=== PATIENT | male | born 1985 | race African-American/Black ===

== ENCOUNTER 2020-08-11 00:23 | Emergency (ER) | payer OTHER, SELFPAY ==
[2020-08-11 00:33] VITALS: BP 138/78; BP 143/84; PULSE 101; PULSE 70; RESP 18; TEMP 36.7; O2SAT 98; BMI 85.0
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
--- NOTE | 2020-08-11 01:13 | PC.NURSE ---
REGARDING SI/HI PATIENT DENIES SI/HI MULTIPLE TIMES DURING TRIAGE. PATIENT DENIES HAVING PLAN. PER PATIENT I JUST FEEL OVERWHELMED, I'VE HAD A LOT OF DEATHS IN MY LIFE AND I FEEL SUPER ANXIOUS. PATIENT CLARIFIED HE WANTS TO SPEAK TO N REGARDING FEELING ANXIOUS AND OVERWHELMED NOT DUE TO SI.
--- NOTE | 2020-08-11 02:28 | PC.NURSE ---
this rn and dr coyle at bedside speaking to patient who at the time of entering the room was sleeping. explained to patient if he feels as though he really broke his left leg and wants it to be further evaluated we would need to transfer patient to [facility] because of his weight being 647 pounds. pt states he honestly just wants somewhere to sleep for the night. md aware. pt denies si/hi.
[2020-08-11 02:36] VITALS: BP 144/76; PULSE 56; RESP 18; TEMP 36.9; O2SAT 94
--- NOTE | 2020-08-11 05:58 | PC.NURSE ---
PT REMAINS IN NAD, SLEEPING AT THIS TIME. PLACED ON 2 L NC DUE TO DESTAT WHEN SLEEPING. 96% ON 2 L. OTHERWISE NAD.
[2020-08-11 06:34] VITALS: BP 171/95; PULSE 94; RESP 20; O2SAT 94
[2020-08-11 06:58] VITALS: BP 171/108; PULSE 88; RESP 16; O2SAT 95
--- NOTE | 2020-08-11 07:07 | PC.NURSE ---
PT VERY SLEEPY, BUT EASILY ABUSABLE, ORAL MUCOSAL VERY DRY. PT SET UP WITH [employer]IER, PT STATES THAT HE IS UNABLE TO LEAVE BECAUSE UNABLE AMBULATE AND HIS WHEELCHAIR IS AT [employer] AT [address].
[2020-08-11 08:42] VITALS: BP 182/94; PULSE 85; RESP 20; TEMP 36.7; O2SAT 92
== END 2020-08-11 09:31 | disposition home or self-care (01) ==
PROVIDERS: Emergency Provider Student in an Organized Health Care Education/Training Program
DX: R60.0 Localized edema (principal); R07.89 Other chest pain; M79.605 Pain in left leg; M79.604 Pain in right leg; M25.562 Pain in left knee; I10 Essential (primary) hypertension; Z79.899 Other long term (current) drug therapy; F17.200 Nicotine dependence, unspecified, uncomplicated; Z71.6 Tobacco abuse counseling; Z59.0 Homelessness; Z20.828 Contact with and (suspected) exposure to other viral communicable diseases
CPT/HCPCS: 99284

== ENCOUNTER 2020-08-19 21:03 | Emergency (ER) | payer OTHER, SELFPAY ==
[2020-08-19 21:10] VITALS: BP 146/94; BP 179/95; PULSE 100; PULSE 89; RESP 22; TEMP 36.8; O2SAT 99; BMI 94.8
--- NOTE | 2020-08-19 21:37 | XR_ITS ---
EXAMINATION: XR CHEST CLINICAL INFORMATION: Chest pain. Shortness of breath. COMPARISON: Chest x-ray 06/23/2020 TECHNIQUE: Frontal portable view of the chest was obtained. 10:10 PM FINDINGS: No significant abnormality is noted involving the heart, lungs, mediastinum, bony thorax or soft tissues. IMPRESSION: Unremarkable examination.
--- NOTE | 2020-08-19 21:42 | ED_ITS ---
HPI - Chest Pain General Chief Complaint: Chest Pain Stated Complaint: BODY ACHES Time Seen by Provider: 08/19/20 21:27 Source: patient Mode of arrival: EMS Limitations: no limitations History of Present Illness HPI narrative: Patient comes to emergency room complaining of chest pain for 2 hours and shortness of breath. Patient also complaining of generalized body aches. Patient states he was eating 2 hours ago. patient has had multiple visits to the emergency room complaining of chest pain, Patient states this time it feels different but is unable to describe the difference. MD complaint: chest pain Onset (ago): hour(s) Timing of current episode: constant Prior episodes: Yes Onset: after eating Pain location: substernal Pain radiation: none Severity: moderate Quality: aching Relieving factors: nothing Exacerbating factors: nothing Risk Factors Coronary artery disease risk factors: diabetes and hypertension Related Data Home Medications Medication Instructions Recorded Confirmed prednisone 10 mg PO DAILY 08/11/20 08/11/20 Allergies Allergy/AdvReac Type Severity Reaction Status Date / Time No Known Allergies Allergy Verified 08/19/20 21:13 [No Known Allergies*] Review of Systems Review of Systems: Constitutional : No Weight loss, No Fever, No Chills, No Night Sweats, No Fatigue, generalized body aches ENT/Mouth : No Hearing loss, No Ear Pain, No Nasal Congestion, No Sinus Pain, No Hoarseness, No sore throat, No Rhinorrhea, No Swallowing Difficulty Eyes: No Eye Pain, No Swelling, No Redness, No Foreign Body, No Discharge, No Vision Changes Cardiovascular : chest pain and shortness of breath Edema, No Palpitations Respiratory : No Cough, No Sputum, No Wheezing, No Smoke Exposure Gastrointestinal : No Nausea, No Vomiting, No Diarrhea, No Constipation, No abdominal Pain, No Hematochezia, No Melena Genitourinary : no irregular bleeding, No Dysuria, No Urinary Frequency, No Hematuria, No Urinary Incontinence, No Urgency, No Flank Pain, No Urinary Flow Changes, No Hesitancy Musculoskeletal : No joint pain, No Myalgias, No Joint Swelling Skin : No Skin Lesions, No rash Neuro : No Weakness, No Numbness, No Paresthesias, No Loss of Consciousness, No Dizziness, No Headache Psych : No Anxiety/Panic, No Depression, No SI/HI/AH/VH, No Social Issues, Heme/Lymph: No Bruising, No Bleeding,No Lymphadenopathy Endocrine : No Polyuria, No Polydipsia, No Temperature Intolerance PMF Past Medical History Medical History Anxiety Bipolar disorder Depression Hypertension Lymph edema PTSD (post-traumatic stress disorder) Sleep apnea in adult Testicle pain Social History Social History Smoking Status: Current some day smoker Advance Directives: No Physical Exam Vital Signs: Vital Signs: Vital Signs Temp Pulse Resp BP Pulse Ox 08/20/20 00:00 98.2 F 90 20 165/86 H 99 08/19/20 21:10 98.2 F 89 22 H 179/95 H 99 Body Mass Index 94.8 Appearance: Alert. Oriented X3. No acute distress, morbidly obese Eyes: Pupils equal, round and reactive to light. ENT: Pharynx normal. Neck: Normal inspection. Neck supple. No lymph nodes noted. No crepitus CVS: Normal heart rate and rhythm. Pulses normal. Normal S1 and S2, reproducible bilateral chest pain on palpation Respiratory: No respiratory distress. Breath sounds normal. No Wheezing. No rales Abdomen: Soft and nontender. No rigidity. No distention. good BS x4 Skin: Skin warm and dry. Normal skin color. Normal skin turgor. Extremities: No lower extremity edema. No lower extremity edema. No Lacerations. No Rash Neuro: Oriented X 3. No motor deficit. No sensory deficit. Moving all e xtermities. No slurred speech. Course Reevaluation(s) Reevaluation #1: patient has been sleeping comfortably, no pain reported. as the patient's nurse was getting him ready for discharge, patient stated that he wanted to be seen by behavioral health. Behavioral Health evaluated the patient, patient is not suicidal. Patient requested to be left in the ED until the morning when he can catch a bus or a chair van. Unfortunately, at this time, is not an option. care team saw the patient, offer him several options for therapy. MDM - Chest Pain MDM Narrative Medical decision making narrative: awoke up the patient, he denies chest pain, I discussed with him that his labs are at baseline. Patient has a troponin of 6.7, patient's baseline is approximately 10.0 Differential Diagnosis Differential diagnosis: Likely stable angina, atypical chest pain, costochondritis and chest pain Medical Records Data Attestation: I reviewed the patient's medical records. Lab Data Attestation: I reviewed the patient's lab results. Result diagrams: 08/19/20 22:23 08/19/20 22:23 Labs: Lab Results 08/19/20 08/19/20 08/19/20 Range/Units 22:23 22:23 22:23 WBC 7.1 (4.8-10.8) X10*3/uL RBC 3.96 L (4.60-5.80) X10*6/uL Hgb 10.1 L (14.0-18.0) g/dl Hct 34.6 L (42-52) % MCV 87.4 (80-98) fL MCH 25.5 L (27.0-33.0) pg MCHC 29.2 L (31.0-36.0) g/dl RDW 15.7 (11.0-16.0) % Plt Count 224 (160-400) X10*3/uL MPV 10.5 (9.4-12.4) fL Immature Gran % (Auto) 0.3 (0.0-0.4) % Neut % (Auto) 67.7 (45-73) % Lymph % (Auto) 15.9 L (20-40) % [place] % (Auto) 9.6 (2-11) % Eos % (Auto) 6.2 H (0-4) % Baso % (Auto) 0.3 (0-2) % Lymph # (Auto) 1.1 L (1.2-4.9) X10*3/uL [place] # (Auto) 0.7 (0.1-1.2) X10*3/uL Eos # (Auto) 0.4 (0.0-0.4) X10*3/uL Baso # (Auto) 0.0 (0.0-0.2) X10*3/uL Abs Immat Gran (auto) 0.02 (0.00-0.03) X10*3/uL Absolute Neuts (auto) 4.8 (2.0-8.3) X10*3/uL Absolute Nucleated RBC 0.000 (0.0-0.012) X10*3/uL Nucleated RBC % (auto) 0.0 (0.0-0.2) /100WBC Sodium 137 (135-145) mmol/L Potassium 3.8 (3.3-5.1) mmol/l Chloride 99 (96-108) mmol/L Carbon Dioxide 31 H (22-29) mmol/L Anion Gap 11 L (12-20) BUN 12 (9-16) mg/dL Creatinine 0.97 (0.5-1.4) mg/dL Estim Creat Clear Calc 258.2 Estimated GFR > 60 Random Glucose 139 H (60-115) mg/dL Calcium 8.0 L (8.4-10.2) mg/dL Troponin I High Sens 6.7 (<3.5-35.0) ng/L B-Natriuretic Peptide < 10 (<100) pg/mL Scores Heart Score History: -0- slightly suspicious ECG: -0- normal Age: -0- < or = 45 Risk factory: -2- 3 or more risk factors or treated atherosclerosis Troponin: -1- >1 - <3x normal limit Score: 3 Risk: 1.7% Discharge Plan Discharge Clinical Impression: Atypical chest pain Patient Disposition: Home, Self-Care Instructions: Chest Pain (ED) Additional Instructions: Please follow-up with your primary care physician tomorrow. If you have any worsening or new symptoms, please return to the emergency room or call 911 Prescriptions: No Action prednisone 10 mg PO DAILY RF: 0
--- NOTE | 2020-08-19 21:54 | ECG_ITS ---
Test Reason : CHEST PAIN Blood Pressure : / mmHG Vent. Rate : 096 BPM Atrial Rate : 096 BPM P-R Int : 164 ms QRS Dur : 074 ms QT Int : 348 ms P-R-T Axes : 063 050 108 degrees QTc Int : 439 ms Normal sinus rhythm Left atrial enlargement T wave abnormality, consider lateral ischemia Abnormal ECG When compared with ECG of 05-JUL-2020 02:46, Inverted T waves have replaced nonspecific T wave abnormality in Lateral leads Referred By: Lita Mcmillan Electronically Signed By:YURI KNOX MD
[2020-08-19 22:28] LABS: Basophils Percent Auto 0.3 % (0-2); Eosinophils Absolute Auto 0.4 X10*3/uL (0.0-0.4); Eosinophils Percent Auto 6.2 % (0-4); Hematocrit 34.6 % (42-52); Hemoglobin 10.1 g/dl (14.0-18.0); Imm Gran Abs Auto 0.02 X10*3/uL (0.00-0.03); Imm Gran Pct Auto 0.3 % (0.0-0.4); Lymphocytes Absolute Auto 1.1 X10*3/uL (1.2-4.9); Lymphocytes Percent Auto 15.9 % (20-40); MANUAL DIFF FLAG NO; Mean Corpuscular HGB Conc 29.2 g/dl (31.0-36.0); Mean Corpuscular Hemoglobin 25.5 pg (27.0-33.0); Mean Corpuscular Volume 87.4 fL (80-98); Mean Platelet Volume 10.5 fL (9.4-12.4); Monocytes Absolute Auto 0.7 X10*3/uL (0.1-1.2); Monocytes Percent Auto 9.6 % (2-11); Neutrophils Absolute Auto 4.8 X10*3/uL (2.0-8.3); Neutrophils Percent Auto 67.7 % (45-73); Platelet Count 224 X10*3/uL (160-400); Red Blood Count 3.96 X10*6/uL (4.60-5.80); Red Cell Distribution Width 15.7 % (11.0-16.0); White Blood Count 7.1 X10*3/uL (4.8-10.8)
[2020-08-19 22:47] LABS: Anion Gap 11 (12-20); Blood Urea Nitrogen 12 mg/dL (9-16); Carbon Dioxide 31 mmol/L (22-29); Chloride 99 mmol/L (96-108); Creatinine Clr Calc Pharmacy 258.2; Estimated Glomerular Filt Rate > 60; Glucose Random 139 mg/dL (60-115); Potassium 3.8 mmol/l (3.3-5.1); Sodium 137 mmol/L (135-145)
[2020-08-19 22:54] LABS: B Type Natriuretic Peptide < 10 pg/mL (<100); Troponin-I High Sensitivity 6.7 ng/L (<3.5-35.0)
[2020-08-20] VITALS: BP 165/86; PULSE 90; RESP 20; TEMP 36.8; O2SAT 99
--- NOTE | 2020-08-20 02:00 | PC.NURSE ---
PATIENT SEEN BY CARE TEAM MARINA. PATIENT DENIES SI OR HI, STATING HE WANTS TO HAVE MEDICATION CHANGES. GIVEN RESOURCES TO FOLLOW UP WITH THERAPIST. PLAN OF CARE FOR DISCHARGE TO THE WAITING ROOM. PATIENT STATING THAT HE WILL NOT LEAVE THE DEPARTMENT. WILL RE-APPROACH PATIENT WITH ADDITIONAL STAFF MEMBERS.
--- NOTE | 2020-08-20 02:02 | MHC.CARE ---
CARE team consult requested for pt who stated that he wanted to speak with someone about his mental health. Pt was difficult to engage, and then difficult to understand due his him mumbling. Pt did not provide relevant responses to questions when asked, rather staring blankly at this credit underwriter or changing the subject. This credit underwriter asked pt how he feels that he would be best helped at this time, to which pt responded that he wants to be admitted to in psych to get back on his meds and to get a therapist. This credit underwriter offered to complete referrals for outpatient therapy and psychiatry and to provide pt with [facility] crisis card. Pt stared blankly at this credit underwriter, then responded so you aren't going to help me. Pt was not receptive to the suggestions, and stated that he wanted to speak with crisis. Pt was informed that [facility] crisis evaluates pt's who are in more acute behavioral health circumstances. Pt was again offered therapy referrals and wouldn't respond when asked what area he would prefer the referrals to be made in. Pt explained that he wanted to stay overnight because he can't walk and his wheelchair is at the [facility]. Pt reported that he missed the bus to get back to [place], and that he came to the ED to talk to someone (initial complaint was SOB and body aches) and denied there being any physical complaints. Pt asked can't I just stay the night? They let me do that the last time I was here, then I could get a chair van to bring me to my wheelchair. Pt was told that those arrangements are not typical and should not be an expectation when coming to the ED. Pt continued to decline referrals and resources. ED physician updated, plan is for pt to be discharged.
== END 2020-08-20 02:39 | disposition home or self-care (01) ==
PROVIDERS: Emergency Provider Emergency Medicine
DX: R07.89 Other chest pain (principal); I10 Essential (primary) hypertension; F41.9 Anxiety disorder, unspecified; F31.9 Bipolar disorder, unspecified; F43.10 Post-traumatic stress disorder, unspecified
CPT/HCPCS: 36415; 71045; 80048; 83880; 84484; 85025; 93005; 99283; 99284

== ENCOUNTER 2020-09-22 21:44 | Emergency (ER) | payer OTHER, SELFPAY ==
[2020-09-22 21:58] VITALS: BP 169/89; PULSE 96; RESP 28; TEMP 35.5; O2SAT 95; O2SAT 96; BMI 92.0
--- NOTE | 2020-09-22 22:53 | ED_ITS ---
HPI - General Adult General Chief complaint: Fall Stated complaint: fall Time Seen by Provider: 09/22/20 22:53 Source: patient Mode of arrival: wheelchair History of Present Illness HPI narrative: This is a 35-year-old male well known to this emergency department who states that he fell off his wheelchair [place] [employer] and is experiencing some dizziness and lightheadedness, however on further questioning patient endorses that this has resolved and states that he is otherwise feeling depressed but denies feeling suicidal ideation. He is requesting to speak with someone from the crisis team as well as a safe place to rest. Related Data Home Medications Medication Instructions Recorded Confirmed prednisone 10 mg PO DAILY 08/11/20 08/11/20 Allergies Allergy/AdvReac Type Severity Reaction Status Date / Time No Known Allergies Allergy Verified 08/19/20 21:13 [No Known Allergies*] Review of Systems Review of Systems: Pertinent positives and negatives as stated in HPI and 10 point review systems is otherwise negative. PMFSH Past Medical History Source: nursing notes reviewed Medical History Anxiety Bipolar disorder Depression Hypertension Lymph edema PTSD (post-traumatic stress disorder) Sleep apnea in adult Testicle pain Social History Social History Smoking Status: Unknown if ever smoked Use of substances other than those prescribed or required for medical reasons: Unknown Advance Directives: No Advance Directives Information Provided: Yes Physical Exam Vital Signs: Vital Signs: Last Vital Signs Temp 95.9 F L 09/22/20 21:58 Pulse 91 09/23/20 04:00 Resp 18 09/23/20 06:00 BP 169/89 H 09/22/20 21:58 Pulse Ox 100 09/23/20 04:00 Body Mass Index 92.0 Patient with significant morbid obesity which limits physical exam. VITAL SIGNS: Reviewed. GENERAL: Well developed, well nourished, in no acute distress. HEAD: Normocephalic/atraumatic, EYES: PERRLA, EOMI intact without pain, no nystagmus/pallor/icterus noted EARS: Ext canals without abnormality, TMs non-bulging and non-erythematous NOSE: Nares patent bilateral OROPHARYNX: no oral lesions noted, posterior pharynx clear and non-erythematous without noted tonsillar enlargement/erythema/exudates NECK: Supple, no adenopathy LUNGS: Normal breath sounds. No adventitious sounds or accessory muscle use. SpO2<95> CARDIOVASCULAR: Regular rate and rhythm without noted murmurs, no JVD or lower extremity edema. ABDOMEN: Soft, non-tender, non-distended with bowel sounds. No rigidity. No guarding. No palpable masses or hernias noted MUSCULOSKELETAL: No tenderness, deformities, or effusions noted on gross inspection. EXTREMITIES: No cyanosis, clubbing, known bilateral lymphedema SKIN: Inspection of the skin reveals no rashes, ulcerations, jaundice, pallor, or petechiae. NEUROLOGIC: Alert and oriented x 4. Strength and sensation to light touch were grossly intact x 4. Course Course Course Narrative: This is a 35-year-old male with history and clinical presentation consistent with depressive symptoms and will be evaluated by the crisis team. Patient denies any suicidal ideation. Reevaluation(s) Reevaluation #1: Signed out to Dr Deluca with plan to discharge as long as [facility] evaluation clears patient. Time: 07:06 Discharge Plan Discharge Clinical Impression: Grieving Depression Qualifiers: Depression Type: unspecified Qualified Code(s): F32.9 - Major depressive disorder, single episode, unspecified Patient Disposition: Home, Self-Care Instructions: Depression (ED) Additional Instructions: The patient and/or family acknowledge understanding of results (as applicable), diagnosis, treatment plan, need for follow up, and symptoms that should prompt a return to the emergency room. Prescriptions: No Action prednisone 10 mg PO DAILY RF: 0 Referrals: Physician,Unknown [Primary Care Provider] - 2 days
[2020-09-23] VITALS: RESP 18
[2020-09-23 02:00] VITALS: RESP 18
--- NOTE | 2020-09-23 02:03 | PC.NURSE ---
Pt denies SI or HI. Depressed d/t recent loss of parents. Awaiting to be seen from [facility].
[2020-09-23 04:00] VITALS: PULSE 91; RESP 18; O2SAT 100
--- NOTE | 2020-09-23 04:09 | MHC.PIE ---
P: Low O2 80% at room air. I: 2L oxygen applied via nc. E: Oxygen sat maintained > 95% at 2 L via NC. Will continue to monitor.
[2020-09-23 06:00] VITALS: RESP 18
--- NOTE | 2020-09-23 06:41 | PC.NURSE ---
Incontinent of urine. Walked to bathroom to clean himself. Changed to hospital attire. Awaiting to be seen by Corinna.
[2020-09-23 07:53] VITALS: BP 183/87; PULSE 98; RESP 24; O2SAT 95
--- NOTE | 2020-09-23 07:55 | PC.NURSE ---
Pt assisted back in bed after breakfast. Reports of mother 4 days ago in [place] reports increased depression over event. Denies SI or HI. Awaiting N
--- NOTE | 2020-09-23 10:33 | PC.NURSE ---
[facility] at bedside at this time
--- NOTE | 2020-09-23 11:22 | MHC.CM.ED ---
Received case management consult. Patient was seen and cleared by [facility]. Patient is requesting more help . Patient is active with [facility]. Left a message for Beet Flumer, Belinda Gann via telephone at [phone] ext. [phone] requesting return telephone call. Met with patient in regards to d/c planning. Patient's only concern is obtaining his wheelchair from [employer]. He was at [employer] in [place] last night when he fell. Patient states [employer] is holding the wheelchair for him. T/W spoke with customer service at [employer]. The chair is at the customer service desk. T/w spoke with [employer] at [employer]. She is attempting to obtain the wheelchair for patient. Continue to monitor for d/c needs.
--- NOTE | 2020-09-23 12:02 | PC.NURSE ---
Pt resting comfortably in stretcher, no issues at this time. EMS to be transporting his [facility] chair to us from [employer] where he was picked up from.
== END 2020-09-23 14:20 | disposition home or self-care (01) ==
PROVIDERS: Emergency Provider Student in an Organized Health Care Education/Training Program
DX: F33.1 Major depressive disorder, recurrent, moderate (principal); F43.21 Adjustment disorder with depressed mood; I10 Essential (primary) hypertension; R42 Dizziness and giddiness; Z79.899 Other long term (current) drug therapy
CPT/HCPCS: 99285

== ENCOUNTER 2020-09-29 22:18 | Emergency (ER) | payer OTHER, SELFPAY ==
[2020-09-29 22:34] VITALS: BP 200/102; PULSE 99; RESP 22; TEMP 36.8; O2SAT 95; BMI 97.6
[2020-09-29 22:44] VITALS: BP 200/102; PULSE 99; RESP 22; TEMP 36.8; O2SAT 95
--- NOTE | 2020-09-29 22:53 | ED_ITS ---
HPI - Psych General Chief Complaint: Psychiatric Symptoms Stated Complaint: SI Time Seen by Provider: 09/29/20 22:35 Source: patient and EMS Mode of arrival: EMS Limitations: no limitations History of Present Illness HPI Narrative: 35-year-old male with medical history of morbid obesity, hypertension, Lymphedema and psychiatric symptoms presents with suicidal ideation. MD complaint: suicidal ideation and feels depressed Onset (ago): unknown Duration: constant History of same: Yes Relieving factors: none Context: not taking psychiatric medications Associated psychiatric symptoms: depression Associated symptoms: denies other symptoms Treatments prior to arrival: none If self harm: admits thoughts of self harm Related Data Home Medications Medication Instructions Recorded Confirmed prednisone 10 mg PO DAILY 08/11/20 08/11/20 Allergies Allergy/AdvReac Type Severity Reaction Status Date / Time No Known Allergies Allergy Verified 08/19/20 21:13 [No Known Allergies*] Review of Systems Review of Systems: Constitutional: No Fever, No Chills ENT/Mouth: No Ear Pain, No Nasal Congestion, No sore throat Eyes: No Eye Pain, No Swelling, No Redness Cardiovascular: No Chest Pain, No SOB Respiratory: No Cough, No Sputum, No Dyspnea Gastrointestinal: No Nausea, No Vomiting, No Diarrhea, No Hematochezia, No Melena Genitourinary: No Dysuria, No Urinary Frequency, No Hematuria Musculoskeletal: No Myalgias Skin: No Skin Lesions, No rash Neuro: No Weakness, No Numbness, No Paresthesias, No Dizziness, No Headache Psych: positive Anxiety, positive Depression, positive SI Heme/Lymph: No Lymphadenopathy Endocrine: No Polyuria, No Polydipsia Yes all other systems are reviewed and are negative [facility] Past Medical History Attestation statement: The following information was validated with the patient. Source: old records reviewed Medical History Anxiety Bipolar disorder Depression Hypertension Lymph edema PTSD (post-traumatic stress disorder) Sleep apnea in adult Testicle pain Social History Social History Alcohol intake: never Smoking Status: Unknown if ever smoked Smoked in Last 30 Days: No Use of substances other than those prescribed or required for medical reasons: No Advance Directives: No Physical Exam Vital Signs: Vital Signs: Last Vital Signs Temp 97.9 F 09/29/20 23:50 Pulse 91 09/29/20 23:50 Resp 14 09/29/20 23:50 BP 166/89 H 09/29/20 23:50 Pulse Ox 94 09/29/20 23:50 Body Mass Index 97.6 Appearance: Alert. Oriented X3. No acute distress. Eyes: Pupils equal, round and reactive to light. ENT: Pharynx normal. Neck: Normal inspection. Neck supple. CVS: Normal heart rate and rhythm. Pulses normal. Respiratory: No respiratory distress. Breath sounds normal. Abdomen: Soft and nontender. Skin: Skin warm and dry. Normal skin color. Normal skin turgor. Extremities: No lower extremity edema. Neuro: No motor deficit. No sensory deficit. Course Course Course Narrative: 35-year-old male past medical history of morbid obesity, hypertension, lymphedema, and psychiatric disorder presents with suicidal ideation, depression, and anxiety. Plan of care is for care team consult. He presents via EMS for suicidal ideation. [place], he threw room self onto the ground out of his wheelchair as the mall was c losing. He is well known to this facility as well as other facilities [facility] and [facility]. He is no longer welcome at [facility] or [facility] because of his abusive and manipulative behaviors. He usually presents at hospital when he has no resources or money, he has had multiple N evaluations as well as multiple opportunities for inpatient stays and outpatient therapies. He has nev er filled any of the medications upon discharge and this has been discussed with him by both Care Team and N. interesting to note, there was a write up in a local newspaper about this individual, there was a Go Fund Me page started for him which raise 7000 dollars to help him find home And support his disabilities. An investigative report found that he had a home and that he was not disabled and that he is wheelchair-bound due to morbid obesity. He is able to walk when he wants to. He presents with tachypnea, while present in the room he is forcing himself to breathe in unlabored manner, I watched him from outside of his room where he was breathing in and unlabored even respiration at a normal rate of 16. once I entered the room he started forcing himself to breathe at a faster rate. He is known to alter his respiration rate and report chest pain To obtain medical evaluations, as well as request personal care and cleansing from RNs and ED technicians when he can do these things himself. this behavior has been well documented in his BHN and care team consults. care team consult completed, it was discussed that M5 is not an option at this time, he does report that his mother recently and he is feeling depression because of that. It is well documented that he grew up in foster care and residential programs. Care team and I both feel that this patient is abusing the system however he maintains his suicidality. We will order BHN consult as well as psychiatric consult. Sign out to Dr. Demarco. MDM - Psych Differential Diagnosis Differential diagnosis: Likely suicidal ideation, depression and acute anxiety Restraints Face to Face Assessment: Face to Face Assessment: Current Situation: After assessment of the patient, a review of the pertinent medical record and a discussion with nursing staff, I feel the patient requires a restrain intervention. Reaction To: [] Medical Condition: [] Behavioral State: [] Continued Need: [] Medical Records Attestation: I reviewed the patient's medical records. Discharge Plan Discharge Prescriptions: No Action prednisone 10 mg PO DAILY RF: 0
--- NOTE | 2020-09-29 23:02 | ED_ITS ---
HPI - General Adult General Chief complaint: Psychiatric Symptoms Stated complaint: SI Time Seen by Provider: 09/29/20 22:35 Related Data Home Medications Medication Instructions Recorded Confirmed prednisone 10 mg PO DAILY 08/11/20 08/11/20 Allergies Allergy/AdvReac Type Severity Reaction Status Date / Time No Known Allergies Allergy Verified 08/19/20 21:13 [No Known Allergies*] PMFSH Past Medical History Medical History Anxiety Bipolar disorder Depression Hypertension Lymph edema PTSD (post-traumatic stress disorder) Sleep apnea in adult Testicle pain Social History Social History Alcohol intake: never Smoking Status: Unknown if ever smoked Smoked in Last 30 Days: No Use of substances other than those prescribed or required for medical reasons: No Advance Directives: No Physical Exam Vital Signs: Vital Signs: Last Vital Signs Temp 97.5 F 09/30/20 02:00 Pulse 90 09/30/20 02:00 Resp 15 09/30/20 02:00 BP 167/81 H 09/30/20 02:00 Pulse Ox 94 09/30/20 02:00 Body Mass Index 97.6 Discharge Plan Discharge Clinical Impression: Depression, Homeless Patient Disposition: Home, Self-Care Instructions: Depression (ED) Additional Instructions: Recommend follow up with [facility], they can accommodate your CPAP machine. Follow up with your doctor this week. If you develop suicidal thoughts call 911 or come back to the ER for further evaluation. Prescriptions: No Action prednisone 10 mg PO DAILY RF: 0 Interventions: ED Discharge Assessment Last Done: 09/30/20 14:27 Discharge Date/Time: 09/30/20 14:27
[2020-09-29 23:50] VITALS: BP 166/89; PULSE 91; RESP 14; TEMP 36.6; O2SAT 94
--- NOTE | 2020-09-30 01:36 | MHC.CARE ---
CARE Team meets with pt after receiving consult, siting SI. Pt is very well known to CARE Team and provider was questioning if BHN assessment should take place. He reports increased depression/hopelessness second to the recent of his mother. Pt is seeking inpatient level of care, siting that he would like to get back on his meds. There is a known hx of medication non compliance post d/c. CARE Team attempts to safety plan with pt to see if a crisis assessment can be diverted. Pt has a hx of inpatient hospitalizations that have been minimally beneficial for him. Pt has hx of suicidal ideation, however, has not acted on these thoughts. Alternatives, such as shelters and respite programs are very difficult for pt to access. ED provider, Mariah Viveros NP and CARE Team clinician are questioning the benefit of inpt admission. Pt is often difficult to place on inpatient units, due to his need of a bariatric bed. Plan at this time is for BHN to conduct assessment. Consult to psychiatry has also been placed, as it would be beneficial for them to give recommendations relating to disposition.
[2020-09-30 02:00] VITALS: BP 167/81; PULSE 90; RESP 15; TEMP 36.4; O2SAT 94
--- NOTE | 2020-09-30 07:42 | PC.NURSE ---
report taken from [facility] pt here for increased depression, asking to speak to crisis. [facility] faxed and called. will see pt today. pt appears to be sleeping in sitting position, snoring loudly. rr even/unlabored.
--- NOTE | 2020-09-30 09:21 | PC.NURSE ---
pt breakfast warmed up. eating att.
--- NOTE | 2020-09-30 10:08 | PC.NURSE ---
per n, clinician out to assess pt shortly.
--- NOTE | 2020-09-30 11:28 | PC.NURSE ---
[facility] at bedside for consult.
--- NOTE | 2020-09-30 12:21 | PC.NURSE ---
following n eval, pt no longer needing 1:1 observation. plan to try and facilitate transfer to [facility], per n. [facility] for discharge needs.
== END 2020-09-30 14:27 | disposition home or self-care (01) ==
PROVIDERS: Emergency Provider Internal Medicine
DX: F33.1 Major depressive disorder, recurrent, moderate (principal); R45.851 Suicidal ideations; I10 Essential (primary) hypertension; Z79.899 Other long term (current) drug therapy
CPT/HCPCS: 99284

== ENCOUNTER 2020-11-07 07:05 | Emergency (ER) | payer OTHER, SELFPAY ==
[2020-11-07 07:11] VITALS: BP 145/101; BP 149/81; PULSE 101; PULSE 97; RESP 20; TEMP 37.1; O2SAT 97; O2SAT 98; BMI 83.7
--- NOTE | 2020-11-07 07:15 | XR_ITS ---
EXAMINATION: XR ANKLE, LEFT CLINICAL INFORMATION: Lateral ankle pain COMPARISON: None TECHNIQUE: AP, lateral, and mortise views of the left ankle. Portable technique limits assessment. FINDINGS: Prominence of the soft tissues presumably related to body habitus. There is no gross disruption of the ankle mortise. Generalized spurring. No gross acute deformity. Suboptimal positioning especially on lateral view. Portable technique. Tiny well-corticated ossific density inferior to the lateral malleolus as well as the medial malleolus likely sequela of old injuries. Spurring dorsally noted as well about the Lisfranc's joint and Chopart joint. XR/XR ankle LT min 3V IMPRESSION: Limited portable exam dose 3 no gross fracture.
--- NOTE | 2020-11-07 07:41 | ED.LOWEXIN ---
HPI - Extremity Injury (Lower) General Chief Complaint: Extremity Injury, Lower Stated Complaint: leg pain Time Seen by Provider: 11/07/20 07:36 Source: patient and EMS Mode of arrival: EMS Limitations: no limitations History of Present Illness HPI Narrative: Patient comes to emergency room complaining of left ankle pain, worse over the left lateral malleolus. Patient states it has been present for about 3 days, patient has been able to bear weight, denies any injury. Patient states he does not know what happened to it, it just started hurting suddenly. Patient denies pain anywhere else. Patient denies calf pain, no thigh pain, foot and toes within normal limits. Per EMS, patient was ambulatory in the field Related Data Home Medications Medication Instructions Recorded Confirmed prednisone 10 mg PO DAILY 08/11/20 08/11/20 Previous Rx's Medication Instructions Recorded ibuprofen 600 mg PO TID PRN #14 tab 11/07/20 Allergies Allergy/AdvReac Type Severity Reaction Status Date / Time No Known Allergies Allergy Verified 08/19/20 21:13 [No Known Allergies*] Review of Systems Review of Systems: Constitutional : No Weight loss, No Fever, No Chills, No Night Sweats, No Fatigue, No Malaise ENT/Mouth : No Hearing loss, No Ear Pain, No Nasal Congestion, No Sinus Pain, No Hoarseness, No sore throat, No Rhinorrhea, No Swallowing Difficulty Eyes: No Eye Pain, No Swelling, No Redness, No Foreign Body, No Discharge, No Vision Changes Cardiovascular : No Chest Pain, No SOB, No Dyspnea on Exertion, No Orthopnea, No Edema, No Palpitations Respiratory : No Cough, No Sputum, No Wheezing, No Smoke Exposure, No Dyspnea Gastrointestinal : No Nausea, No Vomiting, No Diarrhea, No Constipation, No abdominal Pain, No Hematochezia, No Melena Genitourinary : no irregular bleeding, No Dysuria, No Urinary Frequency, No Hematuria, No Urinary Incontinence, No Urgency, No Flank Pain, No Urinary Flow Changes, No Hesitancy Musculoskeletal : Patient complaining of the left lateral malleolus pain Skin : No Skin Lesions, No rash Neuro : No Weakness, No Numbness, No Paresthesias, No Loss of Consciousness, No Dizziness, No Headache Psych : No Anxiety/Panic, No Depression, No SI/HI/AH/VH, No Social Issues, Heme/Lymph: Chronic bilateral lower extremity lymphedema Endocrine : No Polyuria, No Polydipsia, No Temperature Intolerance [facility] Past Medical History Medical History Anxiety Bipolar disorder Depression Hypertension Lymph edema PTSD (post-traumatic stress disorder) Sleep apnea in adult Testicle pain Social History Social History Alcohol intake: never Smoking Status: Current some day smoker Use of substances other than those prescribed or required for medical reasons: Yes Substance Use Type: Marijuana Substance Use Frequency: Occasionally Advance Directives: No Advance Directives Information Provided: No Physical Exam Vital Signs: Vital Signs: Last Vital Signs Temp 98.8 F 11/07/20 07:11 Pulse 101 H 11/07/20 07:11 Resp 20 11/07/20 07:11 BP 149/81 H 11/07/20 07:11 Pulse Ox 98 11/07/20 07:11 Body Mass Index 83.7 Appearance: Alert. Oriented X3. No acute distress. Eyes: Pupils equal, round and reactive to light. ENT: Pharynx normal. Neck: Normal inspection. Neck supple. No lymph nodes noted. No crepitus CVS: Normal heart rate and rhythm. Pulses normal. Normal S1 and S2 Respiratory: No respiratory distress. Breath sounds normal. No Wheezing. No rales Abdomen: Soft and nontender. No rigidity. No distention. good BS x4 Skin: Skin warm and dry. Chronic lymphedema bilaterally, pain to palpation over the lateral malleolus, patient able to flex and extend ankle Extremities: No lower extremity edema. No lower extremity edema. No Lacerations. No Rash Neuro: Oriented X 3. No motor deficit. No sensory deficit. Moving all extermities. No slurred speech. Course Course Course Narrative: I discussed the x-ray with the patient, no acute fracture. Crutches were offered to the patient. MDM - Extremity Injury (Lower) Imaging Data Left ankle x-ray: Radiologist's impression: Prominence of the soft tissues presumably related to body habitus. There is no gross disruption of the ankle mortise. Generalized spurring. No gross acute deformity. Suboptimal positioning especially on lateral view. Portable technique. Tiny well-corticated ossific density inferior to the lateral malleolus as well as the medial malleolus likely sequela of old injuries. Spurring dorsally noted as well about the Lisfranc's joint and Chopart joint. XR/XR ankle LT min 3V IMPRESSION: Limited portable exam dose 3 no gross fractur Discharge Plan Discharge Clinical Impression: Ankle pain, left Qualifiers: Chronicity: acute Qualified Code(s): M25.572 - Pain in left ankle and joints of left foot Patient Disposition: Home, Self-Care Instructions: Ankle Strain (ED) Additional Instructions: Please follow-up with your primary care physician tomorrow. If you have any worsening or new symptoms, please return to the emergency room or call 911 Prescriptions: New ibuprofen 600 mg tablet 600 mg PO TID PRN (Reason: pain) Qty: 14 RF: 0 No Action prednisone 10 mg PO DAILY RF: 0
[2020-11-07] MEDS: Acetaminophen 325 MG TABLET 650 MG PO (07:59)
== END 2020-11-07 09:33 | disposition home or self-care (01) ==
PROVIDERS: Emergency Provider Emergency Medicine; PCP Family Medicine
DX: M25.572 Pain in left ankle and joints of left foot (principal); I10 Essential (primary) hypertension
CPT/HCPCS: 73610; 99283; 99284

== ENCOUNTER 2020-11-08 04:08 | Emergency (ER) | payer OTHER, SELFPAY ==
[2020-11-08 04:21] VITALS: BP 129/74; PULSE 109; RESP 18; TEMP 36.7; O2SAT 90; BMI 92.2
--- NOTE | 2020-11-08 04:42 | ED.LOWEXIN ---
HPI - Extremity Injury (Lower) General Chief Complaint: Extremity Injury, Lower Stated Complaint: multiple complaints Time Seen by Provider: 11/08/20 04:39 Source: patient Mode of arrival: EMS Limitations: no limitations History of Present Illness HPI Narrative: Patient morbidly obese 300 kg body weight comes here frequently for multiple complaints was seen here yesterday for left ankle pain atraumatic for last 3 days x-ray was done which was negative comes here for similar pain now patient was seen at [facility] also 2 days ago and was given oxycodone no other injuries patient denies any fall or injury other joint pain Related Data Home Medications Medication Instructions Recorded Confirmed prednisone 10 mg PO DAILY 08/11/20 08/11/20 Previous Rx's Medication Instructions Recorded ibuprofen 600 mg PO TID PRN #14 tab 11/07/20 Allergies Allergy/AdvReac Type Severity Reaction Status Date / Time No Known Allergies Allergy Verified 08/19/20 21:13 [No Known Allergies*] Review of Systems Review of Systems: Yes all other systems are reviewed and are negative [facility] Past Medical History Medical History Anxiety Bipolar disorder Depression Hypertension Lymph edema PTSD (post-traumatic stress disorder) Sleep apnea in adult Testicle pain Social History Social History Alcohol intake: never Smoking Status: Current some day smoker Substance Use Type: Marijuana Advance Directives: No Advance Directives Information Provided: No Physical Exam Vital Signs: Vital Signs: Last Vital Signs Temp 98.1 F 11/08/20 04:21 Pulse 109 H 11/08/20 04:21 Resp 18 11/08/20 04:21 BP 129/74 11/08/20 04:21 Pulse Ox 90 L 11/08/20 04:21 Body Mass Index 92.2 Const: General: comfortable and no acute distress Nutritional Appearance: obese morbidly obese Orientation/consciousness: patient oriented x3 HENMT: Head: Yes normal to inspection Face and sinus: Yes normal facial exam Resp: Effort & Inspection: normal respiratory effort Cardio: Rate: regular rate Rhythm: regular rhythm Neuro: General: patient oriented x3 Extrem: Upper/lower leg/hip images: 1. Diffuse tenderness skin is normal lymphedema present no significant swelling of the joints noticed, good range of ankle movement Course Course Course Narrative: Patient purposefully slid down from the bed to the ground any significant injury refusing to get up from the floor Discharge Plan Discharge Clinical Impression: Musculoskeletal pain of lower extremity Qualifiers: Laterality: left Qualified Code(s): M79.605 - Pain in left leg Patient Disposition: Home, Self-Care Instructions: Musculoskeletal Pain (ED) Additional Instructions: Take pain medication as advised and follow up with PCP Prescriptions: No Action ibuprofen 600 mg tablet 600 mg PO TID PRN (Reason: pain) Qty: 14 RF: 0 prednisone 10 mg PO DAILY RF: 0
[2020-11-08] MEDS: oxyCODONE HCl Immed Release 5 MG TABLET 10 MG PO (04:49)
[2020-11-08 07:41] VITALS: BP 165/82; PULSE 103; RESP 18; TEMP 37; O2SAT 91
== END 2020-11-08 09:18 | disposition home or self-care (01) ==
PROVIDERS: Emergency Provider Internal Medicine
DX: M79.605 Pain in left leg (principal); I10 Essential (primary) hypertension; F17.200 Nicotine dependence, unspecified, uncomplicated
CPT/HCPCS: 99283

== ENCOUNTER 2020-11-16 01:26 | Emergency (ER) | payer OTHER, SELFPAY ==
[2020-11-16 01:31] VITALS: BP 159/79; PULSE 114; RESP 22; TEMP 37.4; O2SAT 88; BMI 83.7
--- NOTE | 2020-11-16 01:48 | PC.NURSE ---
pt is coming from [facility].
--- NOTE | 2020-11-16 03:13 | ED.GENADULT ---
HPI - General Adult General Chief complaint: General Medical Stated complaint: leg pain Time Seen by Provider: 11/16/20 03:07 Source: patient Mode of arrival: ambulatory Limitations: no limitations History of Present Illness HPI narrative: 35-year-old male who presents emergency department for evaluation of left leg and ankle pain. This is the patient's 3rd ER visit for this condition. Patient states that he has been having pain in his left lower extremity for approximately 1 week. He denies any injury. He states that he has a constant squeezing/tightness pain that starts in his ankle and goes to his knee. The pain is worse with movement. He states that he has been taking Tylenol, oxycodone ibuprofen with no relief for the pain. States the pain is 10/10 at its worst. He denied fever, chills, nausea, vomiting, chest pain or shortness of breath. Related Data Home Medications Medication Instructions Recorded Confirmed prednisone 10 mg PO DAILY 08/11/20 08/11/20 Previous Rx's Medication Instructions Recorded ibuprofen 600 mg PO TID PRN #14 tab 11/07/20 oxycodone 5 mg PO Q6H PRN #20 tab 11/08/20 Allergies Allergy/AdvReac Type Severity Reaction Status Date / Time No Known Allergies Allergy Verified 08/19/20 21:13 [No Known Allergies*] Review of Systems Review of Systems: Yes all other systems are reviewed and are negative PMFSH Past Medical History Medical History Anxiety Bipolar disorder Depression Hypertension Lymph edema PTSD (post-traumatic stress disorder) Sleep apnea in adult Testicle pain Social History Social History Alcohol intake: never Smoking Status: Current some day smoker Substance Use Type: Marijuana Advance Directives: No Advance Directives Information Provided: No Physical Exam Vital Signs: Vital Signs: Last Vital Signs Temp 99.3 F 11/16/20 01:31 Pulse 114 H 11/16/20 01:31 Resp 22 H 11/16/20 01:31 BP 159/79 H 11/16/20 01:31 Pulse Ox 88 L 11/16/20 01:31 Body Mass Index 83.7 Const: General: cooperative and in distress (Secondary to pain) mild and moderate Nutritional Appearance: obese morbidly obese Extrem: Other: The patient has very large legs with thick dry skin, there is no erythema or increased warmth of the left lower extremity compared to the right, he does have tenderness with palpation of his extremity from the knee down to the ankle, he is able to move his legs without any difficulty. Course Course Course Narrative: 35-year-old male who presents the emergency department for evaluation of left leg pain x1 week without any trauma. The patient does have tenderness with palpation of his left lower extremity. There is no evidence of cellulitis at this time. The patient was given ibuprofen 600 mg orally. He was discharged home and advised to continue taking ibuprofen and Tylenol for his pain. He is advised follow up with his doctor for further evaluation and treatment. Discharge Plan Discharge Prescriptions: No Action ibuprofen 600 mg tablet 600 mg PO TID PRN (Reason: pain) Qty: 14 RF: 0 oxycodone 5 mg tablet 5 mg PO Q6H PRN (Reason: Pain (Scale Score 4-6)) Qty: 20 RF: 0 prednisone 10 mg PO DAILY RF: 0
[2020-11-16] MEDS: Ibuprofen 600 MG TABLET PO (03:31)
== END 2020-11-16 03:49 | disposition home or self-care (01) ==
PROVIDERS: Emergency Provider Emergency Medicine Emergency Medical Services
DX: M79.662 Pain in left lower leg (principal); F17.200 Nicotine dependence, unspecified, uncomplicated; Z71.6 Tobacco abuse counseling; Z79.899 Other long term (current) drug therapy
CPT/HCPCS: 99283

== ENCOUNTER 2020-11-16 03:54 | Emergency (ER) | payer OTHER, SELFPAY ==
[2020-11-16 03:57] VITALS: BMI 83.7
--- NOTE | 2020-11-16 05:03 | PC.NURSE ---
PATIENT REMAINS IN WHEELCHAIR AT THIS TIME, AWAITING PROVIDER EVALUATION. DISCHARGED 10 MINUTES PRIOR TO ARRIVAL TO ED. PT CALLED EMS FROM [facility], UPSET ABOUT BEING DISCHARGED. NO CHANGES FROM PREVIOUS EVALUATION.
--- NOTE | 2020-11-16 05:06 | ED_ITS ---
HPI - General Adult General Chief complaint: General Medical Stated complaint: Crisis Time Seen by Provider: 11/16/20 05:02 Source: patient Mode of arrival: ambulatory Limitations: no limitations History of Present Illness HPI narrative: 35-year-old male who presents the emergency department for evaluation of ?I am stressed out ?and having suicidal ideation. I just saw the patient in the emergency department approximately 30 minutes prior for leg pain. The patient was discharged and when he got to the parking lot he called 911 and told the dispatcher is that he was suicidal. The patient was then brought back to the emergency department for evaluation. The patient told me that he has been suicidal for at least 2 days. He does not have a plan. He is requesting a crisis evaluation. He does not seem to be in any distress he does not appear to have any pain in his left leg which was his previous complaint. Related Data Home Medications Medication Instructions Recorded Confirmed prednisone 10 mg PO DAILY 08/11/20 08/11/20 Previous Rx's Medication Instructions Recorded ibuprofen 600 mg PO TID PRN #14 tab 11/07/20 oxycodone 5 mg PO Q6H PRN #20 tab 11/08/20 Allergies Allergy/AdvReac Type Severity Reaction Status Date / Time No Known Allergies Allergy Verified 08/19/20 21:13 [No Known Allergies*] Review of Systems Review of Systems: Yes all other systems are reviewed and are negative Neurologic: Reports Abnormal speech present [facility] Past Medical History Medical History Anxiety Bipolar disorder Depression Hypertension Lymph edema PTSD (post-traumatic stress disorder) Sleep apnea in adult Testicle pain Social History Social History Alcohol intake: never Smoking Status: Current some day smoker Substance Use Type: Marijuana Advance Directives: No Advance Directives Information Provided: No Physical Exam Vital Signs: Vital Signs: Body Mass Index 83.7 Const: General: cooperative Nutritional Appearance: obese morbidly obese Orientation/consciousness: oriented to person and oriented to place Limitations: no limitations HENMT: Head: Yes normal to inspection, Yes normocephalic and Yes atraumatic Ears: external ears normal General nose exam: Normal external nose present Face and sinus: Yes normal facial exam Mouth: Normal oral and palatal mucosa present Throat: Yes posterior oropharynx normal Eyes: Periorbital: periorbital findings normal Eyelids: Yes eyelids normal Conjunctivae: conjunctivae normal Sclerae: sclerae normal Corneas: corneas normal Pupils: Equal, round and reactive pupils present Direct Ophthalmoscopy: normal light reflex Neck: Neck: Yes full ROM, Yes no lymphadenopathy, Yes no meningeal signs, Yes trachea midline and Yes supple Chest: Chest palpation & inspection: normal inspection of the chest and normal palpation of entire chest wall Resp: Effort & Inspection: normal respiratory effort and able to speak in complete sentences Auscultation: clear to auscultation bilaterally Cardio: Rate: regular rate Rhythm: regular rhythm Heart sounds: S1 normal heart sound present, S2 normal heart sound present and no murmurs GI: Inspection: Yes normal to inspection Palpation (GI): Soft to palpation, nontender, no guarding, not rigid and No hepatosplenomegaly present : General: Yes no CVA tenderness Back/Spine/Pelvis: Back: no CVA tenderness Cervical Spine: normal cervical lordosis Thoracic/Lumbar Spine: thoracic and lumbar spine normal to inspection Skin: Lesions: no lesions Rashes: no rashes Wounds: no wounds Neuro: General: oriented to person, oriented to place and no meningeal signs Cranial nerves: Yes CN's II-XII intact bilaterally and Yes Equal, round and reactive pupils present Cognition (Neuro): normal cognition Speech: Abnormal speech present Motor exam (neuro): 5/5 motor strength present throughout Extrem: General: Yes normal to inspection and Yes full ROM Psych: Mental Status: mental status grossly normal Speech and movement: Normal speech and movement present Affect: normal affect Attitude: cooperative Thought process: Normal thought process present Thought content: Normal thought content present Course Course Course Narrative: 35-year-old male who presents emergency department complaining of suicidal ideation. He was seen by me approximately 30 minutes prior for evaluation severe left leg pain which seems to have resolved. The patient is well known to the emergency department and has been seen in the past for similar complaints of suicidal ideation and depression. I will obtain a crisis consult on the patient. Discharge Plan Discharge Prescriptions: No Action ibuprofen 600 mg tablet 600 mg PO TID PRN (Reason: pain) Qty: 14 RF: 0 oxycodone 5 mg tablet 5 mg PO Q6H PRN (Reason: Pain (Scale Score 4-6)) Qty: 20 RF: 0 prednisone 10 mg PO DAILY RF: 0
--- NOTE | 2020-11-16 05:06 | PC.NURSE ---
PATIENT MOVED TO ED BED 22 TERAN VIA WHEELCHAIR. PT TO BE EVALUATED BY [facility]/CRISIS TEAM. PT REPORTED THAT HE IS SUICIDAL TO . PT DOES NOT ELABORATE REGARDING CRISIS NEEDS, JUST STATES I NEED TO SEE CRISIS , NO SUICIDE PLAN. PT ARRIVED NAKED OTHER THAN HOSPITAL BLANKET, SECURITY AWARE. WILL CONTINUE TO MONITOR.
[2020-11-16 06:12] VITALS: PULSE 110; RESP 20; TEMP 37.3; O2SAT 93
--- NOTE | 2020-11-16 06:29 | PC.NURSE ---
PATIENT FREQUENTLY ADJUSTING SELF IN WHEELCHAIR. PATIENT'S BODY WEIGHT EXCEEDS MAXIMUM WEIGHT CAPACITY OF ED STRETCHERS. PATIENT BEING MONITORED NEAR NURSES STATION.
--- NOTE | 2020-11-16 10:06 | PC.NURSE ---
pt states that he does not know the names of his meds
[2020-11-16 10:21] VITALS: BP 144/99; PULSE 115; RESP 20; O2SAT 96
--- NOTE | 2020-11-16 10:47 | PC.NURSE ---
PT STATES +SI WITHOUT A PLAN AT THIS TIME.
--- NOTE | 2020-11-16 10:55 | PC.NURSE ---
PAPERWORK/FAXED AND CALLED TO [facility]. THIS RN SPOKE WITH ROSHNI ([facility], ).
[2020-11-16 17:22] VITALS: BP 158/96; PULSE 107; RESP 22; TEMP 36.9; O2SAT 93
--- NOTE | 2020-11-17 00:33 | PC.NURSE ---
REPORT FROM TAMICA KNOWLES AT 23:00.
[2020-11-17 01:57] LABS: COVID-19 Test Negative (Negative)
--- NOTE | 2020-11-17 04:11 | PC.NURSE ---
PT HAS REQUESTED, AND GIVEN SANDWICH, ICE WATER AND ALESSANDRA RAVEN. PT AMBULATORY TO [facility].
[2020-11-17 06:42] VITALS: BP 149/107; PULSE 110; RESP 20; O2SAT 94
--- NOTE | 2020-11-17 11:15 | PC.NURSE ---
Pt now requesting to go home, Dr Crews aware, this RN spoke to [facility] who states they will need to see pt again. [facility] field supervisor made aware by [facility] and will contact ED for further questions
--- NOTE | 2020-11-17 12:00 | PC.NURSE ---
This RN spoke with Michelle from [facility] who states pt is cleared to be discharged home, awaiting ambulance
--- NOTE | 2020-11-17 19:24 | PC.NURSE ---
Pt found sitting upright in bed, awake and alert, awaiting EMS to transfer pt home. Pt denies pain/discomfort, continue to monitor.
[2020-11-17 19:25] VITALS: RESP 20
== END 2020-11-17 20:41 | disposition home or self-care (01) ==
PROVIDERS: Emergency Provider Emergency Medicine Emergency Medical Services
DX: F33.1 Major depressive disorder, recurrent, moderate (principal); R45.851 Suicidal ideations; F17.200 Nicotine dependence, unspecified, uncomplicated; Z71.6 Tobacco abuse counseling; Z79.899 Other long term (current) drug therapy; Z20.828 Contact with and (suspected) exposure to other viral communicable diseases
CPT/HCPCS: 36415; 87635; 99283; 99284

== ENCOUNTER 2021-02-01 05:49 | Emergency (ER) | payer OTHER, SELFPAY ==
[2021-02-01 06:13] VITALS: BP 187/103; PULSE 80; RESP 16; TEMP 36.6; O2SAT 93; BMI 83.7
--- NOTE | 2021-02-01 06:48 | ED.DENTAL ---
HPI - Dental/Oral General Chief complaint: Dental/Oral Stated complaint: tooth pain Time Seen by Provider: 02/01/21 06:40 History of Present Illness HPI Narrative: pt presented c/o tooth pain X 3 Days,denies fever,vomiting ,difficult swallowing Complaint: tooth pain Location: Tooth # (31 and 2) Duration: constant Severity: moderate Severity scale (1-10): 8 Relieving factors: nothing Exacerbating factors: nothing Context: history of dental caries Related Data Home Medications Medication Instructions Recorded Confirmed amlodipine 10 mg PO DAILY 11/17/20 11/17/20 bupropion HCl 150 mg PO DAILY 11/17/20 11/17/20 colchicine 0.6 mg PO DAILY 11/17/20 11/17/20 duloxetine 30 mg PO DAILY 11/17/20 11/17/20 furosemide 20 mg PO BID 11/17/20 11/17/20 lamotrigine 25 mg PO DAILY 11/17/20 11/17/20 lisinopril 40 mg PO DAILY 11/17/20 11/17/20 metoprolol tartrate 50 mg PO BID 11/17/20 11/17/20 nystatin 1 appl TOPICAL BID 11/17/20 11/17/20 oxycodone 1 tab PO QID PRN 11/17/20 11/17/20 Previous Rx's Medication Instructions Recorded amoxicillin-pot clavulanate 1 tab PO Q12H #20 tab 02/01/21 [Augmentin] naproxen sodium 500 mg PO DAILY #20 tab 02/01/21 Allergies Allergy/AdvReac Type Severity Reaction Status Date / Time No Known Allergies Allergy Verified 08/19/20 21:13 [No Known Allergies*] Review of Systems ENT: Reports dental pain Cardiovascular: Cardiovascular: Reports no additional cardiovascular complaints Respiratory: Respiratory: Reports no additional respiratory complaints Musculoskeletal: Musculoskeletal: Reports no additional musculoskeletal complaints PMFSH Past Medical History Medical History Anxiety Bipolar disorder Depression Hypertension Lymph edema PTSD (post-traumatic stress disorder) Sleep apnea in adult Testicle pain Social History Social History Alcohol intake: never Smoking Status: Never smoker Substance Use Type: Marijuana Advance Directives: No Physical Exam Vital Signs: Vital Signs: Last Vital Signs Temp 98 F 02/01/21 06:13 Pulse 80 02/01/21 06:13 Resp 16 02/01/21 06:13 BP 187/103 H 02/01/21 06:13 Pulse Ox 93 02/01/21 06:13 Body Mass Index 83.7 Const: General: cooperative, healthy appearing, comfortable and no acute distress Orientation/consciousness: oriented to person, oriented to place, oriented to time and patient oriented x3 HENMT: Head: Yes normal to inspection and Yes No palpable skull fracture present Ears: hearing grossly normal bilaterally General nose exam: Normal external nose present Face and sinus: Yes normal facial exam Mouth: Normal oral and palatal mucosa present, lip normal and tongue normal Teeth and gingiva: abnormal tooth and associated gingiva, caries, poor dentition and other (cavity tooth #31 and tooth 2) Throat: Yes posterior oropharynx normal and Yes tonsils normal Neck: Neck: Yes normal visual inspection Chest: Chest palpation & inspection: normal inspection of the chest and normal palpation of entire chest wall Resp: Effort & Inspection: normal respiratory effort and able to speak in complete sentences Cardio: Palpation: normal PMI Rate: regular rate Rhythm: regular rhythm Heart sounds: S1 normal heart sound present GI: Inspection: Yes normal to inspection Percussion: Yes normal to percussion Skin: General skin exam: turgor normal Neuro: General: oriented to person, oriented to place, oriented to time and patient oriented x3 Psych: Mental Status: mental status grossly normal Discharge Plan Discharge Clinical Impression: Toothache, Dental caries Patient Disposition: Home, Self-Care Instructions: Toothache (ED) Additional Instructions: make sure you follow up with dentist Tomorrow Prescriptions: New amoxicillin-pot clavulanate [Augmentin] 875-125 mg tablet 1 tab PO Q12H Qty: 20 RF: 0 naproxen sodium 500 mg tablet, ER multiphase 24 hr 500 mg PO DAILY Qty: 20 RF: 0 No Action nystatin 100,000 unit/gram ointment 1 appl topical BID RF: 0 lamotrigine 25 mg tablet 25 mg PO DAILY RF: 0 amlodipine 10 mg tablet 10 mg PO DAILY RF: 0 metoprolol tartrate 50 mg tablet 50 mg PO BID RF: 0 furosemide 20 mg tablet 20 mg PO BID RF: 0 colchicine 0.6 mg tablet 0.6 mg PO DAILY RF: 0 lisinopril 40 mg tablet 40 mg PO DAILY RF: 0 oxycodone 5 mg tablet 1 tab PO QID PRN (Reason: Pain) RF: 0 bupropion HCl 150 mg tablet extended release 24 hr 150 mg PO DAILY RF: 0 duloxetine 30 mg capsule,delayed release(DR/EC) 30 mg PO DAILY RF: 0
[2021-02-01] MEDS: NaPROXEN 500 MG TABLET PO (07:02)
[2021-02-01] MEDS: Amoxicillin/Potassium Clav 875 MG TABLET PO (07:02)
--- NOTE | 2021-02-01 07:40 | PC.NURSE ---
MEDICATED ORDERED, STATES HE CANNOT GET HOME HE CAN'T WALK AND DOESN'T HAVE A WHEEL CHAIR, WILL GET AN AMBULANCE AND FEED HIM BREAKFAST
== END 2021-02-01 09:41 | disposition home or self-care (01) ==
PROVIDERS: Emergency Provider Emergency Medicine
DX: K08.89 Other specified disorders of teeth and supporting structures (principal); K02.9 Dental caries, unspecified; I10 Essential (primary) hypertension; F12.90 Cannabis use, unspecified, uncomplicated
CPT/HCPCS: 99283

== ENCOUNTER 2021-04-23 14:30 | Emergency (ER) | payer OTHER, SELFPAY ==
--- NOTE | 2021-04-23 | ECG_ITS ---
Test Reason : CHEST PAIN Blood Pressure : / mmHG Vent. Rate : 078 BPM Atrial Rate : 078 BPM P-R Int : 172 ms QRS Dur : 086 ms QT Int : 396 ms P-R-T Axes : 054 042 081 degrees QTc Int : 451 ms Normal sinus rhythm Nonspecific ST and T wave abnormality Abnormal ECG When compared with ECG of 19-AUG-2020 21:04, No significant change was found Referred By: Generic ED Physician Electronically Signed By:DUNIA CARRILLO
[2021-04-23 14:34] VITALS: BP 158/96; PULSE 90; O2SAT 94
[2021-04-23 14:58] VITALS: BP 178/114; PULSE 79; RESP 22; TEMP 36.6; BMI 87.1
--- NOTE | 2021-04-23 16:46 | PC.NURSE ---
PT EATING AND DRINKING IN WAITING ROOM W/OUT DIFFICULTY, PT TALKING AND LAUGHING, REPORTS FEELING WELL AND WANTS TO GO HOME, ASKING STAFF TO CALL A TAXI FOR HIM.
--- NOTE | 2021-04-23 20:14 | ED.CHESTPAIN ---
HPI - Chest Pain General Chief Complaint: Chest Pain Stated Complaint: NON CARDIAC CHEST WALL PAIN Time Seen by Provider: 04/23/21 20:14 Source: patient Mode of arrival: EMS Limitations: no limitations History of Present Illness HPI narrative: 36-year-old male who presents emergency department for evaluation of left-sided chest pain. Patient states the pain came on gradually approximately 1/2 days prior. The pain is a constant, aching like sensation. Patient has some mild shortness of breath associated with the pain. States the pain radiates to his left arm. The patient denied fever, chills, cough, nausea, vomiting, lightheadedness or dizziness. He states he has been taking Tylenol and ibuprofen with no relief for the pain. Related Data Home Medications Medication Instructions Recorded Confirmed amlodipine 10 mg PO DAILY 11/17/20 11/17/20 bupropion HCl 150 mg PO DAILY 11/17/20 11/17/20 colchicine 0.6 mg PO DAILY 11/17/20 11/17/20 duloxetine 30 mg PO DAILY 11/17/20 11/17/20 furosemide 20 mg PO BID 11/17/20 11/17/20 lamotrigine 25 mg PO DAILY 11/17/20 11/17/20 lisinopril 40 mg PO DAILY 11/17/20 11/17/20 metoprolol tartrate 50 mg PO BID 11/17/20 11/17/20 nystatin 1 appl TOPICAL BID 11/17/20 11/17/20 oxycodone 1 tab PO QID PRN 11/17/20 11/17/20 Previous Rx's Medication Instructions Recorded amoxicillin-pot clavulanate 1 tab PO Q12H #20 tab 02/01/21 [Augmentin] naproxen sodium 500 mg PO DAILY #20 tab 02/01/21 Allergies Allergy/AdvReac Type Severity Reaction Status Date / Time No Known Allergies Allergy Verified 08/19/20 21:13 [No Known Allergies*] Review of Systems Review of Systems: Yes all other systems are reviewed and are negative Neurologic: Reports Abnormal speech present [facility] Past Medical History [facility] Narrative: Social history: The patient states he is living in a hotel room. He denies tobacco use. He states that he occasionally drinks alcohol. He denies drug use. Medical History Anxiety Bipolar disorder Depression Hypertension Lymph edema PTSD (post-traumatic stress disorder) Sleep apnea in adult Testicle pain Social History Social History Alcohol intake: never Substance Use Type: Marijuana Advance Directives: No Advance Directives Information Provided: No Physical Exam Vital Signs: Vital Signs: Last Vital Signs Temp 97.8 F 04/23/21 14:58 Pulse 79 04/23/21 14:58 Resp 22 H 04/23/21 14:58 BP 178/114 H 04/23/21 14:58 Body Mass Index 87.1 Const: General: cooperative and healthy appearing Nutritional Appearance: obese morbidly obese Orientation/consciousness: oriented to person and oriented to place Limitations: no limitations HENMT: Head: Yes normal to inspection, Yes normocephalic and Yes atraumatic Ears: external ears normal General nose exam: Normal external nose present Face and sinus: Yes normal facial exam Mouth: Normal oral and palatal mucosa present Throat: Yes posterior oropharynx normal Eyes: Periorbital: periorbital findings normal Eyelids: Yes eyelids normal Conjunctivae: conjunctivae normal Sclerae: sclerae normal Corneas: corneas normal Pupils: Equal, round and reactive pupils present Direct Ophthalmoscopy: normal light reflex Neck: Neck: Yes full ROM, Yes no lymphadenopathy, Yes no meningeal signs, Yes trachea midline and Yes supple Chest: Chest palpation & inspection: normal inspection of the chest and tenderness (Moderate left anterior chest wall tenderness) Resp: Effort & Inspection: normal respiratory effort and able to speak in complete sentences Auscultation: clear to auscultation bilaterally Cardio: Rate: regular rate Rhythm: regular rhythm Heart sounds: S1 normal heart sound present, S2 normal heart sound present and no murmurs GI: Inspection: Yes normal to inspection Palpation (GI): Soft to palpation, nontender, no guarding, not rigid and No hepatosplenomegaly present : General: Yes no CVA tenderness Back/Spine/Pelvis: Back: no CVA tenderness Cervical Spine: normal cervical lordosis Thoracic/Lumbar Spine: thoracic and lumbar spine normal to inspection Skin: Lesions: no lesions Rashes: no rashes Wounds: no wounds Neuro: General: oriented to person, oriented to place and no meningeal signs Cranial nerves: Yes Equal, round and reactive pupils present Cognition (Neuro): normal cognition Speech: Abnormal speech present Motor exam (neuro): 5/5 motor strength present throughout Psych: Appearance: well kempt Mental Status: mental status grossly normal Speech and movement: Normal speech and movement present Affect: normal affect Attitude: cooperative Thought process: Normal thought process present Thought content: Normal thought content present Course Course Course Narrative: 36-year-old male who presents emergency department for evaluation of 1 and 1/2 days of left-sided anterior chest wall pain. Physical examination did reveal left anterior chest wall tenderness. The patient has been taking Tylenol and ibuprofen with minimal relief his pain. At this time, I suspect the pain is secondary to musculoskeletal injury and I did discuss this with him . He was advised to continue taking Tylenol and ibuprofen. The patient was given verbal and printed instructions prior to discharge. The patient was advised to follow-up with their PCP in 2 days and to return to the emergency department if their symptoms get worse or if they develop any new symptoms that are concerning to them Discharge Plan Discharge Clinical Impression: Acute costochondritis Patient Disposition: Home, Self-Care Instructions: Costochondritis (ED) Additional Instructions: Take ibuprofen 200 mg pills, 3 pills every 6 hours as needed for pain. Take Tylenol (acetaminophen) 500 mg pills, 2 pills every 4 to 6 hours as needed for pain. Follow-up with your doctor in 2 days. Please return to the emergency department if your symptoms get worse or if you develop any symptoms that are concerning to you. Prescriptions: No Action nystatin 100,000 unit/gram ointment 1 appl topical BID RF: 0 lamotrigine 25 mg tablet 25 mg PO DAILY RF: 0 amlodipine 10 mg tablet 10 mg PO DAILY RF: 0 metoprolol tartrate 50 mg tablet 50 mg PO BID RF: 0 furosemide 20 mg tablet 20 mg PO BID RF: 0 colchicine 0.6 mg tablet 0.6 mg PO DAILY RF: 0 lisinopril 40 mg tablet 40 mg PO DAILY RF: 0 oxycodone 5 mg tablet 1 tab PO QID PRN (Reason: Pain) RF: 0 bupropion HCl 150 mg tablet extended release 24 hr 150 mg PO DAILY RF: 0 duloxetine 30 mg capsule,delayed release(DR/EC) 30 mg PO DAILY RF: 0 amoxicillin-pot clavulanate [Augmentin] 875-125 mg tablet 1 tab PO Q12H Qty: 20 RF: 0 naproxen sodium 500 mg tablet, ER multiphase 24 hr 500 mg PO DAILY Qty: 20 RF: 0
== END 2021-04-23 21:35 | disposition home or self-care (01) ==
PROVIDERS: Emergency Provider Emergency Medicine Emergency Medical Services
DX: M94.0 Chondrocostal junction syndrome [Tietze] (principal); I10 Essential (primary) hypertension; Z79.899 Other long term (current) drug therapy
CPT/HCPCS: 93005; 99283

== ENCOUNTER 2021-05-26 23:38 | Emergency (ER) | payer OTHER, SELFPAY ==
[2021-05-27 04:45] VITALS: BP 139/98; PULSE 76; RESP 22; TEMP 36.4; O2SAT 92; BMI 55.7
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
== END 2021-05-27 08:55 | disposition home or self-care (01) ==
PROVIDERS: Emergency Provider Emergency Medicine
DX: M79.18 Myalgia, other site (principal); I10 Essential (primary) hypertension; Z79.899 Other long term (current) drug therapy
CPT/HCPCS: 99282

== ENCOUNTER 2021-06-02 12:46 | Inpatient (IN) | payer OTHER, SELFPAY ==
[2021-06-02] VITALS (8 sets, daily range): BP systolic 148–210; BP diastolic 43–116; PULSE 74–95; RESP 20; TEMP 36.7; O2SAT 83–98; BMI 94.8
--- NOTE | ~2021-06-02 | XR_ITS ---
EXAMINATION: XR CHEST CLINICAL INFORMATION: Shortness of breath, cough, wheezing COMPARISON: None TECHNIQUE: Portable upright AP view of the chest was obtained. FINDINGS: There are low lung volumes with inspiration to the posterior eighth intercostal space. There is no lobar or segmental airspace consolidation. There is questionable groundglass opacity right infrahilar region near minor fissure. The lungs otherwise clear. There are no air bronchograms. The costophrenic sulci are well-defined. The heart is normal in size. The hilar and mediastinal contours and bony structures are unremarkable. XR/XR chest 1V IMPRESSION: Suspect small groundglass opacity medial right middle lobe. Lungs otherwise clear. No effusion.
--- NOTE | 2021-06-02 13:37 | PC.NURSE ---
BP elevated. Pt reports not taking home BP meds in 3 weeks.
--- NOTE | 2021-06-02 16:33 | ECG_ITS ---
Test Reason : GENERAL MEDICAL Blood Pressure : / mmHG Vent. Rate : 066 BPM Atrial Rate : 066 BPM P-R Int : 178 ms QRS Dur : 078 ms QT Int : 394 ms P-R-T Axes : 045 049 087 degrees QTc Int : 413 ms Normal sinus rhythm Possible Left atrial enlargement Nonspecific ST and T wave abnormality Abnormal ECG When compared with ECG of 23-APR-2021 16:02, No significant change was found Referred By: Nilda Stewart Electronically Signed By:DUNIA CARRILLO
--- NOTE | 2021-06-02 16:34 | ED.URI ---
HPI - URI/Sore Throat General Chief Complaint: Upper Respiratory Symptoms Stated Complaint: COUGH AND STUFFY NOSE FOR DAYS Time Seen by Provider: 06/02/21 16:26 Source: patient and EMS Mode of arrival: EMS Limitations: no limitations History of Present Illness HPI Narrative: 36 y/o male with history of morbid obesity BMI 94, bipolar depression, REBECCA, lymphedema, PTSD, HTN who presents to the ED via EMS from the [place] [id number] where he lives with complaints of not feeling well for the last 2-3 days. He has been short of breath with dry cough and difficulty breathing. He has muscle aches and pains as well as runny nose. He has some central chest pain and epigastric pain, mostly when he coughs. He got the J&J COVID vaccine about 1 month ago and denies every having COVID. He admit to not taking any of his medications for the last 3 weeks or so. MD elicited complaint: cough, nasal congestion and other (SOB) Onset (ago): day(s) Consistency: constant Severity: moderate Able to tolerate fluids by mouth: Yes Exacerbating factors: exertion Relieving factors: nothing Associated symptoms: myalgias, headache, rhinorrhea, nasal congestion, sore throat, cough, chest pain, shortness of breath and abdominal pain Treatments prior to arrival: none Related Data Home Medications Medication Instructions Recorded Confirmed amlodipine 10 mg PO DAILY 11/17/20 06/02/21 duloxetine 30 mg PO DAILY 11/17/20 06/02/21 lamotrigine 50 mg PO BID 11/17/20 06/02/21 lisinopril 40 mg PO DAILY 11/17/20 06/02/21 metoprolol tartrate 50 mg PO BID 11/17/20 06/02/21 bupropion HCl [Wellbutrin SR] 300 mg PO DAILY 06/02/21 06/02/21 Previous Rx's Medication Instructions Recorded albuterol sulfate 1 inh INHALATION QID PRN #6.7 g 06/02/21 amoxicillin-pot clavulanate 1 tab PO BID #20 tab 06/02/21 [Augmentin] benzonatate [Tessalon Perles] 100 mg PO TID PRN #14 cap 06/02/21 prednisone 50 mg PO DAILY #5 tab 06/02/21 Allergies Allergy/AdvReac Type Severity Reaction Status Date / Time No Known Allergies Allergy Verified 06/02/21 13:33 [No Known Allergies*] Review of Systems Review of Systems: Constitutional: No Fever, No Chills ENT/Mouth: + sore throat, + Rhinorrhea, No Swallowing Difficulty Eyes: No Eye Pain, No Swelling, No Redness Cardiovascular: + Chest Pain, + SOB, + Orthopnea, + Edema Respiratory: + Cough, No Sputum, + Wheezing, + dyspnea Gastrointestinal: No Nausea, No Vomiting, No Diarrhea, + abdominal Pain, No Hematochezia, No Melena Genitourinary: No Dysuria, No Urinary Frequency, No Hematuria Musculoskeletal: + joint pain, + Myalgias Skin: No Skin Lesions, No rash Neuro: + Weakness, No Numbness, No Dizziness, + Headache Psych: No Anxiety/Panic, No Depression Heme/Lymph: No Bruising, No Lymphadenopathy Endocrine: No Polyuria, No Polydipsia PMFSH Past Medical History Attestation statement: The following information was validated with the patient. Medical History Anxiety Bipolar disorder Depression Hypertension Lymph edema PTSD (post-traumatic stress disorder) Sleep apnea in adult Testicle pain Social History Social History (Updated 05/27/21 @ 07:01 by Ginette Crwes DO) Alcohol intake: never Patient Tobacco Use Status: Tobacco use Unknown Substance Use Type: Marijuana Advance Directives: No Advance Directives Information Provided: No Physical Exam Vital Signs: Vital Signs: Last Vital Signs Temp 98.0 F 06/02/21 13:33 Pulse 85 06/02/21 21:49 Resp 20 06/02/21 13:33 BP 161/113 H 06/02/21 21:49 Pulse Ox 83 L 06/02/21 21:45 Body Mass Index 94.8 Appearance: Alert. Oriented X3. No acute distress. Eyes: Pupils equal, round and reactive to light. ENT: Pharynx normal. Neck: Normal inspection. Neck supple. CVS: Normal heart rate and rhythm. Pulses normal. Respiratory: Mild respiratory distress. Breath sounds with inspiratory and expiratory wheezes throughout Abdomen: Morbidly obese, Soft and nontender. +BS x4 Skin: Skin warm and dry. Normal skin color. Normal skin turgor. No rashes. Extremities: 3+ bilateral lower extremity edema (chronic). Neuro: Oriented X 3. No motor deficit. No sensory deficit. Course Course Course Narrative: 36 y/o male with history of morbid obesity, REBECCA, HTN presenting with cough, SOB, SCHNEIDER, and nasal congestion for 3 days. Found to be hypertensive on arrival 190/43 with HR 90s. Admits to medication non-compliance. He is dyspenic with conversation and wheeze. Denies history of asthma or COPD. Possible cardiac wheeze with noncompliance with home lasix. Will check CXR, EKG, labs and COVID swab. Home norvasc and metoprolol ordered for hypertension. Reevaluation(s) Reevaluation #1: COVID negative. BP improved with meds. CXR with possible small RML infiltrate. No fever or leukocytosis. He is coughing and SOB. BNP is normal. Albuterol neb & robitussin ordered. Will also start Augmentin and prednisone for possible CAP. No signs of sepsis at this time. Labs hemolyzed, phleobotomy here to redraw. Reevaluation #2: Labs finally returned, normal renal function. BP remains elevated 160/110's - asymptomatic. Home lisinopril 40 mg ordered. His lung sounds improved with nebulizer treatment. Upon re-evaluation patient is now hypoxic to as low as 83%. With deep breathing his SpO2 88-90%. Will plan for admission for CAP. Spoke with Dr. Rivera who will admit the patient. Working on IV access now for IV abx. Patient agreeable with plan. MDM - URI/Sore Throat Medical Records Attestation: I reviewed the patient's medical records. Lab Data Attestation: I reviewed the patient's lab results. Result diagrams: 06/02/21 18:28 06/02/21 20:05 Labs: Lab Results 06/02/21 06/02/21 06/02/21 Range/Units 18:09 18:28 18:28 WBC 6.5 (4.8-10.8) X10*3/uL RBC 4.36 L (4.60-5.80) X10*6/uL Hgb 11.2 L (14.0-18.0) g/dl Hct 38.7 L (42-52) % MCV 88.8 (80-98) fL MCH 25.7 L (27.0-33.0) pg MCHC 28.9 L (31.0-36.0) g/dl RDW 15.9 (11.0-16.0) % Plt Count 227 (160-400) X10*3/uL MPV 11.6 (9.4-12.4) fL Immature Gran % (Auto) 0.3 (0.0-0.4) % Neut % (Auto) 67.5 (45-73) % Lymph % (Auto) 11.4 L (20-40) % [place] % (Auto) 11.6 H (2-11) % Eos % (Auto) 8.7 H (0-4) % Baso % (Auto) 0.5 (0-2) % Lymph # (Auto) 0.7 L (1.2-4.9) X10*3/uL [place] # (Auto) 0.8 (0.1-1.2) X10*3/uL Eos # (Auto) 0.6 H (0.0-0.4) X10*3/uL Baso # (Auto) 0.0 (0.0-0.2) X10*3/uL Abs Immat Gran (auto) 0.02 (0.00-0.03) X10*3/uL Absolute Neuts (auto) 4.4 (2.0-8.3) X10*3/uL Absolute Nucleated RBC 0.000 (0.0-0.012) X10*3/uL Nucleated RBC % (auto) 0.0 (0.0-0.2) /100WBC VBG pH (7.32-7.43) VBG pCO2 mmHg VBG pO2 mmHg VBG HCO3 (22-26) mmol/L VBG O2 Saturation % VBG Base Excess mmol/L Sodium (135-145) mmol/L Potassium (3.3-5.1) mmol/L Chloride (96-108) mmol/L Carbon Dioxide (22-29) mmol/L Anion Gap (12-20) BUN (9-16) mg/dL Creatinine (0.5-1.4) mg/dL Estim Creat Clear Calc Estimated GFR Random Glucose (60-115) mg/dL Calcium (8.4-10.2) mg/dL Magnesium (1.6-2.6) mg/dL Total Bilirubin (0.0-1.0) mg/dL Direct Bilirubin (0.0-0.5) mg/dL AST (5-37) U/L ALT (0-40) U/L Alkaline Phosphatase (39-117) U/L Troponin I High Sens 12.2 (<3.5-35.0) ng/L B-Natriuretic Peptide 85 (<100) pg/mL Total Protein (6.5-8.0) g/dL Albumin (3.5-5.0) g/dL Lipase (8-78) U/L Urine Color Urine Appearance Urine pH (5.0-8.0) Ur Specific [place] (1.005-1.025) Urine Protein (NEG-TRACE) MG/DL Urine Glucose (UA) (NEG) MG/DL Urine Ketones (NEG) MG/DL Urine Blood (NEG) Urine Nitrite (NEG) Ur Leukocyte Esterase (NEG) COVID-19 (BAMBI) Negative (Negative) COVID-19 Clin Com See Note 06/02/21 06/02/21 06/02/21 Range/Units 18:30 20:05 20:05 WBC (4.8-10.8) X10*3/uL RBC (4.60-5.80) X10*6/uL Hgb (14.0-18.0) g/dl Hct (42-52) % MCV (80-98) fL MCH (27.0-33.0) pg MCHC (31.0-36.0) g/dl RDW (11.0-16.0) % Plt Count (160-400) X10*3/uL MPV (9.4-12.4) fL Immature Gran % (Auto) (0.0-0.4) % Neut % (Auto) (45-73) % Lymph % (Auto) (20-40) % [place] % (Auto) (2-11) % Eos % (Auto) (0-4) % Baso % (Auto) (0-2) % Lymph # (Auto) (1.2-4.9) X10*3/uL [place] # (Auto) (0.1-1.2) X10*3/uL Eos # (Auto) (0.0-0.4) X10*3/uL Baso # (Auto) (0.0-0.2) X10*3/uL Abs Immat Gran (auto) (0.00-0.03) X10*3/uL Absolute Neuts (auto) (2.0-8.3) X10*3/uL Absolute Nucleated RBC (0.0-0.012) X10*3/uL Nucleated RBC % (auto) (0.0-0.2) /100WBC VBG pH 7.45 H (7.32-7.43) VBG pCO2 42 mmHg VBG pO2 182 mmHg VBG HCO3 29 H (22-26) mmol/L VBG O2 Saturation 99.0 % VBG Base Excess 5.3 mmol/L Sodium 142 (135-145) mmol/L Potassium 4.4 (3.3-5.1) mmol/L Chloride 103 (96-108) mmol/L Carbon Dioxide 28 (22-29) mmol/L Anion Gap 15 (12-20) BUN 7 L (9-16) mg/dL Creatinine 0.93 (0.5-1.4) mg/dL Estim Creat Clear Calc 266.8 Estimated GFR > 60 Random Glucose 93 (60-115) mg/dL Calcium 8.3 L (8.4-10.2) mg/dL Magnesium 2.1 (1.6-2.6) mg/dL Total Bilirubin 0.5 (0.0-1.0) mg/dL Direct Bilirubin 0.3 (0.0-0.5) mg/dL AST 24 (5-37) U/L ALT 19 (0-40) U/L Alkaline Phosphatase 76 (39-117) U/L Troponin I High Sens 11.5 (<3.5-35.0) ng/L B-Natriuretic Peptide (<100) pg/mL Total Protein 7.9 (6.5-8.0) g/dL Albumin 3.7 (3.5-5.0) g/dL Lipase 14 (8-78) U/L Urine Color Urine Appearance Urine pH (5.0-8.0) Ur Specific [place] (1.005-1.025) Urine Protein (NEG-TRACE) MG/DL Urine Glucose (UA) (NEG) MG/DL Urine Ketones (NEG) MG/DL Urine Blood (NEG) Urine Nitrite (NEG) Ur Leukocyte Esterase (NEG) COVID-19 (BAMBI) (Negative) COVID-19 Clin Com 06/02/21 Range/Units 21:54 WBC (4.8-10.8) X10*3/uL RBC (4.60-5.80) X10*6/uL Hgb (14.0-18.0) g/dl Hct (42-52) % MCV (80-98) fL MCH (27.0-33.0) pg MCHC (31.0-36.0) g/dl RDW (11.0-16.0) % Plt Count (160-400) X10*3/uL MPV (9.4-12.4) fL Immature Gran % (Auto) (0.0-0.4) % Neut % (Auto) (45-73) % Lymph % (Auto) (20-40) % [place] % (Auto) (2-11) % Eos % (Auto) (0-4) % Baso % (Auto) (0-2) % Lymph # (Auto) (1.2-4.9) X10*3/uL [place] # (Auto) (0.1-1.2) X10*3/uL Eos # (Auto) (0.0-0.4) X10*3/uL Baso # (Auto) (0.0-0.2) X10*3/uL Abs Immat Gran (auto) (0.00-0.03) X10*3/uL Absolute Neuts (auto) (2.0-8.3) X10*3/uL Absolute Nucleated RBC (0.0-0.012) X10*3/uL Nucleated RBC % (auto) (0.0-0.2) /100WBC VBG pH (7.32-7.43) VBG pCO2 mmHg VBG pO2 mmHg VBG HCO3 (22-26) mmol/L VBG O2 Saturation % VBG Base Excess mmol/L Sodium (135-145) mmol/L Potassium (3.3-5.1) mmol/L Chloride (96-108) mmol/L Carbon Dioxide (22-29) mmol/L Anion Gap (12-20) BUN (9-16) mg/dL Creatinine (0.5-1.4) mg/dL Estim Creat Clear Calc Estimated GFR Random Glucose (60-115) mg/dL Calcium (8.4-10.2) mg/dL Magnesium (1.6-2.6) mg/dL Total Bilirubin (0.0-1.0) mg/dL Direct Bilirubin (0.0-0.5) mg/dL AST (5-37) U/L ALT (0-40) U/L Alkaline Phosphatase (39-117) U/L Troponin I High Sens (<3.5-35.0) ng/L B-Natriuretic Peptide (<100) pg/mL Total Protein (6.5-8.0) g/dL Albumin (3.5-5.0) g/dL Lipase (8-78) U/L Urine Color STRAW Urine Appearance CLEAR Urine pH 7.0 (5.0-8.0) Ur Specific [place] 1.015 (1.005-1.025) Urine Protein 1+ H (NEG-TRACE) MG/DL Urine Glucose (UA) NEG (NEG) MG/DL Urine Ketones NEG (NEG) MG/DL Urine Blood NEG (NEG) Urine Nitrite NEG (NEG) Ur Leukocyte Esterase NEG (NEG) COVID-19 (BAMBI) (Negative) COVID-19 Clin Com ECG Data Attestation: I personally reviewed and interpreted this ECG as follows: ECG interpretation date: 06/02/21 ECG interpretation time: 20:26 Interpretation: normal sinus rhythm, HR 66 bpm, normal UT interval, no ST segment elevations or depressions. Scores Heart Score History: -0- slightly suspicious ECG: -0- normal Age: -0- < or = 45 Risk factory: -1- 1 or 2 risk factors Troponin: -1- >1 - <3x normal limit Score: 2 Risk: 1.7% Critical Care Time Critical Care Time Critical Care Time: Yes Total Critical Care Time: 50 Attestation: I have personally provided critical care time exclusive of time spent on separately billable procedures. Time includes review of lab data, radiology results, discussion with consultants, and monitoring for potential decompensation. Intervention performed as documented. Discharge Plan Discharge Clinical Impression: Acute respiratory failure with hypoxia CAP (community acquired pneumonia) Qualifiers: Laterality: right Lung location: middle lobe of lung Qualified Code(s): J18.9 - Pneumonia, unspecified organism Patient Disposition: Admitted As Inpatient Additional Instructions:
--- NOTE | 2021-06-02 16:45 | PHA.MEDREC ---
Pharmacy Consult ? Medication Reconciliation Pharmacy has completed the medication reconciliation.
[2021-06-02] MEDS: amLODIPine Besylate 10 MG TABLET PO (17:45)
[2021-06-02] MEDS: Metoprolol Tartrate 50 MG TABLET PO (17:50)
--- NOTE | 2021-06-02 18:00 | PC.NURSE ---
Pt alert and oriented x3. Pt states he has not been feeling good the last 2-3 days. He reports sob, dry cough and difficulty breathing. There are audible wheezes noted throughout. He also c/o muscle ache, pain, and runny nose. He also reports epigastric chest pain when he coughs. He reports not taking any of his medications for the last 3 weeks. Pt falls asleep easy but is easily awaken. Pt is a difficult stick, labs obtained with multiple attempts. No apparent distress noted. Respiratory Therapist at bedside.
[2021-06-02 18:32] LABS: MANUAL DIFF FLAG NO
[2021-06-02 18:33] LABS: Basophils Percent Auto 0.5 % (0-2); Eosinophils Absolute Auto 0.6 X10*3/uL (0.0-0.4); Eosinophils Percent Auto 8.7 % (0-4); Hematocrit 38.7 % (42-52); Hemoglobin 11.2 g/dl (14.0-18.0); Imm Gran Abs Auto 0.02 X10*3/uL (0.00-0.03); Imm Gran Pct Auto 0.3 % (0.0-0.4); Lymphocytes Absolute Auto 0.7 X10*3/uL (1.2-4.9); Lymphocytes Percent Auto 11.4 % (20-40); Mean Corpuscular HGB Conc 28.9 g/dl (31.0-36.0); Mean Corpuscular Hemoglobin 25.7 pg (27.0-33.0); Mean Corpuscular Volume 88.8 fL (80-98); Mean Platelet Volume 11.6 fL (9.4-12.4); Monocytes Absolute Auto 0.8 X10*3/uL (0.1-1.2); Monocytes Percent Auto 11.6 % (2-11); Neutrophils Absolute Auto 4.4 X10*3/uL (2.0-8.3); Neutrophils Percent Auto 67.5 % (45-73); Platelet Count 227 X10*3/uL (160-400); Red Blood Count 4.36 X10*6/uL (4.60-5.80); Red Cell Distribution Width 15.9 % (11.0-16.0); White Blood Count 6.5 X10*3/uL (4.8-10.8)
[2021-06-02 18:37] LABS: Venous Blood Gas Refer to POC result
[2021-06-02 18:40] LABS: VBG Base Excess 5.3 mmol/L; VBG HCO3 29 mmol/L (22-26); VBG pCO2 42 mmHg; VBG pH 7.45 (7.32-7.43); VBG pO2 182 mmHg
[2021-06-02 18:42] LABS: COVID-19 Test Negative (Negative)
[2021-06-02] MEDS: Albuterol Sulfate (0.083%) 2.5 MG/3 ML VIAL.NEB 5 MG INHALE (18:58)
[2021-06-02 19:02] LABS: B Type Natriuretic Peptide 85 pg/mL (<100); Troponin-I High Sensitivity 12.2 ng/L (<3.5-35.0)
[2021-06-02] MEDS: guaiFENesin DM 200/20/10 ML 10 ML SYRUP PO (19:42)
--- NOTE | 2021-06-02 20:00 | PC.NURSE ---
PHELOBOTOMY IN ROOM FOR LABS. PT IS A VERY DIFFICULTY STICK. UNABLE TO GET IV BY STAFF. PT MEDICATED PER EMAR. PT URINATING IN URINAL W/O DIFFICULTY. PT REMAINS ALERT, RESP N/L. AT THIS TIME. RESP IN ROOM FOR TX. WILL CONTINUE TO MONITOR PT.
--- NOTE | 2021-06-02 20:05 | PC.NURSE ---
LABS DRAWN BY PHLEBOTOMY
[2021-06-02] MEDS: Acetaminophen 325 MG TABLET 975 MG PO (20:09)
[2021-06-02] MEDS: predniSONE 20 MG TABLET 60 MG PO (20:09)
[2021-06-02] MEDS: Amoxicillin/Potassium Clav 875 MG TABLET PO (20:10)
[2021-06-02 20:38] LABS: Alanine Aminotransferase 19 U/L (0-40); Albumin Level 3.7 g/dL (3.5-5.0); Alkaline Phosphatase 76 U/L (39-117); Anion Gap 15 (12-20); Aspartate Amino Transferase 24 U/L (5-37); Bilirubin Direct 0.3 mg/dL (0.0-0.5); Bilirubin Total 0.5 mg/dL (0.0-1.0); Blood Urea Nitrogen 7 mg/dL (9-16); Calcium 8.3 mg/dL (8.4-10.2); Carbon Dioxide 28 mmol/L (22-29); Chloride 103 mmol/L (96-108); Creatinine Clr Calc Pharmacy 266.8; Estimated Glomerular Filt Rate > 60; Glucose Random 93 mg/dL (60-115); Potassium 4.4 mmol/L (3.3-5.1); Sodium 142 mmol/L (135-145); Total Protein 7.9 g/dL (6.5-8.0)
[2021-06-02 20:44] LABS: Troponin-I High Sensitivity 11.5 ng/L (<3.5-35.0)
[2021-06-02 21:32] LABS: Lipase 14 U/L (8-78); Magnesium 2.1 mg/dL (1.6-2.6)
--- NOTE | 2021-06-02 21:59 | PC.NURSE ---
PT PO 83%, PA AWARE AND PT PLACED ON 2LNC, PT URINATED IN URINAL AND SAMPLE SENT TO LAB. PT MEDICATED PER EMAR FOR BREATHING. WILL CONTINUE TO MONITOR PT.
[2021-06-02 22:19] LABS: Glucose Urine UA NEG (NEG); Leukocyte Esterase Urine NEG (NEG); Nitrite Urine NEG (NEG); Specific Gravity - Urine 1.015 (1.005-1.025); Urine Blood NEG (NEG); Urine Ketones NEG (NEG); Urine Protein 1+ MG/DL (NEG-TRACE)
[2021-06-02 22:20] LABS: Appearance Urine CLEAR; Color Urine STRAW
[2021-06-02 22:32] LABS: RBC Urine 0 /HPF (0); Squamous Epithelial Cell Urine 1+ /LPF; WBC Urine 0-2 /HPF (0-4)
[2021-06-02 22:53] LABS: Amphetamine Screen Urine Not Detected (Not Detect); Barbiturates, Urine Not Detected (Not Detect); Benzodiazepines Screen Urine Not Detected (Not Detect); Cannabinoid Screen Urine Not Detected (Not Detect); Cocaine Screen Urine Not Detected (Not Detect); Opiate Screen Urine Not Detected (Not Detect); Phencyclidine Screen Urine Not Detected (Not Detect)
--- NOTE | 2021-06-02 23:30 | PM.IMHP ---
History of Present Illness Date of Service: 06/02/21 Chief Complaint: Cough This is a 36-year-old male with past medical history of bipolar, depression anxiety, hypertension noncompliant with medications, PTSD, sleep apnea noncompliant with CPAP who presents to the hospital with complaints of persistent cough. Patient reports cough for the past 3-4 days, associated with congestion, stuffy nose, shortness of breath, chills, and overall feeling very sick. Members have been sick and he most likely got it from them, he denies any sputum production, denies any fever, denies any headache, chest pain, reports urinary frequency with no urgency, dysuria, and no lower extremity edema. On initial arrival to the ED patient vitals significant for temp of 98.0?, heart rate of 95, respiratory rate of 20, blood pressure of 190/43, satting 95% on room air, patient did dip down to the low 80s and is currently on 3 L satting 95%. Labs are significant for WBC count of 6.5, hemoglobin of 11.2 which is around his baseline, platelets of 227, VBG showed a pH of 7.45 with no CO2 retention, UA negative. COVID negative EKG showed normal sinus rhythm with no new changes Chest x-ray showed suspect small ground-glass opacity medial right middle lobe. Given his hypoxia patient will be admitted Review of Systems Review of Systems: Yes all other systems are reviewed and are negative [facility] Medical History Anxiety Bipolar disorder Depression Hypertension Lymph edema PTSD (post-traumatic stress disorder) Sleep apnea in adult Testicle pain Social History Alcohol intake: never Patient Tobacco Use Status: Current everyday Tobacco user Tobacco use type: Cigarette Cigarettes Per Day: 4 Substance Use Type: Marijuana Advance Directives: No Advance Directives Information Provided: No Meds Allergies Allergy/AdvReac Type Severity Reaction Status Date / Time No Known Allergies Allergy Verified 06/02/21 13:33 [No Known Allergies*] Active Medications: Current Medications Generic Name Dose Route Start Last Admin Trade Name Freq PRN Reason Stop Dose Admin Pharmacy Consult 1 each 06/02/21 16:31 Consult Rx Perform Med Rec MISCELLANE ONCE PRN Consult order Home Medications Medication Instructions Recorded Confirmed Last Taken Type amlodipine 10 mg PO DAILY 11/17/20 06/02/21 Unknown History duloxetine 30 mg PO DAILY 11/17/20 06/02/21 Unknown History lamotrigine 50 mg PO BID 11/17/20 06/02/21 Unknown History lisinopril 40 mg PO DAILY 11/17/20 06/02/21 Unknown History metoprolol tartrate 50 mg PO BID 11/17/20 06/02/21 Unknown History bupropion HCl [Wellbutrin SR] 300 mg PO DAILY 06/02/21 06/02/21 Unknown History Physical Exam Vital Signs and Narrative: Vital Signs: Last Vital Signs Temp 98.0 F 06/02/21 13:33 Pulse 85 06/02/21 21:49 Resp 20 06/02/21 13:33 BP 161/113 H 06/02/21 21:49 Pulse Ox 83 L 06/02/21 21:45 Body Mass Index 94.8 Const: Other: Very obese patient General: cooperative and no acute distress Orientation/consciousness: patient oriented x3 Eyes: General: appearance normal, both eyes and all related structures Resp: Other: Coughing, appears in respiratory distress Effort & Inspection: normal respiratory effort Cardio: Rate: regular rate Rhythm: regular rhythm GI: Palpation (GI): Soft to palpation Auscultation: normal bowel sounds Skin: General skin exam: no rashes or lesions noted Neuro: General: patient oriented x3 Cognition (Neuro): normal cognition Extrem: General: Yes normal to inspection and Yes no pedal edema Results Labs CBC and Chem 7: 06/02/21 18:28 06/02/21 20:05 Labs: Laboratory Results - last 24 hr 06/02/21 06/02/21 06/02/21 18:09 18:28 18:28 MCV 88.8 MCH 25.7 L MCHC 28.9 L RDW 15.9 Plt Count 227 MPV 11.6 Immature Gran % (Auto) 0.3 Neut % (Auto) 67.5 Lymph % (Auto) 11.4 L [place] % (Auto) 11.6 H Eos % (Auto) 8.7 H Baso % (Auto) 0.5 Lymph # (Auto) 0.7 L [place] # (Auto) 0.8 Eos # (Auto) 0.6 H Baso # (Auto) 0.0 Abs Immat Gran (auto) 0.02 Absolute Neuts (auto) 4.4 Absolute Nucleated RBC 0.000 Nucleated RBC % (auto) 0.0 VBG pH VBG pCO2 VBG pO2 VBG HCO3 VBG O2 Saturation VBG Base Excess Anion Gap Estim Creat Clear Calc Estimated GFR Random Glucose Calcium Magnesium Total Bilirubin Direct Bilirubin AST ALT Alkaline Phosphatase Troponin I High Sens 12.2 B-Natriuretic Peptide 85 Total Protein Albumin Lipase Urine Color Urine Appearance Urine pH Ur Specific [place] Urine Protein Urine Glucose (UA) Urine Ketones Urine Blood Urine Nitrite Ur Leukocyte Esterase Urine RBC Urine WBC Ur Squamous Epith Cells Urine Bacteria Urine Opiates Screen Ur Barbiturates Screen Ur Phencyclidine Scrn Ur Amphetamines Screen U Benzodiazepines Scrn Urine Cocaine Screen U Marijuana (THC) Screen COVID-19 (BAMBI) Negative COVID-[employer] Com See Note 06/02/21 06/02/21 06/02/21 18:30 20:05 20:05 MCV MCH MCHC RDW Plt Count MPV Immature Gran % (Auto) Neut % (Auto) Lymph % (Auto) [place] % (Auto) Eos % (Auto) Baso % (Auto) Lymph # (Auto) [place] # (Auto) Eos # (Auto) Baso # (Auto) Abs Immat Gran (auto) Absolute Neuts (auto) Absolute Nucleated RBC Nucleated RBC % (auto) VBG pH 7.45 H VBG pCO2 42 VBG pO2 182 VBG HCO3 29 H VBG O2 Saturation 99.0 VBG Base Excess 5.3 Anion Gap 15 Estim Creat Clear Calc 266.8 Estimated GFR > 60 Random Glucose 93 Calcium 8.3 L Magnesium 2.1 Total Bilirubin 0.5 Direct Bilirubin 0.3 AST 24 ALT 19 Alkaline Phosphatase 76 Troponin I High Sens 11.5 B-Natriuretic Peptide Total Protein 7.9 Albumin 3.7 Lipase 14 Urine Color Urine Appearance Urine pH Ur Specific [place] Urine Protein Urine Glucose (UA) Urine Ketones Urine Blood Urine Nitrite Ur Leukocyte Esterase Urine RBC Urine WBC Ur Squamous Epith Cells Urine Bacteria Urine Opiates Screen Ur Barbiturates Screen Ur Phencyclidine Scrn Ur Amphetamines Screen U Benzodiazepines Scrn Urine Cocaine Screen U Marijuana (THC) Screen COVID-19 (BAMBI) COVID-[employer] Com 06/02/21 06/02/21 21:54 21:54 MCV MCH MCHC RDW Plt Count MPV Immature Gran % (Auto) Neut % (Auto) Lymph % (Auto) [place] % (Auto) Eos % (Auto) Baso % (Auto) Lymph # (Auto) [place] # (Auto) Eos # (Auto) Baso # (Auto) Abs Immat Gran (auto) Absolute Neuts (auto) Absolute Nucleated RBC Nucleated RBC % (auto) VBG pH VBG pCO2 VBG pO2 VBG HCO3 VBG O2 Saturation VBG Base Excess Anion Gap Estim Creat Clear Calc Estimated GFR Random Glucose Calcium Magnesium Total Bilirubin Direct Bilirubin AST ALT Alkaline Phosphatase Troponin I High Sens B-Natriuretic Peptide Total Protein Albumin Lipase Urine Color STRAW Urine Appearance CLEAR Urine pH 7.0 Ur Specific [place] 1.015 Urine Protein 1+ H Urine Glucose (UA) NEG Urine Ketones NEG Urine Blood NEG Urine Nitrite NEG Ur Leukocyte Esterase NEG Urine RBC 0 Urine WBC 0-2 Ur Squamous Epith Cells 1+ Urine Bacteria NONE Urine Opiates Screen Not Detected Ur Barbiturates Screen Not Detected Ur Phencyclidine Scrn Not Detected Ur Amphetamines Screen Not Detected U Benzodiazepines Scrn Not Detected Urine Cocaine Screen Not Detected U Marijuana (THC) Screen Not Detected COVID-19 (BAMBI) COVID-19 Clin Com Imaging Radiologist's Impressions: Impressions Chest X-Ray 06/02/21 16:31 IMPRESSION: Suspect small groundglass opacity medial right middle lobe. Lungs otherwise clear. No effusion. Assessment and Plan (1) CAP (community acquired pneumonia): Qualifiers: Laterality: right Lung location: middle lobe of lung Qualified Code(s): J18.9 - Pneumonia, unspecified organism Status: Acute (2) Acute respiratory failure with hypoxia: Status: Acute (3) Hypertensive urgency: Status: Acute This is a 36-year-old male who presents to the hospital with complaints of cough and shortness of breath found to have community-acquired pneumonia # community-acquired pneumonia - patient hypoxic, chest x-ray showing right middle lobe pneumonia - COVID-19 negative - will start him on IV antibiotics - follow cultures # acute hypoxic respiratory failure - most likely a combination of obesity hypoventilation syndrome, sleep apnea, compound by pneumonia - patient on oxygen currently will attempt CPAP for bedtime - patient does smoke few cigarettes a day - titrate oxygen off as tolerated during the day # hypertensive urgency - denies any chest pain, no headache - due to noncompliance - patient reports that he just staff taking his medications more than a month ago because he is uncle told him that these meds have side effects - blood pressure on arrival in the high 190s systolic coulee - received home medications of amlodipine and lisinopril with improvement - will resume his home medications - had a long discussion regarding of compliance of meds - patient agreeable to start taking his medications - follow BP q.4 hours # obstructive sleep apnea/hypoventilation syndrome - noncompliant with CPAP - will attempt CPAP at bedtime # bipolar depression anxiety - Continue home medications DVT prophylaxis: Lovenox Quality Stroke Does the patient have a stroke diagnosis?: No VTE Prior VTE?: No VTE Risk Level:: Medical - moderate - high VTE Device Contraindication: Treatment Not Indicated VTE Drug Contraindication: N/A - Med Ordered
[2021-06-03] VITALS (13 sets, daily range): BP systolic 141–208; BP diastolic 78–121; PULSE 72–90; RESP 16–22; TEMP 36.5–36.9; O2SAT 91–95
--- NOTE | 2021-06-03 01:43 | PC.NURSE ---
UNABLE TO GIVE MEDS D/T MEDS NOT BEING VERIFIED. CALLED OVER NIGHT PHARMACY TO VERIFY MEDS.
[2021-06-03] MEDS: cefTRIAXone sodium 1 GM in 0.9 % Sodium Chloride 50 ML IV ×2 (01:53→22:02)
[2021-06-03] MEDS: Metoprolol Tartrate 50 MG TABLET PO ×3 (01:54→20:13)
[2021-06-03] MEDS: Azithromycin 500 MG in 0.9 % Sodium Chloride 250 ML 125 MG IV ×2 (02:04→23:08)
[2021-06-03] MEDS: lamoTRIgine 25 MG TABLET 50 MG PO ×3 (02:07→20:13)
[2021-06-03] MEDS: Acetaminophen 325 MG TABLET 650 MG PO (02:20)
[2021-06-03 07:22] LABS: Basophils Percent Auto 0.1 % (0-2); Hematocrit 40.9 % (42-52); Hemoglobin 11.7 g/dl (14.0-18.0); Imm Gran Abs Auto 0.03 X10*3/uL (0.00-0.03); Imm Gran Pct Auto 0.4 % (0.0-0.4); Lymphocytes Absolute Auto 0.4 X10*3/uL (1.2-4.9); Lymphocytes Percent Auto 5.2 % (20-40); MANUAL DIFF FLAG SCAN; Mean Corpuscular HGB Conc 28.6 g/dl (31.0-36.0); Mean Corpuscular Hemoglobin 25.2 pg (27.0-33.0); Mean Platelet Volume 11.8 fL (9.4-12.4); Monocytes Absolute Auto 0.3 X10*3/uL (0.1-1.2); Monocytes Percent Auto 3.9 % (2-11); Neutrophils Percent Auto 90.4 % (45-73); Platelet Count 229 X10*3/uL (160-400); Red Blood Count 4.65 X10*6/uL (4.60-5.80); Red Cell Distribution Width 15.9 % (11.0-16.0); SCAN SMEAR FLAG 1; White Blood Count 7.7 X10*3/uL (4.8-10.8)
--- NOTE | 2021-06-03 07:26 | PC.NURSE ---
Patient is sitting up in bed eating breakfast. Pt is alert, and in no acute distress
[2021-06-03 07:55] LABS: SLIDE REVIEW VERIFIED
[2021-06-03] MEDS: amLODIPine Besylate 10 MG TABLET PO (08:39)
[2021-06-03] MEDS: buPROPion HCl XL 300 MG TAB.ER.24H PO (08:40)
[2021-06-03] MEDS: DULoxetine HCl 30 MG CAPSULE.DR PO (08:40)
--- NOTE | 2021-06-03 08:48 | PC.NURSE ---
Pt is resting quietly in bed. AM medications given. Pt is alert and oriented. no acute distress noted.
--- NOTE | 2021-06-03 09:40 | PC.NURSE ---
Report given to BENSON Vargas. Pt to be moved to room 345
[2021-06-03] MEDS: 0.9 % Sodium Chloride Flush 3 ML SYRINGE IVFLUSH ×2 (11:00→15:05)
[2021-06-03 11:34] LABS: Adenovirus PCR Not Detected (Not Detect.); Bordetella parapertussis PCR Not Detected (Not Detect.); Bordetella pertussis PCR Not Detected (Not Detect.); Chlamydia pneumoniae PCR Not Detected (Not Detect.); Coronavirus 229E PCR Not Detected (Not Detect.); Coronavirus HKU1 PCR Not Detected (Not Detect.); Coronavirus NL63 PCR Not Detected (Not Detect.); Coronavirus OC43 PCR Not Detected (Not Detect.); Human metapneumovirus PCR Not Detected (Not Detect.); Influenza A PCR Not Detected (Not Detect.); Influenza B PCR Not Detected (Not Detect.); Mycoplasma pneumoniae PCR Not Detected (Not Detect.); Parainfluenza 1 PCR Not Detected (Not Detect.); Parainfluenza 2 PCR Not Detected (Not Detect.); Parainfluenza 3 PCR Not Detected (Not Detect.); Parainfluenza 4 PCR Not Detected (Not Detect.); RSV PCR Not Detected (Not Detect.); SARS-CoV-2 PCR Not Detected (Not Detect.)
[2021-06-03 12:48] LABS: Rhino/Enterovirus PCR Detected (Not Detect.)
[2021-06-03 14:05] LABS: Anion Gap 13 (12-20); Blood Urea Nitrogen 10 mg/dL (9-16); C Reactive Protein 3.48 mg/dL (< or = 0.50); Carbon Dioxide 29 mmol/L (22-29); Chloride 102 mmol/L (96-108); Creatinine Clr Calc Pharmacy 234.1; Estimated Glomerular Filt Rate > 60; Glucose Random 121 mg/dL (60-115); Potassium 4.3 mmol/L (3.3-5.1); Sodium 140 mmol/L (135-145)
[2021-06-03 14:16] LABS: Lactate Dehydrogenase 222 U/L (118-273)
[2021-06-03 14:23] LABS: Ferritin 82 ng/mL (20-250)
[2021-06-03 14:24] LABS: Procalcitonin 0.04 ng/mL
--- NOTE | 2021-06-03 14:53 | P.PNIM_ITS ---
Subjective Subjective Date of Service: 06/03/21 Interval History: Still coughing + dyspneic. No hx COPD/asthma. RVP positive for enterovirus/rhinovirus. BP improved. Denies UMAÑA/chest pain. Physical Exam Vital Signs: Vital Signs: Last Vital Signs Temp 98.5 F 06/03/21 06:29 Pulse 83 06/03/21 08:40 Resp 22 H 06/03/21 08:36 BP 141/91 H 06/03/21 08:40 Pulse Ox 92 06/03/21 08:36 Body Mass Index 94.8 Gen: in no acute distress HEENT: sclera anicteric, moist mucus membranes Neck: supple Lungs: diminished bilaterally Heart: regular rate and rhythm, no murmurs Abd: soft, morbidly obese, non-tender, non-distended Ext: no edema Skin: warm/well-perfused Neuro: alert and oriented x3, no focal findings Psych: appropriate affect Objective Data Current Medications Generic Name Dose Route Start Last Admin Trade Name Freq PRN Reason Stop Dose Admin Acetaminophen 650 mg 06/03/21 00:20 06/03/21 02:20 Acetaminophen 325 Mg Tablet PO 650 mg Q6H PRN Administration Pain, Mild (Pain Scale 1-3) Amlodipine Besylate 10 mg 06/03/21 09:00 06/03/21 08:39 Amlodipine Besylate 10 Mg Tablet PO 10 mg DAILY JEF Administration Protocol Bupropion HCl 300 mg 06/03/21 09:00 06/03/21 08:40 Bupropion Hcl Xl 300 Mg Tab.Er.24h PO 300 mg DAILY JEF Administration Docusate Sodium 100 mg 06/03/21 00:20 Docusate Sodium 100 Mg Capsule PO DAILY PRN Constipation Duloxetine HCl 30 mg 06/03/21 09:00 06/03/21 08:40 Duloxetine Hcl 30 Mg Capsule.Dr PO 30 mg DAILY JEF Administration Enoxaparin Sodium 40 mg 06/03/21 02:00 06/03/21 02:21 Enoxaparin Sodium 40 Mg/0.4 Ml Syringe SUBCUT Not Given Q24H JEF Ceftriaxone Sodium 1 gm/ 50 mls @ 100 mls/hr 06/03/21 22:00 Sodium Chloride IV Q24H JEF Azithromycin 500 mg/ Sodium 250 mls @ 125 mls/hr 06/03/21 22:00 Chloride IV Q24H JEF Lamotrigine 50 mg 06/03/21 00:20 06/03/21 08:40 Lamotrigine 25 Mg Tablet PO 50 mg BID [facility] Administration Lisinopril 40 mg 06/03/21 09:00 06/03/21 08:40 Lisinopril 40 Mg Tablet PO 40 mg DAILY [facility] Administration Protocol Metoprolol Tartrate 50 mg 06/03/21 00:20 06/03/21 08:40 Metoprolol Tartrate 50 Mg Tablet PO 50 mg BID [facility] Administration Protocol Ondansetron HCl 4 mg 06/03/21 00:20 Ondansetron Hcl 4 Mg/2 Ml Vial IVPUSH Q8H PRN Nausea and Vomiting Pharmacy Consult 1 each 06/02/21 16:31 Consult Rx Perform Med Rec MISCELLANE ONCE PRN Consult order Sodium Chloride 3 ml 06/03/21 00:20 06/03/21 11:00 0.9 % Sodium Chloride Flush 3 Ml Syringe IVFLUSH 3 ml QSHIFT [facility] Administration Labs CBC & Chem 7: 06/03/21 06:55 06/03/21 13:33 Labs: Laboratory Results - last 24 hr 06/02/21 06/02/21 06/02/21 18:09 18:28 18:28 MCV 88.8 MCH 25.7 L MCHC 28.9 L RDW 15.9 Plt Count 227 MPV 11.6 Immature Gran % (Auto) 0.3 Neut % (Auto) 67.5 Lymph % (Auto) 11.4 L [place] % (Auto) 11.6 H Eos % (Auto) 8.7 H Baso % (Auto) 0.5 Lymph # (Auto) 0.7 L [place] # (Auto) 0.8 Eos # (Auto) 0.6 H Baso # (Auto) 0.0 Abs Immat Gran (auto) 0.02 Absolute Neuts (auto) 4.4 Absolute Nucleated RBC 0.000 Nucleated RBC % (auto) 0.0 Smear Tech's Comments VBG pH VBG pCO2 VBG pO2 VBG HCO3 VBG O2 Saturation VBG Base Excess Anion Gap Estim Creat Clear Calc Estimated GFR Random Glucose Calcium Magnesium Ferritin Total Bilirubin Direct Bilirubin AST ALT Alkaline Phosphatase Lactate Dehydrogenase Troponin I High Sens 12.2 C-Reactive Protein B-Natriuretic Peptide 85 Total Protein Albumin Lipase Procalcitonin Urine Color Urine Appearance Urine pH Ur Specific [place] Urine Protein Urine Glucose (UA) Urine Ketones Urine Blood Urine Nitrite Ur Leukocyte Esterase Urine RBC Urine WBC Ur Squamous Epith Cells Urine Bacteria Urine Opiates Screen Ur Barbiturates Screen Ur Phencyclidine Scrn Ur Amphetamines Screen U Benzodiazepines Scrn Urine Cocaine Screen U Marijuana (THC) Screen Respiratory Panel [place] Adenovirus (Rapid PCR) B.pert (TEM-PCR) B.parapertussis DNA PCR C. pneumoniae DNA (PCR) Coronavirus OC43 (PCR) Coronavirus HKU1 (PCR) Coronavirus 229E (PCR) COVID-19 ([facility]AMBI) Negative COVID-19 Clin Com See Note Coronavirus NL63 (PCR) Human Metapneumovir PCR Influenza A (RT-PCR) Influenza B (RT-PCR) M. pneumoniae (PCR) Parainfluenza 1 (PCR) Parainfluenza 2 (PCR) Parainfluenza 3 (PCR) Parainfluenza 4 (PCR) RSV (PCR) Entero/Rhino (PCR) SARS-CoV-2 RNA (RT-PCR) 06/02/21 06/02/21 06/02/21 18:30 20:05 20:05 MCV MCH MCHC RDW Plt Count MPV Immature Gran % (Auto) Neut % (Auto) Lymph % (Auto) [place] % (Auto) Eos % (Auto) Baso % (Auto) Lymph # (Auto) [place] # (Auto) Eos # (Auto) Baso # (Auto) Abs Immat Gran (auto) Absolute Neuts (auto) Absolute Nucleated RBC Nucleated RBC % (auto) Smear Tech's Comments VBG pH 7.45 H VBG pCO2 42 VBG pO2 182 VBG HCO3 29 H VBG O2 Saturation 99.0 VBG Base Excess 5.3 Anion Gap 15 Estim Creat Clear Calc 266.8 Estimated GFR > 60 Random Glucose 93 Calcium 8.3 L Magnesium 2.1 Ferritin Total Bilirubin 0.5 Direct Bilirubin 0.3 AST 24 ALT 19 Alkaline Phosphatase 76 Lactate Dehydrogenase Troponin I High Sens 11.5 C-Reactive Protein B-Natriuretic Peptide Total Protein 7.9 Albumin 3.7 Lipase 14 Procalcitonin Urine Color Urine Appearance Urine pH Ur Specific [place] Urine Protein Urine Glucose (UA) Urine Ketones Urine Blood Urine Nitrite Ur Leukocyte Esterase Urine RBC Urine WBC Ur Squamous Epith Cells Urine Bacteria Urine Opiates Screen Ur Barbiturates Screen Ur Phencyclidine Scrn Ur Amphetamines Screen U Benzodiazepines Scrn Urine Cocaine Screen U Marijuana (THC) Screen Respiratory Panel [place] Adenovirus (Rapid PCR) B.pert (TEM-PCR) B.parapertussis DNA PCR C. pneumoniae DNA (PCR) Coronavirus OC43 (PCR) Coronavirus HKU1 (PCR) Coronavirus 229E (PCR) COVID-19 ([facility]AMBI) COVID-19 Clin Com Coronavirus NL63 (PCR) Human Metapneumovir PCR Influenza A (RT-PCR) Influenza B (RT-PCR) M. pneumoniae (PCR) Parainfluenza 1 (PCR) Parainfluenza 2 (PCR) Parainfluenza 3 (PCR) Parainfluenza 4 (PCR) RSV (PCR) Entero/Rhino (PCR) SARS-CoV-2 RNA (RT-PCR) 06/02/21 06/02/21 06/03/21 21:54 21:54 06:55 MCV 88.0 MCH 25.2 L MCHC 28.6 L RDW 15.9 Plt Count 229 MPV 11.8 Immature Gran % (Auto) 0.4 Neut % (Auto) 90.4 H Lymph % (Auto) 5.2 L [place] % (Auto) 3.9 Eos % (Auto) 0.0 Baso % (Auto) 0.1 Lymph # (Auto) 0.4 L [place] # (Auto) 0.3 Eos # (Auto) 0.0 Baso # (Auto) 0.0 Abs Immat Gran (auto) 0.03 Absolute Neuts (auto) 7.0 Absolute Nucleated RBC 0.000 Nucleated RBC % (auto) 0.0 Smear Tech's Comments VERIFIED VBG pH VBG pCO2 VBG pO2 VBG HCO3 VBG O2 Saturation VBG Base Excess Anion Gap Estim Creat Clear Calc Estimated GFR Random Glucose Calcium Magnesium Ferritin Total Bilirubin Direct Bilirubin AST ALT Alkaline Phosphatase Lactate Dehydrogenase Troponin I High Sens C-Reactive Protein B-Natriuretic Peptide Total Protein Albumin Lipase Procalcitonin Urine Color STRAW Urine Appearance CLEAR Urine pH 7.0 Ur Specific [place] 1.015 Urine Protein 1+ H Urine Glucose (UA) NEG Urine Ketones NEG Urine Blood NEG Urine Nitrite NEG Ur Leukocyte Esterase NEG Urine RBC 0 Urine WBC 0-2 Ur Squamous Epith Cells 1+ Urine Bacteria NONE Urine Opiates Screen Not Detected Ur Barbiturates Screen Not Detected Ur Phencyclidine Scrn Not Detected Ur Amphetamines Screen Not Detected U Benzodiazepines Scrn Not Detected Urine Cocaine Screen Not Detected U Marijuana (THC) Screen Not Detected Respiratory Panel [place] Adenovirus (Rapid PCR) B.pert (TEM-PCR) B.parapertussis DNA PCR C. pneumoniae DNA (PCR) Coronavirus OC43 (PCR) Coronavirus HKU1 (PCR) Coronavirus 229E (PCR) COVID-19 ([facility]AMBI) COVID-19 Clin Com Coronavirus NL63 (PCR) Human Metapneumovir PCR Influenza A (RT-PCR) Influenza B (RT-PCR) M. pneumoniae (PCR) Parainfluenza 1 (PCR) Parainfluenza 2 (PCR) Parainfluenza 3 (PCR) Parainfluenza 4 (PCR) RSV (PCR) Entero/Rhino (PCR) SARS-CoV-2 RNA (RT-PCR) 06/03/21 06/03/21 06/03/21 11:20 13:33 13:33 MCV MCH MCHC RDW Plt Count MPV Immature Gran % (Auto) Neut % (Auto) Lymph % (Auto) [place] % (Auto) Eos % (Auto) Baso % (Auto) Lymph # (Auto) [place] # (Auto) Eos # (Auto) Baso # (Auto) Abs Immat Gran (auto) Absolute Neuts (auto) Absolute Nucleated RBC Nucleated RBC % (auto) Smear Tech's Comments VBG pH VBG pCO2 VBG pO2 VBG HCO3 VBG O2 Saturation VBG Base Excess Anion Gap 13 Estim Creat Clear Calc 234.1 Estimated GFR > 60 Random Glucose 121 H Calcium 9.0 D Magnesium Ferritin 82 Total Bilirubin Direct Bilirubin AST ALT Alkaline Phosphatase Lactate Dehydrogenase 222 Troponin I High Sens C-Reactive Protein 3.48 H B-Natriuretic Peptide Total Protein Albumin Lipase Procalcitonin 0.04 Urine Color Urine Appearance Urine pH Ur Specific [place] Urine Protein Urine Glucose (UA) Urine Ketones Urine Blood Urine Nitrite Ur Leukocyte Esterase Urine RBC Urine WBC Ur Squamous Epith Cells Urine Bacteria Urine Opiates Screen Ur Barbiturates Screen Ur Phencyclidine Scrn Ur Amphetamines Screen U Benzodiazepines Scrn Urine Cocaine Screen U Marijuana (THC) Screen Respiratory Panel [place] See Note Adenovirus (Rapid PCR) Not Detected B.pert (TEM-PCR) Not Detected B.parapertussis DNA PCR Not Detected C. pneumoniae DNA (PCR) Not Detected Coronavirus OC43 (PCR) Not Detected Coronavirus HKU1 (PCR) Not Detected Coronavirus 229E (PCR) Not Detected COVID-19 ([facility]BI) COVID-19 Clin Com Coronavirus NL63 (PCR) Not Detected Human Metapneumovir PCR Not Detected Influenza A (RT-PCR) Not Detected Influenza B (RT-PCR) Not Detected M. pneumoniae (PCR) Not Detected Parainfluenza 1 (PCR) Not Detected Parainfluenza 2 (PCR) Not Detected Parainfluenza 3 (PCR) Not Detected Parainfluenza 4 (PCR) Not Detected RSV (PCR) Not Detected Entero/Rhino (PCR) Detected A SARS-CoV-2 RNA (RT-PCR) Not Detected Assessment and Plan (1) Hypertensive urgency: Status: Acute (2) CAP (community acquired pneumonia): Status: Acute (3) Acute respiratory failure with hypoxia: Status: Acute Assessment and Plan: 36yo M with HTN, bipolar disorder, morbid obesity presenting with dyspnea/cough admitted for HTN urgency + CAP # HTN urgency - due to medication noncompliance; counseled on importance of compliance; BP improved with resumption of amlodipine, lisinopril, and metoprolol # acute hypoxic respiratory failure - resolved # CAP - on ceftriaxone + azithromycin d#2. follow BCx. possibly all viral- tested positive for enterovirus/rhinovirus. # likely REBECCA/OHS - CPAP at night though reportedly not compliant at home- respiratory consult # obstructive sleep apnea/hypoventilation syndrome - noncompliant with CPAP - will attempt CPAP at bedtime # bipolar disorder - continue bupropion, duloxetine, and lamotrigine # tobacco abuse - prn nicotine gum, counseling # morbid obesity - consider outpt bariatric referral # VTE ppx - LMWH Quality Stroke Does the patient have a stroke diagnosis?: No VTE Prior VTE?: No VTE Risk Level:: Medical - moderate - high VTE Device Contraindication: Treatment Not Indicated VTE Drug Contraindication: N/A - Med Ordered
[2021-06-04] VITALS: BP 136/70; PULSE 76; RESP 16; TEMP 36.9; O2SAT 97
[2021-06-04] MEDS: Enoxaparin Sodium 40 MG/0.4 ML SYRINGE SUBCUT (02:23)
[2021-06-04 04:00] VITALS: BP 144/83; PULSE 64; RESP 16; TEMP 36.1; O2SAT 94
[2021-06-04 06:41] LABS: Hematocrit 38.1 % (42-52); Mean Corpuscular HGB Conc 28.9 g/dl (31.0-36.0); Mean Corpuscular Hemoglobin 25.5 pg (27.0-33.0); Mean Corpuscular Volume 88.2 fL (80-98); Mean Platelet Volume 12.1 fL (9.4-12.4); Platelet Count 250 X10*3/uL (160-400); Red Blood Count 4.32 X10*6/uL (4.60-5.80); Red Cell Distribution Width 15.8 % (11.0-16.0); White Blood Count 5.9 X10*3/uL (4.8-10.8)
[2021-06-04 07:09] LABS: Anion Gap 12 (12-20); Blood Urea Nitrogen 12 mg/dL (9-16); Calcium 8.6 mg/dL (8.4-10.2); Carbon Dioxide 30 mmol/L (22-29); Chloride 103 mmol/L (96-108); Creatinine Clr Calc Pharmacy 269.7; Estimated Glomerular Filt Rate > 60; Glucose Random 120 mg/dL (60-115); Potassium 4.6 mmol/L (3.3-5.1); Sodium 140 mmol/L (135-145)
[2021-06-04 07:49] VITALS: BP 150/70; PULSE 60; RESP 18; TEMP 36.8; O2SAT 95
[2021-06-04] MEDS: lamoTRIgine 25 MG TABLET 50 MG PO (08:00)
[2021-06-04] MEDS: DULoxetine HCl 30 MG CAPSULE.DR PO (08:00)
[2021-06-04] MEDS: buPROPion HCl XL 300 MG TAB.ER.24H PO (08:00)
[2021-06-04] MEDS: Metoprolol Tartrate 50 MG TABLET PO (08:00)
[2021-06-04] MEDS: 0.9 % Sodium Chloride Flush 3 ML SYRINGE IVFLUSH (08:01)
[2021-06-04] MEDS: amLODIPine Besylate 10 MG TABLET PO (08:01)
--- NOTE | 2021-06-04 10:25 | MHC.CM.PN ---
PATIENT LIVES IN A [place]. HIS PCP IS WITH [facility]. RN WILL VISIT IF NEEDED, OR PCP WILL PROVIDE TRANSPORT TO AND FROM VISITS. HE USES NO INHALERS NO DME HE IS HOPING TO LEAVE TODAY BECAUSE HE HAS SOMEONE COMING TO HIS HOME TO FIX A CHAIR. PATIENT IS AWARE THAT CASE MANAGEMENT WILL FOLLOW UP WITH PLANS FOLLOWING MEDICAL ROUNDS.'HE IS NOT INTERESTED IN ASSIGNING A HCP AT THIS TIME
[2021-06-04 11:13] VITALS: BP 138/78; PULSE 66; RESP 18; TEMP 36.4; O2SAT 98
--- NOTE | 2021-06-04 11:29 | MHC.CM.PN ---
PATIENT LIVES ALONE ADDRESS AND PCP VERIFED PATIENT HAS A BARIATRIC WALKER AND A POWER CHAIR HE IS CURRENTLY AWAITING DISCHARGE [facility] REFERRAL PLACED. IMM 06/04 IN CHART
--- NOTE | 2021-06-04 12:05 | MHC.CM.PN ---
CALL TO [facility]SP[facility] AT [phone] ([facility]) ATTEMPTS BEING MADE TO SECURE TRANSPORT TO PATIENT'S RESIDENCE. [facility] EXPECTS THAT PATIENT TRANSPORT WILL BE HERE FOR [id number]. RN AND PATIENT MADE AWARE. PATIENT WILL NEED TO BE DOWNSTAIRS TO WAIT.
--- NOTE | 2021-06-04 15:47 | MHC.CM.PN ---
[facility] ([phone] IS UNABLE TO ACCOMMODATE [facility] ([phone]) IS UNABLE TO ACCOMMODATE [facility] IS UNABLE TO ACCEPT PATIENT [place] [facility] [place]. PLAN IS [facility]ED TRANSPORT ([phone]) TO PICK PATIENT UP. WHEN [facility] ARRIVES, PATIENT CAN BE BROUGHT OUT TO [facility]. PLAN IS FINALIZED WITH [facility] RN, MATTI ([phone]).
--- NOTE | 2021-06-04 17:58 | PM.DS ---
DS: Providers Provider Date of Service: 06/04/21 Date of admission: 06/02/21 23:27 Primary care physician: Bryanna Yang MD DS: Diagnosis Discharge Diagnosis (1) Hypertensive urgency: Status: Acute (2) CAP (community acquired pneumonia): Status: Acute (3) Acute respiratory failure with hypoxia: Status: Acute DS: Medications Discharge Medications Home Medications: Home Medications Medication Instructions Recorded Confirmed duloxetine 30 mg capsule,delayed 30 mg PO DAILY 11/17/20 06/02/21 release lamotrigine 25 mg tablet 50 mg PO BID 11/17/20 06/02/21 bupropion HCl 150 mg tablet,12 hr 300 mg PO DAILY 06/02/21 06/02/21 sustained-release (Wellbutrin SR) Previous Rx's Medication Instructions Recorded albuterol sulfate 90 mcg/actuation 1 inh INHALATION QID PRN #6.7 g 06/02/21 aerosol inhaler amlodipine 10 mg tablet 10 mg PO DAILY #30 tab 06/04/21 azithromycin 500 mg tablet 500 mg PO DAILY 3 Days #3 tab 06/04/21 lisinopril 40 mg tablet 40 mg PO DAILY #30 tab 06/04/21 metoprolol tartrate 50 mg tablet 50 mg PO BID #60 tab 06/04/21 nicotine (polacrilex) 2 mg gum 2 mg BUCCAL Q2H PRN #50 ea 06/04/21 DS: Summary Hospital Course Hospital Course: History of presenting illness Chief Complaint: Cough This is a 36-year-old male with past medical history of bipolar, depression anxiety, hypertension noncompliant with medications, PTSD, sleep apnea noncompliant with CPAP who presents to the hospital with complaints of persistent cough.? Patient reports cough for the past 3-4 days, associated with congestion, stuffy nose, shortness of breath, chills, and overall feeling very sick.? Members have been sick and he most likely got it from them, he denies any sputum production, denies any fever, denies any headache, chest pain, reports urinary frequency with no urgency, dysuria, and no lower extremity edema. On initial arrival to the ED patient vitals significant for temp of 98.0?, heart rate of 95, respiratory rate of 20, blood pressure of 190/43, satting 95% on room air, patient did dip down to the low 80s and is currently on 3 L satting 95%. Labs are significant for WBC count of 6.5, hemoglobin of 11.2 which is around his baseline, platelets of 227, VBG showed a pH of 7.45 with no CO2 retention, UA negative.? COVID negative EKG showed normal sinus rhythm with no new changes Chest x-ray showed suspect small ground-glass opacity medial right middle lobe. Given his hypoxia patient will be admitted Hospital course 36yo M with HTN, bipolar disorder, morbid obesity presented with dyspnea/cough admitted for HTN urgency + CAP, patient was placed back on home medications including amlodipine lisinopril and metoprolol blood pressure improved he has been counseled on importance of compliance, acute hypoxic respiratory failure resolved respiratory viral panel tested positive for entero and rhinovirus Patient was initially treated with IV ceftriaxone and azithromycin blood cultures are negative therefore will be discharged home on 3 more days of by mouth azithromycin to cover superadded bacterial infection, he has been strongly advised to abstain from smoking and is being discharged home on nicotine gum, patient likely has obstructive sleep apnea and obesity hypoventilation syndrome previously was given CPAP, recommended to have outpatient follow-up with PCP and pulmonology In regard to bipolar disorder he has been continued on bupropion, duloxetine, and lamotrigine In regard to morbid obesity he has been recommended to have outpatient bariatric referral Time Spent with Patient Time attestation: Total time spent providing and/or coordinating discharge services: Discharge coordination time: Greater than 30 minutes Quality: Stroke Does the patient have a stroke diagnosis?: No Physical Exam Vital Signs: Vital Signs: Last Vital Signs Temp 97.5 F 06/04/21 11:13 Pulse 66 06/04/21 11:13 Resp 18 06/04/21 11:13 BP 138/78 06/04/21 11:13 Pulse Ox 98 06/04/21 11:13 Body Mass Index 94.8 Gen: in no acute distress HEENT: sclera anicteric, moist mucus membranes Neck: supple Lungs: diminished bilaterally Heart: regular rate and rhythm, no murmurs Abd: soft, morbidly obese, non-tender, non-distended Ext: no edema Skin: warm/well-perfused Neuro: alert and oriented x3, no focal findings Psych: appropriate affect ? DS: Data Data Completed and Pending Labs on day of discharge: Laboratory Results - last 24 hr 06/04/21 06/04/21 06:01 06:01 WBC 5.9 RBC 4.32 L Hgb 11.0 L Hct 38.1 L MCV 88.2 MCH 25.5 L MCHC 28.9 L RDW 15.8 Plt Count 250 MPV 12.1 Absolute Nucleated RBC 0.000 Nucleated RBC % (auto) 0.0 Sodium 140 Potassium 4.6 Chloride 103 Carbon Dioxide 30 H Anion Gap 12 BUN 12 Creatinine 0.92 Estim Creat Clear Calc 269.7 Estimated GFR > 60 Random Glucose 120 H Calcium 8.6 Discharge Plan Discharge Patient Disposition: Home, Self-Care Discharge Diagnosis: Acute hypoxic respiratory failure Community-acquired pneumonia Hypertensive urgency Obstructive sleep apnea Tobacco use disorder Morbid obesity Referrals: Bryanna Yang MD [Primary Care Provider] - 1 Week Discharge Medications: New albuterol sulfate 90 mcg/actuation HFA aerosol inhaler 1 inh inhalation QID PRN (Reason: shortness of breath or wheezing) Qty: 6.7 RF: 0 nicotine (polacrilex) 2 mg Gum 2 mg buccal Q2H PRN (Reason: Nicotine Cravings) Qty: 50 RF: 0 azithromycin 500 mg tablet 500 mg PO DAILY 3 Days Qty: 3 RF: 0 Continued lamotrigine 25 mg tablet 50 mg PO BID RF: 0 duloxetine 30 mg capsule,delayed release(DR/EC) 30 mg PO DAILY RF: 0 bupropion HCl [Wellbutrin SR] 150 mg Tablet Sustained-Release 12 Hr 300 mg PO DAILY RF: 0 amlodipine 10 mg tablet 10 mg PO DAILY Qty: 30 RF: 0 metoprolol tartrate 50 mg tablet 50 mg PO BID Qty: 60 RF: 0 lisinopril 40 mg tablet 40 mg PO DAILY Qty: 30 RF: 0 Discharge Orders: Discharge Order (Routine); Ordered 06/04/21 Ordered By: Madhav Pugh Diet: low fat, low cholesterol Activity on Discharge: As tolerated Stand Alone Forms: Patient Portal Discharge page Activity Restrictions/Additional Instructions: Care Plan Goals: You have viral infection, Take azithromycin 500 mg for 3 more days, ambulate as tolerated take cough medication as needed Health Concerns: Obstructive sleep apnea/hypoventilation syndrome/morbid obesity/hypertension/tobacco use disorder Plan of Treatment: Outpatient follow-up with primary care physician, needs referral to bariatric surgery and pulmonology for outpatient sleep study Follow low-calorie diet, use Nicorette gums for tobacco cravings Assessment: As above Patient Instructions: Community Acquired Pneumonia (ED) Discharge Date/Time: 06/04/21 17:00
== END 2021-06-04 17:00 | disposition home or self-care (01) | DRG 194 ==
LOC: HO.ED 21:51 → HO.EDOVER 06-03 01:03 → HO.S3 06-03 09:11
PROVIDERS: Family Medicine; Physician Assistant; Admitting Provider Internal Medicine; Emergency Provider Emergency Medicine; PCP Family Medicine; Visit Provider Hospitalist
DX: J18.9 Pneumonia, unspecified organism (principal); Z68.45 Body mass index [BMI] 70 or greater, adult; E66.2 Morbid (severe) obesity with alveolar hypoventilation; B97.10 Unspecified enterovirus as the cause of diseases classified elsewhere; Z91.14 Patient's other noncompliance with medication regimen; F31.9 Bipolar disorder, unspecified; I16.0 Hypertensive urgency; F43.10 Post-traumatic stress disorder, unspecified; Z20.822 Contact with and (suspected) exposure to COVID-19; Z79.899 Other long term (current) drug therapy
CPT/HCPCS: 36415; 71045; 80048; 80076; 80307; 81001; 82728; 82803; 83615; 83690; 83735; 83880; 84145; 84484; 85025; 85027; 86140; 87633; 87635; 93005; 94640; 99285; J0456; J0696; J1650

== ENCOUNTER 2021-06-04 23:11 | Emergency (ER) | payer OTHER, SELFPAY ==
[2021-06-04 23:28] VITALS: BP 218/122; PULSE 80; RESP 20; TEMP 36.6; O2SAT 93; BMI 93.0
--- NOTE | 2021-06-05 00:24 | ED.ABDPAIN ---
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 Recent admission on 06/02/2021 and discharged on 06/04/2021 for hypertensive urgency: Community the acquired pneumonia: Acute respiratory failure with hypoxia was sent home with 3 more days of azithromycin. He denies any fevers, dizziness, chest pain, worsening shortness of breath, diarrhea, black or bloody stools, dysuria, hematuria or any other symptoms complaints or concerns at this time. MD elicited complaint: abdominal pain Onset (ago): hour(s) (Prior to arrival) Pain Consistency: constant Location: diffuse Severity: severe Pain scale (0-10): 10 Quality: aching Radiation: none Migration to: no migration Relieving factors: nothing Associated symptoms: constipation Related Data Home Medications Medication Instructions Recorded Confirmed duloxetine 30 mg capsule,delayed 30 mg PO DAILY 11/17/20 06/02/21 release lamotrigine 25 mg tablet 50 mg PO BID 11/17/20 06/02/21 bupropion HCl 150 mg tablet,12 hr 300 mg PO DAILY 06/02/21 06/02/21 sustained-release (Wellbutrin SR) Previous Rx's Medication Instructions Recorded albuterol sulfate 90 mcg/actuation 1 inh INHALATION QID PRN #6.7 g 06/02/21 aerosol inhaler amlodipine 10 mg tablet 10 mg PO DAILY #30 tab 06/04/21 azithromycin 500 mg tablet 500 mg PO DAILY 3 Days #3 tab 06/04/21 lisinopril 40 mg tablet 40 mg PO DAILY #30 tab 06/04/21 metoprolol tartrate 50 mg tablet 50 mg PO BID #60 tab 06/04/21 nicotine (polacrilex) 2 mg gum 2 mg BUCCAL Q2H PRN #50 ea 06/04/21 dicyclomine 20 mg tablet 20 mg PO TID #14 tab 06/05/21 docusate sodium 100 mg capsule 100 mg PO BID PRN #14 cap 06/05/21 (Colace) polyethylene glycol 3350 17 17 g PO DAILY #238 g 06/05/21 gram/dose oral powder (Miralax) Allergies Allergy/AdvReac Type Severity Reaction Status Date / Time No Known Allergies Allergy Verified 06/02/21 13:33 [No Known Allergies*] Review of Systems Review of Systems Constitutional : No Weight loss, No Fever, No Chills, No Night Sweats, No Fatigue, NoMalaise ENT/Mouth: No ear pain, No sore throat, No Difficulty swallowing Cardiovascular : No Chest Pain, No SOB, No Dyspnea on Exertion, No Orthopnea, NoEdema, No Palpitations Respiratory : No Cough, No Sputum, No Wheezing, No Dyspnea Gastrointestinal : Positive abdominal pain and constipation, No Nausea, No Vomiting, No Diarrhea, No blood streaked emesis, No coffee-ground emesis, No gross hematemesis, No blood streak stool, No gross hematochezia, No Melena Genitourinary : No irregular bleeding, No Dysuria, No Urinary Frequency, No Hematuria,No Urinary Incontinence, No Urgency, No Flank Pain Musculoskeletal : No joint pain, No Myalgias, No Joint Swelling Skin : No Skin Lesions, No rash Neuro : No Weakness, No Numbness, No Paresthesias, No Loss of Consciousness, NoDizziness, No Headache Psych : No Social Issues, Heme/Lymph: No Bruising, No Bleeding,No Lymphadenopathy Endocrine : No Polyuria, No Polydipsia, No Temperature Intolerance Yes all other systems are reviewed and are negative Physical Exam Vital Signs: Vital Signs: Last Vital Signs Temp 97.9 F 06/04/21 23:28 Pulse 82 06/05/21 00:52 Resp 20 06/05/21 00:52 BP 184/100 H 06/05/21 00:52 Pulse Ox 93 06/04/21 23:28 Body Mass Index 93.0 vital signs have been reviewed as normal and appeared to be correct. Blood pressure hypertensive to 118/122 Heart rate normal. Respiration rate normal. Temperature normal. Oxygen saturation normal. Appearance: Alert. Oriented X3. When I went to examine the patient patient was in the bathroom crying saying his abdomen hurt it and he urinated all over the floor. Otherwise no other acute distress. Head: Normal external exam. Normocephalic. Eyes: PERRLA. EOMI. Conjunctiva and sclera normal. Eyelids normal. ENT: Pharynx normal. Uvula midline. Moist mucous membranes. Neck: Normal inspection. Neck supple. FROM. No adenopathy. No meningeal signs. CVS: Normal heart rate and rhythm. Heart sound normal. No murmurs noted. Pulses normal throughout. Respiratory: No respiratory distress. Painless inspiration. Breath sounds normal. No wheezes/rales/rhonchi noted. Chest nontender. No accessory muscle usage noted or decreased air movement noted. Abdomen: Soft and nontender. I palpated the patient's abdomen diffusely with moderate pressure and patient did not show any signs of tenderness. No guarding noted. No rigidity. Bowel sounds normal in all 4 quadrants. No distention noted. No organomegaly noted. No visible injury noted. No rebound tenderness. Negative Rovsing sign. Negative obturator's sign. Negative psoas sign. Negative Moya sign. Back: No CVA tenderness. Full range of motion noted. Skin: Skin warm and dry. Normal skin color. Normal skin turgor. No rashes/lesions/lacerations noted. Extremities: Extremities exhibit normal range of motion. Extremities nontender. Neuro: Oriented X 3. No motor deficit. No sensory deficit. Reflexes normal. Normal steady gait. 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 - On my exam patient is alert oriented x3. Crying throughout exam otherwise not in any acute distress. On my exam of the abdomen patient is completely nontender. It is soft. No CVA tenderness is noted. Not consistent with acute abdomen. Plan: Labs, UA. Provide 10 mg of Bentyl and 2 mg of Ativan then re-evaluate. Reevaluation(s) Reevaluation #1: - labs reviewed and patient with mild baseline anemia improved when compared to prior. Carbon dioxide 33. Anion gap 11. Random glucose 133. Total protein 8.1. All other labs are within normal limits. - patient was able to have a bowel movement and reports moderate symptomatic relief of his abdominal pain. He is now resting denying any abdominal pain. He is now tolerating p.o. fluids. Therefore no imaging is indicated and patient's labs are all within normal limits. Therefore will DC home with symptomatic treatment instructions to return if any new or worsening symptoms to follow up with primary care provider. Patient understands agrees with this plan. Time: 01:28 [facility] - Abdominal Pain Medical Records Attestation: I reviewed the patient's medical records. Lab Data Attestation: I reviewed the patient's lab results. Result diagrams: 06/05/21 00:48 06/05/21 00:48 Labs: Lab Results 06/05/21 06/05/21 06/05/21 Range/Units 00:48 00:48 00:48 WBC 7.3 (4.8-10.8) X10*3/uL RBC 4.50 L (4.60-5.80) X10*6/uL Hgb 11.5 L (14.0-18.0) g/dl Hct 39.5 L (42-52) % MCV 87.8 (80-98) fL MCH 25.6 L (27.0-33.0) pg MCHC 29.1 L (31.0-36.0) g/dl RDW 15.8 (11.0-16.0) % Plt Count 242 (160-400) X10*3/uL MPV 11.1 (9.4-12.4) fL Immature Gran % (Auto) 0.4 (0.0-0.4) % Neut % (Auto) 75.7 H (45-73) % Lymph % (Auto) 12.6 L (20-40) % Rooks % (Auto) 9.5 (2-11) % Eos % (Auto) 1.5 (0-4) % Baso % (Auto) 0.3 (0-2) % Lymph # (Auto) 0.9 L (1.2-4.9) X10*3/uL Rooks # (Auto) 0.7 (0.1-1.2) X10*3/uL Eos # (Auto) 0.1 (0.0-0.4) X10*3/uL Baso # (Auto) 0.0 (0.0-0.2) X10*3/uL Abs Immat Gran (auto) 0.03 (0.00-0.03) X10*3/uL Absolute Neuts (auto) 5.6 (2.0-8.3) X10*3/uL Absolute Nucleated RBC 0.000 (0.0-0.012) X10*3/uL Nucleated RBC % (auto) 0.0 (0.0-0.2) /100WBC PT 12.7 (9.9-13.0) SEC INR 1.1 (0.9-1.1) Sodium 141 (135-145) mmol/L Potassium 4.1 (3.3-5.1) mmol/L Chloride 101 (96-108) mmol/L Carbon Dioxide 33 H (22-29) mmol/L Anion Gap 11 L (12-20) BUN 10 (9-16) mg/dL Creatinine 0.92 (0.5-1.4) mg/dL Estim Creat Clear Calc 250.7 Estimated GFR > 60 Random Glucose 133 H (60-115) mg/dL Calcium 8.9 (8.4-10.2) mg/dL Magnesium 2.1 (1.6-2.6) mg/dL Total Bilirubin 0.6 (0.0-1.0) mg/dL AST 19 (5-37) U/L ALT 23 (0-40) U/L Alkaline Phosphatase 78 (39-117) U/L Total Protein 8.1 H (6.5-8.0) g/dL Albumin 3.8 (3.5-5.0) g/dL Lipase 14 (8-78) U/L Discharge Plan Discharge Clinical Impression: Constipation, Abdominal pain Patient Disposition: Home, Self-Care Instructions: Constipation (ED), High Fiber Diet (ED) Prescriptions: New docusate sodium [Colace] 100 mg capsule 100 mg PO BID PRN (Reason: Constipation) Qty: 14 RF: 0 polyethylene glycol 3350 [Miralax] 17 gram/dose powder 17 g PO DAILY Qty: 238 RF: 0 dicyclomine 20 mg tablet 20 mg PO TID Qty: 14 RF: 0 No Action lamotrigine 25 mg tablet 50 mg PO BID RF: 0 duloxetine 30 mg capsule,delayed release(DR/EC) 30 mg PO DAILY RF: 0 bupropion HCl [Wellbutrin SR] 150 mg Tablet Sustained-Release 12 Hr 300 mg PO DAILY RF: 0 albuterol sulfate 90 mcg/actuation HFA aerosol inhaler 1 inh inhalation QID PRN (Reason: shortness of breath or wheezing) Qty: 6.7 RF: 0 nicotine (polacrilex) 2 mg Gum 2 mg buccal Q2H PRN (Reason: Nicotine Cravings) Qty: 50 RF: 0 azithromycin 500 mg tablet 500 mg PO DAILY 3 Days Qty: 3 RF: 0 amlodipine 10 mg tablet 10 mg PO DAILY Qty: 30 RF: 0 metoprolol tartrate 50 mg tablet 50 mg PO BID Qty: 60 RF: 0 lisinopril 40 mg tablet 40 mg PO DAILY Qty: 30 RF: 0 Referrals: Physician,Unknown [Primary Care Provider] - 2 days (your pcp) Print Language: Armenian [facility] Past Medical History Attestation statement: The following information was validated with the patient. Medical History Anxiety Bipolar disorder Depression Hypertension Lymph edema PTSD (post-traumatic stress disorder) Sleep apnea in adult Testicle pain Social History Social History Household Members: None Housing: Other Housing Other:: [facility] Do you presently have visiting nurse or other home services: No Alcohol intake: never Patient Tobacco Use Status: Current everyday Tobacco user Tobacco use type: Cigarette Cigarettes Per Day: 6 Second Hand Smoke Exposure: No Substance Use Type: Marijuana Advance Directives: No
[2021-06-05] MEDS: Dicyclomine HCl 10 MG CAPSULE PO (00:27)
[2021-06-05] MEDS: LORazepam 1 MG TABLET 2 MG PO (00:27)
[2021-06-05 00:52] VITALS: BP 184/100; PULSE 82; RESP 20
[2021-06-05 00:53] LABS: MANUAL DIFF FLAG NO
[2021-06-05 00:54] LABS: Basophils Percent Auto 0.3 % (0-2); Eosinophils Absolute Auto 0.1 X10*3/uL (0.0-0.4); Eosinophils Percent Auto 1.5 % (0-4); Hematocrit 39.5 % (42-52); Hemoglobin 11.5 g/dl (14.0-18.0); Imm Gran Abs Auto 0.03 X10*3/uL (0.00-0.03); Imm Gran Pct Auto 0.4 % (0.0-0.4); Lymphocytes Absolute Auto 0.9 X10*3/uL (1.2-4.9); Lymphocytes Percent Auto 12.6 % (20-40); Mean Corpuscular HGB Conc 29.1 g/dl (31.0-36.0); Mean Corpuscular Hemoglobin 25.6 pg (27.0-33.0); Mean Corpuscular Volume 87.8 fL (80-98); Mean Platelet Volume 11.1 fL (9.4-12.4); Monocytes Absolute Auto 0.7 X10*3/uL (0.1-1.2); Monocytes Percent Auto 9.5 % (2-11); Neutrophils Absolute Auto 5.6 X10*3/uL (2.0-8.3); Neutrophils Percent Auto 75.7 % (45-73); Platelet Count 242 X10*3/uL (160-400); Red Cell Distribution Width 15.8 % (11.0-16.0); White Blood Count 7.3 X10*3/uL (4.8-10.8)
[2021-06-05 01:01] LABS: INTERNATIONAL NORM RATIO 1.1 (0.9-1.1); Prothrombin Time 12.7 SEC (9.9-13.0)
--- NOTE | 2021-06-05 01:13 | PC.NURSE ---
PT REPEATEDLY AMBULATING TO BATHROOM, DISROBING, AND PULLING ASSISTANCE CORD, WHEN THIS RN ENTERS BATHROOM TO INQUIRE WHAT HELP THE PT REQUIRES HE INFORMS THAT HIS ABDOMEN HURTS. PT GIVEN CLEAN HOSPITAL GOWN, PT AMBULATES BACK TO BED.
--- NOTE | 2021-06-05 01:25 | PC.NURSE ---
PT PASSED FORMED STOOL, REPORTS MODERATE IMPROVEMENT IN SX, PROVIDER AWARE.
[2021-06-05 01:26] LABS: Alanine Aminotransferase 23 U/L (0-40); Albumin Level 3.8 g/dL (3.5-5.0); Alkaline Phosphatase 78 U/L (39-117); Anion Gap 11 (12-20); Aspartate Amino Transferase 19 U/L (5-37); Bilirubin Total 0.6 mg/dL (0.0-1.0); Blood Urea Nitrogen 10 mg/dL (9-16); Calcium 8.9 mg/dL (8.4-10.2); Carbon Dioxide 33 mmol/L (22-29); Chloride 101 mmol/L (96-108); Creatinine Clr Calc Pharmacy 250.7; Estimated Glomerular Filt Rate > 60; Glucose Random 133 mg/dL (60-115); Lipase 14 U/L (8-78); Magnesium 2.1 mg/dL (1.6-2.6); Potassium 4.1 mmol/L (3.3-5.1); Sodium 141 mmol/L (135-145); Total Protein 8.1 g/dL (6.5-8.0)
[2021-06-05 01:54] VITALS: BP 184/100; PULSE 80
[2021-06-05 01:55] VITALS: BP 184/100; PULSE 80
[2021-06-05] MEDS: Metoprolol Tartrate 50 MG TABLET PO (01:55)
[2021-06-05] MEDS: amLODIPine Besylate 10 MG TABLET PO (01:55)
[2021-06-05 04:01] VITALS: RESP 20
--- NOTE | 2021-06-05 05:33 | PC.NURSE ---
PT AMBULATORY TO BR, GAIT SLOW AND STEADY. PT AMBULATED BACK TO BED. VOIDED IN BR.
== END 2021-06-05 09:23 | disposition home or self-care (01) ==
PROVIDERS: Physician Assistant Medical; Emergency Provider Internal Medicine
DX: K59.00 Constipation, unspecified (principal); R10.9 Unspecified abdominal pain; F33.1 Major depressive disorder, recurrent, moderate; F43.10 Post-traumatic stress disorder, unspecified; F41.1 Generalized anxiety disorder; F43.0 Acute stress reaction; F17.210 Nicotine dependence, cigarettes, uncomplicated; Z79.899 Other long term (current) drug therapy; Z71.6 Tobacco abuse counseling
CPT/HCPCS: 36415; 80053; 83690; 83735; 85025; 85610; 96372; 99284

== ENCOUNTER 2021-06-06 04:56 | Emergency (ER) | payer OTHER, SELFPAY ==
[2021-06-06] VITALS (7 sets, daily range): BP systolic 146–224; BP diastolic 88–120; PULSE 79–90; RESP 15–20; TEMP 36.8; O2SAT 91–94; BMI 94.8
--- NOTE | ~2021-06-06 | XR_ITS ---
EXAMINATION: CHEST AND ABDOMEN. CLINICAL INFORMATION: Abdominal pain COMPARISON: None TECHNIQUE: Chest one view. Abdomen one view. FINDINGS: Chest: The lungs are well-expanded and clear of acute pneumonic process. The heart size and pulmonary vascularity is normal. ABDOMEN: Upright views suboptimal and underpenetrated. However there is no free air visualized. XR/XR abdomen 1V IMPRESSION: Unremarkable chest exam. Suboptimal upright portable. Free air is not visualized or suspected at this time.
--- NOTE | ~2021-06-06 | XR_ITS ---
EXAMINATION: CHEST AND ABDOMEN. CLINICAL INFORMATION: Abdominal pain COMPARISON: None TECHNIQUE: Chest one view. Abdomen one view. FINDINGS: Chest: The lungs are well-expanded and clear of acute pneumonic process. The heart size and pulmonary vascularity is normal. ABDOMEN: Upright views suboptimal and underpenetrated. However there is no free air visualized. XR/XR chest 1V IMPRESSION: Unremarkable chest exam. Suboptimal upright portable. Free air is not visualized or suspected at this time.
--- NOTE | ~2021-06-06 | US_ITS ---
EXAMINATION: US ABDOMEN COMPLETE CLINICAL INFORMATION: Abdominal pain. COMPARISON: None TECHNIQUE: Real-time imaging of the abdominal viscera. FINDINGS: The diagnostic quality of the examination is severely limited by patient's obese body habitus. The majority of abdominal structures are poorly visualized. PANCREAS: Obscured by bowel gas. ABDOMINAL AORTA AND IVC: The visualized proximal portions are grossly normal. Mid and distal vessels are obscured by bowel gas. LIVER: Poorly visualized. The visualized portions of the liver have normal echotexture. No masses are seen. No intrahepatic bile duct dilatation. GALLBLADDER: Normal. The gallbladder is physiologically distended without evidence of stones, sludge, polyps, wall thickening or pericholecystic fluid. COMMON BILE DUCT: Poorly visualized and, therefore, unable to provide a confident, accurate size measurement of the CBD. A structure that might represent the CBD is 0.9 cm (image [id number]). KIDNEYS: The kidneys are poorly visualized. The right kidney measures approximately 12.6 cm and left kidney approximately 13 cm in length. The cortical echotexture of each kidney is grossly normal. No overt nephrolithiasis or hydronephrosis. SPLEEN: Poorly visualized. Unable to obtain an accurate size measurement of the spleen. The spleen might measure 11 cm maximum dimension. FREE FLUID: None. US/US abdomen complete IMPRESSION: * This ultrasound examination of the abdomen is significantly limited in diagnostic quality by patient's obese body habitus. * Gallbladder has a normal appearance. No evidence of cholelithiasis or cholecystitis. * The common duct is not confidently seen. A structure that might represent the common duct is 0.9 cm. Query whether there is any bilirubin elevation.
--- NOTE | 2021-06-06 05:50 | ED.ABDPAIN ---
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 He was then brought in for reported complaints of abdominal discomfort. Patient denies any fever, chills, nausea, vomiting and states that he was able to eat and drink food yesterday without difficulty but states he did not have a bowel movement after his discharge from this emergency room yesterday morning. Patient denies any urinary symptoms. Related Data Home Medications Medication Instructions Recorded Confirmed duloxetine 30 mg capsule,delayed 30 mg PO DAILY 11/17/20 06/02/21 release lamotrigine 25 mg tablet 50 mg PO BID 11/17/20 06/02/21 bupropion HCl 150 mg tablet,12 hr 300 mg PO DAILY 06/02/21 06/02/21 sustained-release (Wellbutrin SR) Previous Rx's Medication Instructions Recorded albuterol sulfate 90 mcg/actuation 1 inh INHALATION QID PRN #6.7 g 06/02/21 aerosol inhaler amlodipine 10 mg tablet 10 mg PO DAILY #30 tab 06/04/21 azithromycin 500 mg tablet 500 mg PO DAILY 3 Days #3 tab 06/04/21 lisinopril 40 mg tablet 40 mg PO DAILY #30 tab 06/04/21 metoprolol tartrate 50 mg tablet 50 mg PO BID #60 tab 06/04/21 nicotine (polacrilex) 2 mg gum 2 mg BUCCAL Q2H PRN #50 ea 06/04/21 dicyclomine 20 mg tablet 20 mg PO TID #14 tab 06/05/21 docusate sodium 100 mg capsule 100 mg PO BID PRN #14 cap 06/05/21 (Colace) polyethylene glycol 3350 17 17 g PO DAILY #238 g 06/05/21 gram/dose oral powder (Miralax) Allergies Allergy/AdvReac Type Severity Reaction Status Date / Time No Known Allergies Allergy Verified 06/02/21 13:33 [No Known Allergies*] Review of Systems Review of Systems Pertinent positives and negatives as stated in HPI and 10 point review of systems is otherwise negative. Physical Exam Vital Signs: Vital Signs: Last Vital Signs Temp 98.3 F 06/06/21 05:05 Pulse 82 06/06/21 05:05 Resp 20 06/06/21 05:05 BP 167/98 H 06/06/21 05:05 Pulse Ox 94 06/06/21 05:05 Body Mass Index 94.8 VITAL SIGNS: Reviewed. GENERAL: Morbidly obese, Well developed, well nourished, in no acute distress. HEAD: Normocephalic/atraumatic, EYES: PERRLA, EOMI OROPHARYNX: no oral lesions noted, posterior pharynx clear NECK: Supple, no adenopathy LUNGS: Normal breath sounds. No adventitious sounds or accessory muscle use. SpO2<94> CARDIOVASCULAR: Regular rate and rhythm without noted murmurs,. ABDOMEN: Obese, exam limited by body habitus, soft, tenderness noted on palpation without rebound, non-distended with bowel sounds. MUSCULOSKELETAL: No tenderness, deformities, or effusions noted on gross inspection. EXTREMITIES: No cyanosis, clubbing or edema, patient with chronic lymphedema and bilateral lower extremities SKIN: Inspection of the skin reveals no rashes, lymphedema NEUROLOGIC: Alert and oriented x 4. Strength and sensation to light touch were grossly intact x 4. Course Course Course Narrative: This is a 36-year-old male with history and clinical presentation of abdominal discomfort which poses a significant impossibility as patient is a weight/diameter exceeds the capacity of available CT scanners. However, reviewed entire workup that was conducted at patient's prior visit which demonstrates no leukocytosis/no left shift/no elevated pro calcitonin/no lactic acidosis/no renal dysfunction/no UTI, hematuria/and no LFT abnormalities. Used as a proxy in the absence of bowel movement and taking into consideration that when patient had a bowel movement at his last evaluation and communicated to staff that he felt much better afterwards patient will be provided with a dose of lactulose as well as obtaining a repeat urinalysis. On review of urinalysis results there is no evidence of hematuria or evidence to support infection. Signed out patient to Dr. Lee. Discharge Plan Discharge Clinical Impression: Constipation, Abdominal discomfort Patient Disposition: Home, Self-Care Instructions: Constipation (ED), High Fiber Diet (ED) Additional Instructions: PLEASE GO TO THE PHARMACY AND SEALS ENGRAVER YOUR PRESCRIPTIONS AND TAKE DIRECTED. Return to the ER if you experience acute worsening or new symptoms. Prescriptions: No Action lamotrigine 25 mg tablet 50 mg PO BID RF: 0 duloxetine 30 mg capsule,delayed release(DR/EC) 30 mg PO DAILY RF: 0 bupropion HCl [Wellbutrin SR] 150 mg Tablet Sustained-Release 12 Hr 300 mg PO DAILY RF: 0 albuterol sulfate 90 mcg/actuation HFA aerosol inhaler 1 inh inhalation QID PRN (Reason: shortness of breath or wheezing) Qty: 6.7 RF: 0 nicotine (polacrilex) 2 mg Gum 2 mg buccal Q2H PRN (Reason: Nicotine Cravings) Qty: 50 RF: 0 azithromycin 500 mg tablet 500 mg PO DAILY 3 Days Qty: 3 RF: 0 amlodipine 10 mg tablet 10 mg PO DAILY Qty: 30 RF: 0 metoprolol tartrate 50 mg tablet 50 mg PO BID Qty: 60 RF: 0 lisinopril 40 mg tablet 40 mg PO DAILY Qty: 30 RF: 0 docusate sodium [Colace] 100 mg capsule 100 mg PO BID PRN (Reason: Constipation) Qty: 14 RF: 0 polyethylene glycol 3350 [Miralax] 17 gram/dose powder 17 g PO DAILY Qty: 238 RF: 0 dicyclomine 20 mg tablet 20 mg PO TID Qty: 14 RF: 0 Referrals: Physician,Unknown [Primary Care Provider] - 2 days [facility] Past Medical History Source: nursing notes reviewed Medical History Anxiety Bipolar disorder Depression Hypertension Lymph edema PTSD (post-traumatic stress disorder) Sleep apnea in adult Testicle pain Social History Social History Household Members: None Housing: Other Housing Other:: motel Do you presently have visiting nurse or other home services: No Alcohol intake: never Patient Tobacco Use Status: Current everyday Tobacco user Tobacco use type: Cigarette Cigarettes Per Day: 6 Second Hand Smoke Exposure: No Substance Use Type: Marijuana Advance Directives: No Advance Directives Information Provided: No
[2021-06-06 06:11] LABS: Glucose Urine UA NEG (NEG); Leukocyte Esterase Urine NEG (NEG); Nitrite Urine NEG (NEG); UACC Culture Trigger NO; Urine Blood NEG (NEG); Urine Ketones NEG (NEG); Urine Protein 2+ MG/DL (NEG-TRACE)
--- NOTE | 2021-06-06 06:16 | PC.NURSE ---
PT REPORTS THAT HE IS CONSTIPATED, WAS NOT ABLE TO FILL RX FROM DISCHARGE FROM FLOOR AND ER. PT NORMALLY PICKS UP RX IN [place], BUT HASN'T BEEN ABLE TO GET A RIDE. PT AWAKE AND ALERT, NO VOMITING IN ER. PATENT AIRWAY, SPO2 94% WHILE AWAKE, 91% WHILE SLEEPING IN UPRIGHT POSITION.
[2021-06-06 06:19] LABS: Appearance Urine CLEAR; Color Urine YELLOW
[2021-06-06] MEDS: Lactulose 20 GM/30 ML SOLUTION PO (06:27)
[2021-06-06 06:37] LABS: RBC Urine 0 /HPF (0); Squamous Epithelial Cell Urine 1+ /LPF; WBC Urine 0-2 /HPF (0-4)
[2021-06-06 06:38] LABS: Mucus Urine 2+ /LPF
[2021-06-06 07:46] LABS: MANUAL DIFF FLAG NO
[2021-06-06 07:49] LABS: Basophils Percent Auto 0.1 % (0-2); Eosinophils Absolute Auto 0.1 X10*3/uL (0.0-0.4); Eosinophils Percent Auto 0.8 % (0-4); Hematocrit 42.8 % (42-52); Hemoglobin 12.8 g/dl (14.0-18.0); Imm Gran Abs Auto 0.03 X10*3/uL (0.00-0.03); Imm Gran Pct Auto 0.4 % (0.0-0.4); Lymphocytes Percent Auto 13.2 % (20-40); Mean Corpuscular HGB Conc 29.9 g/dl (31.0-36.0); Mean Corpuscular Hemoglobin 25.6 pg (27.0-33.0); Mean Corpuscular Volume 85.6 fL (80-98); Mean Platelet Volume 11.2 fL (9.4-12.4); Monocytes Absolute Auto 0.7 X10*3/uL (0.1-1.2); Monocytes Percent Auto 8.3 % (2-11); Neutrophils Absolute Auto 6.1 X10*3/uL (2.0-8.3); Neutrophils Percent Auto 77.2 % (45-73); Platelet Count 260 X10*3/uL (160-400); Red Cell Distribution Width 15.8 % (11.0-16.0); White Blood Count 7.8 X10*3/uL (4.8-10.8)
[2021-06-06 08:04] LABS: Lactic Acid 1.1 mmol/L (0.5-2.0)
[2021-06-06 08:08] LABS: C Reactive Protein 4.22 mg/dL (< or = 0.50)
[2021-06-06 08:10] LABS: Alanine Aminotransferase 16 U/L (0-40); Albumin Level 3.6 g/dL (3.5-5.0); Alkaline Phosphatase 76 U/L (39-117); Anion Gap 14 (12-20); Aspartate Amino Transferase 14 U/L (5-37); Bilirubin Total 0.8 mg/dL (0.0-1.0); Blood Urea Nitrogen 8 mg/dL (9-16); Calcium 8.9 mg/dL (8.4-10.2); Carbon Dioxide 30 mmol/L (22-29); Chloride 100 mmol/L (96-108); Creatinine Clr Calc Pharmacy 285.2; Estimated Glomerular Filt Rate > 60; Glucose Random 117 mg/dL (60-115); Lipase 22 U/L (8-78); Sodium 140 mmol/L (135-145); Total Protein 7.5 g/dL (6.5-8.0)
--- NOTE | 2021-06-06 08:14 | PC.NURSE ---
pt reporst abdominal pain, is grimmacing and guarding abdomen. Pt states he feels acid at back of throat and feels nausea. MD aware. IV established, labs sent. await further eval
[2021-06-06] MEDS: Acetaminophen 325 MG TABLET 650 MG PO (08:32)
[2021-06-06] MEDS: Magnesium Hydrox/Alum Hydrox 30 ML ORAL.SUSP PO (08:33)
[2021-06-06] MEDS: LORazepam 1 MG TABLET PO (08:33)
[2021-06-06] MEDS: 0.9 % Sodium Chloride 1,000 ML 999 ML IVCONT (09:14)
[2021-06-06 09:17] LABS: Erythrocyte Sedimentation Rate 18 MM/HR (0-15)
[2021-06-06 10:37] LABS: Glucose Urine UA NEG (NEG); Leukocyte Esterase Urine NEG (NEG); Nitrite Urine NEG (NEG); UACC Culture Trigger NO; Urine Blood NEG (NEG); Urine Ketones NEG (NEG); Urine Protein 2+ MG/DL (NEG-TRACE)
[2021-06-06 11:02] LABS: Appearance Urine HAZY; Color Urine YELLOW; RBC Urine 0 /HPF (0)
[2021-06-06 11:03] LABS: Mucus Urine 1+ /LPF; Squamous Epithelial Cell Urine 1+ /LPF
[2021-06-06] MEDS: Ketorolac Tromethamine 15 MG/ML VIAL 30 MG IVPUSH (11:32)
[2021-06-06] MEDS: Metoprolol Succinate ER 50 MG TAB.ER.24H PO (11:43)
--- NOTE | 2021-06-06 12:47 | PC.NURSE ---
pt has been ambulatory to bathroom with walker and heavy assistance. HE had small BM and has returned to room. HE states abdominal pain continues.
--- NOTE | 2021-06-06 14:06 | PC.NURSE ---
PT STATES HE DOES NOT WANT TO GO HOME. md TO BEDSIDE TO EXPLAIN LAB TESTS AND RADIOLOGY REPORTS ARE NORMAL, PT IS OK TO GO HOME. PT STATES HE WANTS PAIN MEDICATION, ASKS FOR PERCOCET. MD STATES HE CAN SEND PT HOME WITH PERSCRIPTION, PT ASKS HOW MANY. MD EXPLAINED HE WILL NOT GIVE MORE THAN 4, PT AGITATED. PT STATES HE ALSO WANTS A LEAD DIE MOLDER FOR HIS WHEELCHAIR AT HOME. PT STATES HE WAS TOLD THE HOSPITAL GIVES THEM OUT. EXPLAINED TO PT HOSPITAL DOES NOT HAVE CHARGERS FOR HIS WHEELCHAIR BUT WE WOULD HAVE CASE MANAGEMENT SEE HIM TO HELP WITH THE MATTER. PT THEN ASKING FOR FOOD, BEVERAGE, ASKING WHO WILL GET HIM HOME AND TO HIS PHARMACY. EXPLAINED PT NEEDS TO AWAIT DISCHARGE.
== END 2021-06-06 15:16 | disposition home or self-care (01) ==
PROVIDERS: Student in an Organized Health Care Education/Training Program; Emergency Provider Emergency Medicine
DX: R10.9 Unspecified abdominal pain (principal); K59.00 Constipation, unspecified; E66.01 Morbid (severe) obesity due to excess calories; I10 Essential (primary) hypertension; F17.210 Nicotine dependence, cigarettes, uncomplicated; F12.90 Cannabis use, unspecified, uncomplicated
CPT/HCPCS: 36415; 71045; 74018; 76700; 80053; 81001; 83605; 83690; 85025; 85652; 86140; 96361; 96374; 99285; J1885

== ENCOUNTER 2021-06-22 13:08 | Emergency (ER) | payer OTHER, SELFPAY ==
[2021-06-22 13:23] VITALS: BP 112/64; PULSE 76; O2SAT 93
[2021-06-22 13:31] VITALS: BP 208/110; PULSE 97; RESP 24; TEMP 36.4; BMI 97.6
--- NOTE | 2021-06-22 13:39 | ED_ITS ---
HPI - Extremity Injury (Lower) General Chief Complaint: Extremity Injury, Lower Stated Complaint: leg pain Time Seen by Provider: 06/22/21 13:28 Source: patient and EMS Mode of arrival: EMS Limitations: no limitations History of Present Illness HPI Narrative: 36 years old male with history of bipolar, depression, anxiety, hypertension patient noncompliant with medication, PTSD, sleep apnea noncompliant with CPAP, patient with bilateral chronic lymphedema and chronic pain. Patient do not follow with a pain clinic, patient has used Percocet for his pain and is requesting prescription for Percocet. Pain in the lower extremities is similar to his previous chronic pain. Related Data Home Medications Medication Instructions Recorded Confirmed duloxetine 30 mg capsule,delayed 30 mg PO DAILY 11/17/20 06/02/21 release lamotrigine 25 mg tablet 50 mg PO BID 11/17/20 06/02/21 bupropion HCl 150 mg tablet,12 hr 300 mg PO DAILY 06/02/21 06/02/21 sustained-release (Wellbutrin SR) Previous Rx's Medication Instructions Recorded albuterol sulfate 90 mcg/actuation 1 inh INHALATION QID PRN #6.7 g 06/02/21 aerosol inhaler amlodipine 10 mg tablet 10 mg PO DAILY #30 tab 06/04/21 azithromycin 500 mg tablet 500 mg PO DAILY 3 Days #3 tab 06/04/21 lisinopril 40 mg tablet 40 mg PO DAILY #30 tab 06/04/21 metoprolol tartrate 50 mg tablet 50 mg PO BID #60 tab 06/04/21 nicotine (polacrilex) 2 mg gum 2 mg BUCCAL Q2H PRN #50 ea 06/04/21 dicyclomine 20 mg tablet 20 mg PO TID #14 tab 06/05/21 docusate sodium 100 mg capsule 100 mg PO BID PRN #14 cap 06/05/21 (Colace) polyethylene glycol 3350 17 17 g PO DAILY #238 g 06/05/21 gram/dose oral powder (Miralax) omeprazole magnesium 10 mg oral 20 mg PO DAILY #30 ea 06/06/21 suspension,delayed release (Prilosec) pantoprazole 20 mg tablet,delayed 20 mg PO DAILY #30 tab 06/06/21 release (Protonix) Allergies Allergy/AdvReac Type Severity Reaction Status Date / Time No Known Allergies Allergy Verified 06/02/21 13:33 [No Known Allergies*] Review of Systems Review of Systems: All other systems are reviewed and are negative Constitutional: Reports as per HPI and Reports no additional constitutional complaints Eyes: Reports as per HPI and Reports no additional eye complaints Reports system reviewed and no additional complaints, except as documented Cardiovascular: Reports as per HPI and Reports no additional cardiovascular complaints Respiratory: Reports as per HPI and Reports no additional respiratory complaints Gastrointestinal: Reports as per HPI and Reports no additional gastrointestinal complaints Genitourinary: Reports no additional female genitourinary complaints Musculoskeletal: Reports no additional musculoskeletal complaints Skin/Breast: Reports system reviewed and no additional complaints, except as docu Psychiatric: Reports no additional psychiatric complaints Endocrine: Reports no additional endocrine complaints Hematologic/Lymphatic: Reports no additional hematologic/lymphatic complaints Allergic/Immunologic: Reports no additional allergic/immunologic complaints Reports system reviewed and no additional complaints, except as documented and Reports Abnormal speech present [facility] Past Medical History Medical History Anxiety Bipolar disorder Depression Hypertension Lymph edema PTSD (post-traumatic stress disorder) Sleep apnea in adult Testicle pain Social History Social History Household Members: None Housing: Other Housing Other:: motel Do you presently have visiting nurse or other home services: No Alcohol intake: never Patient Tobacco Use Status: Current everyday Tobacco user Tobacco use type: Cigarette Cigarettes Per Day: 6 Second Hand Smoke Exposure: No Substance Use Type: Marijuana Advance Directives: No Advance Directives Information Provided: Yes Physical Exam Vital Signs: Vital Signs: Last Vital Signs Temp 97.5 F 06/22/21 13:31 Pulse 97 06/22/21 13:31 Resp 24 H 06/22/21 13:31 BP 208/110 H 06/22/21 13:31 Body Mass Index 97.6 Vital signs have been reviewed as appeared to be correct. Blood pressure elevated (patient is not compliant with these medication). Heart rate normal. Respiration rate elevated likely due to body habitus Temperature normal. Oxygen saturation normal. Appearance: Alert. Oriented X3. No acute distress. Head: Normal external exam. Normocephalic. Atraumatic. No Borrego signs noted. No raccoon eyes noted Eyes: PERRLA. EOMI. Conjunctiva and sclera normal. Eyelids normal. ENT: TM's Normal. Pharynx normal. Uvula midline. Moist mucous membranes. No trismus noted. No drooling noted. No muffled voice noted. Neck: Normal inspection. Neck supple. FROM. No adenopathy. Thyroid Normal. No me ningeal signs. No neck mass noted. CVS: Normal heart rate and rhythm. Heart sound normal. No murmurs noted. Pulses normal throughout. Respiratory: No respiratory distress. Painless inspiration. Breath sounds normal. No wheezes/rales/rhonchi noted. Chest nontender. No accessory muscle usage noted or decreased air movement noted. Abdomen: Soft and nontender. Bowel sounds normal in all 4 quadrants. No distention noted. No organomegaly noted. No visible injury noted. Back: No CVA tenderness. Full range of motion noted. Skin: Skin warm and dry. Normal skin color. Normal skin turgor. No ra shes/lesions/lacerations noted. Extremities: No lower extremity edema. Extremities exhibit normal range of motion. Extremities nontender. Neuro: Oriented X 3. Cranial nerve exam: II-XII are grossly intact No motor deficit. No sensory deficit. Reflexes normal. Course Course Course Narrative: Acute on chronic lower extremities pain due to chronic lymphedema swelling. No suspicion for other new acute pathology especially with the pain unchanged from previous. Patient was instructed to take his medication. Patient was offered gabapentin but patient refused and insisted to have Percocet prescription. Discharge Plan Discharge Clinical Impression: Lymphedema associated with obesity Patient Disposition: Home, Self-Care Instructions: Lymphedema (ED) Additional Instructions: Follow-up with your primary doctor in 1-2 days. Prescriptions: No Action lamotrigine 25 mg tablet 50 mg PO BID RF: 0 duloxetine 30 mg capsule,delayed release(DR/EC) 30 mg PO DAILY RF: 0 bupropion HCl [Wellbutrin SR] 150 mg Tablet Sustained-Release 12 Hr 300 mg PO DAILY RF: 0 albuterol sulfate 90 mcg/actuation HFA aerosol inhaler 1 inh inhalation QID PRN (Reason: shortness of breath or wheezing) Qty: 6.7 RF: 0 nicotine (polacrilex) 2 mg Gum 2 mg buccal Q2H PRN (Reason: Nicotine Cravings) Qty: 50 RF: 0 azithromycin 500 mg tablet 500 mg PO DAILY 3 Days Qty: 3 RF: 0 amlodipine 10 mg tablet 10 mg PO DAILY Qty: 30 RF: 0 metoprolol tartrate 50 mg tablet 50 mg PO BID Qty: 60 RF: 0 lisinopril 40 mg tablet 40 mg PO DAILY Qty: 30 RF: 0 docusate sodium [Colace] 100 mg capsule 100 mg PO BID PRN (Reason: Constipation) Qty: 14 RF: 0 polyethylene glycol 3350 [Miralax] 17 gram/dose powder 17 g PO DAILY Qty: 238 RF: 0 dicyclomine 20 mg tablet 20 mg PO TID Qty: 14 RF: 0 pantoprazole [Protonix] 20 mg tablet,delayed release (DR/EC) 20 mg PO DAILY Qty: 30 RF: 0 Prilosec 10 mg susp,delayed release for recon 20 mg PO DAILY Qty: 30 RF: 0
[2021-06-22] MEDS: Gabapentin 600 MG TABLET PO (13:56)
[2021-06-22] MEDS: oxyCODONE HCl Immed Release 5 MG TABLET PO (14:03)
== END 2021-06-22 14:43 | disposition home or self-care (01) ==
PROVIDERS: Emergency Provider Emergency Medicine; PCP Family Medicine
DX: G89.29 Other chronic pain (principal); M79.662 Pain in left lower leg; M79.661 Pain in right lower leg; I89.0 Lymphedema, not elsewhere classified; E66.01 Morbid (severe) obesity due to excess calories; F31.9 Bipolar disorder, unspecified; I10 Essential (primary) hypertension; F17.210 Nicotine dependence, cigarettes, uncomplicated; F12.90 Cannabis use, unspecified, uncomplicated; Z91.14 Patient's other noncompliance with medication regimen
CPT/HCPCS: 99283

== ENCOUNTER 2021-06-22 21:53 | Emergency (ER) | payer OTHER, SELFPAY ==
[2021-06-22 22:01] VITALS: BP 140/90; BP 148/80; PULSE 86; PULSE 88; RESP 20; TEMP 36.7; O2SAT 96; BMI 80.6
--- NOTE | 2021-06-22 22:29 | ED.GENADULT ---
HPI - General Adult General Chief complaint: General Medical Stated complaint: crisis Time Seen by Provider: 06/22/21 22:03 Source: patient and EMS Mode of arrival: EMS History of Present Illness HPI narrative: 36-year-old male with a past medical history of anxiety, bipolar depression, HTN, edema, PTSD, sleep apnea noncompliant on CPAP, BIBA from the [facility] after calling EMS requesting a ride back to his hotel. EMS informed patient they could not do this so patient responded with I guess I am in crisis then, bring me to the hospital. Patient reports increasing depression over the past 4 days, vague SI. States has not been taking medications times months. Denies HI, EtOH or illicit substance use. Reports chronic lymphedema/LE pain, unchanged Onset (ago): day(s) Related Data Home Medications Medication Instructions Recorded Confirmed duloxetine 30 mg capsule,delayed 30 mg PO DAILY 11/17/20 06/02/21 release lamotrigine 25 mg tablet 50 mg PO BID 11/17/20 06/02/21 bupropion HCl 150 mg tablet,12 hr 300 mg PO DAILY 06/02/21 06/02/21 sustained-release (Wellbutrin SR) Previous Rx's Medication Instructions Recorded albuterol sulfate 90 mcg/actuation 1 inh INHALATION QID PRN #6.7 g 06/02/21 aerosol inhaler amlodipine 10 mg tablet 10 mg PO DAILY #30 tab 06/04/21 azithromycin 500 mg tablet 500 mg PO DAILY 3 Days #3 tab 06/04/21 lisinopril 40 mg tablet 40 mg PO DAILY #30 tab 06/04/21 metoprolol tartrate 50 mg tablet 50 mg PO BID #60 tab 06/04/21 nicotine (polacrilex) 2 mg gum 2 mg BUCCAL Q2H PRN #50 ea 06/04/21 dicyclomine 20 mg tablet 20 mg PO TID #14 tab 06/05/21 docusate sodium 100 mg capsule 100 mg PO BID PRN #14 cap 06/05/21 (Colace) polyethylene glycol 3350 17 17 g PO DAILY #238 g 06/05/21 gram/dose oral powder (Miralax) omeprazole magnesium 10 mg oral 20 mg PO DAILY #30 ea 06/06/21 suspension,delayed release (Prilosec) pantoprazole 20 mg tablet,delayed 20 mg PO DAILY #30 tab 06/06/21 release (Protonix) Allergies Allergy/AdvReac Type Severity Reaction Status Date / Time No Known Allergies Allergy Verified 06/02/21 13:33 [No Known Allergies*] Review of Systems Review of Systems: Constitutional: No Fever, No Malaise ENT/Mouth: No Nasal Congestion, No sore throat Cardiovascular: No Chest Pain, No SOB Respiratory: No Cough, No Dyspnea Gastrointestinal: No Nausea, No Vomiting, No Abdominal pain Genitourinary: No Dysuria, No Urinary Frequency, No Hematuria Musculoskeletal: No joint pain, No Myalgias, No Joint Swelling Skin: No Skin Lesions, No rash Psych: No Anxiety/Panic, + Depression, +Vague SI, No HI, No Social Issues Yes all other systems are reviewed and are negative [facility] Past Medical History Attestation statement: The following information was validated with the patient. Medical History Anxiety Bipolar disorder Depression Hypertension Lymph edema PTSD (post-traumatic stress disorder) Sleep apnea in adult Testicle pain Social History Social History Household Members: None Housing: Other Housing Other:: motel Do you presently have visiting nurse or other home services: No Alcohol intake: never Patient Tobacco Use Status: Current everyday Tobacco user Tobacco use type: Cigarette Cigarettes Per Day: 6 Second Hand Smoke Exposure: No Substance Use Type: Marijuana Advance Directives: No Advance Directives Information Provided: No Physical Exam Vital Signs: Vital Signs: Last Vital Signs Temp 98.0 F 06/22/21 22:01 Pulse 86 06/22/21 22:01 Resp 20 06/22/21 22:01 BP 148/80 H 06/22/21 22:01 Pulse Ox 96 06/22/21 22:01 Body Mass Index 80.6 Const: General: cooperative Nutritional Appearance: obese Orientation/consciousness: patient oriented x3 Limitations: no limitations HENMT: Head: Yes normal to inspection Ears: hearing grossly normal bilaterally General nose exam: Normal external nose present Face and sinus: Yes normal facial exam Eyes: General: appearance normal, both eyes and all related structures EOM: EOMs intact bilaterally Neck: Neck: Yes normal visual inspection and Yes no meningeal signs Resp: Effort & Inspection: normal respiratory effort Auscultation: clear to auscultation bilaterally, no rales, no rhonchi and no wheezes Cardio: Rate: regular rate Heart sounds: S1 normal heart sound present and S2 normal heart sound present Skin: Rashes: no rashes Wounds: no wounds Neuro: General: patient oriented x3 and no meningeal signs Gait exam (Neuro): Normal gait present Extrem: Other: Chronic lower extremity lymphedema Course Course Course Narrative: 2229--Sowmya from care team evaluated patient who reported he just wanted to go back to his motel and sleep -[id number]--Sowmya was able to secure a Lyft to get patient safely back to his motel Medical Decision Making MDM Narrative Medical decision making narrative: 36-year-old male with a past medical history of anxiety, bipolar depression, HTN, edema, PTSD, sleep apnea noncompliant on CPAP, BIBA from the [facility] after calling EMS requesting a ride back to his hotel. Patient reports increasing depression over the past 4 days, vague SI. On exam VSS, NAD, physical exam as above. Will have care team evaluate patient Plan: Care team consult Discharge Plan Discharge Clinical Impression: Depression Patient Disposition: Home, Self-Care Instructions: Depression (ED) Additional Instructions: If you have thoughts of hurting yourself or hurting others please return to the ED Take your home prescribed medications Follow-up with your doctor Prescriptions: No Action lamotrigine 25 mg tablet 50 mg PO BID RF: 0 duloxetine 30 mg capsule,delayed release(DR/EC) 30 mg PO DAILY RF: 0 bupropion HCl [Wellbutrin SR] 150 mg Tablet Sustained-Release 12 Hr 300 mg PO DAILY RF: 0 albuterol sulfate 90 mcg/actuation HFA aerosol inhaler 1 inh inhalation QID PRN (Reason: shortness of breath or wheezing) Qty: 6.7 RF: 0 nicotine (polacrilex) 2 mg Gum 2 mg buccal Q2H PRN (Reason: Nicotine Cravings) Qty: 50 RF: 0 azithromycin 500 mg tablet 500 mg PO DAILY 3 Days Qty: 3 RF: 0 amlodipine 10 mg tablet 10 mg PO DAILY Qty: 30 RF: 0 metoprolol tartrate 50 mg tablet 50 mg PO BID Qty: 60 RF: 0 lisinopril 40 mg tablet 40 mg PO DAILY Qty: 30 RF: 0 docusate sodium [Colace] 100 mg capsule 100 mg PO BID PRN (Reason: Constipation) Qty: 14 RF: 0 polyethylene glycol 3350 [Miralax] 17 gram/dose powder 17 g PO DAILY Qty: 238 RF: 0 dicyclomine 20 mg tablet 20 mg PO TID Qty: 14 RF: 0 pantoprazole [Protonix] 20 mg tablet,delayed release (DR/EC) 20 mg PO DAILY Qty: 30 RF: 0 Prilosec 10 mg susp,delayed release for recon 20 mg PO DAILY Qty: 30 RF: 0 Referrals: [facility] [Physician] - 2 days
--- NOTE | 2021-06-22 23:14 | MHC.CARE ---
CARE team consult received for pt who arrived to ED by ambulance after he called EMS asking for a ride back to his hotel. Per EMS crew, when he was educated that he is not to use an emergency ambulance for such, he stated well I guess I'm crazy then, bring me to the hospital. When meeting with the provider, he endorsed suicidal ideation s/p to increased stress and familial losses. This automatic typewriter inspector met with pt in ED6H bed. He admitted that he had called for an ambulance to bring him home, and when asked why he came to the hospital instead he stated that he has been feeling down since one of his parents a few months ago and wants to get back on meds. He said he wanted to go upstairs and be admitted to the inpt psychiatric unit. When asked if he was having thoughts of hurting himself or of suicide, he responded vaguely that he's been having dark thoughts of doing bad things. This automatic typewriter inspector explained that there is no availability on the units and that we wouldn't be able to admit him. He reported that he just wants to go back to his hotel and go to sleep. Attempted to call for a taxi at 10:30pm, no response at [employer]. No other cab companies operating at this time. Currently in the process of requesting an [employer].
== END 2021-06-22 23:46 | disposition home or self-care (01) ==
PROVIDERS: Emergency Provider Student in an Organized Health Care Education/Training Program
DX: F32.9 Major depressive disorder, single episode, unspecified (principal); F31.9 Bipolar disorder, unspecified; F43.10 Post-traumatic stress disorder, unspecified; F41.9 Anxiety disorder, unspecified; I10 Essential (primary) hypertension; F17.210 Nicotine dependence, cigarettes, uncomplicated; F12.90 Cannabis use, unspecified, uncomplicated; E66.01 Morbid (severe) obesity due to excess calories
CPT/HCPCS: 99283

== ENCOUNTER 2021-06-26 10:43 | Emergency (ER) | payer OTHER, SELFPAY ==
[2021-06-26] VITALS (8 sets, daily range): BP systolic 168–215; BP diastolic 95–133; PULSE 77–88; RESP 16; TEMP 36.6–36.8; O2SAT 91–98; BMI 94.8
--- NOTE | 2021-06-26 | ECG_ITS ---
Test Reason : DYSPNEA Blood Pressure : / mmHG Vent. Rate : 080 BPM Atrial Rate : 080 BPM P-R Int : 170 ms QRS Dur : 082 ms QT Int : 386 ms P-R-T Axes : 053 048 084 degrees QTc Int : 445 ms Normal sinus rhythm Possible Left atrial enlargement Nonspecific ST and T wave abnormality Abnormal ECG When compared with ECG of 02-JUN-2021 17:22, No significant change was found Referred By: Yong Ventura Electronically Signed By:RIVAS MOTT
--- NOTE | 2021-06-26 11:22 | ED.SOB ---
HPI - SOB/Dyspnea General Chief Complaint: Dyspnea Stated Complaint: sect 12 Time Seen by Provider: 06/26/21 11:22 Source: patient and EMS Mode of arrival: EMS Limitations: no limitations Related Data Home Medications Medication Instructions Recorded Confirmed duloxetine 30 mg capsule,delayed 30 mg PO DAILY 11/17/20 06/02/21 release lamotrigine 25 mg tablet 50 mg PO BID 11/17/20 06/02/21 bupropion HCl 150 mg tablet,12 hr 300 mg PO DAILY 06/02/21 06/02/21 sustained-release (Wellbutrin SR) Previous Rx's Medication Instructions Recorded albuterol sulfate 90 mcg/actuation 1 inh INHALATION QID PRN #6.7 g 06/02/21 aerosol inhaler amlodipine 10 mg tablet 10 mg PO DAILY #30 tab 06/04/21 azithromycin 500 mg tablet 500 mg PO DAILY 3 Days #3 tab 06/04/21 lisinopril 40 mg tablet 40 mg PO DAILY #30 tab 06/04/21 metoprolol tartrate 50 mg tablet 50 mg PO BID #60 tab 06/04/21 nicotine (polacrilex) 2 mg gum 2 mg BUCCAL Q2H PRN #50 ea 06/04/21 dicyclomine 20 mg tablet 20 mg PO TID #14 tab 06/05/21 docusate sodium 100 mg capsule 100 mg PO BID PRN #14 cap 06/05/21 (Colace) polyethylene glycol 3350 17 17 g PO DAILY #238 g 06/05/21 gram/dose oral powder (Miralax) omeprazole magnesium 10 mg oral 20 mg PO DAILY #30 ea 06/06/21 suspension,delayed release (Prilosec) pantoprazole 20 mg tablet,delayed 20 mg PO DAILY #30 tab 06/06/21 release (Protonix) Allergies Allergy/AdvReac Type Severity Reaction Status Date / Time No Known Allergies Allergy Verified 06/02/21 13:33 [No Known Allergies*] PMF Past Medical History Medical History Anxiety Bipolar disorder Depression Hypertension Lymph edema PTSD (post-traumatic stress disorder) Sleep apnea in adult Testicle pain Social History Social History Household Members: None Housing: Other Housing Other:: motel Do you presently have visiting nurse or other home services: No Alcohol intake: never Patient Tobacco Use Status: Current everyday Tobacco user Tobacco use type: Cigarette Cigarettes Per Day: 6 Second Hand Smoke Exposure: No Substance Use Type: Marijuana Advance Directives: Yes Advance Directives Information Provided: Yes Advance Directives on File: No Physical Exam Vital Signs: Vital Signs: Last Vital Signs Temp 97.8 F 06/26/21 10:57 Pulse 84 06/26/21 11:09 Resp 16 06/26/21 11:09 BP 212/109 H 06/26/21 11:09 Pulse Ox 98 06/26/21 11:09 Oxygen Flow Rate 3 06/26/21 10:57 Body Mass Index 94.8 Discharge Plan Discharge Prescriptions: No Action lamotrigine 25 mg tablet 50 mg PO BID RF: 0 duloxetine 30 mg capsule,delayed release(DR/EC) 30 mg PO DAILY RF: 0 bupropion HCl [Wellbutrin SR] 150 mg Tablet Sustained-Release 12 Hr 300 mg PO DAILY RF: 0 albuterol sulfate 90 mcg/actuation HFA aerosol inhaler 1 inh inhalation QID PRN (Reason: shortness of breath or wheezing) Qty: 6.7 RF: 0 nicotine (polacrilex) 2 mg Gum 2 mg buccal Q2H PRN (Reason: Nicotine Cravings) Qty: 50 RF: 0 azithromycin 500 mg tablet 500 mg PO DAILY 3 Days Qty: 3 RF: 0 amlodipine 10 mg tablet 10 mg PO DAILY Qty: 30 RF: 0 metoprolol tartrate 50 mg tablet 50 mg PO BID Qty: 60 RF: 0 lisinopril 40 mg tablet 40 mg PO DAILY Qty: 30 RF: 0 docusate sodium [Colace] 100 mg capsule 100 mg PO BID PRN (Reason: Constipation) Qty: 14 RF: 0 polyethylene glycol 3350 [Miralax] 17 gram/dose powder 17 g PO DAILY Qty: 238 RF: 0 dicyclomine 20 mg tablet 20 mg PO TID Qty: 14 RF: 0 pantoprazole [Protonix] 20 mg tablet,delayed release (DR/EC) 20 mg PO DAILY Qty: 30 RF: 0 Prilosec 10 mg susp,delayed release for recon 20 mg PO DAILY Qty: 30 RF: 0
[2021-06-26] MEDS: amLODIPine Besylate 10 MG TABLET PO ×2 (11:43→21:20)
--- NOTE | 2021-06-26 12:16 | PC.NURSE ---
Oxygen going down to high 70s during sleep. Patient sating 90s when awake. Patient has hx of sleep apnea, MD aware. PEr MD patient does not need oxygen.
--- NOTE | 2021-06-26 13:43 | MHC.CARE ---
CARE Team meets with patient for crisis screening. Pt is very well known to this telegraphic typewriter operator, and [facility]. Pt states that he has not been feeling well physically and lost his electric wheel chair, and is unable to walk. Pt states that he would like to be psychiatrically admitted, however, pt does not provide a rationale for this, only stating he wants to be started on meds. Psych consult for meds was explored with patient, but he did not appear interested in this. Mood appears stable at this time, and pt denied SI to this telegraphic typewriter operator. Pt appears to be at baseline and would not meet criteria for IPLOC. Referrals to outpatient providers were offered and declined by pt. CARE Team speaks with disease case manager, Betty Hernandez RN regarding pt's request to be placed in a prison and have assistance with getting a new wheel chair. Dr. Connelly agrees with plan for case management to take case at this time, as pt does not need a full crisis assessment. Dr. Connelly agrees to order PT eval.
--- NOTE | 2021-06-26 13:51 | PC.NURSE ---
Patient moved to hospital bed. Pending CM/PT eval
--- NOTE | 2021-06-26 14:02 | MHC.CM.ED ---
Addendum entered by Betty Hernandez 06/26/21 16:15: PASRR screen submitted to [facility]. Waiting for [facility] exemption letter. Original Note: Patient cleared by Care Team. Patient requesting going to a care home facility. Patient is 678lbs. Referral broadcasted in [employer] to all facilities within 100 [address] that are contracted with [facility]. 141 referrals sent. Patient received [employer] covid vaccine. Continue to monitor for d/c needs.
[2021-06-26 14:51] LABS: COVID-19 Test Negative (Negative)
[2021-06-26] MEDS: cloNIDine HCL 0.1 MG TABLET 0.3 MG PO (15:18)
--- NOTE | 2021-06-26 15:23 | PC.NURSE ---
Patient toileted on commode with assistance of 3 people.
--- NOTE | 2021-06-26 16:09 | ED.PSYCH ---
HPI - Psych General Chief Complaint: Dyspnea Stated Complaint: sect 12 Time Seen by Provider: 06/26/21 11:22 Source: patient Mode of arrival: EMS History of Present Illness HPI Narrative: Patient morbidly obese 600 lbs, with history of bipolar disorder, depression, anxiety, hypertension noncompliant with medication, PTSD, sleep apnea noncompliant with CPAP been here multiple times for multiple reasons was seen here yesterday for leg pain today comes as he could not find his wheelchair got upset feels suicidal and called the ambulance in the ER patient denies any suicidal ideation does feel depressed also when EMS reached patient was saturating 88% which improved to 94% at room air when awake and drops to 91% when asleep. Patient denies any chest pain no cough otherwise no distress noticed in the ER also patient blood pressure was elevated to 215/133 when he arrived as he missed his amlodipine Related Data Home Medications Medication Instructions Recorded Confirmed duloxetine 30 mg capsule,delayed 30 mg PO DAILY 11/17/20 06/02/21 release lamotrigine 25 mg tablet 50 mg PO BID 11/17/20 06/02/21 bupropion HCl 150 mg tablet,12 hr 300 mg PO DAILY 06/02/21 06/02/21 sustained-release (Wellbutrin SR) Previous Rx's Medication Instructions Recorded albuterol sulfate 90 mcg/actuation 1 inh INHALATION QID PRN #6.7 g 06/02/21 aerosol inhaler amlodipine 10 mg tablet 10 mg PO DAILY #30 tab 06/04/21 azithromycin 500 mg tablet 500 mg PO DAILY 3 Days #3 tab 06/04/21 lisinopril 40 mg tablet 40 mg PO DAILY #30 tab 06/04/21 metoprolol tartrate 50 mg tablet 50 mg PO BID #60 tab 06/04/21 nicotine (polacrilex) 2 mg gum 2 mg BUCCAL Q2H PRN #50 ea 06/04/21 dicyclomine 20 mg tablet 20 mg PO TID #14 tab 06/05/21 docusate sodium 100 mg capsule 100 mg PO BID PRN #14 cap 06/05/21 (Colace) polyethylene glycol 3350 17 17 g PO DAILY #238 g 06/05/21 gram/dose oral powder (Miralax) omeprazole magnesium 10 mg oral 20 mg PO DAILY #30 ea 06/06/21 suspension,delayed release (Prilosec) pantoprazole 20 mg tablet,delayed 20 mg PO DAILY #30 tab 06/06/21 release (Protonix) Allergies Allergy/AdvReac Type Severity Reaction Status Date / Time No Known Allergies Allergy Verified 06/02/21 13:33 [No Known Allergies*] Review of Systems Review of Systems: Constitutional : No Fever, No Chills ENT/Mouth : No Ear Pain, No Nasal Congestion, No sore throat Eyes: No Eye Pain, No Swelling, No Redness Cardiovascular : No Chest Pain, No SOB Respiratory : No Cough, No Sputum, + Dyspnea Gastrointestinal : No Nausea, No Vomiting, No Diarrhea, No Hematochezia, No Melena Genitourinary : No Dysuria, No Urinary Frequency, No Hematuria Musculoskeletal : No Myalgias Skin : No Skin Lesions, No rash Neuro : No Weakness, No Numbness, No Paresthesias, No Dizziness, No Headache Psych : positive Anxiety, positive Depression, positive SI Heme/Lymph: No Lymphadenopathy Endocrine : No Polyuria, No Polydipsia PMFSH Past Medical History Medical History Anxiety Bipolar disorder Depression Hypertension Lymph edema PTSD (post-traumatic stress disorder) Sleep apnea in adult Testicle pain Social History Social History Household Members: None Housing: Other Housing Other:: motel Do you presently have visiting nurse or other home services: No Alcohol intake: never Patient Tobacco Use Status: Current everyday Tobacco user Tobacco use type: Cigarette Cigarettes Per Day: 6 Second Hand Smoke Exposure: No Substance Use Type: Marijuana Advance Directives: Yes Advance Directives Information Provided: Yes Advance Directives on File: No Physical Exam Vital Signs: Vital Signs: Last Vital Signs Temp 97.8 F 06/26/21 10:57 Pulse 87 06/26/21 13:12 Resp 16 06/26/21 13:12 BP 187/108 H 06/26/21 15:26 Pulse Ox 91 L 06/26/21 15:26 Oxygen Flow Rate 3 06/26/21 10:57 Body Mass Index 94.8 Appearance: Alert. Oriented X3. No acute distress. Morbidly obese sleeping often limited examination secondary to obesity Eyes: PERRLA, No Nystagmus ENT: Pharynx normal. Oral Mucosa moist Neck: Normal inspection. Neck supple. CVS: Normal heart rate and rhythm. Pulses normal. Respiratory: No respiratory distress. Equal air entry bilateral, no wheezing/rales/rhonchi Abdomen: Soft and nontender. Bowel sounds are present, no mass palpable, no CVA tenderness Skin: Skin warm and dry. Normal skin color. Normal skin turgor. Extremities: Bilateral lymphedema Neuro: Oriented X 3. No motor deficit. No sensory deficit.No cerebellar signs , cranial nerves II-XII intact Psych: Feel depressed vague suicidal ideation without any plan, no homicidal ideation no delusion or hallucination MDM - Psych MDM Narrative Medical decision making narrative: Patient with bipolar disorder/depression with multiple hospital visits for evaluation been upset as he lost his wheelchair seen by crisis does not think the patient need inpatient psych evaluation. Cleared by crisis because of the home situation as he lives in [facility] and does not have a wheelchair and has difficulty in ambulation PT/OT was consulted and case management decided to place the patient in rehab Medical Records Attestation: I reviewed the patient's medical records. Lab Data Labs: Lab Results 06/26/21 Range/Units 14:13 COVID-19 (BAMBI) Negative (Negative) COVID-19 Clin Com See Note Discharge Plan Discharge Clinical Impression: Morbid obesity Depression Qualifiers: Depression Type: major depressive disorder Major depression recurrence: recurrent Active/Remission status: currently active Major depression episode severity: moderate Qualified Code(s): F33.1 - Major depressive disorder, recurrent, moderate Patient Disposition: er [facility] Prescriptions: No Action lamotrigine 25 mg tablet 50 mg PO BID RF: 0 duloxetine 30 mg capsule,delayed release(DR/EC) 30 mg PO DAILY RF: 0 bupropion HCl [Wellbutrin SR] 150 mg Tablet Sustained-Release 12 Hr 300 mg PO DAILY RF: 0 albuterol sulfate 90 mcg/actuation HFA aerosol inhaler 1 inh inhalation QID PRN (Reason: shortness of breath or wheezing) Qty: 6.7 RF: 0 nicotine (polacrilex) 2 mg Gum 2 mg buccal Q2H PRN (Reason: Nicotine Cravings) Qty: 50 RF: 0 azithromycin 500 mg tablet 500 mg PO DAILY 3 Days Qty: 3 RF: 0 amlodipine 10 mg tablet 10 mg PO DAILY Qty: 30 RF: 0 metoprolol tartrate 50 mg tablet 50 mg PO BID Qty: 60 RF: 0 lisinopril 40 mg tablet 40 mg PO DAILY Qty: 30 RF: 0 docusate sodium [Colace] 100 mg capsule 100 mg PO BID PRN (Reason: Constipation) Qty: 14 RF: 0 polyethylene glycol 3350 [Miralax] 17 gram/dose powder 17 g PO DAILY Qty: 238 RF: 0 dicyclomine 20 mg tablet 20 mg PO TID Qty: 14 RF: 0 pantoprazole [Protonix] 20 mg tablet,delayed release (DR/EC) 20 mg PO DAILY Qty: 30 RF: 0 Prilosec 10 mg susp,delayed release for recon 20 mg PO DAILY Qty: 30 RF: 0
[2021-06-26] MEDS: Acetaminophen 325 MG TABLET 650 MG PO (16:33)
--- NOTE | 2021-06-26 16:49 | HE.PHANOTE ---
Pharmacy Consult ? Medication Reconciliation Pharmacy has completed the medication reconciliation and there were no significant medication issues requiring provider attention. Patient not arousable, unable to answer questions in regards to home medication, completed based on last discharge, and pharmacy claim history. Merheen BarberD
[2021-06-26] MEDS: lisinopriL 20 MG TABLET PO (17:34)
[2021-06-26] MEDS: DULoxetine HCl 30 MG CAPSULE.DR PO (21:19)
[2021-06-26] MEDS: Dicyclomine HCl 10 MG CAPSULE 20 MG PO (21:19)
[2021-06-26] MEDS: lisinopriL 40 MG TABLET PO (21:20)
[2021-06-26] MEDS: lamoTRIgine 25 MG TABLET 50 MG PO (21:21)
[2021-06-26] MEDS: polyethylene glycoL 3350 17 GM POWD.PACK PO (21:21)
[2021-06-26] MEDS: Metoprolol Tartrate 50 MG TABLET PO (21:21)
[2021-06-27] VITALS (9 sets, daily range): BP systolic 142–171; BP diastolic 76–98; PULSE 70–75; RESP 14–28; O2SAT 85–97
--- NOTE | 2021-06-27 01:01 | PC.NURSE ---
Patient called for nurse. Reports feeling woozy and needing to piss and shit . O2 found to be at 85% placed back on O2.
--- NOTE | 2021-06-27 01:06 | PC.NURSE ---
Spoke with Dr Churchill. Patient starting to feel better at this time with oxygen. No other interventions needed.
--- NOTE | 2021-06-27 01:20 | PC.NURSE ---
Given hot tea and warm blanket per patient request. Reports continued headache.
[2021-06-27] MEDS: Acetaminophen 325 MG TABLET 650 MG PO (02:49)
--- NOTE | 2021-06-27 07:50 | PC.NURSE ---
Assumed care of patient at 0700- patient assisted to the bedside commode and than moved onto bariatric hospital bed with assistance of semiconductor processing technician. Patient requesting fluids and food- [employer] and breakfast provided. Patient ate 100% of breakfast, no complaints at this time, advised to use call eckert if needed.
[2021-06-27] MEDS: amLODIPine Besylate 10 MG TABLET PO (08:00)
[2021-06-27] MEDS: Dicyclomine HCl 10 MG CAPSULE 20 MG PO ×3 (08:01→21:31)
[2021-06-27] MEDS: buPROPion HCl XL 300 MG TAB.ER.24H PO (08:01)
[2021-06-27] MEDS: Metoprolol Tartrate 50 MG TABLET PO ×2 (08:01→21:31)
[2021-06-27] MEDS: lisinopriL 40 MG TABLET PO (08:02)
[2021-06-27] MEDS: DULoxetine HCl 30 MG CAPSULE.DR PO (08:05)
[2021-06-27] MEDS: lamoTRIgine 25 MG TABLET 50 MG PO ×2 (08:05→21:34)
[2021-06-27] MEDS: polyethylene glycoL 3350 17 GM POWD.PACK PO (08:07)
--- NOTE | 2021-06-27 09:59 | PC.NURSE ---
patient assisted to the bedside commode and patient had a bowel movement and was able to urinate
--- NOTE | 2021-06-27 10:28 | PC.NURSE ---
patient urinated on the floor, environmental at bedside
--- NOTE | 2021-06-27 16:05 | PC.NURSE ---
patient continuously ringing call eckert throughout shift for various tasks and needs from staff- pt c/o delay in staff response to his needs. pt informed that the staff is doing the best that they can to meet the patients needs and ensure he is comfortable and taken care off. pt brought a hot tea per request, dinner order placed, sheets on the bed changed and new hospital gown given to the patient.
--- NOTE | 2021-06-27 16:40 | PC.NURSE ---
patient assisted in the bed to readjust. pt continues to complain about the lack of time staff has spent with him despite the multiple visits and answers to the patients call eckert
[2021-06-28 06:06] VITALS: RESP 16
[2021-06-28 08:05] VITALS: BP 174/124; PULSE 71
[2021-06-28] MEDS: DULoxetine HCl 30 MG CAPSULE.DR PO (08:05)
[2021-06-28] MEDS: lamoTRIgine 25 MG TABLET 50 MG PO ×2 (08:05→20:55)
[2021-06-28] MEDS: buPROPion HCl XL 300 MG TAB.ER.24H PO (08:05)
[2021-06-28] MEDS: Metoprolol Tartrate 50 MG TABLET PO ×2 (08:05→20:55)
[2021-06-28] MEDS: Dicyclomine HCl 10 MG CAPSULE 20 MG PO ×3 (08:05→20:55)
[2021-06-28 08:06] VITALS: BP 174/124; PULSE 71
[2021-06-28] MEDS: amLODIPine Besylate 10 MG TABLET PO (08:06)
[2021-06-28] MEDS: lisinopriL 40 MG TABLET PO (08:06)
[2021-06-28 08:12] VITALS: BP 174/124; PULSE 71; O2SAT 96
--- NOTE | 2021-06-28 11:21 | PC.NURSE ---
estela changed and pt on comode, given wipes and towels.
--- NOTE | 2021-06-28 13:53 | MHC.CM.ED ---
Extensive referrals placed for STR - pt encountering barriers d/t his young age and extreme morbid obesity status. Additional search extended using a wider radius. Pt heard yelling for nursing to bathe him and/or bring him snacks and beverages. CM discussed with pt the need to participate in his own care as this will be expected in rehab. D/C Plan: STR at a bariatric equipped center once accepted : Receipt of PASSR exemption letter: Special bariatric BLS transport
[2021-06-28 20:55] VITALS: BP 186/141; PULSE 66
--- NOTE | 2021-06-28 21:10 | PC.NURSE ---
Pt medicated per MAR by BENSON Pruitt.
--- NOTE | 2021-06-28 21:27 | PC.NURSE ---
PT was screaming for assistance. when checked on, pt stated I didn't get fed dinner. None of you fuckers care. I want my dinner. At bedside was meal cover. Per patient That was from lunch . This rn witnessed pt being given dinner by PCT when meals were brought. Pt educated that he will only receive allotted meals and limited snacks due to frequency of requests for snacks. manager internet aware of patient concerns. Primary RN aware of patient concerns.
--- NOTE | 2021-06-28 22:04 | PC.NURSE ---
urinal emptied, aprox 600 cc urine. pt complaining that he didn't get a dinner tray. pt given 2 sandwiches.
--- NOTE | 2021-06-28 22:13 | PC.NURSE ---
pt given his phone, which was charging and a warm blanket.
[2021-06-29] VITALS (11 sets, daily range): BP systolic 166–197; BP diastolic 84–126; PULSE 68–76; RESP 16–24; O2SAT 93
--- NOTE | 2021-06-29 06:18 | PC.NURSE ---
Pt sleeping through the night. Pt requiring assistance throughout the night emptying urinals. Denies pain. Call eckert within reach. Continue to monitor.
--- NOTE | 2021-06-29 06:21 | PC.NURSE ---
This RN contacting pharmacy regarding Prilosec order. Pharm to bring to bedside.
[2021-06-29] MEDS: Omeprazole 20 MG CAPSULE.DR PO (08:57)
[2021-06-29] MEDS: DULoxetine HCl 30 MG CAPSULE.DR PO (08:57)
[2021-06-29] MEDS: lamoTRIgine 25 MG TABLET 50 MG PO ×2 (08:57→21:28)
[2021-06-29] MEDS: buPROPion HCl XL 300 MG TAB.ER.24H PO (08:57)
[2021-06-29] MEDS: polyethylene glycoL 3350 17 GM POWD.PACK PO (08:57)
[2021-06-29] MEDS: lisinopriL 40 MG TABLET PO (08:58)
[2021-06-29] MEDS: amLODIPine Besylate 10 MG TABLET PO (08:58)
[2021-06-29] MEDS: Dicyclomine HCl 10 MG CAPSULE 20 MG PO ×3 (08:59→21:28)
[2021-06-29] MEDS: Metoprolol Tartrate 50 MG TABLET PO ×2 (08:59→21:28)
--- NOTE | 2021-06-29 15:51 | MHC.CM.ED ---
additional refs from the [place] radius ref have come in c no bed offers.? there still remains unanswered refs.? calls were made to [facility] weight loss center, ph-[phone] and [facility] center, ph-[phone] seeking advice and help? c where to place this patient.? still waiting to hear back from both centers. pt was still requesting to go to STR today, he continues to say he needs help c his care. lastly, a request was made to e.d. provider to have PT see patient at least daily to help c recondiioning. cm to cont. to follow.
[2021-06-30 06:40] VITALS: RESP 16
[2021-06-30 08:23] VITALS: BP 203/127; PULSE 70; RESP 23; TEMP 37.2; O2SAT 91
[2021-06-30] MEDS: Omeprazole 20 MG CAPSULE.DR PO (08:58)
[2021-06-30 10:05] VITALS: BP 184/131; PULSE 67; RESP 20; O2SAT 94
[2021-06-30 10:08] VITALS: BP 184/131; PULSE 67
[2021-06-30] MEDS: Metoprolol Tartrate 50 MG TABLET PO (10:08)
[2021-06-30] MEDS: lamoTRIgine 25 MG TABLET 50 MG PO (10:08)
[2021-06-30] MEDS: amLODIPine Besylate 10 MG TABLET PO (10:08)
[2021-06-30] MEDS: buPROPion HCl XL 300 MG TAB.ER.24H PO (10:08)
[2021-06-30] MEDS: DULoxetine HCl 30 MG CAPSULE.DR PO (10:08)
[2021-06-30 10:09] VITALS: BP 184/131; PULSE 67
[2021-06-30] MEDS: lisinopriL 40 MG TABLET PO (10:09)
[2021-06-30] MEDS: Dicyclomine HCl 10 MG CAPSULE 20 MG PO (10:09)
[2021-06-30] MEDS: polyethylene glycoL 3350 17 GM POWD.PACK PO (10:09)
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
[2021-06-30 13:13] VITALS: BP 163/93; PULSE 67; RESP 19; O2SAT 94
== END 2021-06-30 13:54 | disposition home or self-care (01) ==
PROVIDERS: Emergency Provider Internal Medicine
DX: F33.1 Major depressive disorder, recurrent, moderate (principal); E66.01 Morbid (severe) obesity due to excess calories; Z68.45 Body mass index [BMI] 70 or greater, adult; R06.00 Dyspnea, unspecified; R45.851 Suicidal ideations; F41.9 Anxiety disorder, unspecified; I10 Essential (primary) hypertension; F17.210 Nicotine dependence, cigarettes, uncomplicated; Z91.19 Patient's noncompliance with other medical treatment and regimen; Z20.822 Contact with and (suspected) exposure to COVID-19
CPT/HCPCS: 36415; 87635; 93005; 97110; 97163; 99285

== ENCOUNTER 2021-07-19 17:17 | Inpatient (IN) | payer OTHER, SELFPAY ==
--- NOTE | ~2021-07-19 | XR_ITS ---
EXAMINATION: XR CHEST CLINICAL INFORMATION: Cough and shortness of breath COMPARISON: Chest radiograph 06/06/2012 TECHNIQUE: Frontal view of the chest was obtained. FINDINGS: Lungs are hypoexpanded. Heart appears mildly enlarged and there is upper zone redistribution suggesting pulmonary vascular congestion. No gross pulmonary edema is seen. No infiltrates effusions or lung masses are seen. XR/XR chest 1V IMPRESSION: Mild cardiac enlargement with upper zone redistribution suggesting mild congestion.
--- NOTE | ~2021-07-19 | US_ITS ---
EXAMINATION: US VENOUS ULTRASOUND WITH DOPPLER LOWER EXTREMITY, BILATERAL CLINICAL INFORMATION: Elevated d-dimer. COMPARISON: Previous exam most recent May 2020 TECHNIQUE: Ultrasound of the deep veins is performed from the hip to the calf with compression sonography and color and pulse Doppler assessment. Spectral analysis with color-flow imaging is performed. Exam is severely limited due to patient body habitus. FINDINGS: Right leg veins are not adequately visualized. There is a part of the right posterior tibial vein that is visualized that is noncompressible. Left leg veins are not adequately visualized. There is a portion of the left superficial femoral vein that is visualized and demonstrates possible color flow. There is diffuse bilateral leg edema. US/US venous duplex LE BI IMPRESSION: Nondiagnostic exam.
--- NOTE | 2021-07-19 18:09 | ECG_ITS ---
Test Reason : SOB Blood Pressure : / mmHG Vent. Rate : 095 BPM Atrial Rate : 095 BPM P-R Int : 162 ms QRS Dur : 082 ms QT Int : 350 ms P-R-T Axes : 058 052 091 degrees QTc Int : 439 ms Normal sinus rhythm Possible Left atrial enlargement Nonspecific T wave abnormality Abnormal ECG When compared with ECG of 26-JUN-2021 11:07, No significant change was found Referred By: Celeste Kaiser Electronically Signed By:RIVAS MOTT
--- NOTE | 2021-07-19 18:25 | ED.SOB ---
HPI - SOB/Dyspnea General Chief Complaint: Dyspnea Stated Complaint: COUGH, SOB Time Seen by Provider: 07/19/21 17:54 Source: patient Mode of arrival: ambulatory History of Present Illness HPI Narrative: 36-year-old male with a past medical history of anxiety, bipolar, depression, hypertension noncompliant on medications, lymphedema, PTSD, sleep apnea noncompliant on CPAP presenting to the ED complaining of worsening SOB and productive cough x3 days. Reports overall not feeling well, generalized fatigue. Currently living at [place] [id number], denies known exposure but may have been exposed to sick contacts. Denies fever, chills, chest pain, abdominal pain, nausea/vomiting MD elicited complaint: shortness of breath and cough Related Data Home Medications Medication Instructions Recorded Confirmed duloxetine 30 mg capsule,delayed 30 mg PO DAILY 11/17/20 06/26/21 release lamotrigine 25 mg tablet 50 mg PO BID 11/17/20 06/26/21 bupropion HCl 150 mg tablet,12 hr 300 mg PO DAILY 06/02/21 06/26/21 sustained-release (Wellbutrin SR) Previous Rx's Medication Instructions Recorded albuterol sulfate 90 mcg/actuation 1 inh INHALATION QID PRN #6.7 g 06/02/21 aerosol inhaler amlodipine 10 mg tablet 10 mg PO DAILY #30 tab 06/04/21 lisinopril 40 mg tablet 40 mg PO DAILY #30 tab 06/04/21 metoprolol tartrate 50 mg tablet 50 mg PO BID #60 tab 06/04/21 nicotine (polacrilex) 2 mg gum 2 mg BUCCAL Q2H PRN #50 ea 06/04/21 dicyclomine 20 mg tablet 20 mg PO TID #14 tab 06/05/21 docusate sodium 100 mg capsule 100 mg PO BID PRN #14 cap 06/05/21 (Colace) polyethylene glycol 3350 17 17 g PO DAILY #238 g 06/05/21 gram/dose oral powder (Miralax) omeprazole magnesium 10 mg oral 20 mg PO DAILY #30 ea 06/06/21 suspension,delayed release (Prilosec) Allergies Allergy/AdvReac Type Severity Reaction Status Date / Time No Known Allergies Allergy Verified 06/02/21 13:33 [No Known Allergies*] Review of Systems Review of Systems: Constitutional: No Fever, No Chills, + Fatigue, + Malaise ENT/Mouth: No Ear Pain, No Nasal Congestion, No Hoarseness, No sore throat, No Swallowing Difficulty Eyes: No Eye Pain, No Swelling, No Discharge Cardiovascular: No Chest Pain, +SOB, No Dyspnea on Exertion, + Orthopnea, No Edema, No Palpitations Respiratory: + Cough, + Sputum, No Wheezing, + Dyspnea Gastrointestinal: No Nausea, No Vomiting, No Diarrhea, No Constipation, No Abdominal pain Genitourinary: No Dysuria, No Urinary Frequency, No Hematuria, No Flank Pain, No Urinary Flow Changes, No Hesitancy Musculoskeletal: No joint pain, No Myalgias, No Joint Swelling Skin: No Skin Lesions, No rash Neuro: No Weakness, No Numbness, No Dizziness, No Headache Psych: No Anxiety/Panic, No Depression, No SI/HI/AH/VH, No Social Issues Yes all other systems are reviewed and are negative [facility] Past Medical History Attestation statement: The following information was validated with the patient. Medical History Anxiety Bipolar disorder Depression Hypertension Lymph edema PTSD (post-traumatic stress disorder) Sleep apnea in adult Testicle pain Social History Social History Household Members: None Housing: Other Housing Other:: formerly [facility] Do you presently have visiting nurse or other home services: No Alcohol intake: never Patient Tobacco Use Status: Current everyday Tobacco user Tobacco use type: Cigarette Cigarettes Per Day: 6 Second Hand Smoke Exposure: No Substance Use Type: Marijuana Advance Directives: No Physical Exam Vital Signs: Vital Signs: Last Vital Signs Temp 98.2 F 07/19/21 19:51 Pulse 100 07/19/21 19:51 Resp 24 H 07/19/21 19:51 BP 177/104 H 07/19/21 19:51 Pulse Ox 98 07/19/21 19:51 Oxygen Flow Rate 2 07/19/21 19:51 Body Mass Index 84.2 Const: General: cooperative Nutritional Appearance: obese Orientation/consciousness: patient oriented x3 Limitations: no limitations HENMT: Head: Yes normal to inspection Ears: hearing grossly normal bilaterally General nose exam: Normal external nose present Face and sinus: Yes normal facial exam Eyes: General: appearance normal, both eyes and all related structures EOM: EOMs intact bilaterally Neck: Neck: Yes normal visual inspection and Yes no meningeal signs Resp: Effort & Inspection: tachypneic Auscultation: no wheezes and diminished lung sounds diffuse Cardio: Rate: tachycardic Heart sounds: S1 normal heart sound present and S2 normal heart sound present GI: Inspection: Yes normal to inspection Palpation (GI): Soft to palpation, nontender, no guarding and not rigid Skin: Rashes: no rashes Wounds: no wounds Neuro: General: patient oriented x3 and no meningeal signs Gait exam (Neuro): Normal gait present Extrem: Other: Chronic bilateral lower extremity lymphedema Course Course Course Narrative: -1922-- XR chest 1V IMPRESSION: Mild cardiac enlargement with upper zone redistribution suggesting mild congestion. -2026--no leukocytosis. H&H stable. LDH/CRP mildly elevated. BNP 121 -troponin 10.7 > Will obtain 3hr repeat On re-evaluation patient persistently tachypneic. CTA ordered however patient exceeds weight capacity. Pending COVID result/VBG, added D-dimer. -2099--ED care transferred to [facility] pending COVID-19/influenza/RSV testing, VBG, D-dimer, re-evaluation, and dispo per results, anticipated admission vs transfer to another facility MDM - SOB/Dyspnea MDM Narrative Medical decision making narrative: 36-year-old male with a past medical history of anxiety, bipolar, depression, hypertension noncompliant on medications, lymphedema, PTSD, sleep apnea noncompliant on CPAP presenting to the ED complaining of worsening SOB and productive cough x3 days. On exam tachypneic, tachycardic, satting 89% on RA > increased to 92% on 2L NC lungs with decreased breath sounds throughout, chronic lymphedema. Concern for viral syndrome/COVID-19. Rule out pneumonia vs acute on chronic hypoxic respiratory failure w/noncompliance. Lower concern for PE. Concern for hypertensive urgency secondary to noncompliance. Low concern for hypertensive emergency Plan: EKG, labs, CXR, COVID-19 testing, albuterol, anticipated admission Medical Records Attestation: I reviewed the patient's medical records. Lab Data Attestation: I reviewed the patient's lab results. Result diagrams: 07/19/21 19:45 07/19/21 19:45 Labs: Lab Results 07/19/21 07/19/21 07/19/21 Range/Units 19:45 19:45 19:45 WBC 6.8 (4.8-10.8) X10*3/uL RBC 4.04 L (4.60-5.80) X10*6/uL Hgb 10.6 L (14.0-18.0) g/dl Hct 35.9 L (42-52) % MCV 88.9 (80-98) fL MCH 26.2 L (27.0-33.0) pg MCHC 29.5 L (31.0-36.0) g/dl RDW 15.9 (11.0-16.0) % Plt Count 223 (160-400) X10*3/uL MPV 11.7 (9.4-12.4) fL Immature Gran % (Auto) 0.4 (0.0-0.4) % Neut % (Auto) 73.4 H (45-73) % Lymph % (Auto) 11.9 L (20-40) % [place] % (Auto) 9.3 (2-11) % Eos % (Auto) 4.9 H (0-4) % Baso % (Auto) 0.1 (0-2) % Lymph # (Auto) 0.8 L (1.2-4.9) X10*3/uL [place] # (Auto) 0.6 (0.1-1.2) X10*3/uL Eos # (Auto) 0.3 (0.0-0.4) X10*3/uL Baso # (Auto) 0.0 (0.0-0.2) X10*3/uL Abs Immat Gran (auto) 0.03 (0.00-0.03) X10*3/uL Absolute Neuts (auto) 5.0 (2.0-8.3) X10*3/uL Absolute Nucleated RBC 0.000 (0.0-0.012) X10*3/uL Nucleated RBC % (auto) 0.0 (0.0-0.2) /100WBC PT 12.5 (9.9-13.0) SEC INR 1.1 (0.9-1.1) APTT 31.6 (24.1-38.0) SEC Sodium (135-145) mmol/L Potassium (3.3-5.1) mmol/L Chloride (96-108) mmol/L Carbon Dioxide (22-29) mmol/L Anion Gap (12-20) BUN (9-16) mg/dL Creatinine (0.5-1.4) mg/dL Estim Creat Clear Calc Estimated GFR Random Glucose (60-115) mg/dL Lactic Acid (0.5-2.0) mmol/L Calcium (8.4-10.2) mg/dL Magnesium (1.6-2.6) mg/dL Ferritin (20-250) ng/mL Total Bilirubin (0.0-1.0) mg/dL Direct Bilirubin (0.0-0.5) mg/dL AST (5-37) U/L ALT (0-40) U/L Alkaline Phosphatase (39-117) U/L Lactate Dehydrogenase (118-273) U/L Troponin I High Sens 10.7 (<3.5-35.0) ng/L C-Reactive Protein (< or = 0.50) mg/dL B-Natriuretic Peptide 121 H (<100) pg/mL Total Protein (6.5-8.0) g/dL Albumin (3.5-5.0) g/dL Procalcitonin ng/mL 07/19/21 07/19/21 07/19/21 Range/Units 19:45 19:45 19:45 WBC (4.8-10.8) X10*3/uL RBC (4.60-5.80) X10*6/uL Hgb (14.0-18.0) g/dl Hct (42-52) % MCV (80-98) fL MCH (27.0-33.0) pg MCHC (31.0-36.0) g/dl RDW (11.0-16.0) % Plt Count (160-400) X10*3/uL MPV (9.4-12.4) fL Immature Gran % (Auto) (0.0-0.4) % Neut % (Auto) (45-73) % Lymph % (Auto) (20-40) % [place] % (Auto) (2-11) % Eos % (Auto) (0-4) % Baso % (Auto) (0-2) % Lymph # (Auto) (1.2-4.9) X10*3/uL [place] # (Auto) (0.1-1.2) X10*3/uL Eos # (Auto) (0.0-0.4) X10*3/uL Baso # (Auto) (0.0-0.2) X10*3/uL Abs Immat Gran (auto) (0.00-0.03) X10*3/uL Absolute Neuts (auto) (2.0-8.3) X10*3/uL Absolute Nucleated RBC (0.0-0.012) X10*3/uL Nucleated RBC % (auto) (0.0-0.2) /100WBC PT (9.9-13.0) SEC INR (0.9-1.1) APTT (24.1-38.0) SEC Sodium 141 (135-145) mmol/L Potassium 4.3 (3.3-5.1) mmol/L Chloride 102 (96-108) mmol/L Carbon Dioxide 32 H (22-29) mmol/L Anion Gap 11 L (12-20) BUN 8 L (9-16) mg/dL Creatinine 1.01 (0.5-1.4) mg/dL Estim Creat Clear Calc 225.6 Estimated GFR > 60 Random Glucose 118 H (60-115) mg/dL Lactic Acid 0.9 (0.5-2.0) mmol/L Calcium 8.7 (8.4-10.2) mg/dL Magnesium 2.0 (1.6-2.6) mg/dL Ferritin 66 (20-250) ng/mL Total Bilirubin 0.5 (0.0-1.0) mg/dL Direct Bilirubin 0.2 (0.0-0.5) mg/dL AST 18 (5-37) U/L ALT 19 (0-40) U/L Alkaline Phosphatase 73 (39-117) U/L Lactate Dehydrogenase 303 H (118-273) U/L Troponin I High Sens (<3.5-35.0) ng/L C-Reactive Protein 3.57 H (< or = 0.50) mg/dL B-Natriuretic Peptide (<100) pg/mL Total Protein 7.5 (6.5-8.0) g/dL Albumin 3.7 (3.5-5.0) g/dL Procalcitonin 0.04 ng/mL ECG Data Attestation: I personally reviewed and interpreted this ECG as follows: ECG interpretation date: 07/19/21 ECG interpretation time: 20:14 Interpretation: EKG normal sinus rhythm with a rate of 95. Nonischemic/no STEMI Discharge Plan Discharge Clinical Impression: Dyspnea Qualifiers: Dyspnea type: shortness of breath Qualified Code(s): R06.02 - Shortness of breath Prescriptions: No Action lamotrigine 25 mg tablet 50 mg PO BID RF: 0 duloxetine 30 mg capsule,delayed release(DR/EC) 30 mg PO DAILY RF: 0 bupropion HCl [Wellbutrin SR] 150 mg Tablet Sustained-Release 12 Hr 300 mg PO DAILY RF: 0 albuterol sulfate 90 mcg/actuation HFA aerosol inhaler 1 inh inhalation QID PRN (Reason: shortness of breath or wheezing) Qty: 6.7 RF: 0 nicotine (polacrilex) 2 mg Gum 2 mg buccal Q2H PRN (Reason: Nicotine Cravings) Qty: 50 RF: 0 amlodipine 10 mg tablet 10 mg PO DAILY Qty: 30 RF: 0 metoprolol tartrate 50 mg tablet 50 mg PO BID Qty: 60 RF: 0 lisinopril 40 mg tablet 40 mg PO DAILY Qty: 30 RF: 0 docusate sodium [Colace] 100 mg capsule 100 mg PO BID PRN (Reason: Constipation) Qty: 14 RF: 0 polyethylene glycol 3350 [Miralax] 17 gram/dose powder 17 g PO DAILY Qty: 238 RF: 0 dicyclomine 20 mg tablet 20 mg PO TID Qty: 14 RF: 0 Prilosec 10 mg susp,delayed release for recon 20 mg PO DAILY Qty: 30 RF: 0
[2021-07-19 19:51] VITALS: BP 177/104; PULSE 100; RESP 24; TEMP 36.8; O2SAT 98; BMI 84.2
[2021-07-19 20:01] LABS: MANUAL DIFF FLAG NO
[2021-07-19 20:05] LABS: Basophils Percent Auto 0.1 % (0-2); Eosinophils Absolute Auto 0.3 X10*3/uL (0.0-0.4); Eosinophils Percent Auto 4.9 % (0-4); Hematocrit 35.9 % (42-52); Hemoglobin 10.6 g/dl (14.0-18.0); Imm Gran Abs Auto 0.03 X10*3/uL (0.00-0.03); Imm Gran Pct Auto 0.4 % (0.0-0.4); Lymphocytes Absolute Auto 0.8 X10*3/uL (1.2-4.9); Lymphocytes Percent Auto 11.9 % (20-40); Mean Corpuscular HGB Conc 29.5 g/dl (31.0-36.0); Mean Corpuscular Hemoglobin 26.2 pg (27.0-33.0); Mean Corpuscular Volume 88.9 fL (80-98); Mean Platelet Volume 11.7 fL (9.4-12.4); Monocytes Absolute Auto 0.6 X10*3/uL (0.1-1.2); Monocytes Percent Auto 9.3 % (2-11); Neutrophils Percent Auto 73.4 % (45-73); Platelet Count 223 X10*3/uL (160-400); Red Blood Count 4.04 X10*6/uL (4.60-5.80); Red Cell Distribution Width 15.9 % (11.0-16.0); White Blood Count 6.8 X10*3/uL (4.8-10.8)
[2021-07-19 20:10] LABS: INTERNATIONAL NORM RATIO 1.1 (0.9-1.1); Prothrombin Time 12.5 SEC (9.9-13.0)
[2021-07-19 20:13] LABS: Partial Thromboplastin Time 31.6 SEC (24.1-38.0)
[2021-07-19 20:15] LABS: Lactic Acid 0.9 mmol/L (0.5-2.0)
[2021-07-19 20:22] LABS: Alanine Aminotransferase 19 U/L (0-40); Albumin Level 3.7 g/dL (3.5-5.0); Alkaline Phosphatase 73 U/L (39-117); Anion Gap 11 (12-20); Aspartate Amino Transferase 18 U/L (5-37); Bilirubin Direct 0.2 mg/dL (0.0-0.5); Bilirubin Total 0.5 mg/dL (0.0-1.0); Blood Urea Nitrogen 8 mg/dL (9-16); C Reactive Protein 3.57 mg/dL (< or = 0.50); Calcium 8.7 mg/dL (8.4-10.2); Chloride 102 mmol/L (96-108); Creatinine Clr Calc Pharmacy 225.6; Estimated Glomerular Filt Rate > 60; Glucose Random 118 mg/dL (60-115); Lactate Dehydrogenase 303 U/L (118-273); Potassium 4.3 mmol/L (3.3-5.1); Sodium 141 mmol/L (135-145); Total Protein 7.5 g/dL (6.5-8.0)
[2021-07-19 20:24] LABS: B Type Natriuretic Peptide 121 pg/mL (<100); Troponin-I High Sensitivity 10.7 ng/L (<3.5-35.0)
[2021-07-19 20:28] LABS: Carbon Dioxide 32 mmol/L (22-29)
[2021-07-19 20:38] LABS: Procalcitonin 0.04 ng/mL
[2021-07-19 20:39] LABS: Influenza A PCR NEGATIVE (Negative); Influenza B PCR NEGATIVE (Negative); Resp Syncy Virus RNA Qual PCR NEGATIVE (Negative); SARS COV2 PCR INHOUSE NEGATIVE (Negative)
[2021-07-19 20:42] LABS: Ferritin 66 ng/mL (20-250)
[2021-07-19 21:21] LABS: D Dimer 880 NG/ML
[2021-07-19] MEDS: Albuterol/Iprat 2.5/0.5MG 3 ML AMPUL.NEB INHALE (21:25)
[2021-07-19] MEDS: Labetalol HCL 100 MG/20 ML VIAL 10 MG IVPUSH (21:26)
[2021-07-19 21:27] VITALS: BP 187/120; PULSE 93; RESP 24; O2SAT 84
[2021-07-19] MEDS: Albuterol Sulfate 90 MCG 8 GM INHALER 4 PUFF INHALE (21:27)
[2021-07-19 21:28] VITALS: O2SAT 94
[2021-07-19] MEDS: Enoxaparin Sodium 150 MG/ML SYRINGE SUBCUT (23:09)
[2021-07-19 23:15] LABS: Hematocrit 34.4 % (42-52); Hemoglobin 10.2 g/dl (14.0-18.0); Mean Corpuscular HGB Conc 29.7 g/dl (31.0-36.0); Mean Corpuscular Hemoglobin 26.3 pg (27.0-33.0); Mean Corpuscular Volume 88.7 fL (80-98); Mean Platelet Volume 11.9 fL (9.4-12.4); Platelet Count 204 X10*3/uL (160-400); Red Blood Count 3.88 X10*6/uL (4.60-5.80); Red Cell Distribution Width 15.9 % (11.0-16.0); White Blood Count 6.6 X10*3/uL (4.8-10.8)
[2021-07-19 23:20] LABS: VBG Base Excess 8.4 mmol/L; VBG HCO3 36 mmol/L (22-26); VBG pCO2 65 mmHg; VBG pH 7.34 (7.32-7.43); VBG pO2 70 mmHg
[2021-07-19 23:20] LABS: Venous Blood Gas Refer to POC result
[2021-07-19 23:21] LABS: INTERNATIONAL NORM RATIO 1.1 (0.9-1.1); Prothrombin Time 12.6 SEC (9.9-13.0)
[2021-07-19 23:24] LABS: Partial Thromboplastin Time 26.8 SEC (24.1-38.0)
[2021-07-19 23:35] LABS: Troponin-I High Sensitivity 10.9 ng/L (<3.5-35.0)
[2021-07-20] VITALS (13 sets, daily range): BP systolic 132–227; BP diastolic 71–134; PULSE 76–96; RESP 16–24; TEMP 36.4–37.1; O2SAT 92–100
[2021-07-20] MEDS: Acetaminophen 325 MG TABLET 650 MG PO (02:40)
--- NOTE | 2021-07-20 02:49 | PC.NURSE ---
pt 65% on 6L O2 NC, PA-C at bedside
--- NOTE | 2021-07-20 02:54 | PC.NURSE ---
pt inc to 99% on NRB 15L, RT at bedside to place pt on bipap
[2021-07-20 03:18] LABS: Hematocrit 35.5 % (42-52); Hemoglobin 10.5 g/dl (14.0-18.0); Mean Corpuscular HGB Conc 29.6 g/dl (31.0-36.0); Mean Corpuscular Hemoglobin 26.2 pg (27.0-33.0); Mean Corpuscular Volume 88.5 fL (80-98); Mean Platelet Volume 11.4 fL (9.4-12.4); Platelet Count 208 X10*3/uL (160-400); Red Blood Count 4.01 X10*6/uL (4.60-5.80); Red Cell Distribution Width 15.9 % (11.0-16.0); White Blood Count 5.9 X10*3/uL (4.8-10.8)
[2021-07-20 03:23] LABS: VBG Base Excess 5.3 mmol/L; VBG HCO3 32 mmol/L (22-26); VBG pCO2 60 mmHg; VBG pH 7.34 (7.32-7.43); VBG pO2 188 mmHg
[2021-07-20 03:23] LABS: Venous Blood Gas Refer to POC result
[2021-07-20 03:25] LABS: INTERNATIONAL NORM RATIO 1.1 (0.9-1.1); Prothrombin Time 12.8 SEC (9.9-13.0)
[2021-07-20 03:28] LABS: Partial Thromboplastin Time 36.5 SEC (24.1-38.0)
[2021-07-20 03:38] LABS: Anion Gap 10 (12-20); Blood Urea Nitrogen 8 mg/dL (9-16); Calcium 8.5 mg/dL (8.4-10.2); Carbon Dioxide 32 mmol/L (22-29); Chloride 103 mmol/L (96-108); Creatinine Clr Calc Pharmacy 234.9; Estimated Glomerular Filt Rate > 60; Glucose Random 148 mg/dL (60-115); Potassium 4.2 mmol/L (3.3-5.1); Sodium 141 mmol/L (135-145)
--- NOTE | 2021-07-20 03:57 | PC.NURSE ---
Pt O2 sat 100% on bipap, intermittently removing mask. Educated to keep mask on face, not able to verbalize understanding, states it fell off man I'm trying to sleep
--- NOTE | 2021-07-20 05:55 | P.HPHOSP_ITS ---
History of Present Illness Date of Service: 07/20/21 Chief Complaint: Shortness of breath This is a very obese 36-year-old male with past medical history of asthma, anxiety, bipolar disorder, depression, hypertension, lymphedema, PTSD, and sleep apnea and most likely obesity hypoventilation syndrome presents to the hospital with complaints of shortness of breath. Patient is very lethargic, and very hard to keep him awake long enough to answer any questions but reports that his symptoms started about few days ago with shortness of breath no cough, no sputum production, he denies any chest pain no abdominal pain nausea or vomiting, otherwise all other review of system negative. A temp of 98.2, heart rate of 100, respiratory rate of 24, satting 94 on 2 L of oxygen, blood pressure 177/104 for WBC count 5.9, hemoglobin of 10.5 which is around his baseline, BNP of 120s VBG showed a pH of 7.34 with a CO2 of 65, bicarb of 32, COVID-19 negative, Patient has a significantly elevated D-dimer, patient was attempted to be transferred to an outside hospital for CT scan given his weight but unsuccessful therefore being per treated for presumed PE with Lovenox Chest x-ray showing mild cardiac enlargement with upper zone redistribution suggestive of mild congestion Patient was placed on BiPAP for few hours in the ED, currently more awake, answering questions appropriately, she will remove the BiPAP and repeat VBG [facility] Medical History Anxiety Bipolar disorder Depression Hypertension Lymph edema PTSD (post-traumatic stress disorder) Sleep apnea in adult Testicle pain Social History Household Members: None Housing: Other Housing Other:: motel Do you presently have visiting nurse or other home services: No Alcohol intake: never Patient Tobacco Use Status: Current everyday Tobacco user Tobacco use type: Cigarette Cigarettes Per Day: 6 Second Hand Smoke Exposure: No Substance Use Type: Marijuana Advance Directives: No Meds Allergies Allergy/AdvReac Type Severity Reaction Status Date / Time No Known Allergies Allergy Verified 06/02/21 13:33 [No Known Allergies*] Active Medications: Current Medications Generic Name Dose Route Start Last Admin Trade Name Freq PRN Reason Stop Dose Admin Acetaminophen 650 mg 07/20/21 01:45 Acetaminophen 325 Mg Tablet PO Q6H PRN Pain, Mild (Pain Scale 1-3) Docusate Sodium 100 mg 07/20/21 01:45 Docusate Sodium 100 Mg Capsule PO DAILY PRN Constipation Enoxaparin Sodium 275 mg 07/20/21 11:00 Enoxaparin Sodium 100 Mg/Ml Syringe 1 mg/kg (275 mg) SUBCUT Q12H JEF Ondansetron HCl 4 mg 07/20/21 01:45 Ondansetron Hcl 4 Mg/2 Ml Vial IVPUSH Q8H PRN Nausea and Vomiting Sodium Chloride 3 ml 07/20/21 08:00 0.9 % Sodium Chloride Flush 3 Ml Syringe IVFLUSH QSHIFT [facility] Home Medications Medication Instructions Recorded Confirmed Last Taken Type duloxetine 30 mg capsule,delayed 30 mg PO DAILY 11/17/20 07/20/21 Unknown History release lamotrigine 25 mg tablet 50 mg PO BID 11/17/20 07/20/21 Unknown History bupropion HCl 150 mg tablet,12 hr 300 mg PO DAILY 06/02/21 07/20/21 Unknown History sustained-release (Wellbutrin SR) Physical Exam Vital Signs and Narrative: Vital Signs: Last Vital Signs Temp 98.2 F 07/19/21 19:51 Pulse 94 07/20/21 05:22 Resp 24 H 07/20/21 02:42 BP 207/111 H 07/20/21 05:22 Pulse Ox 95 07/20/21 05:22 Oxygen Flow Rate 2 07/19/21 19:51 Body Mass Index 84.2 Results Labs CBC and Chem 7: 07/20/21 03:14 07/20/21 03:14 Labs: Laboratory Results - last 24 hr 07/19/21 07/19/21 07/19/21 19:45 19:45 19:45 MCV 88.9 MCH 26.2 L MCHC 29.5 L RDW 15.9 Plt Count 223 MPV 11.7 Immature Gran % (Auto) 0.4 Neut % (Auto) 73.4 H Lymph % (Auto) 11.9 L [place] % (Auto) 9.3 Eos % (Auto) 4.9 H Baso % (Auto) 0.1 Lymph # (Auto) 0.8 L [place] # (Auto) 0.6 Eos # (Auto) 0.3 Baso # (Auto) 0.0 Abs Immat Gran (auto) 0.03 Absolute Neuts (auto) 5.0 Absolute Nucleated RBC 0.000 Nucleated RBC % (auto) 0.0 PT INR APTT D-Dimer VBG pH VBG pCO2 VBG pO2 VBG HCO3 VBG O2 Saturation VBG Base Excess Anion Gap Estim Creat Clear Calc Estimated GFR Random Glucose Lactic Acid Calcium Magnesium Ferritin Total Bilirubin Direct Bilirubin AST ALT Alkaline Phosphatase Lactate Dehydrogenase Troponin I High Sens 10.7 C-Reactive Protein B-Natriuretic Peptide 121 H Total Protein Albumin Procalcitonin Coronavirus (PCR) NEGATIVE Influenza Type A (PCR) NEGATIVE Influenza Type B (PCR) NEGATIVE RSV RNA Qual (PCR) NEGATIVE 07/19/21 07/19/21 07/19/21 19:45 19:45 19:45 MCV MCH MCHC RDW Plt Count MPV Immature Gran % (Auto) Neut % (Auto) Lymph % (Auto) [place] % (Auto) Eos % (Auto) Baso % (Auto) Lymph # (Auto) [place] # (Auto) Eos # (Auto) Baso # (Auto) Abs Immat Gran (auto) Absolute Neuts (auto) Absolute Nucleated RBC Nucleated RBC % (auto) PT 12.5 INR 1.1 APTT 31.6 D-Dimer 880 VBG pH VBG pCO2 VBG pO2 VBG HCO3 VBG O2 Saturation VBG Base Excess Anion Gap Estim Creat Clear Calc Estimated GFR Random Glucose Lactic Acid 0.9 Calcium Magnesium Ferritin Total Bilirubin Direct Bilirubin AST ALT Alkaline Phosphatase Lactate Dehydrogenase Troponin I High Sens C-Reactive Protein B-Natriuretic Peptide Total Protein Albumin Procalcitonin 0.04 Coronavirus (PCR) Influenza Type A (PCR) Influenza Type B (PCR) RSV RNA Qual (PCR) 07/19/21 07/19/21 07/19/21 19:45 23:03 23:03 MCV 88.7 MCH 26.3 L MCHC 29.7 L RDW 15.9 Plt Count 204 MPV 11.9 Immature Gran % (Auto) Neut % (Auto) Lymph % (Auto) [place] % (Auto) Eos % (Auto) Baso % (Auto) Lymph # (Auto) [place] # (Auto) Eos # (Auto) Baso # (Auto) Abs Immat Gran (auto) Absolute Neuts (auto) Absolute Nucleated RBC 0.000 Nucleated RBC % (auto) 0.0 PT INR APTT D-Dimer VBG pH VBG pCO2 VBG pO2 VBG HCO3 VBG O2 Saturation VBG Base Excess Anion Gap 11 L Estim Creat Clear Calc 225.6 Estimated GFR > 60 Random Glucose 118 H Lactic Acid Calcium 8.7 Magnesium 2.0 Ferritin 66 Total Bilirubin 0.5 Direct Bilirubin 0.2 AST 18 ALT 19 Alkaline Phosphatase 73 Lactate Dehydrogenase 303 H Troponin I High Sens 10.9 C-Reactive Protein 3.57 H B-Natriuretic Peptide Total Protein 7.5 Albumin 3.7 Procalcitonin Coronavirus (PCR) Influenza Type A (PCR) Influenza Type B (PCR) RSV RNA Qual (PCR) 07/19/21 07/19/21 07/20/21 23:03 23:15 03:14 MCV 88.5 MCH 26.2 L MCHC 29.6 L RDW 15.9 Plt Count 208 MPV 11.4 Immature Gran % (Auto) Neut % (Auto) Lymph % (Auto) [place] % (Auto) Eos % (Auto) Baso % (Auto) Lymph # (Auto) [place] # (Auto) Eos # (Auto) Baso # (Auto) Abs Immat Gran (auto) Absolute Neuts (auto) Absolute Nucleated RBC 0.000 Nucleated RBC % (auto) 0.0 PT 12.6 INR 1.1 APTT 26.8 D-Dimer VBG pH 7.34 VBG pCO2 65 VBG pO2 70 VBG HCO3 36 H VBG O2 Saturation 89.0 VBG Base Excess 8.4 Anion Gap Estim Creat Clear Calc Estimated GFR Random Glucose Lactic Acid Calcium Magnesium Ferritin Total Bilirubin Direct Bilirubin AST ALT Alkaline Phosphatase Lactate Dehydrogenase Troponin I High Sens C-Reactive Protein B-Natriuretic Peptide Total Protein Albumin Procalcitonin Coronavirus (PCR) Influenza Type A (PCR) Influenza Type B (PCR) RSV RNA Qual (PCR) 07/20/21 07/20/21 07/20/21 03:14 03:14 03:18 MCV MCH MCHC RDW Plt Count MPV Immature Gran % (Auto) Neut % (Auto) Lymph % (Auto) [place] % (Auto) Eos % (Auto) Baso % (Auto) Lymph # (Auto) [place] # (Auto) Eos # (Auto) Baso # (Auto) Abs Immat Gran (auto) Absolute Neuts (auto) Absolute Nucleated RBC Nucleated RBC % (auto) PT 12.8 INR 1.1 APTT 36.5 D D-Dimer VBG pH 7.34 VBG pCO2 60 VBG pO2 188 VBG HCO3 32 H VBG O2 Saturation 99.0 VBG Base Excess 5.3 Anion Gap 10 L Estim Creat Clear Calc 234.9 Estimated GFR > 60 Random Glucose 148 H Lactic Acid Calcium 8.5 Magnesium Ferritin Total Bilirubin Direct Bilirubin AST ALT Alkaline Phosphatase Lactate Dehydrogenase Troponin I High Sens C-Reactive Protein B-Natriuretic Peptide Total Protein Albumin Procalcitonin Coronavirus (PCR) Influenza Type A (PCR) Influenza Type B (PCR) RSV RNA Qual (PCR) Imaging Radiologist's Impressions: Impressions Chest X-Ray 07/19/21 17:55 IMPRESSION: Mild cardiac enlargement with upper zone redistribution suggesting mild congestion. Assessment and Plan (1) CHF exacerbation: Status: Acute (2) Obesity hypoventilation syndrome: Status: Acute (3) Hypercapnia with mixed acid-base disorder: Status: Acute This is a 36-year-old male with history of hypertension, bipolar, anxiety and depression, sleep apnea not on CPAP presents to the hospital with shortness of breath, found to be lethargic with hypercapnia as well as chest x-ray revealing possible congestive heart failure # dyspnea - most likely secondary to CHF exacerbation versus PE versus OHS - does not appear to have history of CHF - has chronic lymphedema, slightly elevated BNP which may be falsely low due to his obesity - at this time will start him on Lasix 40 IV b.i.d. - will obtain echocardiogram and consult Cardiology - patient also had a significantly elevated D-dimer, but cannot get CT angiogram due to his obesity, patient was presumably treated for PE- will continue the Lovenox 1 milligram/kg - will obtain lower extremity venous ultrasound - and patient was also placed on BiPAP for multiple hours, now off the BiPAP, will repeat VBG - if patient develops worsening lethargy as well as repeat VBG few hours after being off the BiPAP shows worsening CO2, consider placing on BiPAP and transferring to ICU # CHF exacerbation - has congestion on chest x-ray, elevated BNP - will start him Lasix 40 IV b.i.d. - echocardiogram - cardiology consult - low-sodium diet, daily weight, strict I&O # obesity hypoventilation syndrome - will most likely require BiPAP overnight - was on BiPAP in the ED, currently removed, will try to repeat VBG to evaluate # hypercapnia with mixed acid-base disorder - most likely secondary to his sleep apnea as well as obesity hypoventilation syndrome - will place on BiPAP at bedtime # presumed PE - had elevated T does - will obtain lower extremity venous ultrasound - being treated for PE with treatment dose of Lovenox # hypertension - elevated - resume home medications DVT prophylaxis: Lovenox Quality Stroke Does the patient have a stroke diagnosis?: No VTE Prior VTE?: No VTE Risk Level:: Medical - moderate - high VTE Device Contraindication: Treatment Not Indicated VTE Drug Contraindication: N/A - Med Ordered
[2021-07-20 06:21] LABS: MANUAL DIFF FLAG NO
[2021-07-20 06:29] LABS: VBG Base Excess 3.7 mmol/L; VBG HCO3 29 mmol/L (22-26); VBG pCO2 48 mmHg; VBG pH 7.38 (7.32-7.43); VBG pO2 124 mmHg
[2021-07-20 06:30] LABS: Basophils Percent Auto 0.2 % (0-2); Eosinophils Absolute Auto 0.3 X10*3/uL (0.0-0.4); Eosinophils Percent Auto 5.2 % (0-4); Hematocrit 37.3 % (42-52); Hemoglobin 10.8 g/dl (14.0-18.0); Imm Gran Abs Auto 0.02 X10*3/uL (0.00-0.03); Imm Gran Pct Auto 0.4 % (0.0-0.4); Lymphocytes Absolute Auto 0.8 X10*3/uL (1.2-4.9); Lymphocytes Percent Auto 13.7 % (20-40); Mean Corpuscular Hemoglobin 25.8 pg (27.0-33.0); Mean Platelet Volume 11.4 fL (9.4-12.4); Monocytes Absolute Auto 0.7 X10*3/uL (0.1-1.2); Monocytes Percent Auto 11.9 % (2-11); Neutrophils Absolute Auto 3.9 X10*3/uL (2.0-8.3); Neutrophils Percent Auto 68.6 % (45-73); Platelet Count 220 X10*3/uL (160-400); Red Blood Count 4.19 X10*6/uL (4.60-5.80); Red Cell Distribution Width 15.9 % (11.0-16.0); White Blood Count 5.6 X10*3/uL (4.8-10.8)
[2021-07-20 06:37] LABS: Venous Blood Gas Refer to POC result
--- NOTE | 2021-07-20 07:32 | PC.NURSE ---
pt sleeping in bed at this time. pt remains hypertensive- resp even and unlabored and o2 maintained at 95% on nc. plan to admit pt.
[2021-07-20] MEDS: lisinopriL 40 MG TABLET PO (08:11)
[2021-07-20] MEDS: Metoprolol Tartrate 50 MG TABLET PO ×2 (08:12→22:07)
[2021-07-20] MEDS: amLODIPine Besylate 10 MG TABLET PO (08:12)
[2021-07-20] MEDS: DULoxetine HCl 30 MG CAPSULE.DR PO (08:12)
[2021-07-20] MEDS: buPROPion HCl XL 300 MG TAB.ER.24H PO (08:12)
[2021-07-20] MEDS: lamoTRIgine 25 MG TABLET 50 MG PO ×2 (08:12→22:07)
[2021-07-20] MEDS: 0.9 % Sodium Chloride Flush 3 ML SYRINGE IVFLUSH ×2 (08:13→16:31)
[2021-07-20] MEDS: Furosemide 40 MG/4 ML VIAL IVPUSH (11:01)
[2021-07-20] MEDS: Labetalol HCL 100 MG/20 ML VIAL 20 MG IVPUSH (11:01)
[2021-07-20] MEDS: Enoxaparin Sodium 100 MG/ML SYRINGE 275 MG SUBCUT (11:02)
[2021-07-20 11:13] LABS: ABG Refer to POC result
[2021-07-20 11:14] LABS: ABG Base Excess 9.6 mmol/L; ABG HCO3 37 mmol/L (22-26); ABG pCO2 64 mmHg (32-45); ABG pCO2 TC 63 mmHg (32-45); ABG pH 7.36 (7.35-7.45); ABG pH TC 7.37 (7.35-7.45); ABG pO2 122 mmHg (83-108); ABG pO2 TC 120 (83-108)
--- NOTE | 2021-07-20 11:29 | PC.NURSE ---
resp called for bipap placement
--- NOTE | 2021-07-20 11:34 | PM.EVENT ---
Event Note Date of Service: 07/20/21 Event Note: The patient was seen and evaluated in the emergency while is still waiting to be transferred to medical floor. Patient complaining of headache and goes back to sleep quickly upon complaining of feeling tired and lethargic. His blood pressure was noted to be 210/130. To give IV labetalol and monitor response To do ABG To get ICU evaluation
--- NOTE | 2021-07-20 11:43 | P.PNCC_ITS ---
Critical Care Event Note Summary Date of Service: 07/20/21 Code activated: No Narrative: Late note for patient evaluated today 1st around 10:00 a.m., then again at approximately 1:30 p.m. 36-year-old gentleman with underlying history of morbid obesity, hypertension, obesity hypoventilation syndrome,asthma, anxiety, bipolar disorder, lymphedema admitted earlier today to [facility] for dyspnea, deemed to be secondary to congestive heart failure exacerbation. Patient has been started on diuretic regimen. However he has developed significantly elevated blood pressures with systolic in 240s (though, unclear if a right blood pressure cuff has been used for those measurements) associated with headache. He has been treated with several IV doses of labetalol with significant improvement in his blood pressure and resolution of his headache. His blood gas demonstrated normal pH. On my initial exam before additional labetalol IV patient was lethargic, but arousable, complaining of a headache, with systolic blood pressure of 210, normoxemic on room air. On my 2nd exam several hours after patient has received his additional IV labetalol, he has been awake alert and oriented, joking with staff, with systolic blood pressure in 140's and normoxemic on room air. Agree with blood pressure control and aggressive diuresis. At this time patient does not require BiPAP support or ICU level of care. Please notify for re- evaluation, if patient's condition changes. Critical Care Time (minutes): 30
--- NOTE | 2021-07-20 12:15 | PM.CNCAR ---
History of Present Illness History of Present Illness Date of Service: 07/20/21 Requesting physician: Steph [place] Chief complaint: Shortness of breath, hypertensive emergency. Narrative: 36-year-old gentleman with morbid obesity, asthma, anxiety, bipolar disorder, depression, hypertension, chronic lymphedema, PTSD in sleep apnea who is presenting for shortness of breath. He is quite sleepy and lethargic in the ER. His blood pressure is significantly elevated. He is denying chest discomfort. He is saying that he is short of breath. He is complaining of a headache. He was found to have a significantly elevated D-dimer and was started on Lovenox empirically because he cannot have CT done due to morbid obesity. At the time of interview he was quite somnolent and kept going back to sleep. Review of Systems Review of Systems: Short of breath, somnolent. [facility] Past Medical History Medical History Anxiety Bipolar disorder Depression Hypertension Lymph edema PTSD (post-traumatic stress disorder) Sleep apnea in adult Testicle pain Social History Social History Household Members: None Housing: Other Housing Other:: [facility] Do you presently have visiting nurse or other home services: No Alcohol intake: never Patient Tobacco Use Status: Current everyday Tobacco user Tobacco use type: Cigarette Cigarettes Per Day: 6 Second Hand Smoke Exposure: No Substance Use Type: Marijuana Advance Directives: No Meds Allergies Allergy/AdvReac Type Severity Reaction Status Date / Time No Known Allergies Allergy Verified 06/02/21 13:33 [No Known Allergies*] Active Medications: Current Medications Generic Name Dose Route Start Last Admin Trade Name Freq PRN Reason Stop Dose Admin Acetaminophen 650 mg 07/20/21 01:45 Acetaminophen 325 Mg Tablet PO Q6H PRN Pain, Mild (Pain Scale 1-3) Amlodipine Besylate 10 mg 07/20/21 06:00 07/20/21 08:15 Amlodipine Besylate 10 Mg Tablet PO Not Given DAILY [facility] Protocol Bupropion HCl 300 mg 07/20/21 09:00 07/20/21 08:12 Bupropion Hcl Xl 300 Mg Tab.Er.24h PO 300 mg DAILY JEF Administration Docusate Sodium 100 mg 07/20/21 01:45 Docusate Sodium 100 Mg Capsule PO DAILY PRN Constipation Docusate Sodium 100 mg 07/20/21 05:59 Docusate Sodium 100 Mg Capsule PO BID PRN Constipation Duloxetine HCl 30 mg 07/20/21 09:00 07/20/21 08:12 Duloxetine Hcl 30 Mg Capsule.Dr PO 30 mg DAILY JEF Administration Enoxaparin Sodium 275 mg 07/20/21 11:00 07/20/21 11:02 Enoxaparin Sodium 100 Mg/Ml Syringe 1 mg/kg (275 mg) 275 mg SUBCUT Administration Q12H [facility] Furosemide 40 mg 07/20/21 10:10 07/20/21 11:01 Furosemide 40 Mg/4 Ml Vial IVPUSH 40 mg DAILY [facility] Administration Protocol Lamotrigine 50 mg 07/20/21 09:00 07/20/21 08:12 Lamotrigine 25 Mg Tablet PO 50 mg BID JEF Administration Lisinopril 40 mg 07/20/21 06:00 07/20/21 08:11 Lisinopril 40 Mg Tablet PO 40 mg DAILY [facility] Administration Protocol Metoprolol Tartrate 50 mg 07/20/21 09:00 07/20/21 08:12 Metoprolol Tartrate 50 Mg Tablet PO 50 mg BID [facility] Administration Protocol Nicotine Polacrilex 2 mg 07/20/21 05:59 Nicotine Polacrilex 2 Mg Gum BUCCAL Q2H PRN Nicotine Cravings Omeprazole 20 mg 07/20/21 09:00 07/20/21 08:14 Omeprazole 20 Mg/10 Ml Susp.Recon PO Not Given DAILY [facility] Ondansetron HCl 4 mg 07/20/21 01:45 Ondansetron Hcl 4 Mg/2 Ml Vial IVPUSH Q8H PRN Nausea and Vomiting Polyethylene Glycol 17 gm 07/20/21 09:00 07/20/21 08:14 Polyethylene Glycol 3350 17 Gm Powd.Pack PO Not Given DAILY [facility] Sodium Chloride 3 ml 07/20/21 08:00 07/20/21 08:13 0.9 % Sodium Chloride Flush 3 Ml Syringe IVFLUSH 3 ml QSHIFT [facility] Administration Home Medications Medication Instructions Recorded Confirmed Last Taken Type duloxetine 30 mg capsule,delayed 30 mg PO DAILY 11/17/20 07/20/21 Unknown History release lamotrigine 25 mg tablet 50 mg PO BID 11/17/20 07/20/21 Unknown History bupropion HCl 150 mg tablet,12 hr 300 mg PO DAILY 06/02/21 07/20/21 Unknown History sustained-release (Wellbutrin SR) Physical Exam Vital Signs: Vital Signs: Last Vital Signs Temp 98.2 F 07/19/21 19:51 Pulse 82 07/20/21 11:01 Resp 24 H 07/20/21 12:12 BP 170/131 H 07/20/21 11:28 Pulse Ox 100 07/20/21 08:01 Oxygen Flow Rate 2 07/19/21 19:51 Body Mass Index 84.2 GENERAL APPEARANCE: Sleepy but arousable. NECK: no carotid bruit, no obvious jugular venous distention. SKIN: Chronic changes on legs due to lymphedema. HEART: no murmurs, regular rate and rhythm. LUNGS: clear to auscultation bilaterally. ABDOMEN: Distended, nontender. EXTREMITIES: Lymphedema. PERIPHERAL PULSES: equal. NEUROLOGIC: Sleepy but arousable. Following simple commands. Results Labs and Meds Result diagrams: 07/20/21 06:18 07/20/21 03:14 Lab results: Laboratory Results - last 24 hr 07/19/21 07/19/21 07/19/21 19:45 19:45 19:45 WBC 6.8 RBC 4.04 L Hgb 10.6 L Hct 35.9 L MCV 88.9 MCH 26.2 L MCHC 29.5 L RDW 15.9 Plt Count 223 MPV 11.7 Immature Gran % (Auto) 0.4 Neut % (Auto) 73.4 H Lymph % (Auto) 11.9 L [place] % (Auto) 9.3 Eos % (Auto) 4.9 H Baso % (Auto) 0.1 Lymph # (Auto) 0.8 L [place] # (Auto) 0.6 Eos # (Auto) 0.3 Baso # (Auto) 0.0 Abs Immat Gran (auto) 0.03 Absolute Neuts (auto) 5.0 Absolute Nucleated RBC 0.000 Nucleated RBC % (auto) 0.0 PT INR APTT D-Dimer O2 Saturation ABG pH at Pt Temp ABG pH (Temp Correct) ABG pCO2 at Pt Temp ABG pCO2 (Temp Corrct ABG pO2 at Pt Temp ABG pO2 (Temp Correct ABG HCO3 ABG Base Excess (Actual) VBG pH VBG pCO2 VBG pO2 VBG HCO3 VBG O2 Saturation VBG Base Excess Sodium Potassium Chloride Carbon Dioxide Anion Gap BUN Creatinine Estim Creat Clear Calc Estimated GFR Random Glucose Lactic Acid Calcium Magnesium Ferritin Total Bilirubin Direct Bilirubin AST ALT Alkaline Phosphatase Lactate Dehydrogenase Troponin I High Sens 10.7 C-Reactive Protein B-Natriuretic Peptide 121 H Total Protein Albumin Procalcitonin Coronavirus (PCR) NEGATIVE Influenza Type A (PCR) NEGATIVE Influenza Type B (PCR) NEGATIVE RSV RNA Qual (PCR) NEGATIVE 07/19/21 07/19/21 07/19/21 19:45 19:45 19:45 WBC RBC Hgb Hct MCV MCH MCHC RDW Plt Count MPV Immature Gran % (Auto) Neut % (Auto) Lymph % (Auto) [place] % (Auto) Eos % (Auto) Baso % (Auto) Lymph # (Auto) [place] # (Auto) Eos # (Auto) Baso # (Auto) Abs Immat Gran (auto) Absolute Neuts (auto) Absolute Nucleated RBC Nucleated RBC % (auto) PT 12.5 INR 1.1 APTT 31.6 D-Dimer 880 O2 Saturation ABG pH at Pt Temp ABG pH (Temp Correct) ABG pCO2 at Pt Temp ABG pCO2 (Temp Corrct ABG pO2 at Pt Temp ABG pO2 (Temp Correct ABG HCO3 ABG Base Excess (Actual) VBG pH VBG pCO2 VBG pO2 VBG HCO3 VBG O2 Saturation VBG Base Excess Sodium Potassium Chloride Carbon Dioxide Anion Gap BUN Creatinine Estim Creat Clear Calc Estimated GFR Random Glucose Lactic Acid 0.9 Calcium Magnesium Ferritin Total Bilirubin Direct Bilirubin AST ALT Alkaline Phosphatase Lactate Dehydrogenase Troponin I High Sens C-Reactive Protein B-Natriuretic Peptide Total Protein Albumin Procalcitonin 0.04 Coronavirus (PCR) Influenza Type A (PCR) Influenza Type B (PCR) RSV RNA Qual (PCR) 07/19/21 07/19/21 07/19/21 19:45 23:03 23:03 WBC 6.6 RBC 3.88 L Hgb 10.2 L Hct 34.4 L MCV 88.7 MCH 26.3 L MCHC 29.7 L RDW 15.9 Plt Count 204 MPV 11.9 Immature Gran % (Auto) Neut % (Auto) Lymph % (Auto) [place] % (Auto) Eos % (Auto) Baso % (Auto) Lymph # (Auto) [place] # (Auto) Eos # (Auto) Baso # (Auto) Abs Immat Gran (auto) Absolute Neuts (auto) Absolute Nucleated RBC 0.000 Nucleated RBC % (auto) 0.0 PT INR APTT D-Dimer O2 Saturation ABG pH at Pt Temp ABG pH (Temp Correct) ABG pCO2 at Pt Temp ABG pCO2 (Temp Corrct ABG pO2 at Pt Temp ABG pO2 (Temp Correct ABG HCO3 ABG Base Excess (Actual) VBG pH VBG pCO2 VBG pO2 VBG HCO3 VBG O2 Saturation VBG Base Excess Sodium 141 Potassium 4.3 Chloride 102 Carbon Dioxide 32 H Anion Gap 11 L BUN 8 L Creatinine 1.01 Estim Creat Clear Calc 225.6 Estimated GFR > 60 Random Glucose 118 H Lactic Acid Calcium 8.7 Magnesium 2.0 Ferritin 66 Total Bilirubin 0.5 Direct Bilirubin 0.2 AST 18 ALT 19 Alkaline Phosphatase 73 Lactate Dehydrogenase 303 H Troponin I High Sens 10.9 C-Reactive Protein 3.57 H B-Natriuretic Peptide Total Protein 7.5 Albumin 3.7 Procalcitonin Coronavirus (PCR) Influenza Type A (PCR) Influenza Type B (PCR) RSV RNA Qual (PCR) 07/19/21 07/19/21 07/20/21 23:03 23:15 03:14 WBC 5.9 RBC 4.01 L Hgb 10.5 L Hct 35.5 L MCV 88.5 MCH 26.2 L MCHC 29.6 L RDW 15.9 Plt Count 208 MPV 11.4 Immature Gran % (Auto) Neut % (Auto) Lymph % (Auto) [place] % (Auto) Eos % (Auto) Baso % (Auto) Lymph # (Auto) [place] # (Auto) Eos # (Auto) Baso # (Auto) Abs Immat Gran (auto) Absolute Neuts (auto) Absolute Nucleated RBC 0.000 Nucleated RBC % (auto) 0.0 PT 12.6 INR 1.1 APTT 26.8 D-Dimer O2 Saturation ABG pH at Pt Temp ABG pH (Temp Correct) ABG pCO2 at Pt Temp ABG pCO2 (Temp Corrct ABG pO2 at Pt Temp ABG pO2 (Temp Correct ABG HCO3 ABG Base Excess (Actual) VBG pH 7.34 VBG pCO2 65 VBG pO2 70 VBG HCO3 36 H VBG O2 Saturation 89.0 VBG Base Excess 8.4 Sodium Potassium Chloride Carbon Dioxide Anion Gap BUN Creatinine Estim Creat Clear Calc Estimated GFR Random Glucose Lactic Acid Calcium Magnesium Ferritin Total Bilirubin Direct Bilirubin AST ALT Alkaline Phosphatase Lactate Dehydrogenase Troponin I High Sens C-Reactive Protein B-Natriuretic Peptide Total Protein Albumin Procalcitonin Coronavirus (PCR) Influenza Type A (PCR) Influenza Type B (PCR) RSV RNA Qual (PCR) 07/20/21 07/20/21 07/20/21 03:14 03:14 03:18 WBC RBC Hgb Hct MCV MCH MCHC RDW Plt Count MPV Immature Gran % (Auto) Neut % (Auto) Lymph % (Auto) [place] % (Auto) Eos % (Auto) Baso % (Auto) Lymph # (Auto) [place] # (Auto) Eos # (Auto) Baso # (Auto) Abs Immat Gran (auto) Absolute Neuts (auto) Absolute Nucleated RBC Nucleated RBC % (auto) PT 12.8 INR 1.1 APTT 36.5 D D-Dimer O2 Saturation ABG pH at Pt Temp ABG pH (Temp Correct) ABG pCO2 at Pt Temp ABG pCO2 (Temp Corrct ABG pO2 at Pt Temp ABG pO2 (Temp Correct ABG HCO3 ABG Base Excess (Actual) VBG pH 7.34 VBG pCO2 60 VBG pO2 188 VBG HCO3 32 H VBG O2 Saturation 99.0 VBG Base Excess 5.3 Sodium 141 Potassium 4.2 Chloride 103 Carbon Dioxide 32 H Anion Gap 10 L BUN 8 L Creatinine 0.97 Estim Creat Clear Calc 234.9 Estimated GFR > 60 Random Glucose 148 H Lactic Acid Calcium 8.5 Magnesium Ferritin Total Bilirubin Direct Bilirubin AST ALT Alkaline Phosphatase Lactate Dehydrogenase Troponin I High Sens C-Reactive Protein B-Natriuretic Peptide Total Protein Albumin Procalcitonin Coronavirus (PCR) Influenza Type A (PCR) Influenza Type B (PCR) RSV RNA Qual (PCR) 07/20/21 07/20/21 07/20/21 06:18 06:25 11:07 WBC 5.6 RBC 4.19 L Hgb 10.8 L Hct 37.3 L MCV 89.0 MCH 25.8 L MCHC 29.0 L RDW 15.9 Plt Count 220 MPV 11.4 Immature Gran % (Auto) 0.4 Neut % (Auto) 68.6 Lymph % (Auto) 13.7 L [place] % (Auto) 11.9 H Eos % (Auto) 5.2 H Baso % (Auto) 0.2 Lymph # (Auto) 0.8 L [place] # (Auto) 0.7 Eos # (Auto) 0.3 Baso # (Auto) 0.0 Abs Immat Gran (auto) 0.02 Absolute Neuts (auto) 3.9 Absolute Nucleated RBC 0.000 Nucleated RBC % (auto) 0.0 PT INR APTT D-Dimer O2 Saturation 98.0 ABG pH at Pt Temp 7.36 ABG pH (Temp Correct) 7.37 ABG pCO2 at Pt Temp 64 H* ABG pCO2 (Temp Corrct 63 H* ABG pO2 at Pt Temp 122 H ABG pO2 (Temp Correct 120 H ABG HCO3 37 H ABG Base Excess (Actual) 9.6 VBG pH 7.38 VBG pCO2 48 VBG pO2 124 VBG HCO3 29 H VBG O2 Saturation 99.0 VBG Base Excess 3.7 Sodium Potassium Chloride Carbon Dioxide Anion Gap BUN Creatinine Estim Creat Clear Calc Estimated GFR Random Glucose Lactic Acid Calcium Magnesium Ferritin Total Bilirubin Direct Bilirubin AST ALT Alkaline Phosphatase Lactate Dehydrogenase Troponin I High Sens C-Reactive Protein B-Natriuretic Peptide Total Protein Albumin Procalcitonin Coronavirus (PCR) Influenza Type A (PCR) Influenza Type B (PCR) RSV RNA Qual (PCR) Imaging Radiologist's impression: Impressions Chest X-Ray 07/19/21 17:55 IMPRESSION: Mild cardiac enlargement with upper zone redistribution suggesting mild congestion. Venous Duplex 07/20/21 00:22 IMPRESSION: Nondiagnostic exam. Assessment and Plan (1) Hypertensive emergency: Status: Acute 36-year-old gentleman who is presenting for shortness of breath and headache. He has significantly elevated blood pressures. Volume status is difficult to assess due to body habitus but overall he appears volume overloaded. Agree with IV diuretics. Blood pressure is significantly elevated and he has headache. The headache is likely due to elevated blood pressure and his blood pressure needs to be controlled better. He would benefit from IV medications. Please do not use IV hydralazine. Probably would favor Cardene or labetalol IV gtt. He is quite somnolent and likely has obesity hypoventilation. Avoid narcotics. Will likely need BiPAP. For the elevated D-dimer he has been started on Lovenox. Venous Doppler was not diagnostic. I am not sure her V/Q scan is a possibility or not. I think he is high risk for DVT given his body habitus and overall functional status. Agree with anticoagulation for now. Please document blood pressure in both arms. We will follow along with you. Thank Procedures Date of Service Date of Service: 07/20/21
--- NOTE | 2021-07-20 12:49 | PC.NURSE ---
pt continues to take off bipap- hospitalist aware
[2021-07-20] MEDS: Apixaban 5 MG TABLET 10 MG PO (22:06)
--- NOTE | 2021-07-20 22:12 | PC.NURSE ---
pt transported to inpt bed, attached to playground monitor, sent in stable condition w/ all belongings
[2021-07-21] VITALS (8 sets, daily range): BP systolic 143–184; BP diastolic 85–91; PULSE 77–82; RESP 18–23; TEMP 36.6–37; O2SAT 89–96
[2021-07-21 00:36] LABS: INTERNATIONAL NORM RATIO 1.3 (0.9-1.1); Prothrombin Time 14.3 SEC (9.9-13.0)
[2021-07-21] MEDS: 0.9 % Sodium Chloride Flush 3 ML SYRINGE IVFLUSH ×4 (01:36→21:49)
[2021-07-21 07:07] LABS: Hemoglobin 10.5 g/dl (14.0-18.0); PLT CLUMP 1
[2021-07-21 07:09] LABS: Hematocrit 36.3 % (42-52); Mean Corpuscular HGB Conc 28.9 g/dl (31.0-36.0); Mean Corpuscular Hemoglobin 25.8 pg (27.0-33.0); Mean Corpuscular Volume 89.2 fL (80-98); Red Blood Count 4.07 X10*6/uL (4.60-5.80); White Blood Count 6.4 X10*3/uL (4.8-10.8)
[2021-07-21 07:27] LABS: B Type Natriuretic Peptide 112 pg/mL (<100)
[2021-07-21 07:50] LABS: Anion Gap 12 (12-20); Blood Urea Nitrogen 11 mg/dL (9-16); Calcium 8.6 mg/dL (8.4-10.2); Carbon Dioxide 28 mmol/L (22-29); Chloride 103 mmol/L (96-108); Creatinine Clr Calc Pharmacy 247.6; Estimated Glomerular Filt Rate > 60; Glucose Random 113 mg/dL (60-115); Sodium 138 mmol/L (135-145)
--- NOTE | 2021-07-21 08:45 | MHC.CDI.CONC ---
CDI Concurrent Query Documentation Clarification: PHYSICIAN'S DOCUMENTATION REQUEST Date of Query: 07/21/21 0845 Patient Name: Pavel Perdomo Admit Date: 07/20/21 Dear Doctor, A review of the medical record indicates additional documentation may be needed. Please review below and update the documentation accordingly. Clinical Indicators: Risk Factors/Clinical Indicators/Treatments ED: respiratory called for BIPAP placement O2 sat 84-88% on RA w tachypnea, worsening SOB and cough off BIPAP if worsening CO2 consider BIPAP and ICU. Transferred to ICU. Hypercapnia. Notes: rule out pna vs. acute on chronic respiratory failure w noncompliance. Recognized standard criteria for respiratory failure includes: (Source: [facility] Hospitalist Aug/Sep 2013) ABGs (1 or more) Symptoms: ? PO2 <60 or RA SpO2 <91% ?SOB, cough, dyspnea RR 24 Obesity hypoventilation syndrome/sleep apnea CO2 65 BMI 84.2 ABG's ordered, respiratory placed on RA onto 4 liters NC/6 liters. Tachypnea Smoker, Asthma, noncompliant with home CPAP. Supplemental O2 requirement of 40% or more Intubation is not required Clarify which of the following accurately represents the patient's respiratory status: Acute respiratory failure Acute respiratory distress Other (please specify) Unable to determine Please include type if known: Hypercapnic Other Unable to determine Use of terms such as suspected, likely, concern for, or probable (associated with a specific diagnosis that is being evaluated, monitored, or treated as if it exists) are acceptable and can be coded in the inpatient setting, when documented at the time of discharge. Thank you, Stacie Goss [facility] Extension: [phone] Please use your independent medical judgment in providing your response. THIS QUERY IS PART OF THE PERMANENT MEDICAL RECORD Provider Response: Other Other Diagnosis: acute hypoxic failure with hypercapnia
--- NOTE | 2021-07-21 09:50 | MHC.CM.PN ---
Addendum entered by Kiera Jordan 07/21/21 10:35: CM INFORMED PT MAY BE CLEARED TO DC TODAY HOWEVER WILL NEED A CPAP. CM CALLED MATTI ([phone]) AT [facility] AND LEFT A VM MESSAGE INFORMING HER OF PTS NEED AND REQUESTING A RETURN CALL. Original Note: CM ATTEMPTED TO MEET WITH PT WHO PROVIDES MINIMAL PARTICIPATION PER RECORDS, PT RESIDES AT [place] [address] WHERE HE HAS NO IN HOME SERVICES. PT IS FOLLOWED BY HIS [facility] CM PT DOES NOT HAVE DME PT IS ACTIVE WITH ANT [place] AT [facility] IMM WAS VERBALLY DELIVERED TO PT WHO DID ACKNOWLEDGE UNDERSTANDING CURRENT DC PLAN IS TO RETURN TO [place] [address] VIA [facility] TRANSPORT ([phone])
[2021-07-21] MEDS: DULoxetine HCl 30 MG CAPSULE.DR PO (10:43)
[2021-07-21] MEDS: lisinopriL 40 MG TABLET PO (10:43)
[2021-07-21] MEDS: lamoTRIgine 25 MG TABLET 50 MG PO ×2 (10:43→21:47)
[2021-07-21] MEDS: Metoprolol Tartrate 50 MG TABLET PO ×2 (10:44→21:47)
[2021-07-21] MEDS: amLODIPine Besylate 10 MG TABLET PO (10:44)
[2021-07-21] MEDS: hydrALAZINE HCl 25 MG TABLET PO ×3 (10:44→21:47)
[2021-07-21] MEDS: buPROPion HCl XL 300 MG TAB.ER.24H PO (10:45)
[2021-07-21] MEDS: Furosemide 40 MG/4 ML VIAL IVPUSH (10:45)
--- NOTE | 2021-07-21 13:01 | PC.NURSE ---
Patient refusing shelter monitor. MD aware.
--- NOTE | 2021-07-21 13:10 | P.PNCA_ITS ---
Subjective Subjective Date of Service: 07/21/21 <JEMAL Conway - Last Filed: 07/21/21 15:25> 07/21/21 <Julio Pichardo MD - Last Filed: 07/21/21 19:13> Principal diagnosis: sob, hypoventilation, CHF, HTN concern for PE, morbidly obese <JEMAL Conway - Last Filed: 07/21/21 15:25> Interval history: Cardiology follow up for CHF, HTN. Seem at 1115. Today he is observed sitting on edge of bed. Alert, speaking full sentences. Not falling asleep during exam. Reports feeling better. Breathing comfortable at rest, some sob with activty. No chest pains, palpitation. Not wearing O2 with cannula. Tells me that he has REBECCA and has not used his CPAP for a year as he was homeless. Now has a place to live. <JEMAL Conway - Last Filed: 07/21/21 15:25> Review of Systems Review of Systems as above <JEMAL Conway - Last Filed: 07/21/21 15:25> Yes all other systems are reviewed and are negative <JEMAL Conway - Last Filed: 07/21/21 15:25> Comments: headache improved <JEMAL Conawy - Last Filed: 07/21/21 15:25> Physical Exam Vital Signs: Last Vital Signs Temp 98.0 F 07/21/21 12:00 Pulse 78 07/21/21 12:00 Resp 20 07/21/21 12:00 BP 163/87 H 07/21/21 12:00 Pulse Ox 91 L 07/21/21 12:00 Oxygen Flow Rate 2 07/19/21 19:51 Body Mass Index 84.2 <JEMAL Conway - Last Filed: 07/21/21 15:25> Const Other: Morbidly obese with BMI 84 <JEMAL Conway - Last Filed: 07/21/21 15:25> General: cooperative, no acute distress, alert and awake <JEMAL Conway - Last Filed: 07/21/21 15:25> Orientation/consciousness: patient oriented x3 <Shahla Early [employer] - Last Filed: 07/21/21 15:25> HENMT Head: Yes normal to inspection <Shahla Early [employer] - Last Filed: 07/21/21 15:25> Resp Effort & Inspection: normal respiratory effort, able to speak in complete sentences and not labored <Shahla Early [employer]PER[employer] - Last Filed: 07/21/21 15:25> Auscultation: clear to auscultation bilaterally (diminished sounds), no crackles, no rales, no rhonchi and no wheezes <Shahla Sharath [employer]-C - Last Filed: 07/21/21 15:25> Cardio Other: heart tones distant <Shahla Sharath [employer]PER[employer] - Last Filed: 07/21/21 15:25> Rate: regular rate <Shahla Early [employer] SUPER[employer]C - Last Filed: 07/21/21 15:25> Rhythm: regular rhythm <Shahla Sharath [employer]PER[employer] - Last Filed: 07/21/21 15:25> Heart sounds: S1 normal heart sound present and S2 normal heart sound present <Shahla Sharath [employer]PER[employer] - Last Filed: 07/21/21 15:25> GI Inspection: Yes normal to inspection <Shahla Sharath [employer] - Last Filed: 07/21/21 15:25> Neuro General: patient oriented x3 <Shahla Early [employer]PER[employer] - Last Filed: 07/21/21 15:25> Extrem Other: obesity, true edema difficult to assess for <Shahla EarlyZARINA-C - Last Filed: 07/21/21 15:25> Results Labs and Meds Result diagrams: : 07/21/21 06:25 07/21/21 06:25 <Shahla Early [employer]PER[employer] - Last Filed: 07/21/21 15:25> Lab results: Laboratory Results - last 24 hr 07/21/21 07/21/21 07/21/21 00:23 06:25 06:25 WBC 6.4 RBC 4.07 L Hgb 10.5 L Hct 36.3 L MCV 89.2 MCH 25.8 L MCHC 28.9 L RDW 16.0 Plt Count TNP MPV Not Reportable Absolute Nucleated RBC 0.000 Nucleated RBC % (auto) 0.0 PT 14.3 H INR 1.3 H Sodium 138 Potassium 5.0 Chloride 103 Carbon Dioxide 28 Anion Gap 12 BUN 11 Creatinine 0.92 Estim Creat Clear Calc 247.6 Estimated GFR > 60 Random Glucose 113 Calcium 8.6 B-Natriuretic Peptide 07/21/21 06:25 WBC RBC Hgb Hct MCV MCH MCHC RDW Plt Count MPV Absolute Nucleated RBC Nucleated RBC % (auto) PT INR Sodium Potassium Chloride Carbon Dioxide Anion Gap BUN Creatinine Estim Creat Clear Calc Estimated GFR Random Glucose Calcium B-Natriuretic Peptide 112 H <DOROTHEA ConwayC - Last Filed: 07/21/21 15:25> Progress Note: A&P Assessment and plan (1) CHF exacerbation: Status: Acute <DOROTHEA ConwayC - Last Filed: 07/21/21 15:25> Assessment and Plan: Admit with SOB, HTN. CXR suggesting pulm vascular congestion. BNP 121. Hypertensive initially. Morbidly obese making clinical exam difficult. He is being diuresed with IV lasix. He does report some improvement in breathing today. He was quite somnolent yesterday which contributed to his sob. He has no known hx of heart disease and does not take diuretics at home. With his HTN, obesity, untreated sleep apnea he is at risk for CMP. Echo pending - to eval for any structural heart disease. Continue IV Lasix at present. O2 supplement as needed for sat > 90%. Outpt sleep study/ CPAP titrate to reinstitute REBECCA tx. <DOROTHEA ConwayC - Last Filed: 07/21/21 15:25> (2) Hypertensive emergency: Status: Acute <DOROTHEA ConwayC - Last Filed: 07/21/21 15:25> Assessment and Plan: BP elevated this admit, as high as 227/134, with UMAÑA. Had been given IV Labetolol with improvement. Was started on Lasix and hydralazine. BP better overall today. Feeling well. Continue Amlodipine, Lisinopril, Metoprolol, Lasix, hydralazine. Ongoing BP monitoring. <DOROTHEA ConwayC - Last Filed: 07/21/21 15:25> (3) Obesity hypoventilation syndrome: Status: Acute <Shahla Leigh JEMAL Early - Last Filed: 07/21/21 15:25> (4) Morbid obesity: Status: Acute <JEMAL Conway - Last Filed: 07/21/21 15:25> Fall Risk Details Current Medications: Current Medications Generic Name Dose Route Start Last Admin Trade Name Freq PRN Reason Stop Dose Admin Acetaminophen 650 mg 07/20/21 01:45 Acetaminophen 325 Mg Tablet PO Q6H PRN Pain, Mild (Pain Scale 1-3) Amlodipine Besylate 10 mg 07/20/21 06:00 07/21/21 10:44 Amlodipine Besylate 10 Mg Tablet PO 10 mg DAILY JEF Administration Protocol Bupropion HCl 300 mg 07/20/21 09:00 07/21/21 10:45 Bupropion Hcl Xl 300 Mg Tab.Er.24h PO 300 mg DAILY JEF Administration Docusate Sodium 100 mg 07/20/21 01:45 Docusate Sodium 100 Mg Capsule PO DAILY PRN Constipation Docusate Sodium 100 mg 07/20/21 05:59 Docusate Sodium 100 Mg Capsule PO BID PRN Constipation Duloxetine HCl 30 mg 07/20/21 09:00 07/21/21 10:43 Duloxetine Hcl 30 Mg Capsule.Dr PO 30 mg DAILY JEF Administration Furosemide 40 mg 07/20/21 10:10 07/21/21 10:45 Furosemide 40 Mg/4 Ml Vial IVPUSH 40 mg DAILY JEF Administration Protocol Hydralazine HCl 25 mg 07/21/21 09:00 07/21/21 10:44 Hydralazine Hcl 25 Mg Tablet PO 25 mg TID JEF Administration Protocol Lamotrigine 50 mg 07/20/21 09:00 07/21/21 10:43 Lamotrigine 25 Mg Tablet PO 50 mg BID JEF Administration Lisinopril 40 mg 07/20/21 06:00 07/21/21 10:43 Lisinopril 40 Mg Tablet PO 40 mg DAILY JEF Administration Protocol Metoprolol Tartrate 50 mg 07/20/21 09:00 07/21/21 10:44 Metoprolol Tartrate 50 Mg Tablet PO 50 mg BID JEF Administration Protocol Nicotine Polacrilex 2 mg 07/20/21 05:59 Nicotine Polacrilex 2 Mg Gum BUCCAL Q2H PRN Nicotine Cravings Omeprazole 20 mg 07/20/21 09:00 07/21/21 10:53 Omeprazole 20 Mg/10 Ml Susp.Recon PO Not Given DAILY JEF Ondansetron HCl 4 mg 07/20/21 01:45 Ondansetron Hcl 4 Mg/2 Ml Vial IVPUSH Q8H PRN Nausea and Vomiting Polyethylene Glycol 17 gm 07/20/21 09:00 07/21/21 10:53 Polyethylene Glycol 3350 17 Gm Powd.Pack PO Not Given DAILY JEF Sodium Chloride 3 ml 07/20/21 08:00 07/21/21 10:43 0.9 % Sodium Chloride Flush 3 Ml Syringe IVFLUSH 3 ml QSHIFT JEF Administration <JEMAL Conway - Last Filed: 07/21/21 15:25> Time Spent With Patient Time: Total time spent is greater than 50% in coordination of care (as documented) at patient's floor/unit and/or counseling patient: 25 <JEMAL Conway - Last Filed: 07/21/21 15:25> Time with patient: 25 - 35 minutes <JEMAL Conway - Last Filed: 07/21/21 15:25> Progress Note: Quality Stroke Does the patient have a stroke diagnosis?: No <JEMAL Conway - Last Filed: 07/21/21 15:25> Procedures Date of Service Date of Service: 07/21/21 <JEMAL Conway - Last Filed: 07/21/21 15:25>
--- NOTE | 2021-07-21 16:31 | P.PNIM_ITS ---
Subjective Subjective Date of Service: 07/21/21 Interval History: The patient was seen and evaluated this morning Sitting in his bed, feels much more comfortable with decreased shortness of breath Saturation drops when he go to sleep to 70s and give fluctuating up to the 90s quickly as he stops breathing for few seconds per the nurses reported overnight Feeling much better this morning, denies any chest pain No reported other overnight events. Systemic review: No fever, chills or weakness No chest pain, palpitation Shortness of breath improving but still having dyspnea with exertion No abdominal pain, nausea or vomiting No urinary symptoms No any rash or wounds Physical Exam Vital Signs: Vital Signs: Last Vital Signs Temp 98.0 F 07/21/21 12:00 Pulse 78 07/21/21 12:00 Resp 20 07/21/21 12:00 BP 163/87 H 07/21/21 12:00 Pulse Ox 91 L 07/21/21 12:00 Oxygen Flow Rate 2 07/19/21 19:51 Body Mass Index 84.2 Const: Other: Constitutional : Alert, oriented, not in distress, morbid obesity Neck : Normal inspection, Supple Cardiovascular : RRR, S1 S2, trace bilateral lower extremity edema Respiratory : Degree use bilateral air entry, fine basal crackles, wheezes or rhonchi Gastrointestinal: soft, lax, Normal bowel sounds, Non tender Skin : Warm, Dry, chronic skin changes from obesity Neurological : Alert & oriented x3, No focal deficit Objective Data Active Medications Acetaminophen (Acetaminophen 325 Mg Tablet) 650 mg PO Q6H PRN PRN Reason: Pain, Mild (Pain Scale 1-3) Amlodipine Besylate (Amlodipine Besylate 10 Mg Tablet) 10 mg PO DAILY [facility]; Protocol Last Admin: 07/21/21 10:44 Dose: 10 mg Documented by: SENAIT Bupropion HCl (Bupropion Hcl Xl 300 Mg Tab.Er.24h) 300 mg PO DAILY [facility] Last Admin: 07/21/21 10:45 Dose: 300 mg Documented by: SENAIT Docusate Sodium (Docusate Sodium 100 Mg Capsule) 100 mg PO DAILY PRN PRN Reason: Constipation Docusate Sodium (Docusate Sodium 100 Mg Capsule) 100 mg PO BID PRN PRN Reason: Constipation Duloxetine HCl (Duloxetine Hcl 30 Mg Capsule.Dr) 30 mg PO DAILY [facility] Last Admin: 07/21/21 10:43 Dose: 30 mg Documented by: SENAIT Furosemide (Furosemide 40 Mg/4 Ml Vial) 40 mg IVPUSH DAILY [facility]; Protocol Last Admin: 07/21/21 10:45 Dose: 40 mg Documented by: SENAIT Hydralazine HCl (Hydralazine Hcl 25 Mg Tablet) 25 mg PO TID [facility]; Protocol Last Admin: 07/21/21 10:44 Dose: 25 mg Documented by: SENAIT Lamotrigine (Lamotrigine 25 Mg Tablet) 50 mg PO BID [facility] Last Admin: 07/21/21 10:43 Dose: 50 mg Documented by: SENAIT Lisinopril (Lisinopril 40 Mg Tablet) 40 mg PO DAILY [facility]; Protocol Last Admin: 07/21/21 10:43 Dose: 40 mg Documented by: SENAIT Metoprolol Tartrate (Metoprolol Tartrate 50 Mg Tablet) 50 mg PO BID [facility]; Protocol Last Admin: 07/21/21 10:44 Dose: 50 mg Documented by: SENAIT Nicotine Polacrilex (Nicotine Polacrilex 2 Mg Gum) 2 mg BUCCAL Q2H PRN PRN Reason: Nicotine Cravings Omeprazole (Omeprazole 20 Mg/10 Ml Susp.Recon) 20 mg PO DAILY [facility] Last Admin: 07/21/21 10:53 Dose: Not Given Documented by: SENAIT Non-Admin Reason: Patient Refused Ondansetron HCl (Ondansetron Hcl 4 Mg/2 Ml Vial) 4 mg IVPUSH Q8H PRN PRN Reason: Nausea and Vomiting Polyethylene Glycol (Polyethylene Glycol 3350 17 Gm Powd.Pack) 17 gm PO DAILY [facility] Last Admin: 07/21/21 10:53 Dose: Not Given Documented by: SENAIT Non-Admin Reason: Patient Refused Sodium Chloride (0.9 % Sodium Chloride Flush 3 Ml Syringe) 3 ml IVFLUSH QSHIFT [facility] Last Admin: 07/21/21 10:43 Dose: 3 ml Documented by: SENAIT Labs CBC & Chem 7: 07/21/21 06:25 07/21/21 06:25 Labs: Laboratory Results - last 24 hr 07/21/21 07/21/21 07/21/21 00:23 06:25 06:25 MCV 89.2 MCH 25.8 L MCHC 28.9 L RDW 16.0 Plt Count TNP MPV Not Reportable Absolute Nucleated RBC 0.000 Nucleated RBC % (auto) 0.0 PT 14.3 H INR 1.3 H Anion Gap 12 Estim Creat Clear Calc 247.6 Estimated GFR > 60 Random Glucose 113 Calcium 8.6 B-Natriuretic Peptide 07/21/21 06:25 MCV MCH MCHC RDW Plt Count MPV Absolute Nucleated RBC Nucleated RBC % (auto) PT INR Anion Gap Estim Creat Clear Calc Estimated GFR Random Glucose Calcium B-Natriuretic Peptide 112 H Microbiology Microbiology Results: Microbiology 07/19/21 19:45 Blood Culture - Preliminary Blood - Venous No growth after 24 hours. 07/19/21 19:44 Blood Culture - Preliminary Blood - Venous No growth after 24 hours. Assessment and Plan (1) Hypertensive urgency: Status: Acute (2) Hypercapnia with mixed acid-base disorder: Status: Acute (3) Obesity hypoventilation syndrome: Status: Acute (4) CHF exacerbation: Status: Acute (5) Morbid obesity: Status: Acute Assessment and Plan: This is a 36-year-old male with history of hypertension, bipolar, anxiety and depression, sleep apnea not on CPAP presents to the hospital with shortness of breath, found to be lethargic with hypercapnia as well as chest x-ray revealing possible congestive heart failure # acute respiratory failure with hypercapnia, resolved # secondary to CHF exacerbation , OHS slightly elevated BNP D-dimer of 800, previously above 2000, phos elevated from the city Wells score of 0, negative ultrasound, CTA cannot be done for his weight Discontinue anticoagulation Continue Lasix 40 IV b.i.d. Pending echocardiogram Cardiology input appreciated low-sodium diet, daily weight, strict I&O # hypercapnia with mixed acid-base disorder # obesity hypoventilation syndrome Lost his BiPAP 1 year ago Will need to follow-up with [facility] for sleep medicine study To do overnight oximetry # hypertensive urgency blood pressure significantly elevated above 200/130 Reports not taking medications for couple of weeks now resume home medications And hydralazine t.i.d. # Morbid obesity BMI of 84 Advised to lose weight DVT prophylaxis: Lovenox Quality Stroke Does the patient have a stroke diagnosis?: No VTE Prior VTE?: No VTE Risk Level:: Medical - moderate - high VTE Device Contraindication: Treatment Not Indicated VTE Drug Contraindication: N/A - Med Ordered
[2021-07-22 03:52] VITALS: BP 186/95; PULSE 65; RESP 20; TEMP 36.7; O2SAT 94
[2021-07-22 08:00] VITALS: BP 174/104; PULSE 74; RESP 20; TEMP 36.7; O2SAT 92
--- NOTE | 2021-07-22 10:17 | P.DS_ITS ---
DS: Providers Provider Date of Service: 07/22/21 Date of admission: 07/20/21 00:51 Primary care physician: Bryanna Yang MD Consults: 07/20/21 01:45 Consult to Cardiology Routine Consulting Provider: Nadeem Carrillo Reason for consultation: CHF Has provider been notified: No 07/20/21 10:00 Consult to Critical Care Routine Consulting Provider: Delonte Mckeon Reason for consultation: Hypertensive urgency, OHS DS: Diagnosis Discharge Diagnosis (1) CHF exacerbation: Status: Acute (2) Obesity hypoventilation syndrome: Status: Acute (3) Morbid obesity: Status: Acute (4) Hypertensive urgency: Status: Acute (5) Hypercapnia with mixed acid-base disorder: Status: Acute (6) Acute respiratory failure with hypercapnia: Status: Acute DS: Summary Hospital Course Hospital Course: Admission note HPI This is a very obese 36-year-old male with past medical history of asthma, anxiety, bipolar disorder, depression, hypertension, lymphedema, PTSD, and sleep apnea and most likely obesity hypoventilation syndrome presents to the hospital with complaints of shortness of breath.? Patient is very lethargic, and very hard to keep him awake long enough to answer any questions but reports that his symptoms started about few days ago with shortness of breath no cough, no sputum production, he denies any chest pain no abdominal pain nausea or vomiting, otherwise all other review of system negative. A temp of 98.2, heart rate of 100, respiratory rate of 24, satting 94 on 2 L of oxygen, blood pressure 177/104 ?for WBC count 5.9, hemoglobin of 10.5 which is around his baseline, BNP of 120s VBG showed a pH of 7.34 with a CO2 of 65, bicarb of 32, COVID-19 negative, Patient has a significantly elevated D-dimer, patient was attempted to be transferred to an outside hospital for CT scan given his weight but unsuccessful therefore being per treated for presumed PE with Lovenox Chest x-ray showing mild cardiac enlargement with upper zone redistribution suggestive of mild congestion Patient was placed on BiPAP for few hours in the ED, currently more awake, answering questions appropriately, she will remove the BiPAP and repeat VBG Hospital course The patient was admitted to the hospital for evaluation of difficulty breathing. Found to be hypoxic an ABG was consistent with elevated pCO2. Placed on BiPAP with good response. BNP was noted to be elevated with chest x-ray suggestive of increased markings. Treated with IV Lasix with good response as the patient made negative balance for 2 days and was weaned off to room air with no reported difficulty breathing or shortness of breath. Seen by cardiology team who recommended to continue treatment for CHF as an echo was done. His blood pressure was noted significantly elevated with hypertensive urgency at time of presentation treated with IV and p.o. medications with good response as blood pressure improved. The patient reported that he did not take his medications for few weeks as he ran out of them and could not contact his primary care. To prescribe his current home medications with addition of hydralazine which was added during this hospital stay for better controlled. Patient discussed about morbid obesity and advised about decreasing weight. To be referred to Bariatric surgery for further evaluation and possible intervention. To be referred to [facility] to do with sleep medicine study as it cannot be done in this hospital with his current weight. At time of admission the was a concern about possible PE and the patient was started on full-dose Lovenox. Though he had D-dimer of 800, previously readings above 2000 with no evidence of VTE. Wells score of 0, negative Doppler ultrasound of lower extremities CTA cannot be done for his weight. Anticoagulation discontinue as no evidence interval. Patient was monitored with no reported shortness of breath or chest pain after discontinuing the medications. Time Spent with Patient Time attestation: Total time spent providing and/or coordinating discharge services: Discharge coordination time: Greater than 30 minutes Quality: Stroke Does the patient have a stroke diagnosis?: No Physical Exam Vital Signs: Vital Signs: Last Vital Signs Temp 98.0 F 07/22/21 03:52 Pulse 65 07/22/21 03:52 Resp 20 07/22/21 03:52 BP 186/95 H 07/22/21 03:52 Pulse Ox 94 07/22/21 03:52 Oxygen Flow Rate 2 07/19/21 19:51 Body Mass Index 84.2 Const: Other: Constitutional : Alert, oriented, not in distress, morbid obesity Neck : Normal inspection, Supple Cardiovascular : RRR, S1 S2, trace bilateral lower extremity edema Respiratory : Degree use bilateral air entry, no crackles, wheezes or rhonchi Gastrointestinal: soft, lax, Normal bowel sounds, Non tender Skin : Warm, Dry, chronic skin changes from obesity Neurological : Alert & oriented x3, No focal deficit DS: Data Data Completed and Pending Labs on day of discharge: Preliminary micro results at discharge 07/19/21 19:45 Blood Culture - Preliminary Blood - Venous No growth after 48 hours. 07/19/21 19:44 Blood Culture - Preliminary Blood - Venous No growth after 48 hours. Discharge Plan Discharge Patient Disposition: Home, Self-Care Discharge Diagnosis: Hypertensive urgency Respiratory failure with hypercapnia Referrals: Bryanna Yang MD [Primary Care Provider] - 1 Week Arnold Pryor MD [Physician] - 1 Month (Morbid obesity w BMI >80, OHS, new onset CHF for your kind eval ) Discharge Medications: New hydralazine 50 mg Tablet 50 mg PO TID 30 Days Qty: 90 RF: 0 furosemide [Lasix] 20 mg tablet 20 mg PO QAM Qty: 30 RF: 0 (DME) walker Misc See Rx Instructions .Route Qty: 1 RF: 0 Continued lamotrigine 25 mg tablet 50 mg PO BID RF: 0 nicotine (polacrilex) 2 mg Gum 2 mg buccal Q2H PRN (Reason: Nicotine Cravings) Qty: 50 RF: 0 docusate sodium [Colace] 100 mg capsule 100 mg PO BID PRN (Reason: Constipation) Qty: 14 RF: 0 polyethylene glycol 3350 [Miralax] 17 gram/dose powder 17 g PO DAILY Qty: 238 RF: 0 bupropion HCl [Wellbutrin SR] 150 mg Tablet Sustained-Release 12 Hr 300 mg PO DAILY 30 Days Qty: 60 RF: 0 amlodipine 10 mg tablet 10 mg PO DAILY Qty: 30 RF: 0 metoprolol tartrate 50 mg tablet 50 mg PO BID Qty: 60 RF: 0 albuterol sulfate 90 mcg/actuation HFA aerosol inhaler 1 inh inhalation QID PRN (Reason: shortness of breath or wheezing) Qty: 6.7 RF: 0 lisinopril 40 mg tablet 40 mg PO DAILY Qty: 30 RF: 0 duloxetine 30 mg capsule,delayed release(DR/EC) 30 mg PO DAILY 30 Days Qty: 30 RF: 0 Prilosec 10 mg susp,delayed release for recon 20 mg PO DAILY Qty: 30 RF: 0 Discharge Orders: Discharge Order (Routine); Ordered 07/22/21 Ordered By: Steph Montana Diet: advance to usual diet and low salt diet Activity on Discharge: As tolerated Stand Alone Forms: Patient Portal Discharge page Care Plan Goals: Read below Health Concerns: Read below Plan of Treatment: You were admitted to the hospital for evaluation of difficulty breathing. Treated with BiPAP with fair response. Found to be in heart failure treated with IV Lasix with fair response over the course of hospital stay. Your blood pressure was noted to be significantly elevated treated with IV and oral medications with fair response. Evaluated by Cardiology team. Assessment: Your home medications were prescribed, to follow up with your primary care To follow up with bariatric surgery team for evaluation about weight loss and possible interventions To follow-up with [facility] for 4 minutes sleep study to get a new ma chine Start Lasix and cut down fluids intake Start hydralazine at a lozano to your blood pressure medications and keep monitoring her blood pressure and report readings to PCP, Cardiology.
[2021-07-22] MEDS: Metoprolol Tartrate 50 MG TABLET PO (11:19)
[2021-07-22] MEDS: hydrALAZINE HCl 50 MG TABLET PO ×2 (11:19→13:46)
[2021-07-22] MEDS: lisinopriL 40 MG TABLET PO (11:19)
[2021-07-22] MEDS: Furosemide 40 MG/4 ML VIAL IVPUSH (11:19)
[2021-07-22] MEDS: amLODIPine Besylate 10 MG TABLET PO (11:19)
[2021-07-22] MEDS: DULoxetine HCl 30 MG CAPSULE.DR PO (11:20)
[2021-07-22] MEDS: 0.9 % Sodium Chloride Flush 3 ML SYRINGE IVFLUSH (11:20)
[2021-07-22] MEDS: lamoTRIgine 25 MG TABLET 50 MG PO (11:20)
[2021-07-22] MEDS: buPROPion HCl XL 300 MG TAB.ER.24H PO (11:20)
[2021-07-22 12:00] VITALS: BP 150/80; PULSE 67; RESP 20; TEMP 37.4; O2SAT 97
--- NOTE | 2021-07-22 12:22 | P.PNCA_ITS ---
Subjective Subjective Date of Service: 07/22/21 Principal diagnosis: sob, hypoventilation, CHF, HTN, morbidly obese Interval history: cardiology follow up for CHF, HTN. Seen at 1100. Today he is observed resting in bed, falling asleep during exam. Easily arousable. Denies having any difficulty breathing. Denies chest discomfort or palpitations. Reports that his whole body is uncomfortable when asked about pain. Tells me he feels ready for discharge Review of Systems Review of Systems as above Physical Exam Vital Signs: Last Vital Signs Temp 98.1 F 07/22/21 08:00 Pulse 74 07/22/21 08:00 Resp 20 07/22/21 08:00 BP 174/104 H 07/22/21 08:00 Pulse Ox 92 07/22/21 08:00 Oxygen Flow Rate 2 07/19/21 19:51 Body Mass Index 84.2 Const Other: Mobidly obese, sleepy but arouses very easily to verbal stimuli General: cooperative, no acute distress and awake Orientation/consciousness: patient oriented x3 Neck Neck: Yes normal visual inspection and Yes no JVD Resp Other: Lungs diminished, no cough. Not on supplemental O2 Effort & Inspection: normal respiratory effort and not labored Auscultation: clear to auscultation bilaterally, no rales, no rhonchi and no wheezes Cardio Other: heart tones distant Rate: regular rate Rhythm: regular rhythm Heart sounds: S1 normal heart sound present and S2 normal heart sound present GI Other: grossly obese, nontender Neuro General: patient oriented x3 Extrem Other: difficult to assess for edema due to obesity. Observed moving all 4 extremities Results Labs and Meds Result diagrams: 07/21/21 06:25 07/21/21 06:25 Progress Note: A&P Assessment and plan (1) CHF exacerbation: Status: Acute Assessment and Plan: Admit with SOB, HTN. CXR suggesting pulm vascular congestion. BNP 121. Hyp ertensive initially.? Morbidly obese making clinical exam difficult. He was diuresed with IV lasix. He reports iimprovement in breathing today. Sat 94% on room air. He has no known hx of heart disease and does not take diuretics at home. Echo ordered however not completed as of this time. ( unknown at present if systolic or diastolic HF). If not able to do as inpt, then can obtain as outpt. With his HTN, obesity, untreated sleep apnea he is at risk for CMP. Recommend change his lasix to po. Has reported hx of untreated sleep apnea for the last year. Needs Outpt sleep study/ CPAP titrate to reinstitute REBECCA tx. Agree with hospitalist referral to bariatric program. We will sign off and arrange for outpt follow up after echo completed. (2) Hypertensive urgency: Status: Acute Assessment and Plan: BP elevated earlier this admit, as high as 227/134, with UMAÑA. Had been given IV Labetolol with improvement. Was started on Lasix and hydralazine. BP still elevated but does show better control. Prior to admit he had not been taking his usual home meds. Feeling well today, no headache reported. Continue Amlodipine, Lisinopril, Metoprolol, Lasix, hydralazine.? Ongoing BP monitoring while inpt. Fall Risk Details Current Medications: Current Medications Generic Name Dose Route Start Last Admin Trade Name Freq PRN Reason Stop Dose Admin Acetaminophen 650 mg 07/20/21 01:45 Acetaminophen 325 Mg Tablet PO Q6H PRN Pain, Mild (Pain Scale 1-3) Amlodipine Besylate 10 mg 07/20/21 06:00 07/22/21 11:19 Amlodipine Besylate 10 Mg Tablet PO 10 mg DAILY JEF Administration Protocol Bupropion HCl 300 mg 07/20/21 09:00 07/22/21 11:20 Bupropion Hcl Xl 300 Mg Tab.Er.24h PO 300 mg DAILY JEF Administration Docusate Sodium 100 mg 07/20/21 01:45 Docusate Sodium 100 Mg Capsule PO DAILY PRN Constipation Docusate Sodium 100 mg 07/20/21 05:59 Docusate Sodium 100 Mg Capsule PO BID PRN Constipation Duloxetine HCl 30 mg 07/20/21 09:00 07/22/21 11:20 Duloxetine Hcl 30 Mg Capsule.Dr PO 30 mg DAILY JEF Administration Furosemide 40 mg 07/20/21 10:10 07/22/21 11:19 Furosemide 40 Mg/4 Ml Vial IVPUSH 40 mg DAILY JEF Administration Protocol Hydralazine HCl 50 mg 07/22/21 09:00 07/22/21 11:19 Hydralazine Hcl 50 Mg Tablet PO 50 mg TID JEF Administration Protocol Hydrochlorothiazide 12.5 mg 07/22/21 12:00 Hydrochlorothiazide 12.5 Mg Tablet PO DAILY JEF Protocol Lamotrigine 50 mg 07/20/21 09:00 07/22/21 11:20 Lamotrigine 25 Mg Tablet PO 50 mg BID JEF Administration Lisinopril 40 mg 07/20/21 06:00 07/22/21 11:19 Lisinopril 40 Mg Tablet PO 40 mg DAILY JEF Administration Protocol Metoprolol Tartrate 50 mg 07/20/21 09:00 07/22/21 11:19 Metoprolol Tartrate 50 Mg Tablet PO 50 mg BID JEF Administration Protocol Nicotine Polacrilex 2 mg 07/20/21 05:59 Nicotine Polacrilex 2 Mg Gum BUCCAL Q2H PRN Nicotine Cravings Omeprazole 20 mg 07/20/21 09:00 07/22/21 11:21 Omeprazole 20 Mg/10 Ml Susp.Recon PO 20 mg DAILY JEF Administration Ondansetron HCl 4 mg 07/20/21 01:45 Ondansetron Hcl 4 Mg/2 Ml Vial IVPUSH Q8H PRN Nausea and Vomiting Polyethylene Glycol 17 gm 07/20/21 09:00 07/22/21 11:21 Polyethylene Glycol 3350 17 Gm Powd.Pack PO Not Given DAILY JEF Sodium Chloride 3 ml 07/20/21 08:00 07/22/21 11:20 0.9 % Sodium Chloride Flush 3 Ml Syringe IVFLUSH 3 ml QSHIFT JEF Administration Time Spent With Patient Time: Total time spent is greater than 50% in coordination of care (as documented) at patient's floor/unit and/or counseling patient: Time with patient: 15 - 24 minutes Progress Note: Quality Stroke Does the patient have a stroke diagnosis?: No Procedures Date of Service Date of Service: 07/22/21
[2021-07-22] MEDS: hydroCHLOROthiazide 12.5 MG TABLET PO (13:46)
--- NOTE | 2021-07-22 14:00 | CA_ITS ---
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 - Left ventricular wall thickness is moderately to severely increased. - There is a flattened septum in diastole ( D shaped left ventricle) consistent with right ventricular volume overload. - Normal right ventricular cavity size. There is borderline right ventricular systolic function. - The left atrium is moderately dilated. - Moderately elevated right atrial pressure. Mild to moderate pulmonary hypertension is present. Findings Procedure Information Contrast agent, definity, is being given per protocol without apparent complications. Left Ventricle Normal left ventricular size and systolic function. The visually estimated ejection fraction is between 55-60%. There is no evidence of regional wall motion abnormalities. There is a flattened septum in diastole ( D shaped left ventricle) consistent with right ventricular volume overload. Diastolic function is normal for age. Left ventricular wall thickness is moderately to severely increased. Right Ventricle Normal right ventricular cavity size. There is borderline right ventricular systolic function. Atria The left atrium is moderately dilated. Aortic Valve Normal aortic valve structure and function. There is no aortic valve stenosis. There is no aortic valve regurgitation. Mitral Valve Normal mitral valve structure and function. There is no mitral valve regurgitation. There is no mitral valve stenosis. Pulmonic Valve The pulmonic valve is likely normal. Tricuspid Valve Likely normal tricuspid valve structure and function. Moderately elevated right atrial pressure. Mild to moderate pulmonary hypertension is present. Great Vessels All visible segments of the aorta are normal in size. The pulmonary artery was not well visualized. Venous The inferior vena cava is normal in size and does not collapse with inspiration. Pericardium/Pleural There is no evidence of pericardial effusion. Prior Study Comparison No prior study available for comparison. Measurements 2D Linear Measurements IVSd: 1.49 0.6-0.9/0.6-1.0 cm LVIDd: 5.31 3.9-5.3/4.2-5.9 cm LVIDd Index: 1.58 2.4-3.2/2.2-3.1 cm/m2 LVIDs: 3.34 2.0-3.6 cm LVPWd: 1.48 0.7-1.1 cm Ao Root: 3.20 2.1-3.5 cm LA Diam: 4.70 2.7-3.8/3.0-4.0 cm LAIDs Index: 1.39 1.5-2.3 cm/m2 LV Mass: 434.66 67-162/88-224 g LV Mass Index: 128.98 43-95/49-115 g/m2 LVOT Diam: 2.50 3.0+(-)1.3 cm Mitral Valve MV Pk E: 0.96 MV PK A: 0.47 MV Decel Time: 149.00 E/A: 2.00 E'Lateral: 14.80 E'Medial: 9.46 E/E' Med: 10.10 E/E' Lat: 6.50 PHT: 44.00 MVA PHT: 5.00 Decel Mercer: 6.43 Aortic Valve AoV Pk Fracisco: 1.40 AoV Mn Fracisco: 0.97 AoV VTI: 0.36 AoV Pk Grad: 8.00 Aov Mn Grad: 4.00 LORAINE Cont.VTI: 3.94 LVOT LVOT Pk Fracisco: 1.18 LVOT Mn Fracisco: 0.93 LVOT VTI: 0.29 LVOT Pk Grad: 6.00 LVOT Mn Grad: 4.00 LVOT Diam: 2.50 LVOT Area: 4.91 Diastolic Function MV Pk E: 0.96 MV Pk A: 0.47 E/A: 2.00 E'Medial: 9.46 E/E' Med: 10.10 E' Laterial: 14.80 E/E' Lat: 6.50 Tricuspid Valve TR Pk Fracisco: 2.58 TR Pk Grad: 27.00 RVSP: 48.00 Great Vessels Aorta Ao Root-2D: 3.20 2.0-3.7 cm Ao Asc: 3.30 2.1-3.4 cm Pulmonary Valve PV Pk Fracisco: 1.06 Peak PV Grad: 4.00 Updated in Other Vendor System with Status of Final Julio Pichardo MD electronically signed on 07/22/2021 3:05:01 PM with status of Final
== END 2021-07-22 15:30 | disposition home or self-care (01) | DRG 291 ==
LOC: HO.ED 17:20 → HO.EDOVER 07-20 02:49 → HO.IMC 07-20 19:22
PROVIDERS: Physician Assistant; Admitting Provider Internal Medicine; Emergency Provider Student in an Organized Health Care Education/Training Program; PCP Family Medicine; Visit Provider Student in an Organized Health Care Education/Training Program
DX: I11.0 Hypertensive heart disease with heart failure (principal); I26.99 Other pulmonary embolism without acute cor pulmonale; J96.02 Acute respiratory failure with hypercapnia; J96.01 Acute respiratory failure with hypoxia; Z68.45 Body mass index [BMI] 70 or greater, adult; E66.2 Morbid (severe) obesity with alveolar hypoventilation; E87.4 Mixed disorder of acid-base balance; I16.1 Hypertensive emergency; I50.9 Heart failure, unspecified; F43.10 Post-traumatic stress disorder, unspecified; F17.210 Nicotine dependence, cigarettes, uncomplicated; Z71.6 Tobacco abuse counseling; F31.9 Bipolar disorder, unspecified
CPT/HCPCS: 0241U; 36415; 36600; 71045; 80048; 80076; 82728; 82803; 83605; 83615; 83735; 83880; 84145; 84484; 85025; 85027; 85379; 85610; 85730; 86140; 87040; 93005; 93306; 93970; 94660; 96372; 96374; 96375; 99285; J1650; J1940; Q9957

== ENCOUNTER 2021-07-24 03:56 | Emergency (ER) | payer OTHER, SELFPAY ==
--- NOTE | 2021-07-24 | ECG_ITS ---
Test Reason : CHEST PRESSURE Blood Pressure : / mmHG Vent. Rate : 083 BPM Atrial Rate : 083 BPM P-R Int : 170 ms QRS Dur : 088 ms QT Int : 376 ms P-R-T Axes : 042 031 079 degrees QTc Int : 441 ms Normal sinus rhythm Nonspecific T wave abnormality Abnormal ECG When compared with ECG of 19-JUL-2021 20:14, No significant change was found Referred By: Generic ED Physician Electronically Signed By:RIVAS MOTT
[2021-07-24 03:57] VITALS: BP 171/108; PULSE 80; O2SAT 92
[2021-07-24 04:10] VITALS: BP 210/121; PULSE 84; RESP 24; TEMP 36.9; O2SAT 90; BMI 83.7
--- NOTE | 2021-07-24 04:21 | PC.NURSE ---
at bedside for primary eval.
--- NOTE | 2021-07-24 04:31 | ED_ITS ---
HPI - Chest Pain General Chief Complaint: Chest Pain Stated Complaint: L SIDED CHEST PAIN X3 DAYS Time Seen by Provider: 07/24/21 04:14 Source: patient Mode of arrival: EMS Limitations: no limitations History of Present Illness HPI narrative: Patient morbidly obese weighing 600 lb with [place] [facility] [place] here now complaining of chest pain left side which he thinks is different than before patient very comfortable on arrived looking for his phone does not look in any distress patient been here frequently for multiple complaints noncompliant with medication and management Related Data Home Medications Medication Instructions Recorded Confirmed lamotrigine 25 mg tablet 50 mg PO BID 11/17/20 07/20/21 Previous Rx's Medication Instructions Recorded nicotine (polacrilex) 2 mg gum 2 mg BUCCAL Q2H PRN #50 ea 06/04/21 docusate sodium 100 mg capsule 100 mg PO BID PRN #14 cap 06/05/21 (Colace) polyethylene glycol 3350 17 17 g PO DAILY #238 g 06/05/21 gram/dose oral powder (Miralax) albuterol sulfate 90 mcg/actuation 1 inh INHALATION QID PRN #6.7 g 07/22/21 aerosol inhaler amlodipine 10 mg tablet 10 mg PO DAILY #30 tab 07/22/21 bupropion HCl 150 mg tablet,12 hr 300 mg PO DAILY 30 Days #60 tab 07/22/21 sustained-release (Wellbutrin SR) duloxetine 30 mg capsule,delayed 30 mg PO DAILY 30 Days #30 cap 07/22/21 release furosemide 20 mg tablet (Lasix) 20 mg PO QAM #30 tab 07/22/21 hydralazine 50 mg tablet 50 mg PO TID 30 Days #90 tab 07/22/21 lisinopril 40 mg tablet 40 mg PO DAILY #30 tab 07/22/21 metoprolol tartrate 50 mg tablet 50 mg PO BID #60 tab 07/22/21 omeprazole magnesium 10 mg oral 20 mg PO DAILY #30 ea 07/22/21 suspension,delayed release (Prilosec) ignacio #1 ea 07/22/21 Allergies Allergy/AdvReac Type Severity Reaction Status Date / Time No Known Allergies Allergy Verified 07/24/21 04:15 [No Known Allergies*] Review of Systems Review of Systems: Yes all other systems are reviewed and are negative PMFSH Past Medical History Medical History Anxiety Bipolar disorder Depression Hypertension Lymph edema PTSD (post-traumatic stress disorder) Sleep apnea in adult Testicle pain Social History Social History Household Members: None Housing: House Housing Other:: motel Do you presently have visiting nurse or other home services: No Alcohol intake: never Patient Tobacco Use Status: Current everyday Tobacco user Tobacco use type: Cigarette Cigarettes Per Day: 6 Second Hand Smoke Exposure: No Substance Use Type: Marijuana Advance Directives: No Advance Directives Information Provided: No service: No Current occupational status: unemployed Physical Exam Vital Signs: Vital Signs: Last Vital Signs Temp 98.5 F 07/24/21 04:10 Pulse 84 07/24/21 04:32 Resp 24 H 07/24/21 04:10 BP 210/120 H 07/24/21 04:32 Pulse Ox 90 L 07/24/21 04:10 Body Mass Index 83.7 Appearance: Alert. Oriented X3. No acute distress morbidly obese Eyes: PERRLA, No Nystagmus ENT: Pharynx normal. Oral Mucosa moist Neck: Normal inspection. Neck supple. CVS: Normal heart rate and rhythm. Pulses normal. Respiratory: No respiratory distress. Equal air entry bilateral, no wheezing/rales/rhonchi Abdomen: Soft and nontender. Skin: Skin warm and dry. Normal skin color. Normal skin turgor. Extremities: Nonpitting chronic lower extremity edema. No calf tenderness Neuro: Oriented X 3. MDM - Chest Pain MDM Narrative Medical decision making narrative: Patient has atypical chest pain blood pressure elevated when he came says that he did not get transport to get the medication for his blood pressure which is already lying in the pharmacy which she has done before asymptomatic hypertension patient was given his medication 1st dose here. During stay in the ER patient denies any chest pain ECG Data ECG #1: Attestation: I personally reviewed and interpreted this ECG as follows: Interpretation: Normal sinus rhythm heart rate 83 beats per minute and no nspecific ST T wave changes no acute ischemia Discharge Plan Discharge Clinical Impression: Musculoskeletal chest pain Patient Disposition: Home, Self-Care Instructions: Hypertension (ED), Chest Wall Pain (ED) Additional Instructions: Follow-up with your PCP if any concerns your pain is not from the heart Take your medication for blood pressure as prescribed Prescriptions: No Action lamotrigine 25 mg tablet 50 mg PO BID RF: 0 nicotine (polacrilex) 2 mg Gum 2 mg buccal Q2H PRN (Reason: Nicotine Cravings) Qty: 50 RF: 0 docusate sodium [Colace] 100 mg capsule 100 mg PO BID PRN (Reason: Constipation) Qty: 14 RF: 0 polyethylene glycol 3350 [Miralax] 17 gram/dose powder 17 g PO DAILY Qty: 238 RF: 0 hydralazine 50 mg Tablet 50 mg PO TID 30 Days Qty: 90 RF: 0 furosemide [Lasix] 20 mg tablet 20 mg PO QAM Qty: 30 RF: 0 bupropion HCl [Wellbutrin SR] 150 mg Tablet Sustained-Release 12 Hr 300 mg PO DAILY 30 Days Qty: 60 RF: 0 amlodipine 10 mg tablet 10 mg PO DAILY Qty: 30 RF: 0 metoprolol tartrate 50 mg tablet 50 mg PO BID Qty: 60 RF: 0 albuterol sulfate 90 mcg/actuation HFA aerosol inhaler 1 inh inhalation QID PRN (Reason: shortness of breath or wheezing) Qty: 6.7 RF: 0 lisinopril 40 mg tablet 40 mg PO DAILY Qty: 30 RF: 0 duloxetine 30 mg capsule,delayed release(DR/EC) 30 mg PO DAILY 30 Days Qty: 30 RF: 0 Prilosec 10 mg susp,delayed release for recon 20 mg PO DAILY Qty: 30 RF: 0 (DME) walker Misc See Rx Instructions .Route Qty: 1 RF: 0
[2021-07-24 04:32] VITALS: BP 210/120; PULSE 84
[2021-07-24] MEDS: lisinopriL 40 MG TABLET PO (04:32)
[2021-07-24] MEDS: hydrALAZINE HCl 50 MG TABLET PO (04:32)
[2021-07-24] MEDS: amLODIPine Besylate 10 MG TABLET PO (04:32)
[2021-07-24] MEDS: Metoprolol Tartrate 50 MG TABLET PO (04:32)
[2021-07-24] MEDS: Furosemide 20 MG TABLET PO (04:33)
--- NOTE | 2021-07-24 04:34 | PC.NURSE ---
Medicated per JAN. Plan to DC @ 0600.
--- NOTE | 2021-07-24 04:40 | PC.NURSE ---
smutter at bedside discussing options for transport home.
--- NOTE | 2021-07-24 04:44 | PC.NURSE ---
Pt provided with food/drink per request.
[2021-07-24 06:24] VITALS: BP 140/100; PULSE 70; RESP 20; O2SAT 90
--- NOTE | 2021-07-24 06:25 | PC.NURSE ---
Pt provided with discharge paperwork and is agreeable to transport home via the shuttle. Pt states that he is able to get into the shuttle on his own. Pt provided with shuttle pass for transport home. This RN transported pt in bariatric wheelchair to the front lobby to await the shuttle.
== END 2021-07-24 06:32 | disposition home or self-care (01) ==
PROVIDERS: Emergency Provider Internal Medicine
DX: R07.9 Chest pain, unspecified (principal); R07.81 Pleurodynia; Z79.899 Other long term (current) drug therapy
CPT/HCPCS: 93005; 99283; 99284

== ENCOUNTER 2021-08-04 10:43 | Emergency (ER) | payer OTHER, SELFPAY ==
--- NOTE | ~2021-08-04 | XR_ITS ---
EXAMINATION: XR KNEE, RIGHT XR KNEE, LEFT CLINICAL INFORMATION: Fall, trauma, bilateral knee pain COMPARISON: Radiographs portable right knee 12/13/2019 TECHNIQUE: Each knee is imaged in AP and crosstable lateral projections. There are a total of 4 views. FINDINGS: The lateral views are underpenetrated, greater on left, partly related to patient body habitus. This limits assessment for suprapatellar effusion and/or fat fluid level. There is no visible fracture or dislocation in either knee. No focal joint narrowing or erosive change. There is spurring at quadriceps insertion right knee. XR/XR knee LT 2V IMPRESSION: 1. No visible fracture or dislocation. 2. Lateral views underpenetrated, difficult to assess for suprapatellar effusion and/or fat fluid level
--- NOTE | ~2021-08-04 | XR_ITS ---
EXAMINATION: XR KNEE, RIGHT XR KNEE, LEFT CLINICAL INFORMATION: Fall, trauma, bilateral knee pain COMPARISON: Radiographs portable right knee 12/13/2019 TECHNIQUE: Each knee is imaged in AP and crosstable lateral projections. There are a total of 4 views. FINDINGS: The lateral views are underpenetrated, greater on left, partly related to patient body habitus. This limits assessment for suprapatellar effusion and/or fat fluid level. There is no visible fracture or dislocation in either knee. No focal joint narrowing or erosive change. There is spurring at quadriceps insertion right knee. XR/XR knee RT 2V IMPRESSION: 1. No visible fracture or dislocation. 2. Lateral views underpenetrated, difficult to assess for suprapatellar effusion and/or fat fluid level
[2021-08-04 11:11] VITALS: PULSE 108; O2SAT 98
[2021-08-04 11:36] VITALS: BP 190/70; PULSE 90; RESP 18; TEMP 36.6; O2SAT 98; BMI 103.3
--- NOTE | 2021-08-04 11:36 | ED.FALL ---
HPI - Fall General Chief Complaint: Fall Stated Complaint: SAMANTHA KNEE PAIN S/P FALL Time Seen by Provider: 08/04/21 11:34 Source: patient and EMS Mode of arrival: EMS Limitations: no limitations History of Present Illness HPI Narrative: 36-year-old male came in for evaluation after fall. 36-year-old male who morbid obese about 700 lb came in patient was getting out of the bathroom lost control and fell, patient he is a fall on his both knees and had the forehead of the head, no LOC. having about 1 hour ago, patient emergency room is acting at his baseline (patient is well known to us with frequent ED visits), complained of no headache just forehead swelling that bother him, no nausea, no vomiting. Patient was GCS of 15, patient feeling hungry with normal appetite, only complaining of bilateral knee pain and forehead swelling from the fall. Related Data Home Medications Medication Instructions Recorded Confirmed lamotrigine 25 mg tablet 50 mg PO BID 11/17/20 07/20/21 Previous Rx's Medication Instructions Recorded nicotine (polacrilex) 2 mg gum 2 mg BUCCAL Q2H PRN #50 ea 06/04/21 docusate sodium 100 mg capsule 100 mg PO BID PRN #14 cap 06/05/21 (Colace) polyethylene glycol 3350 17 17 g PO DAILY #238 g 06/05/21 gram/dose oral powder (Miralax) albuterol sulfate 90 mcg/actuation 1 inh INHALATION QID PRN #6.7 g 07/22/21 aerosol inhaler amlodipine 10 mg tablet 10 mg PO DAILY #30 tab 07/22/21 bupropion HCl 150 mg tablet,12 hr 300 mg PO DAILY 30 Days #60 tab 07/22/21 sustained-release (Wellbutrin SR) duloxetine 30 mg capsule,delayed 30 mg PO DAILY 30 Days #30 cap 07/22/21 release furosemide 20 mg tablet (Lasix) 20 mg PO QAM #30 tab 07/22/21 hydralazine 50 mg tablet 50 mg PO TID 30 Days #90 tab 07/22/21 lisinopril 40 mg tablet 40 mg PO DAILY #30 tab 07/22/21 metoprolol tartrate 50 mg tablet 50 mg PO BID #60 tab 07/22/21 omeprazole magnesium 10 mg oral 20 mg PO DAILY #30 ea 07/22/21 suspension,delayed release (Prilosec) walker #1 ea 07/22/21 Allergies Allergy/AdvReac Type Severity Reaction Status Date / Time No Known Allergies Allergy Verified 07/24/21 04:15 [No Known Allergies*] Review of Systems Review of Systems: All other systems are reviewed and are negative Constitutional: Reports as per HPI and Reports no additional constitutional complaints Eyes: Reports as per HPI and Reports no additional eye complaints Reports system reviewed and no additional complaints, except as documented Cardiovascular: Reports as per HPI and Reports no additional cardiovascular complaints Respiratory: Reports as per HPI and Reports no additional respiratory complaints Gastrointestinal: Reports as per HPI and Reports no additional gastrointestinal complaints Genitourinary: Reports no additional female genitourinary complaints Musculoskeletal: Reports no additional musculoskeletal complaints Skin/Breast: Reports system reviewed and no additional complaints, except as docu Psychiatric: Reports no additional psychiatric complaints Endocrine: Reports no additional endocrine complaints Hematologic/Lymphatic: Reports no additional hematologic/lymphatic complaints Allergic/Immunologic: Reports no additional allergic/immunologic complaints Reports system reviewed and no additional complaints, except as documented and Reports Abnormal speech present [facility] Past Medical History Medical History Anxiety Bipolar disorder Depression Hypertension Lymph edema Morbid obesity Obesity hypoventilation syndrome PTSD (post-traumatic stress disorder) Sleep apnea in adult Testicle pain Social History Social History Household Members: None Housing: House Housing Other:: motel Do you presently have visiting nurse or other home services: No Alcohol intake: former Patient Tobacco Use Status: Current everyday Tobacco user Tobacco use type: Cigarette Cigarettes Per Day: 6 Second Hand Smoke Exposure: No Use of substances other than those prescribed or required for medical reasons: Yes Substance Use Type: Marijuana Substance Use Frequency: Daily Advance Directives: Yes Advance Directives on File: Yes Advance Directives Date on File: 06/27/21 service: No Current occupational status: unemployed Physical Exam Vital Signs: Vital Signs: Last Vital Signs Temp 98 F 08/04/21 11:36 Pulse 90 08/04/21 11:36 Resp 18 08/04/21 11:36 BP 190/70 H 08/04/21 11:36 Pulse Ox 98 08/04/21 11:36 Body Mass Index 103.3 Vital signs have been reviewed as appeared to be correct. Blood pressure normal. Heart rate normal. Respiration rate normal. Temperature normal. Oxygen saturation normal. Appearance: Alert. Oriented X3. No acute distress. Head: Normal external exam. Normocephalic. Atraumatic. No Borrego signs noted. No raccoon eyes noted, small 1 x 2 cm hematoma in the mid forehead, no step-off, no deformity, mild tenderness. Eyes: PERRLA. EOMI. Conjunctiva and sclera normal. Eyelids normal. ENT: TM's Normal. Pharynx normal. Uvula midline. Moist mucous membranes. No trismus noted. No drooling noted. No muffled voice noted. Neck: Normal inspection. Neck supple. FROM. No adenopathy. Thyroid Normal. No meningeal signs. No neck mass noted. CVS: Normal heart rate and rhythm. Heart sound normal. No murmurs noted. Pulses normal throughout. Respiratory: No respiratory distress. Painless inspiration. Breath sounds normal. No wheezes/rales/rhonchi noted. Chest nontender. No accessory muscle usage noted or decreased air movement noted. Abdomen: Soft and nontender. Bowel sounds normal in all 4 quadrants. No distention noted. No organomegaly noted. No visible injury noted. Back: No CVA tenderness. Full range of motion noted. Skin: Skin warm and dry. Normal skin color. Normal skin turgor. No rashes/lesions/lacerations noted. Extremities: No lower extremity edema. Extremities exhibit normal range of motion. Extremities nontender. Neuro: Oriented X 3. GCS of 15 Cranial nerve exam: II-XII are grossly intact No motor deficit. No sensory deficit. Reflexes normal. Course Course Course Narrative: Patient was observed in the emergency department for 3 hours will, patient remained awake, alert, oriented x4, tolerated p.o. intake with good appetite with no nausea or vomiting, complained of no headache or blurry vision. Patient is not a good candidate to obtain CT because of the weight (CT weight limit is 400 lb) no neck pain. Unremarkable x-ray of the knees. MDM - Fall Imaging Data Left knee x-ray: Radiologist's impression: . No visible fracture or dislocation. 2. Lateral views underpenetrated, difficult to assess for suprapatellar effusion and/or fat fluid level? Right knee x-ray: Radiologist's impression: 1. No visible fracture or dislocation. 2. Lateral views underpenetrated, difficult to assess for suprapatellar effusion and/or fat fluid level? Discharge Plan Discharge Clinical Impression: Fall, Contusion, Traumatic hematoma of forehead Patient Disposition: Home, Self-Care Instructions: Head Injury (ED) Additional Instructions: Follow-up with your PCP. Prescriptions: No Action lamotrigine 25 mg tablet 50 mg PO BID RF: 0 nicotine (polacrilex) 2 mg Gum 2 mg buccal Q2H PRN (Reason: Nicotine Cravings) Qty: 50 RF: 0 docusate sodium [Colace] 100 mg capsule 100 mg PO BID PRN (Reason: Constipation) Qty: 14 RF: 0 polyethylene glycol 3350 [Miralax] 17 gram/dose powder 17 g PO DAILY Qty: 238 RF: 0 hydralazine 50 mg Tablet 50 mg PO TID 30 Days Qty: 90 RF: 0 furosemide [Lasix] 20 mg tablet 20 mg PO QAM Qty: 30 RF: 0 bupropion HCl [Wellbutrin SR] 150 mg Tablet Sustained-Release 12 Hr 300 mg PO DAILY 30 Days Qty: 60 RF: 0 amlodipine 10 mg tablet 10 mg PO DAILY Qty: 30 RF: 0 metoprolol tartrate 50 mg tablet 50 mg PO BID Qty: 60 RF: 0 albuterol sulfate 90 mcg/actuation HFA aerosol inhaler 1 inh inhalation QID PRN (Reason: shortness of breath or wheezing) Qty: 6.7 RF: 0 lisinopril 40 mg tablet 40 mg PO DAILY Qty: 30 RF: 0 duloxetine 30 mg capsule,delayed release(DR/EC) 30 mg PO DAILY 30 Days Qty: 30 RF: 0 Prilosec 10 mg susp,delayed release for recon 20 mg PO DAILY Qty: 30 RF: 0 (DME) walker Misc See Rx Instructions .Route Qty: 1 RF: 0
--- NOTE | 2021-08-04 14:39 | PC.NURSE ---
pt unable to find ride home. 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
== END 2021-08-04 15:11 | disposition home or self-care (01) ==
PROVIDERS: Emergency Provider Emergency Medicine; PCP Family Medicine
DX: S00.83XA Contusion of other part of head, initial encounter (principal); G44.309 Post-traumatic headache, unspecified, not intractable; R40.2410 Glasgow coma scale score 13-15, unspecified time; M25.562 Pain in left knee; M25.561 Pain in right knee; F12.90 Cannabis use, unspecified, uncomplicated; W01.0XXA Fall on same level from slipping, tripping and stumbling without subsequent striking against object, initial encounter; Y93.E1 Activity, personal bathing and showering; Y92.002 Bathroom of unspecified non-institutional (private) residence as the place of occurrence of the external cause; Y99.9 Unspecified external cause status; Z79.899 Other long term (current) drug therapy; F17.210 Nicotine dependence, cigarettes, uncomplicated; Z71.6 Tobacco abuse counseling
CPT/HCPCS: 73560; 99283; 99284

== ENCOUNTER 2021-08-17 03:10 | Emergency (ER) | payer OTHER, SELFPAY ==
--- NOTE | ~2021-08-17 | US_ITS ---
EXAMINATION: US SCROTUM CLINICAL INFORMATION: Right testicular mass and pain. COMPARISON: Previous scrotal ultrasound October 2015 TECHNIQUE: A sonogram of the scrotum was performed assessing estrada-scale appearance and color Doppler flow. Spectral Doppler analysis of the arterial and venous flow were performed in the testes on the right. FINDINGS: RIGHT: Right testicle measures 5.5 x 3.3 x 3.9 cm, volume 37 mL. Testicular echotexture is slightly heterogeneous. No focal testicular parenchymal lesions are visualized. There is a right appendix testis. Spectral Doppler analysis of the arterial and venous flow is normal in the right testis. Right epididymal head is normal in size. There is a large complex right hydrocele with internal echoes.. Right epididymal Doppler flow is normal. There is no varicocele. LEFT: Surgically removed. There is a large complex left hydrocele with mobile internal echoes. US/US scrotum IMPRESSION: Absent left testicle. No focal right testicular mass. Large bilateral complex hydroceles.
[2021-08-17 03:31] VITALS: BP 184/113; BP 190/110; PULSE 102; PULSE 108; RESP 26; TEMP 36.7; O2SAT 90; O2SAT 91; BMI 97.6
--- NOTE | 2021-08-17 04:54 | PC.NURSE ---
pt a&o, no sign of distress, pt came to er without any clothing on. pt sleeping at this time with no sign of distress.
--- NOTE | 2021-08-17 06:11 | ED.MALEGU ---
HPI - Male Genitourinary General Chief complaint: Urogenital-Male Stated complaint: PAIN Time Seen by Provider: 08/17/21 05:57 Source: patient and EMS Mode of arrival: EMS Limitations: no limitations History of Present Illness HPI Narrative: Patient comes emergency room complaining of a headache, has not taking any medication for the headache. Also complaining of right-sided testicular lump that he noticed 4 days ago. Patient states it is slightly uncomfortable, denies dysuria. Related Data Home Medications Medication Instructions Recorded Confirmed lamotrigine 25 mg tablet 50 mg PO BID 11/17/20 07/20/21 Previous Rx's Medication Instructions Recorded nicotine (polacrilex) 2 mg gum 2 mg BUCCAL Q2H PRN #50 ea 06/04/21 docusate sodium 100 mg capsule 100 mg PO BID PRN #14 cap 06/05/21 (Colace) polyethylene glycol 3350 17 17 g PO DAILY #238 g 06/05/21 gram/dose oral powder (Miralax) albuterol sulfate 90 mcg/actuation 1 inh INHALATION QID PRN #6.7 g 07/22/21 aerosol inhaler amlodipine 10 mg tablet 10 mg PO DAILY #30 tab 07/22/21 bupropion HCl 150 mg tablet,12 hr 300 mg PO DAILY 30 Days #60 tab 07/22/21 sustained-release (Wellbutrin SR) duloxetine 30 mg capsule,delayed 30 mg PO DAILY 30 Days #30 cap 07/22/21 release furosemide 20 mg tablet (Lasix) 20 mg PO QAM #30 tab 07/22/21 hydralazine 50 mg tablet 50 mg PO TID 30 Days #90 tab 07/22/21 lisinopril 40 mg tablet 40 mg PO DAILY #30 tab 07/22/21 metoprolol tartrate 50 mg tablet 50 mg PO BID #60 tab 07/22/21 omeprazole magnesium 10 mg oral 20 mg PO DAILY #30 ea 07/22/21 suspension,delayed release (Prilosec) ignacio #1 ea 07/22/21 Allergies Allergy/AdvReac Type Severity Reaction Status Date / Time No Known Allergies Allergy Verified 08/17/21 03:30 [No Known Allergies*] Review of Systems Review of Systems: Constitutional : No Weight loss, No Fever, No Chills, No Night Sweats, No Fatigue, No Malaise ENT/Mouth : No Hearing loss, No Ear Pain, No Nasal Congestion, No Sinus Pain, No Hoarseness, No sore throat, No Rhinorrhea, No Swallowing Difficulty Eyes: No Eye Pain, No Swelling, No Redness, No Foreign Body, No Discharge, No Vision Changes Cardiovascular : No Chest Pain, No SOB, No Dyspnea on Exertion, No Orthopnea, No Edema, No Palpitations Respiratory : No Cough, No Sputum, No Wheezing, No Smoke Exposure, No Dyspnea Gastrointestinal : No Nausea, No Vomiting, No Diarrhea, No Constipation, No abdominal Pain, No Hematochezia, No Melena Genitourinary : no irregular bleeding, No Dysuria, No Urinary Frequency, No Hematuria, No Urinary Incontinence, No Urgency, No Flank Pain, No Urinary Flow Changes, No Hesitancy, complaining of right-sided testicular lump that is slightly uncomfortable, no testicular pain Musculoskeletal : No joint pain, No Myalgias, No Joint Swelling Skin : No Skin Lesions, No rash Neuro : No Weakness, No Numbness, No Paresthesias, No Loss of Consciousness, No Dizziness, complaining of Headache Psych : No Anxiety/Panic, No Depression, No SI/HI/ Heme/Lymph: No Bruising, No Bleeding,No Lymphadenopathy Endocrine : No Polyuria, No Polydipsia, No Temperature Intolerance PMFSH Past Medical History Medical History Anxiety Bipolar disorder Depression Hypertension Lymph edema Morbid obesity Obesity hypoventilation syndrome PTSD (post-traumatic stress disorder) Sleep apnea in adult Testicle pain Social History Social History Household Members: None Housing: House Housing Other:: motel Do you presently have visiting nurse or other home services: No Alcohol intake: current Alcohol intake frequency: holidays/special occasions only Patient Tobacco Use Status: Current everyday Tobacco user Tobacco use type: Cigarette Cigarettes Per Day: 6 Second Hand Smoke Exposure: No Substance Use Type: Marijuana Advance Directives: Yes Advance Directives on File: Yes Advance Directives Date on File: 06/27/21 service: No Current occupational status: unemployed Physical Exam Vital Signs: Vital Signs: Last Vital Signs Temp 98.1 F 08/17/21 03:31 Pulse 102 H 08/17/21 03:31 Resp 26 H 08/17/21 03:31 BP 184/113 H 08/17/21 03:31 Pulse Ox 91 L 08/17/21 03:31 Oxygen Flow Rate 3 08/17/21 03:31 Body Mass Index 97.6 Const: Other: Appearance: Alert. Oriented X3. No acute distress. Somnolent but easily arousable, at baseline Eyes: Pupils equal, round and reactive to light. ENT: Pharynx normal. Neck: Normal inspection. Neck supple. No lymph nodes noted. No crepitus CVS: Normal heart rate and rhythm. Pulses normal. Normal S1 and S2 Respiratory: No respiratory distress. Breath sounds normal. No Wheezing. No rales Abdomen: Soft and nontender. No rigidity. No distention. : Edematous scrotum, I could not find the lump that he was referring to, testicles are not painful to touch Skin: Skin warm and dry. Normal skin color. Normal skin turgor. Extremities: No lower extremity edema. No lower extremity edema. No Lacerations. No Rash Neuro: Oriented X 3. No motor deficit. No sensory deficit. Moving all extermities. No slurred speech. Course Course Course Narrative: Testicular ultrasound pending Sign-out given to Dr. Deluca Discharge Plan Discharge Clinical Impression: Headache, Lump in testis Prescriptions: No Action lamotrigine 25 mg tablet 50 mg PO BID RF: 0 nicotine (polacrilex) 2 mg Gum 2 mg buccal Q2H PRN (Reason: Nicotine Cravings) Qty: 50 RF: 0 docusate sodium [Colace] 100 mg capsule 100 mg PO BID PRN (Reason: Constipation) Qty: 14 RF: 0 polyethylene glycol 3350 [Miralax] 17 gram/dose powder 17 g PO DAILY Qty: 238 RF: 0 hydralazine 50 mg Tablet 50 mg PO TID 30 Days Qty: 90 RF: 0 furosemide [Lasix] 20 mg tablet 20 mg PO QAM Qty: 30 RF: 0 bupropion HCl [Wellbutrin SR] 150 mg Tablet Sustained-Release 12 Hr 300 mg PO DAILY 30 Days Qty: 60 RF: 0 amlodipine 10 mg tablet 10 mg PO DAILY Qty: 30 RF: 0 metoprolol tartrate 50 mg tablet 50 mg PO BID Qty: 60 RF: 0 albuterol sulfate 90 mcg/actuation HFA aerosol inhaler 1 inh inhalation QID PRN (Reason: shortness of breath or wheezing) Qty: 6.7 RF: 0 lisinopril 40 mg tablet 40 mg PO DAILY Qty: 30 RF: 0 duloxetine 30 mg capsule,delayed release(DR/EC) 30 mg PO DAILY 30 Days Qty: 30 RF: 0 Prilosec 10 mg susp,delayed release for recon 20 mg PO DAILY Qty: 30 RF: 0 (SAMAN) ignacio Ferreira See Rx Instructions .Route Qty: 1 RF: 0
[2021-08-17 06:54] VITALS: BP 174/101; PULSE 94; RESP 22; O2SAT 92
--- NOTE | 2021-08-17 06:55 | PC.NURSE ---
pt requesting food. waiting for nurse to give answer. Will give food if allowed by nurse.
[2021-08-17 09:26] VITALS: BP 195/119; PULSE 84; RESP 18; TEMP 36.5; O2SAT 93
[2021-08-17] MEDS: Ketorolac Tromethamine 15 MG/ML VIAL 30 MG IM (10:50)
== END 2021-08-17 11:02 | disposition home or self-care (01) ==
PROVIDERS: Emergency Provider Emergency Medicine
DX: R51.9 Headache, unspecified (principal); N50.89 Other specified disorders of the male genital organs; I10 Essential (primary) hypertension; Z79.899 Other long term (current) drug therapy
CPT/HCPCS: 76870; 96372; 99284; J1885

== ENCOUNTER 2021-08-28 03:38 | Emergency (ER) | payer OTHER, SELFPAY ==
[2021-08-28 03:48] VITALS: BP 145/99; PULSE 95; RESP 16; TEMP 36.7; O2SAT 95; BMI 90.7
[2021-08-28] MEDS: traMADoL HCL 50 MG TABLET PO (03:54)
--- NOTE | 2021-08-28 03:57 | PC.NURSE ---
pt yelling at nursing, demanding juice. Refusing to drink water stating people could be spitting in water. Pt being difficult during discharge. Charge nurse aware and provider.
--- NOTE | 2021-08-28 04:12 | ED_ITS ---
HPI - Headache General Chief Complaint: Headache Stated Complaint: HEADACHE Time Seen by Provider: 08/28/21 03:49 Source: patient Mode of arrival: EMS Limitations: no limitations History of Present Illness HPI Narrative: Patient morbidly obese comes here frequently for multiple complaints asking for food this time he comes here complaining of headache started just prior to arrival but on arrival patient was shouting and seems to be relaxed no vomiting no fever no head injury Related Data Home Medications Medication Instructions Recorded Confirmed lamotrigine 25 mg tablet 50 mg PO BID 11/17/20 07/20/21 Previous Rx's Medication Instructions Recorded nicotine (polacrilex) 2 mg gum 2 mg BUCCAL Q2H PRN #50 ea 06/04/21 docusate sodium 100 mg capsule 100 mg PO BID PRN #14 cap 06/05/21 (Colace) polyethylene glycol 3350 17 17 g PO DAILY #238 g 06/05/21 gram/dose oral powder (Miralax) albuterol sulfate 90 mcg/actuation 1 inh INHALATION QID PRN #6.7 g 07/22/21 aerosol inhaler amlodipine 10 mg tablet 10 mg PO DAILY #30 tab 07/22/21 bupropion HCl 150 mg tablet,12 hr 300 mg PO DAILY 30 Days #60 tab 07/22/21 sustained-release (Wellbutrin SR) duloxetine 30 mg capsule,delayed 30 mg PO DAILY 30 Days #30 cap 07/22/21 release furosemide 20 mg tablet (Lasix) 20 mg PO QAM #30 tab 07/22/21 hydralazine 50 mg tablet 50 mg PO TID 30 Days #90 tab 07/22/21 lisinopril 40 mg tablet 40 mg PO DAILY #30 tab 07/22/21 metoprolol tartrate 50 mg tablet 50 mg PO BID #60 tab 07/22/21 omeprazole magnesium 10 mg oral 20 mg PO DAILY #30 ea 07/22/21 suspension,delayed release (Prilosec) ignacio #1 ea 07/22/21 tramadol 50 mg tablet 50 mg PO Q6H PRN #20 tab 08/28/21 Allergies Allergy/AdvReac Type Severity Reaction Status Date / Time No Known Allergies Allergy Verified 08/17/21 03:30 [No Known Allergies*] Review of Systems Review of Systems: Yes all other systems are reviewed and are negative PMFSH Past Medical History Medical History Anxiety Bipolar disorder Depression Hypertension Lymph edema Morbid obesity Obesity hypoventilation syndrome PTSD (post-traumatic stress disorder) Sleep apnea in adult Testicle pain Social History Social History Household Members: None Housing: House Housing Other:: motel Do you presently have visiting nurse or other home services: No Alcohol intake: never Patient Tobacco Use Status: Current everyday Tobacco user Tobacco use type: Cigarette Cigarettes Per Day: 6 Second Hand Smoke Exposure: No Use of substances other than those prescribed or required for medical reasons: No Substance Use Type: Marijuana Advance Directives: Yes Advance Directives on File: Yes Advance Directives Date on File: 06/27/21 service: No Current occupational status: unemployed Physical Exam Vital Signs: Vital Signs: Last Vital Signs Temp 98.0 F 08/28/21 03:48 Pulse 95 08/28/21 03:48 Resp 16 08/28/21 03:48 BP 145/99 H 08/28/21 03:48 Pulse Ox 95 08/28/21 03:48 Body Mass Index 90.7 Appearance: Alert. Oriented X3. No acute distress. Morbidly obese Eyes: PERRLA, No Nystagmus ENT: Pharynx normal. Oral Mucosa moist Neck: Normal inspection. Neck supple. CVS: Normal heart rate and rhythm. Pulses normal. Respiratory: No respiratory distress. Equal air entry bilateral, no wheezing/rales/rhonchi Abdomen: Soft and nontender. Bowel sounds are present, Skin: Skin warm and dry. Normal skin color. Normal skin turgor. Extremities: Lymphedema both legs ambulating in steady gait Neuro: Oriented X 3. MDM - Headache MDM Narrative Medical decision making narrative: Patient seems to be in no distress was given tramadol for headache patient started shouting and nurses passing comments over the recent speaking full sentences saturating 95% on room air patient discharged Discharge Plan Discharge Clinical Impression: Headache Qualifiers: Headache type: tension-type Headache chronicity pattern: chronic headache Intractability: not intractable Qualified Code(s): G44.229 - Chronic tension- type headache, not intractable Patient Disposition: Home, Self-Care Instructions: General Headache (ED) Additional Instructions: Take tramadol for pain Follow-up with your PCP Prescriptions: New tramadol 50 mg tablet 50 mg PO Q6H PRN (Reason: pain) Qty: 20 RF: 0 No Action lamotrigine 25 mg tablet 50 mg PO BID RF: 0 nicotine (polacrilex) 2 mg Gum 2 mg buccal Q2H PRN (Reason: Nicotine Cravings) Qty: 50 RF: 0 docusate sodium [Colace] 100 mg capsule 100 mg PO BID PRN (Reason: Constipation) Qty: 14 RF: 0 polyethylene glycol 3350 [Miralax] 17 gram/dose powder 17 g PO DAILY Qty: 238 RF: 0 hydralazine 50 mg Tablet 50 mg PO TID 30 Days Qty: 90 RF: 0 furosemide [Lasix] 20 mg tablet 20 mg PO QAM Qty: 30 RF: 0 bupropion HCl [Wellbutrin SR] 150 mg Tablet Sustained-Release 12 Hr 300 mg PO DAILY 30 Days Qty: 60 RF: 0 amlodipine 10 mg tablet 10 mg PO DAILY Qty: 30 RF: 0 metoprolol tartrate 50 mg tablet 50 mg PO BID Qty: 60 RF: 0 albuterol sulfate 90 mcg/actuation HFA aerosol inhaler 1 inh inhalation QID PRN (Reason: shortness of breath or wheezing) Qty: 6.7 RF: 0 lisinopril 40 mg tablet 40 mg PO DAILY Qty: 30 RF: 0 duloxetine 30 mg capsule,delayed release(DR/EC) 30 mg PO DAILY 30 Days Qty: 30 RF: 0 Prilosec 10 mg susp,delayed release for recon 20 mg PO DAILY Qty: 30 RF: 0 (DME) walker Misc See Rx Instructions .Route Qty: 1 RF: 0 Interventions: ED Discharge Assessment Last Done: 08/28/21 04:01 Discharge Date/Time: 08/28/21 04:11
--- NOTE | 2021-08-28 05:25 | PC.NURSE ---
PT SEEN, MEDICATED AND D/C. UPON D/C SECURITY NEEDED TO PARTICIPATE IN THE DISCHARGE PROCESS FOR THIS PATIENT HE STARTED MAKING ACCUSATORY STATEMENTS TO ,MULTIPLE RNS STATING WE WERE DENYING HIM CARE AND DOING SO BECAUSE WE WERE ALL RACIST. PT AMBULATED WITH ASSISTANCE TO A WHEELCHAIR, AND BROUGHT TO THE WAITING ROOM WHERE PT PROCEEDED TO SLIDE HIMSELF ON TO THE FLOOR. PT THEN REFUSED TO ASSIST IN GETTING HIMSELF OFF THE FLOOR. STATING HE WAS NOT COMFORTABLE IN THE WHEELCHAIR AND WAS NOT GOING TO GET BACK INTO IT. INFORMING PATIENT THAT WE COULD NOT JUST LEAVE HIM ON THE FLOOR AFTER REFUSING TO GET HIMSELF UP OFF THE GROUND. [facility] TO THE WAITING ROOM, IN ADDITION TO [facility] PER [facility] REQUEST. WHEN [facility]ED THEY PROCEEDED TO SIT ACROSS THE WAITING ROOM AND REFUSE TO ASSIST IN TRANSFERRING THE PATIENT OFF THE FLOOR. [facility] ARRIVED W/4 PERSONNEL TO ASSIST W/TRANSFER. PT REFUSED TO ASSIST W/HIS OWN TRANSFER, YELLING IN THE STAFFS FACE, PUSHING BACK, AND REFUSING TO SPEAK. PT STATED HE NEEDED TO BE SEEN FOR TOTAL BODY PAIN, AND MY BUTT HURTS BECAUSE MY PANTS ARE UP MY ASS 12 STAFF MEMBERS PARTICIPATED IN THE TRANSFER FROM FLOOR TO WHEELCHAIR, AND THEN TO STRETCHER PATIENT WAS REQUESTING ADDITIONAL MEDICAL CARE AT THIS TIME. THIS RN WILL BE MAKING HER MGR AWARE OF THE RESPONSE AND LACK OF [facility]IPATION FROM [facility] AND THE PATIENT CARE SITUATION AT HAND.
== END 2021-08-28 04:11 | disposition home or self-care (01) ==
LOC: HO.ED 03:58
PROVIDERS: Emergency Provider Internal Medicine
DX: G44.229 Chronic tension-type headache, not intractable (principal); F17.210 Nicotine dependence, cigarettes, uncomplicated; Z71.6 Tobacco abuse counseling; Z79.899 Other long term (current) drug therapy
CPT/HCPCS: 99283; 99284

== ENCOUNTER 2021-08-28 05:53 | Emergency (ER) | payer OTHER, SELFPAY ==
--- NOTE | 2021-08-28 | ECG_ITS ---
Test Reason : chest pain Blood Pressure : / mmHG Vent. Rate : 070 BPM Atrial Rate : 070 BPM P-R Int : 176 ms QRS Dur : 084 ms QT Int : 426 ms P-R-T Axes : 057 056 090 degrees QTc Int : 460 ms Normal sinus rhythm Possible Left atrial enlargement ST & T wave abnormality, consider lateral ischemia Prolonged QT Abnormal ECG When compared with ECG of 24-JUL-2021 04:10, T wave amplitude has decreased in Lateral leads Referred By: Generic ED Physician Electronically Signed By:YURI KNOX MD
[2021-08-28 06:02] VITALS: BP 217/112; PULSE 81; RESP 24; TEMP 36.8; O2SAT 96; BMI 78.0
--- NOTE | 2021-08-28 06:14 | PC.NURSE ---
Dr Connelly made aware of pt's complaints and pt's VS
--- NOTE | 2021-08-28 07:05 | ED.GENADULT ---
HPI - General Adult General Chief complaint: General Medical Stated complaint: Pain Time Seen by Provider: 08/28/21 07:03 Source: patient Mode of arrival: EMS Limitations: no limitations History of Present Illness HPI narrative: patient with headache, abdominal pain, chest pain. Still feels that he has pain all over. Onset (ago): day(s) Location: head, chest and abdomen Radiation: non-radiation Severity: mild Pain Consistency: constant Exacerbating factors: none Related Data Home Medications Medication Instructions Recorded Confirmed lamotrigine 25 mg tablet 50 mg PO BID 11/17/20 07/20/21 Previous Rx's Medication Instructions Recorded nicotine (polacrilex) 2 mg gum 2 mg BUCCAL Q2H PRN #50 ea 06/04/21 docusate sodium 100 mg capsule 100 mg PO BID PRN #14 cap 06/05/21 (Colace) polyethylene glycol 3350 17 17 g PO DAILY #238 g 06/05/21 gram/dose oral powder (Miralax) albuterol sulfate 90 mcg/actuation 1 inh INHALATION QID PRN #6.7 g 07/22/21 aerosol inhaler amlodipine 10 mg tablet 10 mg PO DAILY #30 tab 07/22/21 bupropion HCl 150 mg tablet,12 hr 300 mg PO DAILY 30 Days #60 tab 07/22/21 sustained-release (Wellbutrin SR) duloxetine 30 mg capsule,delayed 30 mg PO DAILY 30 Days #30 cap 07/22/21 release furosemide 20 mg tablet (Lasix) 20 mg PO QAM #30 tab 07/22/21 hydralazine 50 mg tablet 50 mg PO TID 30 Days #90 tab 07/22/21 lisinopril 40 mg tablet 40 mg PO DAILY #30 tab 07/22/21 metoprolol tartrate 50 mg tablet 50 mg PO BID #60 tab 07/22/21 omeprazole magnesium 10 mg oral 20 mg PO DAILY #30 ea 07/22/21 suspension,delayed release (Prilosec) ignacio #1 ea 07/22/21 tramadol 50 mg tablet 50 mg PO Q6H PRN #20 tab 08/28/21 Allergies Allergy/AdvReac Type Severity Reaction Status Date / Time No Known Allergies Allergy Verified 08/17/21 03:30 [No Known Allergies*] Review of Systems Neurologic: Denies Sensory deficit (Neuro) [facility] Past Medical History Medical History Anxiety Bipolar disorder Depression Hypertension Lymph edema Morbid obesity Obesity hypoventilation syndrome PTSD (post-traumatic stress disorder) Sleep apnea in adult Testicle pain Social History Social History Household Members: None Housing: House Housing Other:: motel Do you presently have visiting nurse or other home services: No Alcohol intake: never Patient Tobacco Use Status: Current everyday Tobacco user Tobacco use type: Cigarette Cigarettes Per Day: 6 Second Hand Smoke Exposure: No Substance Use Type: Marijuana Advance Directives: Yes Advance Directives on File: Yes Advance Directives Date on File: 06/27/21 service: No Current occupational status: unemployed Physical Exam Vital Signs: Vital Signs: Last Vital Signs Temp 98.2 F 08/28/21 06:02 Pulse 81 08/28/21 07:41 Resp 24 H 08/28/21 06:02 BP 217/112 H 08/28/21 07:41 Pulse Ox 96 08/28/21 06:02 Body Mass Index 78.0 Const: Other: Mprbidly obese obvious sleep apnea Orientation/consciousness: oriented to person and patient oriented x3 HENMT: Head: Yes normal to inspection Ears: external ears normal General nose exam: Normal external nose present Mouth: Normal oral and palatal mucosa present and oropharynx normal Throat: Yes posterior oropharynx normal Eyes: General: appearance normal, both eyes and all related structures Neck: Other: supple Neck: Yes normal visual inspection Chest: Chest palpation & inspection: normal inspection of the chest Resp: Auscultation: clear to auscultation bilaterally Cardio: Jugular venous distension: no JVD Rate: regular rate Rhythm: regular rhythm Heart sounds: S1 normal heart sound present and S2 normal heart sound present GI: Inspection: Yes normal to inspection Palpation (GI): Soft to palpation, nontender and No hepatosplenomegaly present Auscultation: normal bowel sounds : General: Yes no CVA tenderness Back/Spine/Pelvis: Back: no CVA tenderness Skin: General skin exam: no rashes or lesions noted Neuro: General: oriented to person and patient oriented x3 Cranial nerves: Yes CN's II-XII intact bilaterally Motor exam (neuro): 5/5 motor strength present throughout Sensory Exam: No Sensory deficit (Neuro) Extrem: Other: enormous lymphedema, chronic Psych: Appearance: grossly normal Course Reevaluation(s) Reevaluation #1: Patient refusing ekg, received meds, has long standing hypertension, will dc home Time: 10:14 Discharge Plan Discharge Clinical Impression: Hypertension Qualifiers: Hypertension type: primary hypertension Qualified Code(s): I10 - Essential (primary) hypertension Patient Disposition: Home, Self-Care Prescriptions: No Action lamotrigine 25 mg tablet 50 mg PO BID RF: 0 nicotine (polacrilex) 2 mg Gum 2 mg buccal Q2H PRN (Reason: Nicotine Cravings) Qty: 50 RF: 0 docusate sodium [Colace] 100 mg capsule 100 mg PO BID PRN (Reason: Constipation) Qty: 14 RF: 0 polyethylene glycol 3350 [Miralax] 17 gram/dose powder 17 g PO DAILY Qty: 238 RF: 0 hydralazine 50 mg Tablet 50 mg PO TID 30 Days Qty: 90 RF: 0 furosemide [Lasix] 20 mg tablet 20 mg PO QAM Qty: 30 RF: 0 bupropion HCl [Wellbutrin SR] 150 mg Tablet Sustained-Release 12 Hr 300 mg PO DAILY 30 Days Qty: 60 RF: 0 amlodipine 10 mg tablet 10 mg PO DAILY Qty: 30 RF: 0 metoprolol tartrate 50 mg tablet 50 mg PO BID Qty: 60 RF: 0 albuterol sulfate 90 mcg/actuation HFA aerosol inhaler 1 inh inhalation QID PRN (Reason: shortness of breath or wheezing) Qty: 6.7 RF: 0 lisinopril 40 mg tablet 40 mg PO DAILY Qty: 30 RF: 0 duloxetine 30 mg capsule,delayed release(DR/EC) 30 mg PO DAILY 30 Days Qty: 30 RF: 0 Prilosec 10 mg susp,delayed release for recon 20 mg PO DAILY Qty: 30 RF: 0 (DME) walker Misc See Rx Instructions .Route Qty: 1 RF: 0 tramadol 50 mg tablet 50 mg PO Q6H PRN (Reason: pain) Qty: 20 RF: 0 Referrals: Physician,Unknown J [Primary Care Provider] - 1 week
--- NOTE | 2021-08-28 07:27 | PC.NURSE ---
Report given to BENSON De La Cruz
[2021-08-28 07:41] VITALS: BP 217/112; PULSE 81
[2021-08-28] MEDS: Furosemide 20 MG TABLET PO (07:41)
[2021-08-28] MEDS: hydrALAZINE HCl 50 MG TABLET PO (07:41)
[2021-08-28] MEDS: amLODIPine Besylate 10 MG TABLET PO (07:41)
[2021-08-28] MEDS: Metoprolol Tartrate 50 MG TABLET PO (07:41)
[2021-08-28] MEDS: lisinopriL 40 MG TABLET PO (07:42)
--- NOTE | 2021-08-28 09:46 | PC.NURSE ---
pt starts to speek with the RN then doses off, half sitting in bed with rail down d/t pain in right leg
--- NOTE | 2021-08-28 10:43 | PC.NURSE ---
Since arrival pt has been sleeping on and off in bed. Complaints of RLE pain. was able to ambulate to BR and back unassisted.
--- NOTE | 2021-08-28 10:44 | ED.GENADULT ---
HPI - General Adult General Chief complaint: General Medical Stated complaint: Pain Time Seen by Provider: 08/28/21 07:03 Source: patient Mode of arrival: EMS Limitations: no limitations History of Present Illness Location: head, chest and abdomen Exacerbating factors: none Related Data Home Medications Medication Instructions Recorded Confirmed lamotrigine 25 mg tablet 50 mg PO BID 11/17/20 07/20/21 Previous Rx's Medication Instructions Recorded nicotine (polacrilex) 2 mg gum 2 mg BUCCAL Q2H PRN #50 ea 06/04/21 docusate sodium 100 mg capsule 100 mg PO BID PRN #14 cap 06/05/21 (Colace) polyethylene glycol 3350 17 17 g PO DAILY #238 g 06/05/21 gram/dose oral powder (Miralax) albuterol sulfate 90 mcg/actuation 1 inh INHALATION QID PRN #6.7 g 07/22/21 aerosol inhaler amlodipine 10 mg tablet 10 mg PO DAILY #30 tab 07/22/21 bupropion HCl 150 mg tablet,12 hr 300 mg PO DAILY 30 Days #60 tab 07/22/21 sustained-release (Wellbutrin SR) duloxetine 30 mg capsule,delayed 30 mg PO DAILY 30 Days #30 cap 07/22/21 release furosemide 20 mg tablet (Lasix) 20 mg PO QAM #30 tab 07/22/21 hydralazine 50 mg tablet 50 mg PO TID 30 Days #90 tab 07/22/21 lisinopril 40 mg tablet 40 mg PO DAILY #30 tab 07/22/21 metoprolol tartrate 50 mg tablet 50 mg PO BID #60 tab 07/22/21 omeprazole magnesium 10 mg oral 20 mg PO DAILY #30 ea 07/22/21 suspension,delayed release (Prilosec) walker #1 ea 07/22/21 tramadol 50 mg tablet 50 mg PO Q6H PRN #20 tab 08/28/21 Allergies Allergy/AdvReac Type Severity Reaction Status Date / Time No Known Allergies Allergy Verified 08/17/21 03:30 [No Known Allergies*] PMF Past Medical History Medical History Anxiety Bipolar disorder Depression Hypertension Lymph edema Morbid obesity Obesity hypoventilation syndrome PTSD (post-traumatic stress disorder) Sleep apnea in adult Testicle pain Social History Social History Household Members: None Housing: House Housing Other:: motel Do you presently have visiting nurse or other home services: No Alcohol intake: never Patient Tobacco Use Status: Current everyday Tobacco user Tobacco use type: Cigarette Cigarettes Per Day: 6 Second Hand Smoke Exposure: No Substance Use Type: Marijuana Advance Directives: Yes Advance Directives on File: Yes Advance Directives Date on File: 06/27/21 service: No Current occupational status: unemployed Physical Exam Vital Signs: Vital Signs: Last Vital Signs Temp 98.2 F 08/28/21 06:02 Pulse 81 08/28/21 07:41 Resp 24 H 08/28/21 06:02 BP 217/112 H 08/28/21 07:41 Pulse Ox 96 08/28/21 06:02 Body Mass Index 78.0 Medical Decision Making ECG Data Attestation: I personally reviewed and interpreted this ECG as follows: Interpretation: sinus 70, no st or twave changes, biphasic t I and AVL, no change from 07/24 Discharge Plan Discharge Clinical Impression: Hypertension Qualifiers: Hypertension type: primary hypertension Qualified Code(s): I10 - Essential (primary) hypertension Patient Disposition: Home, Self-Care Prescriptions: No Action lamotrigine 25 mg tablet 50 mg PO BID RF: 0 nicotine (polacrilex) 2 mg Gum 2 mg buccal Q2H PRN (Reason: Nicotine Cravings) Qty: 50 RF: 0 docusate sodium [Colace] 100 mg capsule 100 mg PO BID PRN (Reason: Constipation) Qty: 14 RF: 0 polyethylene glycol 3350 [Miralax] 17 gram/dose powder 17 g PO DAILY Qty: 238 RF: 0 hydralazine 50 mg Tablet 50 mg PO TID 30 Days Qty: 90 RF: 0 furosemide [Lasix] 20 mg tablet 20 mg PO QAM Qty: 30 RF: 0 bupropion HCl [Wellbutrin SR] 150 mg Tablet Sustained-Release 12 Hr 300 mg PO DAILY 30 Days Qty: 60 RF: 0 amlodipine 10 mg tablet 10 mg PO DAILY Qty: 30 RF: 0 metoprolol tartrate 50 mg tablet 50 mg PO BID Qty: 60 RF: 0 albuterol sulfate 90 mcg/actuation HFA aerosol inhaler 1 inh inhalation QID PRN (Reason: shortness of breath or wheezing) Qty: 6.7 RF: 0 lisinopril 40 mg tablet 40 mg PO DAILY Qty: 30 RF: 0 duloxetine 30 mg capsule,delayed release(DR/EC) 30 mg PO DAILY 30 Days Qty: 30 RF: 0 Prilosec 10 mg susp,delayed release for recon 20 mg PO DAILY Qty: 30 RF: 0 (DME) ignacio Ferreira See Rx Instructions .Route Qty: 1 RF: 0 tramadol 50 mg tablet 50 mg PO Q6H PRN (Reason: pain) Qty: 20 RF: 0 Referrals: Physician,Unknown J [Primary Care Provider] - 1 week
[2021-08-28 10:49] VITALS: BP 167/91; PULSE 67; RESP 19; TEMP 36.2; O2SAT 90
--- NOTE | 2021-08-28 12:01 | PC.NURSE ---
This rn calling [phone] at patient's request for ride home from program. VM for number isn't set up.
--- NOTE | 2021-08-28 14:30 | PC.NURSE ---
awaits ride which is due aprox 5pm/ Van will come which has been arranged by [facility]. WC will be borrowed from [facility] and returned.
== END 2021-08-28 14:57 | disposition home or self-care (01) ==
PROVIDERS: Emergency Provider Emergency Medicine
DX: I10 Essential (primary) hypertension (principal); F12.90 Cannabis use, unspecified, uncomplicated; F17.210 Nicotine dependence, cigarettes, uncomplicated; Z71.6 Tobacco abuse counseling; Z79.899 Other long term (current) drug therapy
CPT/HCPCS: 93005; 99283; 99284

== ENCOUNTER 2021-09-24 11:15 | Emergency (ER) | payer OTHER, SELFPAY ==
[2021-09-24 11:44] VITALS: BP 223/115; PULSE 82; RESP 18; TEMP 36.8; O2SAT 90; BMI 83.7
--- NOTE | 2021-09-24 11:46 | PC.NURSE ---
o2 applied at 2liters with sats improving to 95%
[2021-09-24 11:50] VITALS: O2SAT 95
[2021-09-24 12:58] LABS: COVID-19 Test Negative (Negative); IDNOW Serial# 9DD0AD1C
[2021-09-24 14:21] VITALS: BP 215/109; PULSE 187; RESP 21; TEMP 35.7; O2SAT 87
--- NOTE | 2021-09-24 15:05 | ED.GENADULT ---
HPI - General Adult General Chief complaint: Dyspnea Stated complaint: COLD SYMPTOM,MORE ON ARRIVAL PER EMS Time Seen by Provider: 09/24/21 12:13 Source: patient Mode of arrival: ambulatory Limitations: no limitations History of Present Illness HPI narrative: 36-year-old male who presents emergency department for evaluation congestion, cough, shortness of breath x2 days. Patient states that he has nasal congestion. He states he has an occasional cough which is productive of green phlegm. Patient has shortness of breath at baseline but he states that it is worse. He has some mild dyspnea on exertion. He had chills but no fever. Denied nausea, vomiting or diarrhea. He did have body aches. States that he has been vaccinated for COVID-19. Related Data Home Medications Medication Instructions Recorded Confirmed lamotrigine 25 mg tablet 50 mg PO BID 11/17/20 07/20/21 Previous Rx's Medication Instructions Recorded nicotine (polacrilex) 2 mg gum 2 mg BUCCAL Q2H PRN #50 ea 06/04/21 docusate sodium 100 mg capsule 100 mg PO BID PRN #14 cap 06/05/21 (Colace) polyethylene glycol 3350 17 17 g PO DAILY #238 g 06/05/21 gram/dose oral powder (Miralax) albuterol sulfate 90 mcg/actuation 1 inh INHALATION QID PRN #6.7 g 07/22/21 aerosol inhaler amlodipine 10 mg tablet 10 mg PO DAILY #30 tab 07/22/21 bupropion HCl 150 mg tablet,12 hr 300 mg PO DAILY 30 Days #60 tab 07/22/21 sustained-release (Wellbutrin SR) duloxetine 30 mg capsule,delayed 30 mg PO DAILY 30 Days #30 cap 07/22/21 release furosemide 20 mg tablet (Lasix) 20 mg PO QAM #30 tab 07/22/21 hydralazine 50 mg tablet 50 mg PO TID 30 Days #90 tab 07/22/21 lisinopril 40 mg tablet 40 mg PO DAILY #30 tab 07/22/21 metoprolol tartrate 50 mg tablet 50 mg PO BID #60 tab 07/22/21 omeprazole magnesium 10 mg oral 20 mg PO DAILY #30 ea 07/22/21 suspension,delayed release (Prilosec) ignacio #1 ea 07/22/21 tramadol 50 mg tablet 50 mg PO Q6H PRN #20 tab 08/28/21 albuterol sulfate 90 mcg/actuation 2 puff INHALATION Q4-6H PRN #8.5 g 09/24/21 aerosol inhaler (Ventolin HFA) Allergies Allergy/AdvReac Type Severity Reaction Status Date / Time No Known Allergies Allergy Verified 09/24/21 11:44 [No Known Allergies*] Review of Systems Review of Systems: Yes all other systems are reviewed and are negative [facility] Past Medical History Medical History Anxiety Bipolar disorder Depression Hypertension Lymph edema Morbid obesity Obesity hypoventilation syndrome PTSD (post-traumatic stress disorder) Sleep apnea in adult Testicle pain Social History Social History Household Members: None Housing: House Housing Other:: motel Do you presently have visiting nurse or other home services: No Alcohol intake: never Patient Tobacco Use Status: Current everyday Tobacco user Tobacco use type: Cigarette Cigarettes Per Day: 6 Second Hand Smoke Exposure: No Use of substances other than those prescribed or required for medical reasons: No Substance Use Type: Marijuana Advance Directives: Yes Advance Directives on File: Yes Advance Directives Date on File: 06/27/21 service: No Current occupational status: unemployed Physical Exam Vital Signs: Vital Signs: Last Vital Signs Temp 96.2 F L 09/24/21 14:21 Pulse 187 H 09/24/21 14:21 Resp 21 H 09/24/21 14:21 BP 215/109 H 09/24/21 14:21 Pulse Ox 87 L 09/24/21 14:21 Body Mass Index 83.7 Const: General: cooperative and no acute distress Orientation/consciousness: oriented to person and oriented to place Limitations: no limitations HENMT: Head: Yes normal to inspection, Yes normocephalic and Yes atraumatic Ears: external ears normal General nose exam: Normal external nose present Face and sinus: Yes normal facial exam Mouth: Normal oral and palatal mucosa present Throat: Yes posterior oropharynx normal Eyes: General: appearance normal, both eyes and all related structures Pupils: Equal, round and reactive pupils present Neck: Neck: Yes normal visual inspection, Yes no lymphadenopathy, Yes trachea midline and Yes supple Chest: Chest palpation & inspection: normal inspection of the chest and normal palpation of entire chest wall Resp: Effort & Inspection: normal respiratory effort and able to speak in complete sentences Auscultation: clear to auscultation bilaterally Cardio: Rate: regular rate Rhythm: regular rhythm Heart sounds: S1 normal heart sound present, S2 normal heart sound present and no murmurs GI: Inspection: Yes normal to inspection and Yes Abdominal panniculus present Palpation (GI): Soft to palpation, nontender and no guarding Auscultation: normal bowel sounds : General: Yes no CVA tenderness Back/Spine/Pelvis: Back: no CVA tenderness Skin: General skin exam: no rashes or lesions noted Neuro: General: oriented to person and oriented to place Cranial nerves: Yes CN's II-XII intact bilaterally and Yes Equal, round and reactive pupils present Cognition (Neuro): normal cognition Motor exam (neuro): 5/5 motor strength present throughout Extrem: General: Yes normal to inspection Psych: Appearance: grossly normal Speech and movement: Normal speech and movement present Affect: normal affect Attitude: cooperative Thought process: Normal thought process present Thought content: Normal thought content present Course Course Course Narrative: 36-year-old male who presents emergency department for evaluation of URI type symptoms times 2 days. Patient's physical examination was unremarkable. The patient is well-known to the emergency department is noncompliant with his medications. Patient is hypertensive but this is chronic. On my examination I did document a pulse of 82 and I believe that the documented pulse of 187 is not accurate. The patient has obstructive sleep has low O2 saturations. The patient'sexam was otherwise unremarkable. At this time, I do not think that he needs antibiotics. The patient will be treated with albuterol inhaler 2 puffs every 4-6 hours as needed for cough and shortness of breath. He was given verbal and printed instructions and discharged home. Medical Decision Making Lab Data Labs: Lab Results 09/24/21 Range/Units 12:32 COVID-19 (BAMBI) Negative (Negative) COVID-19 Clin Com See Note Discharge Plan Discharge Clinical Impression: Acute upper respiratory infection Patient Disposition: Home, Self-Care Instructions: Viral Syndrome (ED) Additional Instructions: Use the albuterol inhaler 2 puffs every 4 hours as needed for cough or shortness of breath. Take ibuprofen 200 mg pills, 3 pills every 6 hours as needed for pain. Take Tylenol (acetaminophen) 500 mg pills, 2 pills every 4 to 6 hours as needed for pain. Follow-up with your doctor in 2 days. Please return to the emergency department if your symptoms get worse or if you develop any symptoms that are concerning to you. Prescriptions: New albuterol sulfate [Ventolin HFA] 90 mcg/actuation HFA aerosol inhaler 2 puff inhalation Q4-6H PRN (Reason: shortness of breath or wheezing) Qty: 8.5 RF: 0 No Action lamotrigine 25 mg tablet 50 mg PO BID RF: 0 nicotine (polacrilex) 2 mg Gum 2 mg buccal Q2H PRN (Reason: Nicotine Cravings) Qty: 50 RF: 0 docusate sodium [Colace] 100 mg capsule 100 mg PO BID PRN (Reason: Constipation) Qty: 14 RF: 0 polyethylene glycol 3350 [Miralax] 17 gram/dose powder 17 g PO DAILY Qty: 238 RF: 0 hydralazine 50 mg Tablet 50 mg PO TID 30 Days Qty: 90 RF: 0 furosemide [Lasix] 20 mg tablet 20 mg PO QAM Qty: 30 RF: 0 bupropion HCl [Wellbutrin SR] 150 mg Tablet Sustained-Release 12 Hr 300 mg PO DAILY 30 Days Qty: 60 RF: 0 amlodipine 10 mg tablet 10 mg PO DAILY Qty: 30 RF: 0 metoprolol tartrate 50 mg tablet 50 mg PO BID Qty: 60 RF: 0 albuterol sulfate 90 mcg/actuation HFA aerosol inhaler 1 inh inhalation QID PRN (Reason: shortness of breath or wheezing) Qty: 6.7 RF: 0 lisinopril 40 mg tablet 40 mg PO DAILY Qty: 30 RF: 0 duloxetine 30 mg capsule,delayed release(DR/EC) 30 mg PO DAILY 30 Days Qty: 30 RF: 0 Prilosec 10 mg susp,delayed release for recon 20 mg PO DAILY Qty: 30 RF: 0 (SAMAN) ignacio Ferreira See Rx Instructions .Route Qty: 1 RF: 0 tramadol 50 mg tablet 50 mg PO Q6H PRN (Reason: pain) Qty: 20 RF: 0
== END 2021-09-24 15:26 | disposition home or self-care (01) ==
PROVIDERS: Emergency Provider Emergency Medicine Emergency Medical Services
DX: J06.9 Acute upper respiratory infection, unspecified (principal); R09.81 Nasal congestion; R06.02 Shortness of breath; Z20.822 Contact with and (suspected) exposure to COVID-19; I10 Essential (primary) hypertension; F17.200 Nicotine dependence, unspecified, uncomplicated; Z91.14 Patient's other noncompliance with medication regimen
CPT/HCPCS: 36415; 87635; 99283; 99284

== ENCOUNTER 2021-09-28 00:15 | Emergency (ER) | payer OTHER, SELFPAY ==
--- NOTE | ~2021-09-28 | XR_ITS ---
EXAMINATION: XR CHEST CLINICAL INFORMATION: Shortness of breath COMPARISON: 07/19/2021 TECHNIQUE: Frontal view of the chest was obtained. FINDINGS: Lung volumes are symmetric. No focal consolidation is seen. Central vasculature remains somewhat prominent, without overt edema. No evidence of pneumothorax or pleural effusion. Cardiac silhouette appears borderline enlarged. No acute osseous findings are seen. XR/XR chest 1V IMPRESSION: Central vasculature remains prominent, suggesting a degree of congestion similar to 07/19/2021.
--- NOTE | 2021-09-28 03:38 | ED.GENADULT ---
HPI - General Adult General Chief complaint: Weakness Stated complaint: general malaise Time Seen by Provider: 09/28/21 03:33 Source: patient Mode of arrival: ambulatory Limitations: no limitations History of Present Illness HPI narrative: Patient comes to the emergency room complaining of coughing, generalized malaise. Patient states he has his chronic shortness of breath but nothing new. Related Data Home Medications Medication Instructions Recorded Confirmed lamotrigine 25 mg tablet 50 mg PO BID 11/17/20 07/20/21 Previous Rx's Medication Instructions Recorded nicotine (polacrilex) 2 mg gum 2 mg BUCCAL Q2H PRN #50 ea 06/04/21 docusate sodium 100 mg capsule 100 mg PO BID PRN #14 cap 06/05/21 (Colace) polyethylene glycol 3350 17 17 g PO DAILY #238 g 06/05/21 gram/dose oral powder (Miralax) albuterol sulfate 90 mcg/actuation 1 inh INHALATION QID PRN #6.7 g 07/22/21 aerosol inhaler amlodipine 10 mg tablet 10 mg PO DAILY #30 tab 07/22/21 bupropion HCl 150 mg tablet,12 hr 300 mg PO DAILY 30 Days #60 tab 07/22/21 sustained-release (Wellbutrin SR) duloxetine 30 mg capsule,delayed 30 mg PO DAILY 30 Days #30 cap 07/22/21 release furosemide 20 mg tablet (Lasix) 20 mg PO QAM #30 tab 07/22/21 hydralazine 50 mg tablet 50 mg PO TID 30 Days #90 tab 07/22/21 lisinopril 40 mg tablet 40 mg PO DAILY #30 tab 07/22/21 metoprolol tartrate 50 mg tablet 50 mg PO BID #60 tab 07/22/21 omeprazole magnesium 10 mg oral 20 mg PO DAILY #30 ea 07/22/21 suspension,delayed release (Prilosec) ignacio #1 ea 07/22/21 tramadol 50 mg tablet 50 mg PO Q6H PRN #20 tab 08/28/21 albuterol sulfate 90 mcg/actuation 2 puff INHALATION Q4-6H PRN #8.5 g 09/24/21 aerosol inhaler (Ventolin HFA) Allergies Allergy/AdvReac Type Severity Reaction Status Date / Time No Known Allergies Allergy Verified 09/24/21 11:44 [No Known Allergies*] Review of Systems Review of Systems: Constitutional : No Weight loss, No Fever, No Chills, complaining of fatigue and generalized malaise ENT/Mouth : No Hearing loss, No Ear Pain, No Nasal Congestion, No Sinus Pain, No Hoarseness, No sore throat, No Rhinorrhea, No Swallowing Difficulty Eyes: No Eye Pain, No Swelling, No Redness, No Foreign Body, No Discharge, No Vision Changes Cardiovascular : No Chest Pain, No SOB, No Dyspnea on Exertion, No Orthopnea, No Edema, No Palpitations Respiratory : No Cough, No Sputum, No Wheezing, No Smoke Exposure, No Dyspnea Gastrointestinal : No Nausea, No Vomiting, No Diarrhea, No Constipation, No abdominal Pain, No Hematochezia, No Melena Genitourinary : no irregular bleeding, No Dysuria, No Urinary Frequency, No Hematuria, No Urinary Incontinence, No Urgency, No Flank Pain, No Urinary Flow Changes, No Hesitancy Musculoskeletal : No joint pain, No Myalgias, No Joint Swelling Skin : No Skin Lesions, No rash Neuro : No Weakness, No Numbness, No Paresthesias, No Loss of Consciousness, No Dizziness, No Headache Psych : No Anxiety/Panic, No Depression, No SI/HI/AH/VH, No Social Issues, Heme/Lymph: No Bruising, No Bleeding,No Lymphadenopathy Endocrine : No Polyuria, No Polydipsia, No Temperature Intolerance PMFSH Past Medical History Medical History Anxiety Bipolar disorder Depression Hypertension Lymph edema Morbid obesity Obesity hypoventilation syndrome PTSD (post-traumatic stress disorder) Sleep apnea in adult Testicle pain Social History Social History Household Members: None Housing: House Housing Other:: motel Do you presently have visiting nurse or other home services: No Alcohol intake: never Patient Tobacco Use Status: Current everyday Tobacco user Tobacco use type: Cigarette Cigarettes Per Day: 6 Second Hand Smoke Exposure: No Substance Use Type: Marijuana Advance Directives: Yes Advance Directives on File: Yes Advance Directives Date on File: 06/27/21 service: No Current occupational status: unemployed Physical Exam Vital Signs: Vital Signs: Last Vital Signs Pulse 96 09/28/21 04:20 Resp 20 09/28/21 04:20 BP 177/107 H 09/28/21 04:20 Pulse Ox 96 09/28/21 04:20 Const: Other: Appearance: Alert. Oriented X3. No acute distress. Eyes: Pupils equal, round and reactive to light. ENT: Pharynx normal. Neck: Normal inspection. Neck supple. No lymph nodes noted. No crepitus CVS: Normal heart rate and rhythm. Pulses normal. Normal S1 and S2 Respiratory: No respiratory distress. Breath sounds normal. No Wheezing. No rales, actively coughing Abdomen: Soft and nontender. No rigidity. No distention. Skin: Skin warm and dry. Normal skin color. Normal skin turgor. Extremities: No lower extremity edema. No lower extremity edema. No Lacerations. No Rash Neuro: Oriented X 3. No motor deficit. No sensory deficit. Moving all extermities. No slurred speech. Course Course Course Narrative: Patient tested negative for COVID-19, chest x-ray shows no acute changes. Patient likely having a viral syndrome. Was sleeping, patient's oxygen dropped to the high 80s, patient is well-known to the Emergency Service. When patient is woken up, his oxygen saturation improved to 91%, which is patient's baseline. Medical Decision Making Lab Data Result diagrams: 09/28/21 04:26 09/28/21 04:26 Labs: Lab Results 09/28/21 09/28/21 09/28/21 Range/Units 03:26 04:26 04:26 WBC 6.4 (4.8-10.8) X10*3/uL RBC 4.34 L (4.60-5.80) X10*6/uL Hgb 11.3 L (14.0-18.0) g/dl Hct 38.3 L (42.0-52.0) % MCV 88.2 (80.0-98.0) fL MCH 26.0 L (27.0-33.0) pg MCHC 29.5 L (31.0-36.0) g/dl RDW 15.4 (11.0-16.0) % Plt Count 185 (160-400) X10*3/uL MPV 11.1 (9.4-12.4) fL Immature Gran % (Auto) 0.3 (0.0-0.4) % Neut % (Auto) 74.6 H (45-73) % Lymph % (Auto) 11.2 L (20-40) % [place] % (Auto) 12.6 H (2-11) % Eos % (Auto) 1.1 (0-4) % Baso % (Auto) 0.2 (0-2) % Lymph # (Auto) 0.7 L (1.2-4.9) X10*3/uL [place] # (Auto) 0.8 (0.1-1.2) X10*3/uL Eos # (Auto) 0.1 (0.0-0.4) X10*3/uL Baso # (Auto) 0.0 (0.0-0.2) X10*3/uL Abs Immat Gran (auto) 0.02 (0.00-0.03) X10*3/uL Absolute Neuts (auto) 4.7 (2.0-8.3) x10*3/uL Absolute Nucleated RBC 0.000 (0.0-0.012) X10*3/uL Nucleated RBC % (auto) 0.0 (0.0-0.2) /100WBC Sodium 139 (135-145) mmol/L Potassium 4.0 (3.3-5.1) mmol/L Chloride 100 (96-108) mmol/L Carbon Dioxide 30 H (22-29) mmol/L Anion Gap 13 (12-20) BUN 11 (9-16) mg/dL Creatinine 1.05 (0.5-1.4) mg/dL Estim Creat Clear Calc TNP Estimated GFR > 60 Random Glucose 128 H (60-115) mg/dL Calcium 8.0 L D (8.4-10.2) mg/dL Total Bilirubin 0.4 (0.0-1.0) mg/dL Direct Bilirubin 0.2 (0.0-0.5) mg/dL AST 14 (5-37) U/L ALT 20 (0-40) U/L Alkaline Phosphatase 80 (39-117) U/L Total Protein 7.6 (6.5-8.0) g/dL Albumin 3.6 (3.5-5.0) g/dL Influenza Type A (PCR) NEGATIVE (Negative) Influenza Type B (PCR) NEGATIVE (Negative) RSV RNA Qual (PCR) NEGATIVE (Negative) SARS-CoV-2 RNA (RT-PCR) NEGATIVE (Negative) Discharge Plan Discharge Clinical Impression: Acute viral syndrome Patient Disposition: Home, Self-Care Instructions: Viral Syndrome (ED) Additional Instructions: Please follow-up with your primary care physician tomorrow. If you have any worsening or new symptoms, please return to the emergency room or call 911 Prescriptions: No Action lamotrigine 25 mg tablet 50 mg PO BID RF: 0 nicotine (polacrilex) 2 mg Gum 2 mg buccal Q2H PRN (Reason: Nicotine Cravings) Qty: 50 RF: 0 docusate sodium [Colace] 100 mg capsule 100 mg PO BID PRN (Reason: Constipation) Qty: 14 RF: 0 polyethylene glycol 3350 [Miralax] 17 gram/dose powder 17 g PO DAILY Qty: 238 RF: 0 hydralazine 50 mg Tablet 50 mg PO TID 30 Days Qty: 90 RF: 0 furosemide [Lasix] 20 mg tablet 20 mg PO QAM Qty: 30 RF: 0 bupropion HCl [Wellbutrin SR] 150 mg Tablet Sustained-Release 12 Hr 300 mg PO DAILY 30 Days Qty: 60 RF: 0 amlodipine 10 mg tablet 10 mg PO DAILY Qty: 30 RF: 0 metoprolol tartrate 50 mg tablet 50 mg PO BID Qty: 60 RF: 0 albuterol sulfate 90 mcg/actuation HFA aerosol inhaler 1 inh inhalation QID PRN (Reason: shortness of breath or wheezing) Qty: 6.7 RF: 0 lisinopril 40 mg tablet 40 mg PO DAILY Qty: 30 RF: 0 duloxetine 30 mg capsule,delayed release(DR/EC) 30 mg PO DAILY 30 Days Qty: 30 RF: 0 Prilosec 10 mg susp,delayed release for recon 20 mg PO DAILY Qty: 30 RF: 0 (DME) walker Misc See Rx Instructions .Route Qty: 1 RF: 0 tramadol 50 mg tablet 50 mg PO Q6H PRN (Reason: pain) Qty: 20 RF: 0 albuterol sulfate [Ventolin HFA] 90 mcg/actuation HFA aerosol inhaler 2 puff inhalation Q4-6H PRN (Reason: shortness of breath or wheezing) Qty: 8.5 RF: 0
[2021-09-28 04:09] LABS: Influenza A PCR NEGATIVE (Negative); Influenza B PCR NEGATIVE (Negative); Resp Syncy Virus RNA Qual PCR NEGATIVE (Negative); SARS COV2 PCR INHOUSE NEGATIVE (Negative)
[2021-09-28 04:20] VITALS: BP 177/107; PULSE 96; RESP 20; O2SAT 96
[2021-09-28 04:31] LABS: Basophils Percent Auto 0.2 % (0-2); Eosinophils Absolute Auto 0.1 X10*3/uL (0.0-0.4); Eosinophils Percent Auto 1.1 % (0-4); Hematocrit 38.3 % (42.0-52.0); Hemoglobin 11.3 g/dl (14.0-18.0); Imm Gran Abs Auto 0.02 X10*3/uL (0.00-0.03); Imm Gran Pct Auto 0.3 % (0.0-0.4); Lymphocytes Absolute Auto 0.7 X10*3/uL (1.2-4.9); Lymphocytes Percent Auto 11.2 % (20-40); MANUAL DIFF FLAG NO; Mean Corpuscular HGB Conc 29.5 g/dl (31.0-36.0); Mean Corpuscular Volume 88.2 fL (80.0-98.0); Mean Platelet Volume 11.1 fL (9.4-12.4); Monocytes Absolute Auto 0.8 X10*3/uL (0.1-1.2); Monocytes Percent Auto 12.6 % (2-11); Neutrophils Absolute Auto 4.7 x10*3/uL (2.0-8.3); Neutrophils Percent Auto 74.6 % (45-73); Platelet Count 185 X10*3/uL (160-400); Red Blood Count 4.34 X10*6/uL (4.60-5.80); Red Cell Distribution Width 15.4 % (11.0-16.0); White Blood Count 6.4 X10*3/uL (4.8-10.8)
[2021-09-28 04:51] LABS: Alanine Aminotransferase 20 U/L (0-40); Albumin Level 3.6 g/dL (3.5-5.0); Alkaline Phosphatase 80 U/L (39-117); Anion Gap 13 (12-20); Aspartate Amino Transferase 14 U/L (5-37); Bilirubin Direct 0.2 mg/dL (0.0-0.5); Bilirubin Total 0.4 mg/dL (0.0-1.0); Blood Urea Nitrogen 11 mg/dL (9-16); Carbon Dioxide 30 mmol/L (22-29); Chloride 100 mmol/L (96-108); Estimated Glomerular Filt Rate > 60; Glucose Random 128 mg/dL (60-115); Sodium 139 mmol/L (135-145); Total Protein 7.6 g/dL (6.5-8.0)
[2021-09-28] MEDS: Acetaminophen 325 MG TABLET 650 MG PO (05:31)
== END 2021-09-28 06:27 | disposition home or self-care (01) ==
PROVIDERS: Emergency Provider Emergency Medicine
DX: B34.9 Viral infection, unspecified (principal); Z20.822 Contact with and (suspected) exposure to COVID-19; R53.1 Weakness; R53.81 Other malaise; R06.02 Shortness of breath; I10 Essential (primary) hypertension; F17.200 Nicotine dependence, unspecified, uncomplicated
CPT/HCPCS: 0241U; 36415; 71045; 80048; 80076; 85025; 99283; 99284

== ENCOUNTER 2021-10-06 23:08 | Emergency (ER) | payer OTHER, SELFPAY ==
--- NOTE | ~2021-10-06 | XR_ITS ---
EXAMINATION: XR KNEE, RIGHT CLINICAL INFORMATION: Fall. Pain. COMPARISON: None TECHNIQUE: AP, oblique, lateral views of the right knee. FINDINGS: Images are suboptimal secondary to large body habitus and oblique orientation. No fractures or acute appearing subluxations are identified. No definitive joint effusion noted. Mild enthesopathic changes of the patella are visualized. Mild joint space narrowing of the medial compartment is identified. Mild osteophytosis of the medial tibial plateau is noted. XR/XR knee RT 2V IMPRESSION: -No acute abnormalities identified. -Mild osteoarthritis of the medial compartment.
[2021-10-06 23:42] VITALS: BP 189/114; PULSE 85; RESP 20; TEMP 36.6; O2SAT 97; BMI 94.8
--- NOTE | 2021-10-07 02:30 | ED.FALL ---
HPI - Fall General Chief Complaint: Fall Stated Complaint: fall Time Seen by Provider: 10/07/21 00:37 Source: patient Mode of arrival: EMS History of Present Illness HPI Narrative: This is a 36-year-old male who presents via EMS after a fall at [facility]. He denies any loss of consciousness and on being transported by EMS the stretcher that the patient was on tipped to the side and patient fell onto his knees. He currently complains of right knee pain but was noted to be singing and laughing during triage. Patient reports mild pain to bilateral knees. Related Data Home Medications Medication Instructions Recorded Confirmed lamotrigine 25 mg tablet 50 mg PO BID 11/17/20 07/20/21 Previous Rx's Medication Instructions Recorded nicotine (polacrilex) 2 mg gum 2 mg BUCCAL Q2H PRN #50 ea 06/04/21 docusate sodium 100 mg capsule 100 mg PO BID PRN #14 cap 06/05/21 (Colace) polyethylene glycol 3350 17 17 g PO DAILY #238 g 06/05/21 gram/dose oral powder (Miralax) albuterol sulfate 90 mcg/actuation 1 inh INHALATION QID PRN #6.7 g 07/22/21 aerosol inhaler amlodipine 10 mg tablet 10 mg PO DAILY #30 tab 07/22/21 bupropion HCl 150 mg tablet,12 hr 300 mg PO DAILY 30 Days #60 tab 07/22/21 sustained-release (Wellbutrin SR) duloxetine 30 mg capsule,delayed 30 mg PO DAILY 30 Days #30 cap 07/22/21 release furosemide 20 mg tablet (Lasix) 20 mg PO QAM #30 tab 07/22/21 hydralazine 50 mg tablet 50 mg PO TID 30 Days #90 tab 07/22/21 lisinopril 40 mg tablet 40 mg PO DAILY #30 tab 07/22/21 metoprolol tartrate 50 mg tablet 50 mg PO BID #60 tab 07/22/21 omeprazole magnesium 10 mg oral 20 mg PO DAILY #30 ea 07/22/21 suspension,delayed release (Prilosec) walker #1 ea 07/22/21 tramadol 50 mg tablet 50 mg PO Q6H PRN #20 tab 08/28/21 albuterol sulfate 90 mcg/actuation 2 puff INHALATION Q4-6H PRN #8.5 g 09/24/21 aerosol inhaler (Ventolin HFA) Allergies Allergy/AdvReac Type Severity Reaction Status Date / Time No Known Allergies Allergy Verified 09/24/21 11:44 [No Known Allergies*] Review of Systems Review of Systems: Pertinent positives and negatives as stated in HPI 10 point review of systems is otherwise negative. [facility] Past Medical History Source: nursing notes reviewed Medical History Anxiety Bipolar disorder Depression Hypertension Lymph edema Morbid obesity Obesity hypoventilation syndrome PTSD (post-traumatic stress disorder) Sleep apnea in adult Testicle pain Social History Social History Household Members: None Housing: House Housing Other:: motel Do you presently have visiting nurse or other home services: No Alcohol intake: never Patient Tobacco Use Status: Current everyday Tobacco user Tobacco use type: Cigarette Cigarettes Per Day: 6 Second Hand Smoke Exposure: No Substance Use Type: Marijuana Advance Directives: Yes Advance Directives on File: Yes Advance Directives Date on File: 06/27/21 service: No Current occupational status: unemployed Physical Exam Vital Signs: Vital Signs: Last Vital Signs Temp 97.8 F 10/06/21 23:42 Pulse 85 10/06/21 23:42 Resp 20 10/06/21 23:42 BP 180/102 H 10/07/21 02:55 Pulse Ox 97 10/06/21 23:42 Body Mass Index 94.8 VITAL SIGNS: Reviewed. GENERAL: Morbidly obese, in no acute distress. HEAD: Normocephalic/atraumatic EYES: PERRLA, EOMI OROPHARYNX: no oral lesions noted, posterior pharynx clear NECK: Supple, no adenopathy LUNGS: Normal breath sounds. No adventitious sounds or accessory muscle use. SpO2<97> CARDIOVASCULAR: Regular rate and rhythm without noted murmurs, no JVD or lower extremity edema. ABDOMEN: Unable to appropriately perform clinical exam due to patient's body habitus, but grossly there are no injuries. Clinical exam of bilateral lower extremities limited by body habitus but grossly appear to be within normal range. NEUROLOGIC: Alert and oriented x 4. Strength and sensation to light touch were grossly intact x 4. Course Course Course Narrative: This is a 36-year-old male with history and clinical presentation consistent with minor fall, provided with combination analgesics as well as medication for his blood pressure. Review of all investigations otherwise negative for acute findings and patient is stable for discharge home. Discharge Plan Discharge Clinical Impression: Fall, Bilateral knee pain Patient Disposition: Home, Self-Care Instructions: Knee Pain (ED) Additional Instructions: Return to the ER for worsening symptoms. Prescriptions: No Action lamotrigine 25 mg tablet 50 mg PO BID RF: 0 nicotine (polacrilex) 2 mg Gum 2 mg buccal Q2H PRN (Reason: Nicotine Cravings) Qty: 50 RF: 0 docusate sodium [Colace] 100 mg capsule 100 mg PO BID PRN (Reason: Constipation) Qty: 14 RF: 0 polyethylene glycol 3350 [Miralax] 17 gram/dose powder 17 g PO DAILY Qty: 238 RF: 0 hydralazine 50 mg Tablet 50 mg PO TID 30 Days Qty: 90 RF: 0 furosemide [Lasix] 20 mg tablet 20 mg PO QAM Qty: 30 RF: 0 bupropion HCl [Wellbutrin SR] 150 mg Tablet Sustained-Release 12 Hr 300 mg PO DAILY 30 Days Qty: 60 RF: 0 amlodipine 10 mg tablet 10 mg PO DAILY Qty: 30 RF: 0 metoprolol tartrate 50 mg tablet 50 mg PO BID Qty: 60 RF: 0 albuterol sulfate 90 mcg/actuation HFA aerosol inhaler 1 inh inhalation QID PRN (Reason: shortness of breath or wheezing) Qty: 6.7 RF: 0 lisinopril 40 mg tablet 40 mg PO DAILY Qty: 30 RF: 0 duloxetine 30 mg capsule,delayed release(DR/EC) 30 mg PO DAILY 30 Days Qty: 30 RF: 0 Prilosec 10 mg susp,delayed release for recon 20 mg PO DAILY Qty: 30 RF: 0 (DME) walker Misc See Rx Instructions .Route Qty: 1 RF: 0 tramadol 50 mg tablet 50 mg PO Q6H PRN (Reason: pain) Qty: 20 RF: 0 albuterol sulfate [Ventolin HFA] 90 mcg/actuation HFA aerosol inhaler 2 puff inhalation Q4-6H PRN (Reason: shortness of breath or wheezing) Qty: 8.5 RF: 0
[2021-10-07] MEDS: Acetaminophen 325 MG TABLET 975 MG PO (02:54)
[2021-10-07] MEDS: Ibuprofen 400 MG TABLET PO (02:54)
[2021-10-07 02:55] VITALS: BP 180/102
[2021-10-07] MEDS: amLODIPine Besylate 10 MG TABLET PO (02:55)
== END 2021-10-07 07:10 | disposition home or self-care (01) ==
PROVIDERS: Emergency Provider Student in an Organized Health Care Education/Training Program
DX: M25.562 Pain in left knee (principal); M25.561 Pain in right knee; Z91.81 History of falling; I10 Essential (primary) hypertension; E66.01 Morbid (severe) obesity due to excess calories
CPT/HCPCS: 73560; 99283

== ENCOUNTER 2021-10-27 19:55 | Emergency (ER) | payer OTHER, SELFPAY ==
[2021-10-27 20:12] VITALS: BP 210/120; PULSE 84; O2SAT 94
--- NOTE | 2021-10-27 20:32 | MHC.CARE ---
CARE team contacted [facility] to confirm that pt was evaluated at [address] and is an active inpt psych bedsearch.
[2021-10-27 20:36] VITALS: BP 164/88; PULSE 86; RESP 16; TEMP 36.9; O2SAT 99; BMI 209.0
--- NOTE | 2021-10-27 22:08 | ED.PSYCH ---
HPI - Psych General Chief Complaint: Psychiatric Symptoms Stated Complaint: FAILURE TO THRIVE/SECTION 12 Time Seen by Provider: 10/27/21 20:41 Source: patient Mode of arrival: EMS History of Present Illness HPI Narrative: Patient morbidly obese weighing 680 lb brought via EMS for increased depression suicidal homicidal poor living conditions been here multiple times for similar reasons patient was Section 12 by and plan for inpatient psych Related Data Home Medications Medication Instructions Recorded Confirmed lamotrigine 25 mg tablet 50 mg PO BID 11/17/20 07/20/21 Previous Rx's Medication Instructions Recorded nicotine (polacrilex) 2 mg gum 2 mg BUCCAL Q2H PRN #50 ea 06/04/21 docusate sodium 100 mg capsule 100 mg PO BID PRN #14 cap 06/05/21 (Colace) polyethylene glycol 3350 17 17 g PO DAILY #238 g 06/05/21 gram/dose oral powder (Miralax) albuterol sulfate 90 mcg/actuation 1 inh INHALATION QID PRN #6.7 g 07/22/21 aerosol inhaler amlodipine 10 mg tablet 10 mg PO DAILY #30 tab 07/22/21 bupropion HCl 150 mg tablet,12 hr 300 mg PO DAILY 30 Days #60 tab 07/22/21 sustained-release (Wellbutrin SR) duloxetine 30 mg capsule,delayed 30 mg PO DAILY 30 Days #30 cap 07/22/21 release furosemide 20 mg tablet (Lasix) 20 mg PO QAM #30 tab 07/22/21 hydralazine 50 mg tablet 50 mg PO TID 30 Days #90 tab 07/22/21 lisinopril 40 mg tablet 40 mg PO DAILY #30 tab 07/22/21 metoprolol tartrate 50 mg tablet 50 mg PO BID #60 tab 07/22/21 omeprazole magnesium 10 mg oral 20 mg PO DAILY #30 ea 07/22/21 suspension,delayed release (Prilosec) ignacio #1 ea 07/22/21 tramadol 50 mg tablet 50 mg PO Q6H PRN #20 tab 08/28/21 albuterol sulfate 90 mcg/actuation 2 puff INHALATION Q4-6H PRN #8.5 g 09/24/21 aerosol inhaler (Ventolin HFA) Allergies Allergy/AdvReac Type Severity Reaction Status Date / Time No Known Allergies Allergy Verified 09/24/21 11:44 [No Known Allergies*] Review of Systems Review of Systems: Yes all other systems are reviewed and are negative [facility] Past Medical History Medical History Anxiety Bipolar disorder Depression Hypertension Lymph edema Morbid obesity Obesity hypoventilation syndrome PTSD (post-traumatic stress disorder) Sleep apnea in adult Testicle pain Social History Social History Household Members: None Housing: House Housing Other:: motel Do you presently have visiting nurse or other home services: No Alcohol intake: never Patient Tobacco Use Status: Current everyday Tobacco user Tobacco use type: Cigarette Cigarettes Per Day: 6 Second Hand Smoke Exposure: No Substance Use Type: Marijuana Advance Directives: Yes Advance Directives on File: Yes Advance Directives Date on File: 06/27/21 service: No Current occupational status: unemployed Physical Exam Vital Signs: Vital Signs: Last Vital Signs Temp 99.0 F 10/28/21 05:53 Pulse 77 10/28/21 05:53 Resp 18 10/28/21 05:53 BP 185/110 H 10/28/21 05:53 Pulse Ox 91 L 10/28/21 05:53 BMI result Body Mass Index 209.0 Appearance: Alert. Oriented X3. No acute distress. Morbidly obese ENT: Pharynx normal. Oral Mucosa moist Neck: Normal inspection. Neck supple. CVS: Normal heart rate and rhythm. Pulses normal. Respiratory: No respiratory distress. Equal air entry bilateral, no wheezing/rales/rhonchi Abdomen: Soft and nontender. Bowel sounds are present, no mass palpable, Skin: Skin warm and dry. Normal skin color. Normal skin turgor. Extremities: No lower extremity edema. No calf tenderness Psych: feel depressed intermittently crying denies any suicidal ideation or homicidal feeling at this time no hallucination patient very dramatic Neuro: Oriented X 3. No motor deficit. No sensory deficit.No cerebellar signs , cranial nerves II-XII intact Discharge Plan Discharge Clinical Impression: Morbidly obese Bipolar disorder Qualifiers: Active/Remission status: currently active Current bipolar episode type: mixed Current episode severity: moderate Qualified Code(s): F31.62 - Bipolar disorder, current episode mixed, moderate Prescriptions: No Action lamotrigine 25 mg tablet 50 mg PO BID RF: 0 nicotine (polacrilex) 2 mg Gum 2 mg buccal Q2H PRN (Reason: Nicotine Cravings) Qty: 50 RF: 0 docusate sodium [Colace] 100 mg capsule 100 mg PO BID PRN (Reason: Constipation) Qty: 14 RF: 0 polyethylene glycol 3350 [Miralax] 17 gram/dose powder 17 g PO DAILY Qty: 238 RF: 0 hydralazine 50 mg Tablet 50 mg PO TID 30 Days Qty: 90 RF: 0 furosemide [Lasix] 20 mg tablet 20 mg PO QAM Qty: 30 RF: 0 bupropion HCl [Wellbutrin SR] 150 mg Tablet Sustained-Release 12 Hr 300 mg PO DAILY 30 Days Qty: 60 RF: 0 amlodipine 10 mg tablet 10 mg PO DAILY Qty: 30 RF: 0 metoprolol tartrate 50 mg tablet 50 mg PO BID Qty: 60 RF: 0 albuterol sulfate 90 mcg/actuation HFA aerosol inhaler 1 inh inhalation QID PRN (Reason: shortness of breath or wheezing) Qty: 6.7 RF: 0 lisinopril 40 mg tablet 40 mg PO DAILY Qty: 30 RF: 0 duloxetine 30 mg capsule,delayed release(DR/EC) 30 mg PO DAILY 30 Days Qty: 30 RF: 0 Prilosec 10 mg susp,delayed release for recon 20 mg PO DAILY Qty: 30 RF: 0 (DME) walker Misc See Rx Instructions .Route Qty: 1 RF: 0 tramadol 50 mg tablet 50 mg PO Q6H PRN (Reason: pain) Qty: 20 RF: 0 albuterol sulfate [Ventolin HFA] 90 mcg/actuation HFA aerosol inhaler 2 puff inhalation Q4-6H PRN (Reason: shortness of breath or wheezing) Qty: 8.5 RF: 0
[2021-10-27 23:07] VITALS: BP 168/72; PULSE 82; RESP 16; TEMP 37; O2SAT 99
--- NOTE | 2021-10-28 00:48 | PC.NURSE ---
Pavel presents to the ED via EMS, sent as a section 12 due to Si and HI. Pavel tell me, on arrival, that he has been at a local hotel and prior to arrival to ED today he was evaluated by [facility] crisis and admitted to SI and HI. He states he does not have a plan of how he would act on either the SI or the HI. On arrival to ED he is calm, cooperative and able to smile and laugh with me. He makes appropriate eye contact. He is taking PO food and fluids without difficulty. He has no complaints of pain, respirations are non-labored. 1:1 remains at the bedside with him. We will continue to monitor Pavel.
--- NOTE | 2021-10-28 04:43 | PC.NURSE ---
There have been no changes since Pavel's arrival. He has been sleeping in bed, 1:1 at bedside. He wakes to loud verbal stimuli and has been frequently requesting food. He is taking PO food and fluids without difficulty. Speech clear and appropriate. pt has been calm and cooperative with staff. no respiratory distress. Pavel will often call me in the room to tell me something but he falls back to sleep after starting a sentence. This has happened multiple times throughout the night. I have taken care of Pavel many times in the past and this is consistent with his baseline.
[2021-10-28 05:53] VITALS: BP 185/110; PULSE 77; RESP 18; TEMP 37.2; O2SAT 91
[2021-10-28 07:01] VITALS: BP 175/121; PULSE 74; RESP 18; TEMP 36.7; O2SAT 90
[2021-10-28 07:12] LABS: COVID-19 Test Negative (Negative)
--- NOTE | 2021-10-28 08:02 | PC.NURSE ---
SMART SHEET SENT
[2021-10-28 08:50] VITALS: BMI 94.8
[2021-10-28 09:00] VITALS: BP 187/109; PULSE 86; TEMP 36.8; O2SAT 90
--- NOTE | 2021-10-28 12:23 | MHC.CARE ---
CARE Team meets with pt and reviews [facility] assessment. Pt was transported to the ED from his motel room in [place], [place] where he was assessed by mobile crisis team. Pt endorsed vague SI/HI at the time and was observed to be struggling with attending to ADLs. Pt is very well know to this older adult social work specialist through numerous past assessments. CARE Team meets with pt in bed 17. He is asleep and is difficult to wake. Pt wakes and is able to minimally engage with older adult social work specialist. Pt appears to be at his baseline. He states that he would like to be discharged and denies SI/HI. Pt states that he feels safe to return to his motel at this time and engage in outpatient treatment. Per [facility] assessment, pt has not been attending to ADLs. Pt has been observed over a long period of time to struggle with ADLs, which is likely made more difficult by his current size and residing in a small space. Pt denies having accommodations for ADLs at the motel. Pt is encouraged to attend PHP, which he is currently ambivalent about. He also does not currently have a phone with minutes, but agrees to have the phone number to PHP. He states that he has internet access so he is able to make calls and participate via zoom, he just cannot receive calls. Plan is for pt to be discharged back to his motel room with info for PHP. Pt has demonstrated an ability to access mobile crisis as needed, and agrees he will do so in the future if depression worsens. Pt demonstrates a pattern of difficulty following up with outpatient recommendations, and states he does not have current providers outpatient. CARE Team recommends to patient that now that he has stable housing after a long period of homelessness, that he try and maintain outpatient relationships to manage his ongoing depression. CARE Team attempts to call CHD worker, but this is not a working number (provided by [facility] assessment). CARE Team speaks with [facility] supervisor shed workers, Jessi, who is not opposed to disposition change as long as attending agrees. CARE Team speaks with Dr. Banuelos, who agrees with plan for discharge. CM to arrange transport.
--- NOTE | 2021-10-28 18:02 | MHC.CM.ED ---
CM received request from nursing to help arrange transportation to [facility] for this patient. Pt normally takes the hospital van. No van service at that time. Pt has [facility] insurance. Per [facility], they had no chair van or ambulance transportation for this patient. Pt weighs 677 lbs. CM spent 45 minutes on the telephone with [facility]. CM spoke with nursing fabrication supervisor. Will call local ambulances. [facility], [facility], [facility] and [facility] are unable to provide transportation secondary to body habitus and non-emergent need. CM reached out to Ava Tam who suggested I try security. Spoke with Ervin from [employer] who will provide transportation for the well known patient to his room at the [place] [address] [address] [facility] in [place]. Pt aware.
== END 2021-10-28 14:40 | disposition home or self-care (01) ==
PROVIDERS: Emergency Provider Internal Medicine
DX: F31.62 Bipolar disorder, current episode mixed, moderate (principal); I10 Essential (primary) hypertension; E66.01 Morbid (severe) obesity due to excess calories; Z68.45 Body mass index [BMI] 70 or greater, adult; Z20.822 Contact with and (suspected) exposure to COVID-19
CPT/HCPCS: 36415; 87635; 99283; 99285

== ENCOUNTER 2022-01-22 12:28 | Emergency (ER) | payer OTHER, MEDICAID, SELFPAY ==
--- NOTE | 2022-01-22 13:05 | PC.NURSE ---
REFUSED TRIAGE STATED HE IS LEAVING, WALKED FROM AMBULANCE TO BATHROOM WITHOUT DIFFICULTY. WALKED TO WAITING ROOM AND TO GET A BUS WITHOUT DIFFICULTY
== END 2022-01-22 17:07 | disposition left against medical advice (07) ==
PROVIDERS: Emergency Provider Emergency Medicine
DX: M54.9 Dorsalgia, unspecified (principal)
CPT/HCPCS: 99281

== ENCOUNTER 2022-03-06 16:04 | Emergency (ER) | payer OTHER, MEDICAID, SELFPAY ==
[2022-03-06 16:23] VITALS: PULSE 90; RESP 22; TEMP 37; O2SAT 94; BMI 89.8
[2022-03-06 16:36] VITALS: BP 129/95; PULSE 89; O2SAT 95
[2022-03-06 16:41] VITALS: BP 199/105; PULSE 90; RESP 20; O2SAT 92
--- NOTE | 2022-03-06 16:51 | ED_ITS ---
HPI - Abdominal Pain General Chief Complaint: Abdominal Pain Stated Complaint: abdominal pain Time Seen by Provider: 03/06/22 16:23 History of Present Illness HPI narrative: Patient is a 36-year-old male presents today with having abdominal pain for last hours epigastric in nature not associated with any nausea vomiting diarrhea. Patient in fact is very hungry. He weighs over 600 lb. He has a history of sleep apnea. History of community-acquired pneumonia. Denies any coughing co ngestion upper respiratory symptoms. Denies any new shortness of breath. Denies any change in bowel movement patient in fact had a bowel movement in emergency department is normal in consistency. The pain is any epigastric area is nonradiating. Patient is from home. Related Data Home Medications Medication Instructions Recorded Confirmed lamotrigine 25 mg tablet 50 mg PO BID 11/17/20 07/20/21 Previous Rx's Medication Instructions Recorded nicotine (polacrilex) 2 mg gum 2 mg BUCCAL Q2H PRN #50 ea 06/04/21 docusate sodium 100 mg capsule 100 mg PO BID PRN #14 cap 06/05/21 (Colace) polyethylene glycol 3350 17 17 g PO DAILY #238 g 06/05/21 gram/dose oral powder (Miralax) albuterol sulfate 90 mcg/actuation 1 inh INHALATION QID PRN #6.7 g 07/22/21 aerosol inhaler amlodipine 10 mg tablet 10 mg PO DAILY #30 tab 07/22/21 bupropion HCl 150 mg tablet,12 hr 300 mg PO DAILY 30 Days #60 tab 07/22/21 sustained-release (Wellbutrin SR) duloxetine 30 mg capsule,delayed 30 mg PO DAILY 30 Days #30 cap 07/22/21 release furosemide 20 mg tablet (Lasix) 20 mg PO QAM #30 tab 07/22/21 hydralazine 50 mg tablet 50 mg PO TID 30 Days #90 tab 07/22/21 lisinopril 40 mg tablet 40 mg PO DAILY #30 tab 07/22/21 metoprolol tartrate 50 mg tablet 50 mg PO BID #60 tab 07/22/21 omeprazole magnesium 10 mg oral 20 mg PO DAILY #30 ea 07/22/21 suspension,delayed release (Prilosec) walker #1 ea 07/22/21 tramadol 50 mg tablet 50 mg PO Q6H PRN #20 tab 08/28/21 albuterol sulfate 90 mcg/actuation 2 puff INHALATION Q4-6H PRN #8.5 g 09/24/21 aerosol inhaler (Ventolin HFA) Allergies Allergy/AdvReac Type Severity Reaction Status Date / Time No Known Allergies Allergy Verified 09/24/21 11:44 [No Known Allergies*] Review of Systems Review of Systems No chest pain or shortness of breath no nausea no vomiting no diaphoresis. Yes all other systems are reviewed and are negative [facility] Past Medical History Attestation statement: The following information was validated with the patient. Medical History Anxiety Bipolar disorder Depression Hypertension Lymph edema Morbid obesity Obesity hypoventilation syndrome PTSD (post-traumatic stress disorder) Sleep apnea in adult Testicle pain Social History Social History Household Members: None Housing: House Housing Other:: motel Do you presently have visiting nurse or other home services: No Alcohol intake: never Patient Tobacco Use Status: Current everyday Tobacco user Tobacco use type: Cigarette Cigarettes Per Day: 6 Second Hand Smoke Exposure: No Substance Use Type: Marijuana Advance Directives: Yes Advance Directives on File: Yes Advance Directives Date on File: 06/27/21 service: No Current occupational status: unemployed Physical Exam ED Vital Signs: Vital Signs - 24 hr 03/06/22 16:23 03/06/22 16:41 Temperature 98.6 F Pulse Rate 90 90 Respiratory Rate 22 H 20 Blood Pressure 199/105 H Pulse Oximetry 94 92 BMI result Body Mass Index 89.8 Appearance: Alert. Oriented X3. No acute distress. Eyes: Pupils equal, round and reactive to light. ENT: Pharynx normal. Neck: Normal inspection. Neck supple. No lymph nodes noted. No crepitus CVS: Normal heart rate and rhythm. Pulses normal. Normal S1 and S2 Respiratory: No respiratory distress. Breath sounds normal. No Wheezing. No rales Abdomen: Soft and nontender. No rigidity. No distention. good BS x4 Skin: Skin warm and dry. Normal skin color. Normal skin turgor. Extremities: No lower extremity edema. Neurovascular intact to all extremities. No Lacerations. No Rash Neuro: Oriented X 3. No motor deficit. No sensory deficit. Moving all extermities. No slurred speech MDM - Abdominal Pain MDM Narrative Medical decision making narrative: Well appearing no acute distress. Repeat abdominal exam is soft nontender. Abdominal pain has resolved. Labs unremarkable. Will have patient follow-up. Question gastritis this patient had a large meal prior to coming patient is still hungry. Differential Diagnosis Differential diagnosis: Likely abdominal pain Medical Records Attestation: I reviewed the patient's medical records. Lab Data Result diagrams: 03/06/22 17:05 03/06/22 17:05 Labs: Lab Results 03/06/22 03/06/22 Range/Units 17:05 17:05 WBC 7.1 (4.8-10.8) X10*3/uL RBC 4.49 L (4.60-5.80) X10*6/uL Hgb 12.0 L (14.0-18.0) g/dl Hct 40.2 L (42.0-52.0) % MCV 89.5 (80.0-98.0) fL MCH 26.7 L (27.0-33.0) pg MCHC 29.9 L (31.0-36.0) g/dl RDW 13.8 (11.0-16.0) % Plt Count 194 (160-400) X10*3/uL MPV 11.8 (9.4-12.4) fL Immature Gran % (Auto) 0.3 (0.0-0.4) % Neut % (Auto) 72.6 (45-73) % Lymph % (Auto) 13.7 L (20-40) % [place] % (Auto) 9.3 (2-11) % Eos % (Auto) 3.8 (0-4) % Baso % (Auto) 0.3 (0-2) % Lymph # (Auto) 1.0 L (1.2-4.9) X10*3/uL [place] # (Auto) 0.7 (0.1-1.2) X10*3/uL Eos # (Auto) 0.3 (0.0-0.4) X10*3/uL Baso # (Auto) 0.0 (0.0-0.2) X10*3/uL Abs Immat Gran (auto) 0.02 (0.00-0.03) X10*3/uL Absolute Neuts (auto) 5.2 (2.0-8.3) x10*3/uL Absolute Nucleated RBC 0.000 (0.0-0.012) X10*3/uL Nucleated RBC % (auto) 0.0 (0.0-0.2) /100WBC Sodium 141 (135-145) mmol/L Potassium 3.8 (3.3-5.1) mmol/L Chloride 103 (96-108) mmol/L Carbon Dioxide 29 (22-29) mmol/L Anion Gap 13 (12-20) BUN 16 (9-16) mg/dL Creatinine 1.14 (0.5-1.4) mg/dL Estim Creat Clear Calc 197.2 Estimated GFR > 60 Random Glucose 141 H (60-115) mg/dL Calcium 8.8 D (8.4-10.2) mg/dL Total Bilirubin 0.3 (0.0-1.0) mg/dL Direct Bilirubin 0.2 (0.0-0.5) mg/dL AST 21 D (5-37) U/L ALT 24 (0-40) U/L Alkaline Phosphatase 93 (39-117) U/L Total Protein 8.2 H (6.5-8.0) g/dL Albumin 3.9 (3.5-5.0) g/dL Lipase 44 (8-78) U/L Discharge Plan Discharge Clinical Impression: Abdominal pain Patient Disposition: Home, Self-Care Instructions: Abdominal Pain (ED) Prescriptions: No Action lamotrigine 25 mg tablet 50 mg PO BID 0RF nicotine (polacrilex) 2 mg Gum 2 mg buccal Q2H PRN (Reason: Nicotine Cravings) Qty: 50 0RF docusate sodium [Colace] 100 mg capsule 100 mg PO BID PRN (Reason: Constipation) Qty: 14 0RF polyethylene glycol 3350 [Miralax] 17 gram/dose powder 17 g PO DAILY Qty: 238 0RF hydralazine 50 mg Tablet 50 mg PO TID 30 Days Qty: 90 0RF Protocol: Hold for SBP< HOLD for SBP < : 90 furosemide [Lasix] 20 mg tablet 20 mg PO QAM Qty: 30 0RF bupropion HCl [Wellbutrin SR] 150 mg Tablet Sustained-Release 12 Hr 300 mg PO DAILY 30 Days Qty: 60 0RF amlodipine 10 mg tablet 10 mg PO DAILY Qty: 30 0RF metoprolol tartrate 50 mg tablet 50 mg PO BID Qty: 60 0RF albuterol sulfate 90 mcg/actuation HFA aerosol inhaler 1 inh inhalation QID PRN (Reason: shortness of breath or wheezing) Qty: 6.7 0RF lisinopril 40 mg tablet 40 mg PO DAILY Qty: 30 0RF duloxetine 30 mg capsule,delayed release(DR/EC) 30 mg PO DAILY 30 Days Qty: 30 0RF Prilosec 10 mg susp,delayed release for recon 20 mg PO DAILY Qty: 30 0RF (DME) ignacio Misc See Rx Instructions .Route Qty: 1 0RF Rx Instructions: As directed tramadol 50 mg tablet 50 mg PO Q6H PRN (Reason: pain) Qty: 20 0RF albuterol sulfate [Ventolin HFA] 90 mcg/actuation HFA aerosol inhaler 2 puff inhalation Q4-6H PRN (Reason: shortness of breath or wheezing) Qty: 8.5 0RF Referrals: Physician,Unknown J [Primary Care Provider] -
[2022-03-06 17:09] LABS: MANUAL DIFF FLAG NO
[2022-03-06 17:10] LABS: Basophils Percent Auto 0.3 % (0-2); Eosinophils Absolute Auto 0.3 X10*3/uL (0.0-0.4); Eosinophils Percent Auto 3.8 % (0-4); Hematocrit 40.2 % (42.0-52.0); Imm Gran Abs Auto 0.02 X10*3/uL (0.00-0.03); Imm Gran Pct Auto 0.3 % (0.0-0.4); Lymphocytes Percent Auto 13.7 % (20-40); Mean Corpuscular HGB Conc 29.9 g/dl (31.0-36.0); Mean Corpuscular Hemoglobin 26.7 pg (27.0-33.0); Mean Corpuscular Volume 89.5 fL (80.0-98.0); Mean Platelet Volume 11.8 fL (9.4-12.4); Monocytes Absolute Auto 0.7 X10*3/uL (0.1-1.2); Monocytes Percent Auto 9.3 % (2-11); Neutrophils Absolute Auto 5.2 x10*3/uL (2.0-8.3); Neutrophils Percent Auto 72.6 % (45-73); Platelet Count 194 X10*3/uL (160-400); Red Blood Count 4.49 X10*6/uL (4.60-5.80); Red Cell Distribution Width 13.8 % (11.0-16.0); White Blood Count 7.1 X10*3/uL (4.8-10.8)
[2022-03-06 17:25] LABS: Alanine Aminotransferase 24 U/L (0-40); Albumin Level 3.9 g/dL (3.5-5.0); Alkaline Phosphatase 93 U/L (39-117); Anion Gap 13 (12-20); Aspartate Amino Transferase 21 U/L (5-37); Bilirubin Direct 0.2 mg/dL (0.0-0.5); Bilirubin Total 0.3 mg/dL (0.0-1.0); Blood Urea Nitrogen 16 mg/dL (9-16); Calcium 8.8 mg/dL (8.4-10.2); Carbon Dioxide 29 mmol/L (22-29); Chloride 103 mmol/L (96-108); Creatinine Clr Calc Pharmacy 197.2; Estimated Glomerular Filt Rate > 60; Glucose Random 141 mg/dL (60-115); Lipase 44 U/L (8-78); Potassium 3.8 mmol/L (3.3-5.1); Sodium 141 mmol/L (135-145); Total Protein 8.2 g/dL (6.5-8.0)
[2022-03-06] MEDS: Magnesium Hydrox/Alum Hydrox 30 ML ORAL.SUSP PO (17:42)
== END 2022-03-06 18:15 | disposition home or self-care (01) ==
PROVIDERS: Emergency Provider Emergency Medicine Emergency Medical Services
DX: R10.13 Epigastric pain (principal); I10 Essential (primary) hypertension; F17.210 Nicotine dependence, cigarettes, uncomplicated
CPT/HCPCS: 36415; 80048; 80076; 83690; 85025; 99283

== ENCOUNTER 2022-04-12 17:24 | Emergency (ER) | payer OTHER, MEDICAID, SELFPAY ==
[2022-04-12 17:42] VITALS: BP 150/88; PULSE 96; O2SAT 96; BMI 87.2
--- NOTE | 2022-04-12 19:06 | ED_ITS ---
HPI - General Adult General Chief complaint: General Medical Stated complaint: VOLUNTARY CRISIS,CALM/COOP PER EMS Time Seen by Provider: 04/12/22 18:13 Source: patient Mode of arrival: ambulatory Limitations: no limitations History of Present Illness HPI narrative: 37-year-old morbidly obese male presents to ED wanting transport back to [place] [address]. Patient was visiting his friend last night in [place] and his best friend cannot give him a ride back to [place] [address] in [place]. The patient called the ambulance him to be brought to [place] ER seeking give transport to go back to [place] [address]. Patient has no physical complaints. Related Data Home Medications Medication Instructions Recorded Confirmed lamotrigine 25 mg tablet 50 mg PO BID 11/17/20 07/20/21 Previous Rx's Medication Instructions Recorded nicotine (polacrilex) 2 mg gum 2 mg BUCCAL Q2H PRN #50 ea 06/04/21 docusate sodium 100 mg capsule 100 mg PO BID PRN #14 cap 06/05/21 (Colace) polyethylene glycol 3350 17 17 g PO DAILY #238 g 06/05/21 gram/dose oral powder (Miralax) albuterol sulfate 90 mcg/actuation 1 inh INHALATION QID PRN #6.7 g 07/22/21 aerosol inhaler amlodipine 10 mg tablet 10 mg PO DAILY #30 tab 07/22/21 bupropion HCl 150 mg tablet,12 hr 300 mg PO DAILY 30 Days #60 tab 07/22/21 sustained-release (Wellbutrin SR) duloxetine 30 mg capsule,delayed 30 mg PO DAILY 30 Days #30 cap 07/22/21 release furosemide 20 mg tablet (Lasix) 20 mg PO QAM #30 tab 07/22/21 hydralazine 50 mg tablet 50 mg PO TID 30 Days #90 tab 07/22/21 lisinopril 40 mg tablet 40 mg PO DAILY #30 tab 07/22/21 metoprolol tartrate 50 mg tablet 50 mg PO BID #60 tab 07/22/21 omeprazole magnesium 10 mg oral 20 mg PO DAILY #30 ea 07/22/21 suspension,delayed release (Prilosec) walker #1 ea 07/22/21 tramadol 50 mg tablet 50 mg PO Q6H PRN #20 tab 08/28/21 albuterol sulfate 90 mcg/actuation 2 puff INHALATION Q4-6H PRN #8.5 g 09/24/21 aerosol inhaler (Ventolin HFA) Allergies Allergy/AdvReac Type Severity Reaction Status Date / Time No Known Allergies Allergy Verified 09/24/21 11:44 [No Known Allergies*] Review of Systems Review of Systems: Yes all other systems are reviewed and are negative [facility] Past Medical History Medical History Anxiety Bipolar disorder Depression Hypertension Lymph edema Morbid obesity Obesity hypoventilation syndrome PTSD (post-traumatic stress disorder) Sleep apnea in adult Testicle pain Social History Social History Household Members: None Housing: House Housing Other:: motel Do you presently have visiting nurse or other home services: No Alcohol intake: never Patient Tobacco Use Status: Current everyday Tobacco user Tobacco use type: Cigarette Cigarettes Per Day: 6 Second Hand Smoke Exposure: No Substance Use Type: Marijuana Advance Directives: Yes Advance Directives on File: Yes Advance Directives Date on File: 06/27/21 service: No Current occupational status: unemployed Physical Exam ED Vital Signs: Vital Signs - 24 hr 04/12/22 19:15 Temperature 98.3 F Pulse Rate 93 Respiratory Rate 16 Blood Pressure 156/93 H Pulse Oximetry 92 BMI result Body Mass Index 87.2 Const General: cooperative, healthy appearing, comfortable, no acute distress, well developed, alert, awake and Physically active Orientation/consciousness: patient oriented x3 HENMT Head: Yes normal to inspection, Yes No palpable skull fracture present, Yes normocephalic, Yes atraumatic and No abrasion Eyes General: appearance normal, both eyes and all related structures Neck Neck: Yes normal visual inspection, Yes full ROM, Yes no lymphadenopathy, Yes no meningeal signs, Yes trachea midline, Yes supple, No anterior neck swelling and No tender Chest Chest palpation & inspection: normal inspection of the chest and normal palpation of entire chest wall Resp Effort & Inspection: normal respiratory effort and able to speak in complete sentences Auscultation: clear to auscultation bilaterally Cardio Jugular venous distension: no JVD Heart sounds: S1 normal heart sound present and S2 normal heart sound present GI Inspection: Yes normal to inspection and No abdominal wall ecchymosis Palpation (GI): Soft to palpation, not firm, nontender, no guarding and not rigid General: No CVA tenderness and Yes no CVA tenderness Back/Spine/Pelvis Back: no CVA tenderness, No CVA tenderness and No back tenderness Skin General skin exam: no rashes or lesions noted and elasticity normal Neuro General: patient oriented x3, gait normal, no meningeal signs and CN's II-XI intact bilaterally Cranial nerves: Yes CN's II-XII intact bilaterally Extrem Other: chronic lower extremity lymphedema General: Yes normal to inspection and Yes full ROM Psych Appearance: grossly normal, well kempt and not disheveled Course Course Course Narrative: Will try to get patient transfer. No medical evaluation needed. Reevaluation(s) Reevaluation #1: Case Management Yolande got patient an Uber ride back to [place] [address]. 02 saturation on monitor was 96% before discharge.. Initial 92 % reading was positional and not accurate due to patient being morbidly obese and laying flat. Lungs clear and patient is not in any respiratory distress. Time: 19:30 Discharge Plan Discharge Clinical Impression: Normal exam Patient Disposition: Home, Self-Care Instructions: Normal Exam (ED) Additional Instructions: You are being given transport back to [place] [address] program. Return to the ED for any physical complaints, psychological complaints, or any other concerning symptoms. Please follow-up with the primary care provider Prescriptions: No Action lamotrigine 25 mg tablet 50 mg PO BID 0RF nicotine (polacrilex) 2 mg Gum 2 mg buccal Q2H PRN (Reason: Nicotine Cravings) Qty: 50 0RF docusate sodium [Colace] 100 mg capsule 100 mg PO BID PRN (Reason: Constipation) Qty: 14 0RF polyethylene glycol 3350 [Miralax] 17 gram/dose powder 17 g PO DAILY Qty: 238 0RF hydralazine 50 mg Tablet 50 mg PO TID 30 Days Qty: 90 0RF Protocol: Hold for SBP< HOLD for SBP < : 90 furosemide [Lasix] 20 mg tablet 20 mg PO QAM Qty: 30 0RF bupropion HCl [Wellbutrin SR] 150 mg Tablet Sustained-Release 12 Hr 300 mg PO DAILY 30 Days Qty: 60 0RF amlodipine 10 mg tablet 10 mg PO DAILY Qty: 30 0RF metoprolol tartrate 50 mg tablet 50 mg PO BID Qty: 60 0RF albuterol sulfate 90 mcg/actuation HFA aerosol inhaler 1 inh inhalation QID PRN (Reason: shortness of breath or wheezing) Qty: 6.7 0RF lisinopril 40 mg tablet 40 mg PO DAILY Qty: 30 0RF duloxetine 30 mg capsule,delayed release(DR/EC) 30 mg PO DAILY 30 Days Qty: 30 0RF Prilosec 10 mg susp,delayed release for recon 20 mg PO DAILY Qty: 30 0RF (DME) walker Misc See Rx Instructions .Route Qty: 1 0RF Rx Instructions: As directed tramadol 50 mg tablet 50 mg PO Q6H PRN (Reason: pain) Qty: 20 0RF albuterol sulfate [Ventolin HFA] 90 mcg/actuation HFA aerosol inhaler 2 puff inhalation Q4-6H PRN (Reason: shortness of breath or wheezing) Qty: 8 .5 0RF Interventions: ED Discharge Assessment Last Done: 04/12/22 19:15 Discharge Date/Time: 04/12/22 19:16 Print Language: Sinhala
[2022-04-12 19:15] VITALS: BP 156/93; PULSE 93; RESP 16; TEMP 36.8; O2SAT 92
--- NOTE | 2022-04-12 19:26 | MHC.CM.ED ---
Pt hima to provide transportation home. Per Sergey YOUNGBLOOD, pt has no money. Lift ordered for patient to [facility].
== END 2022-04-12 19:16 | disposition home or self-care (01) ==
PROVIDERS: Emergency Provider Internal Medicine; PCP Family Medicine
DX: Z71.1 Person with feared health complaint in whom no diagnosis is made (principal); Z72.89 Other problems related to lifestyle; Z59.01 Sheltered homelessness; E66.01 Morbid (severe) obesity due to excess calories; I10 Essential (primary) hypertension
CPT/HCPCS: 99282

== ENCOUNTER 2022-04-22 01:59 | Emergency (ER) | payer OTHER, MEDICAID, SELFPAY ==
[2022-04-22 02:15] VITALS: BP 138/74; BP 175/85; PULSE 82; PULSE 90; RESP 20; TEMP 36.9; O2SAT 96; O2SAT 98; BMI 84.8
--- NOTE | 2022-04-22 02:21 | PC.NURSE ---
pt a&o, no sob or chest pain. pt reporting no vision change. Pt has had to be directed multiple time to lay properly in his bed. Pt attempting to roll off the bed.
--- NOTE | 2022-04-22 03:38 | ED.GENADULT ---
HPI - General Adult General Chief complaint: Eye Problems Stated complaint: EYE PAIN X3DAYS Time Seen by Provider: 04/22/22 03:30 Source: patient and EMS Mode of arrival: EMS History of Present Illness HPI narrative: Patient comes emergency room complaining of forehead pressure for 3 days. Patient states he does not have any sinus pain, no eye pain, mild light sensitivity. Patient denies chest pain or shortness of breath. Patient states that he has been unable to sleep for several days. Patient denies visual changes, no blurred vision, no double vision. Related Data Home Medications Medication Instructions Recorded Confirmed lamotrigine 25 mg tablet 50 mg PO BID 11/17/20 07/20/21 Previous Rx's Medication Instructions Recorded nicotine (polacrilex) 2 mg gum 2 mg buccal Q2H PRN Nicotine 06/04/21 Cravings #50 ea docusate sodium 100 mg capsule 100 mg PO BID PRN Constipation #14 06/05/21 (Colace) caps polyethylene glycol 3350 17 17 g PO DAILY Constipation #238 06/05/21 gram/dose oral powder (Miralax) grams albuterol sulfate 90 mcg/actuation 1 inh inhalation QID PRN shortness 07/22/21 aerosol inhaler of breath or wheezing #6.7 grams amlodipine 10 mg tablet 10 mg PO DAILY #30 tabs 07/22/21 bupropion HCl 150 mg tablet,12 hr 300 mg PO DAILY 30 days #60 tabs 07/22/21 sustained-release (Wellbutrin SR) duloxetine 30 mg capsule,delayed 30 mg PO DAILY 30 days #30 caps 07/22/21 release furosemide 20 mg tablet (Lasix) 20 mg PO QAM #30 tabs 07/22/21 hydralazine 50 mg tablet 50 mg PO TID 30 days #90 tabs 07/22/21 lisinopril 40 mg tablet 40 mg PO DAILY #30 tabs 07/22/21 metoprolol tartrate 50 mg tablet 50 mg PO BID #60 tabs 07/22/21 omeprazole magnesium 10 mg oral 20 mg PO DAILY #30 ea 07/22/21 suspension,delayed release (Prilosec) walker #1 ea 07/22/21 tramadol 50 mg tablet 50 mg PO Q6H PRN pain #20 tabs 08/28/21 albuterol sulfate 90 mcg/actuation 2 puff inhalation Q4-6H PRN 09/24/21 aerosol inhaler (Ventolin HFA) shortness of breath or wheezing #8.5 grams Allergies Allergy/AdvReac Type Severity Reaction Status Date / Time No Known Allergies Allergy Verified 09/24/21 11:44 [No Known Allergies*] Review of Systems Review of Systems: Constitutional : No Weight loss, No Fever, No Chills, No Night Sweats, No Fatigue, No Malaise ENT/Mouth : No Hearing loss, No Ear Pain, No Nasal Congestion, No Sinus Pain, No Hoarseness, No sore throat, No Rhinorrhea, No Swallowing Difficulty Eyes: No Eye Pain, No Swelling, No Redness, No Foreign Body, No Discharge, No Vision Changes Cardiovascular : No Chest Pain, No SOB, No Dyspnea on Exertion, No Orthopnea, No Edema, No Palpitations Respiratory : No Cough, No Sputum, No Wheezing, No Smoke Exposure, No Dyspnea Gastrointestinal : No Nausea, No Vomiting, No Diarrhea, No Constipation, No abdominal Pain, No Hematochezia, No Melena Genitourinary : no irregular bleeding, No Dysuria, No Urinary Frequency, No Hematuria, No Urinary Incontinence, No Urgency, No Flank Pain, No Urinary Flow Changes, No Hesitancy Musculoskeletal : No joint pain, No Myalgias, No Joint Swelling Skin : No Skin Lesions, No rash Neuro : No Weakness, No Numbness, No Paresthesias, No Loss of Consciousness, No Dizziness, complaining of forehead pain Psych : No Anxiety/Panic, No Depression, No SI/HI/AH/VH, No Social Issues, Heme/Lymph: No Bruising, No Bleeding,No Lymphadenopathy Endocrine : No Polyuria, No Polydipsia, No Temperature Intolerance [facility] Past Medical History Medical History Anxiety Bipolar disorder Depression Hypertension Lymph edema Morbid obesity Obesity hypoventilation syndrome PTSD (post-traumatic stress disorder) Sleep apnea in adult Testicle pain Social History Social History Household Members: None Housing: House Housing Other:: motel Do you presently have visiting nurse or other home services: No Alcohol intake: never Patient Tobacco Use Status: Never used Tobacco Tobacco use type: Cigarette Cigarettes Per Day: 6 Second Hand Smoke Exposure: No Use of substances other than those prescribed or required for medical reasons: No Substance Use Type: Marijuana Advance Directives: Yes Advance Directives on File: Yes Advance Directives Date on File: 06/27/21 service: No Current occupational status: unemployed Physical Exam ED Vital Signs: Vital Signs - 24 hr 04/22/22 02:15 Temperature 98.4 F Pulse Rate 82 Respiratory Rate 20 Blood Pressure 175/85 H Pulse Oximetry 96 Oxygen Delivery Method Room Air BMI result Body Mass Index 84.8 Const Other: Appearance: Alert. Oriented X3. No acute distress. Well-appearing Eyes: Pupils equal, round and reactive to light. ENT: Pharynx normal. Neck: Normal inspection. Neck supple. No lymph nodes noted. No crepitus CVS: Normal heart rate and rhythm. Pulses normal. Normal S1 and S2 Respiratory: No respiratory distress. Breath sounds normal. No Wheezing. No rales Abdomen: Soft and nontender. No rigidity. No distention. Skin: Skin warm and dry. Normal skin color. Normal skin turgor. Extremities: No lower extremity edema. No Lacerations. No Rash Neuro: Oriented X 3. No motor deficit. No sensory deficit. Moving all extremities. No slurred speech. CN 2 through 12 grossly intact Psych: calm, cooperative, normal affect Course Course Course Narrative: Patient was given Tylenol. Before I was able to see the patient, patient had slept for a while, patient states that this sleep makes him feel better. Discharge Plan Discharge Clinical Impression: Headache Patient Disposition: Home, Self-Care Instructions: Acute Headache (ED) Additional Instructions: Please follow-up with your primary care physician tomorrow. If you have any worsening or new symptoms, please return to the emergency room or call 911 Prescriptions: No Action lamotrigine 25 mg tablet 50 mg PO BID nicotine (polacrilex) 2 mg Gum 2 mg buccal Q2H PRN (Reason: Nicotine Cravings) Qty: 50 0RF docusate sodium [Colace] 100 mg capsule 100 mg PO BID PRN (Reason: Constipation) Qty: 14 0RF polyethylene glycol 3350 [Miralax] 17 gram/dose powder 17 g PO DAILY Qty: 238 0RF hydralazine 50 mg Tablet 50 mg PO TID 30 Days Qty: 90 0RF Protocol: Hold for SBP< HOLD for SBP < : 90 furosemide [Lasix] 20 mg tablet 20 mg PO QAM Qty: 30 0RF bupropion HCl [Wellbutrin SR] 150 mg Tablet Sustained-Release 12 Hr 300 mg PO DAILY 30 Days Qty: 60 0RF amlodipine 10 mg tablet 10 mg PO DAILY Qty: 30 0RF metoprolol tartrate 50 mg tablet 50 mg PO BID Qty: 60 0RF albuterol sulfate 90 mcg/actuation HFA aerosol inhaler 1 inh inhalation QID PRN (Reason: shortness of breath or wheezing) Qty: 6.7 0RF lisinopril 40 mg tablet 40 mg PO DAILY Qty: 30 0RF duloxetine 30 mg capsule,delayed release(DR/EC) 30 mg PO DAILY 30 Days Qty: 30 0RF Prilosec 10 mg susp,delayed release for recon 20 mg PO DAILY Qty: 30 0RF (SAMAN) ignacio Caballeroc See Rx Instructions .Route Qty: 1 0RF Rx Instructions: As directed tramadol 50 mg tablet 50 mg PO Q6H PRN (Reason: pain) Qty: 20 0RF albuterol sulfate [Ventolin HFA] 90 mcg/actuation HFA aerosol inhaler 2 puff inhalation Q4-6H PRN (Reason: shortness of breath or wheezing) Qty: 8.5 0RF
[2022-04-22] MEDS: Acetaminophen 325 MG TABLET 975 MG PO (03:43)
== END 2022-04-22 04:03 | disposition home or self-care (01) ==
PROVIDERS: Emergency Provider Emergency Medicine
DX: R51.9 Headache, unspecified (principal); I10 Essential (primary) hypertension; F12.90 Cannabis use, unspecified, uncomplicated
CPT/HCPCS: 99283

== ENCOUNTER 2022-05-14 04:57 | Emergency (ER) | payer OTHER, SELFPAY ==
[2022-05-14 05:07] VITALS: BP 158/119; PULSE 84; RESP 30; O2SAT 88; BMI 87.0
[2022-05-14 05:19] VITALS: TEMP 36.6
[2022-05-14 06:02] VITALS: BP 143/87; PULSE 86; RESP 26; O2SAT 96
[2022-05-14 06:19] LABS: Ethanol < 10 mg/dL
--- NOTE | 2022-05-14 06:58 | ED_ITS ---
HPI - Psych General Chief Complaint: Psychiatric Symptoms Stated Complaint: SI Time Seen by Provider: 05/14/22 05:45 Source: patient Mode of arrival: EMS Limitations: no limitations History of Present Illness MD complaint: suicidal ideation and feels depressed Onset (ago): month(s) Duration: intermittent History of same: Yes Relieving factors: none Exacerbating factors: none Context: significant life stressor Associated psychiatric symptoms: depression and suicidal ideation Associated symptoms: denies other symptoms Treatments prior to arrival: none If self harm: admits thoughts of self harm Related Data Home Medications Medication Instructions Recorded Confirmed lamotrigine 25 mg tablet 50 mg PO BID 11/17/20 07/20/21 Previous Rx's Medication Instructions Recorded nicotine (polacrilex) 2 mg gum 2 mg buccal Q2H PRN Nicotine 06/04/21 Cravings #50 ea docusate sodium 100 mg capsule 100 mg PO BID PRN Constipation #14 06/05/21 (Colace) caps polyethylene glycol 3350 17 17 g PO DAILY Constipation #238 06/05/21 gram/dose oral powder (Miralax) grams albuterol sulfate 90 mcg/actuation 1 inh inhalation QID PRN shortness 07/22/21 aerosol inhaler of breath or wheezing #6.7 grams amlodipine 10 mg tablet 10 mg PO DAILY #30 tabs 07/22/21 bupropion HCl 150 mg tablet,12 hr 300 mg PO DAILY 30 days #60 tabs 07/22/21 sustained-release (Wellbutrin SR) duloxetine 30 mg capsule,delayed 30 mg PO DAILY 30 days #30 caps 07/22/21 release furosemide 20 mg tablet (Lasix) 20 mg PO QAM #30 tabs 07/22/21 hydralazine 50 mg tablet 50 mg PO TID 30 days #90 tabs 07/22/21 lisinopril 40 mg tablet 40 mg PO DAILY #30 tabs 07/22/21 metoprolol tartrate 50 mg tablet 50 mg PO BID #60 tabs 07/22/21 omeprazole magnesium 10 mg oral 20 mg PO DAILY #30 ea 07/22/21 suspension,delayed release (Prilosec) walker #1 ea 07/22/21 tramadol 50 mg tablet 50 mg PO Q6H PRN pain #20 tabs 08/28/21 albuterol sulfate 90 mcg/actuation 2 puff inhalation Q4-6H PRN 09/24/21 aerosol inhaler (Ventolin HFA) shortness of breath or wheezing #8.5 grams Allergies Allergy/AdvReac Type Severity Reaction Status Date / Time No Known Allergies Allergy Verified 09/24/21 11:44 [No Known Allergies*] Review of Systems Review of Systems: Constitutional : No Fever, No Chills ENT/Mouth : No Ear Pain, No Nasal Congestion, No sore throat Eyes: No Eye Pain, No Swelling, No Redness Cardiovascular : No Chest Pain, No SOB Respiratory : No Cough, No Sputum, No Dyspnea Gastrointestinal : No Nausea, No Vomiting, No Diarrhea, No Hematochezia, No Melena Genitourinary : No Dysuria, No Urinary Frequency, No Hematuria Musculoskeletal : No Myalgias Skin : No Skin Lesions, No rash Neuro : No Weakness, No Numbness, No Paresthesias, No Dizziness, No Headache Psych : positive Anxiety, positive Depression, positive SI no HI Heme/Lymph: No Lymphadenopathy Endocrine : No Polyuria, No Polydipsia All other systems reviewed and are negative [facility] Past Medical History Attestation statement: The following information was validated with the patient. Medical History Anxiety Bipolar disorder Depression Hypertension Lymph edema Morbid obesity Obesity hypoventilation syndrome PTSD (post-traumatic stress disorder) Sleep apnea in adult Testicle pain Social History Social History Household Members: None Housing: House Housing Other:: motel Do you presently have visiting nurse or other home services: No Alcohol intake: never Patient Tobacco Use Status: Current everyday Tobacco user Tobacco use type: Cigarette Cigarettes Per Day: 6 Smoked in Last 30 Days: Yes Second Hand Smoke Exposure: No Use of substances other than those prescribed or required for medical reasons: No Substance Use Type: Marijuana Advance Directives: Yes Advance Directives on File: Yes Advance Directives Date on File: 06/27/21 service: No Current occupational status: unemployed Physical Exam Vital Signs: Vital Signs: Last Vital Signs Temp 97.9 F 05/14/22 05:19 Pulse 86 05/14/22 06:02 Resp 26 H 05/14/22 06:02 BP 143/87 H 05/14/22 06:02 Pulse Ox 96 05/14/22 06:02 O2 Del Method 05/14/22 06:02 O2 Flow Rate 2 05/14/22 06:02 BMI result Body Mass Index 87.0 Appearance: Alert. Oriented X3. No acute distress. Eyes: Pupils equal, round and reactive to light. ENT: Pharynx normal. Neck: Normal inspection. Neck supple. CVS: Normal heart rate and rhythm. Pulses normal. Respiratory: No respiratory distress. Breath sounds normal. Abdomen: Soft and nontender. Morbidly obese Skin: Skin warm and dry. Normal skin color. Normal skin turgor. Extremities: bilateral pitting lower extremity edema. Neuro: Oriented X 3. No motor deficit. No sensory deficit. CN2-12 intact Course Course Course Narrative: after sleeping all night patient now awake at breakfast, recants SI, has no plan was very passive on arrival without plan at this time he denies he wants to harm himself. Hx of same in past with recanting his SI MDM - Psych MDM Narrative Medical decision making narrative: 37 yo male with hx of depression, morbid obesity, chronic resp failure, REBECCA, non compliance here with c/o being in crisis with vague SI - at this time will obtain drug screen and refer to [facility] Lab Data Labs: Lab Results 05/14/22 05/14/22 Range/Units 05:50 07:10 Ethyl Alcohol < 10 mg/dL COVID-19 ([facility]BI) Negative (Negative) COVID-19 Clin Com See Note Discharge Plan Discharge Clinical Impression: Depression Qualifiers: Depression Type: unspecified Qualified Code(s): F32.A - Depression, unspecified Patient Disposition: Home, Self-Care Instructions: Depression (ED) Additional Instructions: return to ED for any worsening symptoms or concerns Prescriptions: No Action lamotrigine 25 mg tablet 50 mg PO BID nicotine (polacrilex) 2 mg Gum 2 mg buccal Q2H PRN (Reason: Nicotine Cravings) Qty: 50 0RF docusate sodium [Colace] 100 mg capsule 100 mg PO BID PRN (Reason: Constipation) Qty: 14 0RF polyethylene glycol 3350 [Miralax] 17 gram/dose powder 17 g PO DAILY Qty: 238 0RF hydralazine 50 mg Tablet 50 mg PO TID 30 Days Qty: 90 0RF Protocol: Hold for SBP< HOLD for SBP < : 90 furosemide [Lasix] 20 mg tablet 20 mg PO QAM Qty: 30 0RF bupropion HCl [Wellbutrin SR] 150 mg Tablet Sustained-Release 12 Hr 300 mg PO DAILY 30 Days Qty: 60 0RF amlodipine 10 mg tablet 10 mg PO DAILY Qty: 30 0RF metoprolol tartrate 50 mg tablet 50 mg PO BID Qty: 60 0RF albuterol sulfate 90 mcg/actuation HFA aerosol inhaler 1 inh inhalation QID PRN (Reason: shortness of breath or wheezing) Qty: 6.7 0RF lisinopril 40 mg tablet 40 mg PO DAILY Qty: 30 0RF duloxetine 30 mg capsule,delayed release(DR/EC) 30 mg PO DAILY 30 Days Qty: 30 0RF Prilosec 10 mg susp,delayed release for recon 20 mg PO DAILY Qty: 30 0RF (SAMAN) ignacio [place] See Rx Instructions .Route Qty: 1 0RF Rx Instructions: As directed tramadol 50 mg tablet 50 mg PO Q6H PRN (Reason: pain) Qty: 20 0RF albuterol sulfate [Ventolin HFA] 90 mcg/actuation HFA aerosol inhaler 2 puff inhalation Q4-6H PRN (Reason: shortness of breath or wheezing) Qty: 8.5 0RF
[2022-05-14 07:29] LABS: COVID-19 Test Negative (Negative); IDNOW Serial# 16C4AD1C
--- NOTE | 2022-05-14 10:58 | MHC.CARE ---
Pt is a 37 y/o, single, Yoruba speaking, male who is previously known to the CARE Team through prior ED visits.? Today, pt presented to the ED via ambulance with a complaint of aches and pains.? He comes to this facility from [facility] [address] in [place].? [place] [employer] called the Emergency room stating that pt had made vague SI statements.? Pt has a hx of depression and health complications.? No known hx of substance use or suicide attempts.? PT is assessed in his room in the Main ED.? Pt is asleep, snoring loudly, and has a noticeable startle response when his name is called.? Pt is alert and oriented x4.? He is engaged in the risk assessment.? His eye contact is unremarkable.? His speech is mumbled, and very difficult to understand.? He is asked to speak clearer many times during the risk assessment.? Pt reports that he has come to this facility as he has physical aches and pains.? When questioned about crisis, pt denies being in crisis but states that he has been ?Stressed?.? He does not go into detail about the stressors stating only that it is ?Lots of different things.?? Pt reports fair sleep and a good appetite and stated that he has not been given any food yet since he arrived at the ED.? He requests a tuna sandwich.? He denies AVH, SI, HI, , and self-harm urges.? Insight, memory, judgement, concentration and impulse control appear fair. CARE Team contacts pt?s sill worker Angel Donovan ([phone]) to gather collateral information.? Pt is currently at [facility] [address] in [place] which has been made a [facility] [place].? He is followed by Dr. Pickering with friends of the homeless.? Pt?s case will soon be turned over to Natalie Angel, a stabilization counselor through [employer].? Pt is presently in transition between Mr. Donovan and Ms. Angel ([phone]) who are both following him during this time.? Pt is presently in the process of transitioning out of the [facility] [place] [facility] [place] and into an independent living environment so housing will be more stable.? He has an appointment for an open house this evening at [address] [place] [address].? Pt attends regular zoom therapy sessions and is transitioning into a 1 on 1 face to face therapy environment.? This [facility] happen at [facility] in [place].? He presently sees a visiting nurse as well. Pt was placed on alert with [facility] and a safety plan was put in place. Pt does not appear to be a Risk. Plan is for pt to be discharged home to follow up with current providers. This plan was discussed with and agreed upon by Manager [employer] [facility] Karly CONTI, and ED Provider Dr Crews. Triggers: 1.?Feelings of Anger, and being overwhelmed? STEP 2:? INTERNAL COPING STRATEGIES-THINGS I CAN DO TO TAKE MY MIND OFF MY PROBLEMS WITHOUT CONTACTING ANOTHER PERSON: 1.?Being around animals? 2.?Good food? STEP 3:? PEOPLE AND SOCIAL SETTINGS THAT PROVIDE DISTRACTION: 1.? Name:? Movies ? Contact: ? 2.? Name:? Being around other people? Contact: ? STEP 4:? PEOPLE WHOM I CAN ASK FOR HELP DURING A CRISIS: 1.? Name:? Natalie Angel Stabilization coordinator, [facility]? Contact: ? 2.? Name:? Angel Plant, Dry Man [facility]? Contact: ? STEP 5:? PROFESSIONAL OR AGENCIES I CAN CONTACT DURING A CRISIS 1.??? Clinician/Agency Name:? [facility]- [phone], [place], [place] Emergency Contact:? 2.??? Clinician/Agency Name:? [facility]- [phone], [address], [place] Emergency Contact:? 3.??? Clinician/Agency Name:? [facility] Crisis- [phone] Emergency Contact:? [facility] ED, [address] [facility]. [address]. [phone] Suicide Prevention Lifeline Phone: [phone] STEP 6:? MAKING THE NVIRONMENT SAFER (PLAN FOR LETHAL MEANS SAFETY): 1.? Remove sharps and other potentially harmful objects from your area.? Tell your staff.?
== END 2022-05-14 11:28 | disposition home or self-care (01) ==
PROVIDERS: Student in an Organized Health Care Education/Training Program; Emergency Provider Emergency Medicine
DX: F32.A Depression, unspecified (principal); R45.851 Suicidal ideations; Z20.822 Contact with and (suspected) exposure to COVID-19; I10 Essential (primary) hypertension; E66.01 Morbid (severe) obesity due to excess calories; F17.200 Nicotine dependence, unspecified, uncomplicated; F12.90 Cannabis use, unspecified, uncomplicated; Z79.899 Other long term (current) drug therapy
CPT/HCPCS: 36415; 82077; 87635; 99284

== ENCOUNTER 2022-05-15 06:00 | Emergency (ER) | payer OTHER, SELFPAY ==
--- NOTE | 2022-05-15 06:17 | PC.NURSE ---
Pt was brought to [facility] ER by ambulance, pt was then brought to waiting room for triage, pt was then helped by EMS staff to get off of the stretcher and pt let himself slip to the floor. nAeudy KNOWLES the nursing fiberline supervisor and Ramona KNOWLES the charge nurse then came out to talk to the patient because he was sitting in the waiting room refusing to get up off the floor to be traiged. Aneudy the nursing fiberline supervisor is now talking to the patient to see how to resolve the situation.
--- NOTE | 2022-05-15 06:22 | PC.NURSE ---
pt was laying on the floor in the waiting room with the help of chief transfer and pumphouse operator pt was able to get himself up and into the wheelchair. pt stated to Aneudy that he doesnt need to be seen. pt did get into the wheelchair with no assist.
--- NOTE | 2022-05-15 06:23 | PC.NURSE ---
Pt told Aneudy the nursing steam fitter supervisor maintenance that he wants a ride home. Aneudy is trying to arrange this for him. Pt will not be triaged at this time.
== END 2022-05-15 18:24 | disposition left against medical advice (07) ==
PROVIDERS: Emergency Provider Emergency Medicine
DX: R19.7 Diarrhea, unspecified (principal)

== ENCOUNTER 2022-06-22 23:46 | Emergency (ER) | payer OTHER, SELFPAY ==
--- NOTE | 2022-06-22 23:56 | ED.GENADULT ---
HPI - General Adult General Chief complaint: General Medical Stated complaint: general body pain Time Seen by Provider: 06/22/22 23:56 Source: patient Mode of arrival: EMS Limitations: no limitations History of Present Illness HPI narrative: This is a 37-year-old male past medical history significant for morbid obesity, depression presenting to the emergency department via ambulance with no medical complaints. Patient tells [place] and he was hungry and so he needed an ambulance to take him back home however the ambulance did not take him back home they brought him to the emergency department for further evaluation and treatment. Patient tells me his only concern that he is hungry and would like a few sandwiches and a drink. Denies medical complaints at this time. I did go through a full review of systems with patient all of which was negative. Patient ambulating with steady gait. Related Data Home Medications Medication Instructions Recorded Confirmed lamotrigine 25 mg tablet 50 mg PO BID 11/17/20 07/20/21 Previous Rx's Medication Instructions Recorded nicotine (polacrilex) 2 mg gum 2 mg buccal Q2H PRN Nicotine 06/04/21 Cravings #50 ea docusate sodium 100 mg capsule 100 mg PO BID PRN Constipation #14 06/05/21 (Colace) caps polyethylene glycol 3350 17 17 g PO DAILY Constipation #238 06/05/21 gram/dose oral powder (Miralax) grams albuterol sulfate 90 mcg/actuation 1 inh inhalation QID PRN shortness 07/22/21 aerosol inhaler of breath or wheezing #6.7 grams amlodipine 10 mg tablet 10 mg PO DAILY #30 tabs 07/22/21 bupropion HCl 150 mg tablet,12 hr 300 mg PO DAILY 30 days #60 tabs 07/22/21 sustained-release (Wellbutrin SR) duloxetine 30 mg capsule,delayed 30 mg PO DAILY 30 days #30 caps 07/22/21 release furosemide 20 mg tablet (Lasix) 20 mg PO QAM #30 tabs 07/22/21 hydralazine 50 mg tablet 50 mg PO TID 30 days #90 tabs 07/22/21 lisinopril 40 mg tablet 40 mg PO DAILY #30 tabs 07/22/21 metoprolol tartrate 50 mg tablet 50 mg PO BID #60 tabs 07/22/21 omeprazole magnesium 10 mg oral 20 mg PO DAILY #30 ea 07/22/21 suspension,delayed release (Prilosec) walker #1 ea 07/22/21 tramadol 50 mg tablet 50 mg PO Q6H PRN pain #20 tabs 08/28/21 albuterol sulfate 90 mcg/actuation 2 puff inhalation Q4-6H PRN 09/24/21 aerosol inhaler (Ventolin HFA) shortness of breath or wheezing #8.5 grams Allergies Allergy/AdvReac Type Severity Reaction Status Date / Time No Known Allergies Allergy Verified 09/24/21 11:44 [No Known Allergies*] Review of Systems Review of Systems: Constitutional : No Weight loss, No Fever, No Chills, No Fatigue, No Malaise ENT/Mouth : No sore throat, No Rhinorrhea Eyes: No Eye Pain, No Swelling, No Redness Cardiovascular : No Chest Pain, No SOB, No Dyspnea on Exertion, No Orthopnea, No Edema, No Palpitations Respiratory : No Cough, No Sputum, No Wheezing Gastrointestinal : No Nausea, No Vomiting, No Diarrhea, No Constipation, No abdominal Pain, No Hematochezia, No Melena Genitourinary : No Dysuria, No Urinary Frequency, No Hematuria, Musculoskeletal : No joint pain, No Myalgias, No Joint Swelling Skin : No Skin Lesions, No rash Neuro : No Weakness, No Numbness, No Dizziness, No Headache Psych : No Anxiety/Panic, No Depression All other systems reviewed and are negative Yes all other systems are reviewed and are negative [facility] Past Medical History Attestation statement: The following information was validated with the patient. Source: old records reviewed and nursing notes reviewed Medical History Anxiety Bipolar disorder Depression Hypertension Lymph edema Morbid obesity Obesity hypoventilation syndrome PTSD (post-traumatic stress disorder) Sleep apnea in adult Testicle pain Social History Social History Household Members: None Housing: House Housing Other:: motel Do you presently have visiting nurse or other home services: No Alcohol intake: never Patient Tobacco Use Status: Current everyday Tobacco user Tobacco use type: Cigarette Cigarettes Per Day: 6 Second Hand Smoke Exposure: No Substance Use Type: Marijuana Advance Directives: Yes Advance Directives on File: Yes Advance Directives Date on File: 06/27/21 service: No Current occupational status: unemployed Physical Exam ED Vital Signs: Vital Signs - 24 hr 06/22/22 23:59 Temperature 98.1 F Pulse Rate 84 Respiratory Rate 16 Blood Pressure 147/75 H Pulse Oximetry 98 Oxygen Delivery Method Room Air BMI result Body Mass Index 94.8 VSS Appearance: Alert.? Oriented X3.? No acute distress.? Head: Normocephalic, atraumatic, no step-offs or deformities Eyes: Pupils equal, round and reactive to light.? ENT: Pharynx normal.? Neck: Normal inspection.? Neck supple.? CVS: Normal heart rate and rhythm.? Pulses normal.? Respiratory: No respiratory distress.? Breath sounds normal.? Abdomen: Soft and nontender.? Skin: Skin warm and dry.? Normal skin color.? Normal skin turgor.? Extremities: No lower extremity edema.? No calf ttp. 5/5 strength to bilateral upper and lower extremities Back: No midline tenderness, no C-spine tenderness, full range of motion, no CVA tenderness bilaterally Neuro: Oriented X 3.? No motor deficit.? No sensory deficit. CN 2-12 intact Course Reevaluation(s) Reevaluation #1: Patient will be discharged home. At this time I feel comfortable with discharge. Time: 00:10 Medical Decision Making MDM Narrative Medical decision making narrative: 0000 37-year-old male presents requesting a ride home via ambulance, his only complaint at this time is that he is hungry and would like a sandwich and a soda. Physical examination benign Plan at this time is to feed patient and discharge him back home. Medical Records Medical records reviewed: Yes I reviewed the patient's medical records. Lab Data Lab results reviewed: Yes I reviewed the patient's lab results. Critical Care Time Critical Care Time Critical Care Time: No Discharge Plan Discharge Clinical Impression: Hungry Patient Disposition: Home, Self-Care Additional Instructions: Take your medications as prescribed. If you were prescribed antibiotics today, it is important that you take your medication to their entirety, do not skip any doses, do not finish them early. Follow-up with your primary care provider this week. Return to the emergency department with new or worsening symptoms. In case of emergency call 911 911 is for emergencies not for a ride home Prescriptions: No Action lamotrigine 25 mg tablet 50 mg PO BID nicotine (polacrilex) 2 mg Gum 2 mg buccal Q2H PRN (Reason: Nicotine Cravings) Qty: 50 0RF docusate sodium [Colace] 100 mg capsule 100 mg PO BID PRN (Reason: Constipation) Qty: 14 0RF polyethylene glycol 3350 [Miralax] 17 gram/dose powder 17 g PO DAILY Qty: 238 0RF hydralazine 50 mg Tablet 50 mg PO TID 30 Days Qty: 90 0RF Protocol: Hold for SBP< HOLD for SBP < : 90 furosemide [Lasix] 20 mg tablet 20 mg PO QAM Qty: 30 0RF bupropion HCl [Wellbutrin SR] 150 mg Tablet Sustained-Release 12 Hr 300 mg PO DAILY 30 Days Qty: 60 0RF amlodipine 10 mg tablet 10 mg PO DAILY Qty: 30 0RF metoprolol tartrate 50 mg tablet 50 mg PO BID Qty: 60 0RF albuterol sulfate 90 mcg/actuation HFA aerosol inhaler 1 inh inhalation QID PRN (Reason: shortness of breath or wheezing) Qty: 6.7 0RF lisinopril 40 mg tablet 40 mg PO DAILY Qty: 30 0RF duloxetine 30 mg capsule,delayed release(DR/EC) 30 mg PO DAILY 30 Days Qty: 30 0RF Prilosec 10 mg susp,delayed release for recon 20 mg PO DAILY Qty: 30 0RF (DME) walker Misc See Rx Instructions .Route Qty: 1 0RF Rx Instructions: As directed tramadol 50 mg tablet 50 mg PO Q6H PRN (Reason: pain) Qty: 20 0RF albuterol sulfate [Ventolin HFA] 90 mcg/actuation HFA aerosol inhaler 2 puff inhalation Q4-6H PRN (Reason: shortness of breath or wheezing) Qty: 8.5 0RF Referrals: ED Physician,Generic [Physician] - 2 days
[2022-06-22 23:59] VITALS: BP 147/75; PULSE 84; RESP 16; TEMP 36.7; O2SAT 98; BMI 94.8
== END 2022-06-23 00:21 | disposition home or self-care (01) ==
PROVIDERS: Emergency Provider Internal Medicine
DX: T73.0XXA Starvation, initial encounter (principal); X58.XXXA Exposure to other specified factors, initial encounter; E66.01 Morbid (severe) obesity due to excess calories; Z68.45 Body mass index [BMI] 70 or greater, adult; F17.210 Nicotine dependence, cigarettes, uncomplicated; F12.90 Cannabis use, unspecified, uncomplicated
CPT/HCPCS: 99282

== ENCOUNTER 2022-08-22 10:04 | Emergency (ER) | payer OTHER, SELFPAY ==
--- NOTE | ~2022-08-22 | XR_ITS ---
EXAMINATION: XR TIBIA AND FIBULA, RIGHT CLINICAL INFORMATION: Leg bones. COMPARISON: None TECHNIQUE: AP and lateral views of the right tibia and fibula were obtained. FINDINGS: There is soft tissue lower leg edema with phleboliths. No periosteal thickening, erosive changes or bony abnormality. Small retrocalcaneal and calcaneal enthesophytes are seen. XR/XR tibia fibula RT 2V IMPRESSION: Unremarkable right tibia and fibula. There is moderate right lower leg edema with several phleboliths.
--- NOTE | 2022-08-22 10:17 | ED_ITS ---
HPI - Wound/Laceration General Chief Complaint: Wound/Laceration Stated Complaint: RT LEG PAIN D/T PUNCTURE WOUNDS Time Seen by Provider: 08/22/22 10:14 Source: patient and EMS Mode of arrival: EMS Limitations: no limitations History of Present Illness HPI narrative: 37 yo male with history of morbid obesity, bipolar disorder, depression, anxiety, hypertension, PTSD, REBECCA, CHF, pre-diabetes who is intermittently c ompliant comes from the [facility] with complaints of wounds to the right lower leg which he has noticed x 3 days. No fevers, chills. Denies injury or trauma. Reports LE swelling but unchanged from his baseline. Does have some pain described as burning to the wounds. No SOB, CP. Related Data Home Medications Medication Instructions Recorded Confirmed lamotrigine 25 mg tablet 50 mg PO BID 11/17/20 07/20/21 Previous Rx's Medication Instructions Recorded nicotine (polacrilex) 2 mg gum 2 mg buccal Q2H PRN Nicotine 06/04/21 Cravings #50 ea docusate sodium 100 mg capsule 100 mg PO BID PRN Constipation #14 06/05/21 (Colace) caps polyethylene glycol 3350 17 17 g PO DAILY Constipation #238 06/05/21 gram/dose oral powder (Miralax) grams albuterol sulfate 90 mcg/actuation 1 inh inhalation QID PRN shortness 07/22/21 aerosol inhaler of breath or wheezing #6.7 grams amlodipine 10 mg tablet 10 mg PO DAILY #30 tabs 07/22/21 bupropion HCl 150 mg tablet,12 hr 300 mg PO DAILY 30 days #60 tabs 07/22/21 sustained-release (Wellbutrin SR) duloxetine 30 mg capsule,delayed 30 mg PO DAILY 30 days #30 caps 07/22/21 release furosemide 20 mg tablet (Lasix) 20 mg PO QAM #30 tabs 07/22/21 hydralazine 50 mg tablet 50 mg PO TID 30 days #90 tabs 07/22/21 lisinopril 40 mg tablet 40 mg PO DAILY #30 tabs 07/22/21 metoprolol tartrate 50 mg tablet 50 mg PO BID #60 tabs 07/22/21 omeprazole magnesium 10 mg oral 20 mg PO DAILY #30 ea 07/22/21 suspension,delayed release (Prilosec) ignacio #1 ea 07/22/21 tramadol 50 mg tablet 50 mg PO Q6H PRN pain #20 tabs 08/28/21 albuterol sulfate 90 mcg/actuation 2 puff inhalation Q4-6H PRN 09/24/21 aerosol inhaler (Ventolin HFA) shortness of breath or wheezing #8.5 grams doxycycline monohydrate 100 mg 100 mg PO BID #14 caps 08/22/22 capsule ibuprofen 600 mg tablet 600 mg PO TID PRN pain #30 tabs 08/22/22 mupirocin 2 % topical ointment 1 appl topical TID #22 grams 08/22/22 Allergies Allergy/AdvReac Type Severity Reaction Status Date / Time No Known Allergies Allergy Verified 09/24/21 11:44 [No Known Allergies*] Review of Systems Review of Systems: Yes all other systems are reviewed and are negative Constitutional: Constitutional: Reports no additional constitutional complaints, Denies body ache(s), Denies chills, Denies fever(s), Denies headache(s) and Denies weakness Eyes: Eyes: Reports no additional eye complaints and Denies change in vision ENT: Reports system reviewed and no additional complaints, except as documented, Denies dizziness, Denies headache(s), Denies nasal congestion, Denies nasal discharge and Denies neck pain Cardiovascular: Cardiovascular: Reports no additional cardiovascular complaints, Denies chest pain, Denies leg edema and Denies dyspnea Respiratory: Respiratory: Reports no additional respiratory complaints, Denies cough and Denies dyspnea Gastrointestinal: Gastrointestinal: Reports no additional gastrointestinal complaints, Denies abdominal pain, Denies diarrhea, Denies nausea and Denies vomiting Genitourinary: Genitourinary: Denies urinary incontinence Musculoskeletal: Musculoskeletal: Reports no additional musculoskeletal complaints, Denies back pain, Denies arthralgias, Denies joint swelling, Denies neck pain, Denies numbness and Denies tingling Integumentary/Breasts: Skin/Breast: Reports system reviewed and no additional complaints, except as docu, Denies rash and Reports wounds Neurologic: Reports system reviewed and no additional complaints, except as documented, Denies Abnormal speech present, Denies dizziness, Denies headache(s), Denies numbness, Denies tingling and Denies weakness [facility] Past Medical History Attestation statement: The following information was validated with the patient. Source: old records reviewed and nursing notes reviewed Medical History Anxiety Bipolar disorder Depression Hypertension Lymph edema Morbid obesity Obesity hypoventilation syndrome PTSD (post-traumatic stress disorder) Sleep apnea in adult Testicle pain Social History Social History Household Members: None Housing: House Housing Other:: motel Do you presently have visiting nurse or other home services: No Alcohol intake: never Patient Tobacco Use Status: Current someday Tobacco user Tobacco use type: Cigarette Cigarettes Per Day: 6 Smoked in Last 30 Days: No Second Hand Smoke Exposure: No Use of substances other than those prescribed or required for medical reasons: Yes Substance Use Type: Marijuana Substance Use Frequency: Occasionally Last Used Substance: Weeks (ago) Any prior treatment program specific to substance use: No Advance Directives: Yes Advance Directives on File: Yes Advance Directives Date on File: 06/27/21 service: No Current occupational status: unemployed Physical Exam Vital Signs: Vital Signs: Last Vital Signs Temp 97.9 F 08/22/22 11:44 Pulse 82 08/22/22 11:44 Resp 18 08/22/22 11:44 BP 156/86 H 08/22/22 11:44 Pulse Ox 98 08/22/22 11:44 O2 Del Method 08/22/22 11:44 BMI result Body Mass Index 1.0 Const: General: cooperative, healthy appearing, comfortable and no acute distress Nutritional Appearance: obese Orientation/consciousness: patient oriented x3 Limitations: no limitations HEENT: Head: Yes normal to inspection Ears: hearing grossly normal bilatera lly General nose exam: Normal external nose present Face and sinus: Yes normal facial exam Mouth: Normal oral and palatal mucosa present Throat: Yes posterior oropharynx normal Eyes: General: appearance normal, both eyes and all related structures Pupils: Equal, round and reactive pupils present Neck: Neck: Yes normal visual inspection Chest: Chest palpation & inspection: normal inspection of the chest Resp: Effort & Inspection: normal respiratory effort Auscultation: clear to auscultation bilaterally Cardio: Rate: regular rate Rhythm: regular rhythm Peripheral pulses: Peripheral pulses 2+ throughout GI: Inspection: Yes normal to inspection Palpation (GI): Soft to palpation and nontender Auscultation: normal bowel sounds Back/Spine/Pelvis: Thoracic/Lumbar Spine: thoracic and lumbar spine normal to inspection Skin: General skin exam: no rashes or lesions noted Neuro: General: patient oriented x3, no focal motor deficits and normal sensation to monofilament Cranial nerves: Yes Equal, round and reactive p upils present Cognition (Neuro): normal cognition Speech: No Abnormal speech present Gait exam (Neuro): Normal gait present Motor exam (neuro): 5/5 motor strength present throughout Extrem: Other: 3 wounds noted over the RLE. No palpable abscess/fluctuance/induration noted. There is mild TTP around the wound sites. Slight drainage from the anterior wound over the ankle. FROM of extremity. +swelling which patient tells me is his baseline. Appears similar to LLE. NO calf tenderness. NO warmth or redness noted. 2+ DP and PT pulses Course Course Course Narrative: X-ray shows no bony abnormality, subcutaneous air or gas. Lab work shows no leukocytosis or shift. Labs at baseline. There is 1 wound that has some slight drainage from the site. The others are dry. Will start patient on antibiotics. He does have a home care nurse that comes in and so I will write down some wound care instructions for home. Patient should return for any worrisome signs or symptoms. Comfortable plan for discharge home. MDM - Wound/Laceration MDM Narrative Medical decision making narrative: 37 yo male who is morbidly obese with multiple comorbidities that he is intermittently compliant with here with wounds to the RLE which he noticed several days ago. Overall patient non toxic VSS, afebrile. There are superficial wounds noted to the RLE with swelling which is equal to LLE and unchanged from baseline per patient. NO SOB/CP. Slight drainage from one of the 3 wounds. There does not appear to be any overwhelming cellulitis. Will check labs, x-ray. Treat patient with PPTX antibiotics, analgesia. He does have a home care nurse. He will likely need wound care at home. If wounds worsen may need to see wound care center. Medical Records Attestation: I reviewed the patient's medical records. Lab Data Attestation: I reviewed the patient's lab results. Result diagrams: 08/22/22 11:35 08/22/22 11:35 Labs: Lab Results 08/22/22 08/22/22 Range/Units 11:35 11:35 WBC 7.2 (4.8-10.8) X10*3/uL RBC 3.89 L (4.60-5.80) X10*6/uL Hgb 10.5 L (14.0-18.0) g/dl Hct 34.7 L (42.0-52.0) % MCV 89.2 (80.0-98.0) fL MCH 27.0 (27.0-33.0) pg MCHC 30.3 L (31.0-36.0) g/dl RDW 13.9 (11.0-16.0) % Plt Count 217 (160-400) X10*3/uL MPV 10.5 (9.4-12.4) fL Immature Gran % (Auto) 0.4 (0.0-0.4) % Neut % (Auto) 72.7 (45-73) % Lymph % (Auto) 13.3 L (20-40) % Christian % (Auto) 9.1 (2-11) % Eos % (Auto) 4.1 H (0-4) % Baso % (Auto) 0.4 (0-2) % Lymph # (Auto) 1.0 L (1.2-4.9) X10*3/uL Christian # (Auto) 0.7 (0.1-1.2) X10*3/uL Eos # (Auto) 0.3 (0.0-0.4) X10*3/uL Baso # (Auto) 0.0 (0.0-0.2) X10*3/uL Abs Immat Gran (auto) 0.03 (0.00-0.03) X10*3/uL Absolute Neuts (auto) 5.2 (2.0-8.3) x10*3/uL Absolute Nucleated RBC 0.000 (0.0-0.012) X10*3/uL Nucleated RBC % (auto) 0.0 (0.0-0.2) /100WBC Sodium 142 (135-145) mmol/L Potassium 3.6 (3.3-5.1) mmol/L Chloride 100 (96-108) mmol/L Carbon Dioxide 30 H (22-29) mmol/L Anion Gap 16 (12-20) BUN 19 H (9-16) mg/dL Creatinine 1.28 (0.5-1.4) mg/dL Estim Creat Clear Calc 279.0 Estimated GFR > 60 Random Glucose 143 H (60-115) mg/dL Calcium 8.6 (8.4-10.2) mg/dL Imaging Data tibia/fibula x-ray: Attestation: I personally reviewed and interpreted this imaging study as follows: Radiologist's impression: [address] [address] XRay Report Signed Patient: Pavel Perdomo MR#: [id number] : 1985 Acct:[id number] Age/Sex: 37 / M ADM Date: 08/22/22 Loc: HO.ED Attending Dr: Ordering Physician: Jenny Carr NP Date of Service: 08/22/22 Procedure(s): XR tibia fibula RT 2V Accession Number(s): [id number] cc: Jenny Carr NP~ EXAMINATION: XR TIBIA AND FIBULA, RIGHT CLINICAL INFORMATION: Leg bones.? COMPARISON: None? TECHNIQUE: AP and lateral views of the right tibia and fibula were obtained. FINDINGS: There is soft tissue lower leg edema with phleboliths. No periosteal thickening, erosive changes or bony abnormality. Small retrocalcaneal and calcaneal enthesophytes are seen.? XR/XR tibia fibula RT 2V IMPRESSION: Unremarkable right tibia and fibula. There is moderate right lower leg edema with several phleboliths. Discharge Plan Discharge Clinical Impression: Infected wound Patient Disposition: Home, Self-Care Instructions: Acute Wounds (ED) Additional Instructions: Keep wounds clean and covered Apply topical antibiotic ointment, non stick dressings and wraps over the right lower leg wounds. Your home care nurse can help you with this Return for fever, increasing redness/swelling of the legs Prescriptions: New doxycycline monohydrate 100 mg capsule 100 mg PO BID Qty: 14 0RF mupirocin 2 % ointment 1 appl topical TID Qty: 22 0RF ibuprofen 600 mg tablet 600 mg PO TID PRN (Reason: pain) Qty: 30 0RF No Action lamotrigine 25 mg tablet 50 mg PO BID nicotine (polacrilex) 2 mg Gum 2 mg buccal Q2H PRN (Reason: Nicotine Cravings) Qty: 50 0RF docusate sodium [Colace] 100 mg capsule 100 mg PO BID PRN (Reason: Constipation) Qty: 14 0RF polyethylene glycol 3350 [Miralax] 17 gram/dose powder 17 g PO DAILY Qty: 238 0RF hydralazine 50 mg Tablet 50 mg PO TID 30 Days Qty: 90 0RF Protocol: Hold for SBP< HOLD for SBP < : 90 furosemide [Lasix] 20 mg tablet 20 mg PO QAM Qty: 30 0RF bupropion HCl [Wellbutrin SR] 150 mg Tablet Sustained-Release 12 Hr 300 mg PO DAILY 30 Days Qty: 60 0RF amlodipine 10 mg tablet 10 mg PO DAILY Qty: 30 0RF metoprolol tartrate 50 mg tablet 50 mg PO BID Qty: 60 0RF albuterol sulfate 90 mcg/actuation HFA aerosol inhaler 1 inh inhalation QID PRN (Reason: shortness of breath or wheezing) Qty: 6.7 0RF lisinopril 40 mg tablet 40 mg PO DAILY Qty: 30 0RF duloxetine 30 mg capsule,delayed release(DR/EC) 30 mg PO DAILY 30 Days Qty: 30 0RF Prilosec 10 mg susp,delayed release for recon 20 mg PO DAILY Qty: 30 0RF (DME) ignacio Caballeroc See Rx Instructions .Route Qty: 1 0RF Rx Instructions: As directed tramadol 50 mg tablet 50 mg PO Q6H PRN (Reason: pain) Qty: 20 0RF albuterol sulfate [Ventolin HFA] 90 mcg/actuation HFA aerosol inhaler 2 puff inhalation Q4-6H PRN (Reason: shortness of breath or wheezing) Qty: 8.5 0RF Referrals: Bryanna Yang MD [Primary Care Provider] - 10 days (for persistent wounds see your PCP)
[2022-08-22 10:24] VITALS: BP 172/114; PULSE 95; O2SAT 95
[2022-08-22] MEDS: Ketorolac Tromethamine 60 MG/2 ML VIAL IM (11:19)
[2022-08-22 11:39] LABS: MANUAL DIFF FLAG NO
[2022-08-22 11:40] LABS: Basophils Percent Auto 0.4 % (0-2); Eosinophils Absolute Auto 0.3 X10*3/uL (0.0-0.4); Eosinophils Percent Auto 4.1 % (0-4); Hematocrit 34.7 % (42.0-52.0); Hemoglobin 10.5 g/dl (14.0-18.0); Imm Gran Abs Auto 0.03 X10*3/uL (0.00-0.03); Imm Gran Pct Auto 0.4 % (0.0-0.4); Lymphocytes Percent Auto 13.3 % (20-40); Mean Corpuscular HGB Conc 30.3 g/dl (31.0-36.0); Mean Corpuscular Volume 89.2 fL (80.0-98.0); Mean Platelet Volume 10.5 fL (9.4-12.4); Monocytes Absolute Auto 0.7 X10*3/uL (0.1-1.2); Monocytes Percent Auto 9.1 % (2-11); Neutrophils Absolute Auto 5.2 x10*3/uL (2.0-8.3); Neutrophils Percent Auto 72.7 % (45-73); Platelet Count 217 X10*3/uL (160-400); Red Blood Count 3.89 X10*6/uL (4.60-5.80); Red Cell Distribution Width 13.9 % (11.0-16.0); White Blood Count 7.2 X10*3/uL (4.8-10.8)
[2022-08-22 11:44] VITALS: BP 156/86; PULSE 82; RESP 18; TEMP 36.6; O2SAT 98
[2022-08-22 11:55] LABS: Anion Gap 16 (12-20); Blood Urea Nitrogen 19 mg/dL (9-16); Calcium 8.6 mg/dL (8.4-10.2); Carbon Dioxide 30 mmol/L (22-29); Chloride 100 mmol/L (96-108); Estimated Glomerular Filt Rate > 60; Glucose Random 143 mg/dL (60-115); Potassium 3.6 mmol/L (3.3-5.1); Sodium 142 mmol/L (135-145)
== END 2022-08-22 12:47 | disposition home or self-care (01) ==
PROVIDERS: Nurse Practitioner Family; Emergency Provider Emergency Medicine; PCP Family Medicine
DX: R60.0 Localized edema (principal); M79.604 Pain in right leg; F17.210 Nicotine dependence, cigarettes, uncomplicated; Z79.899 Other long term (current) drug therapy; Z71.6 Tobacco abuse counseling
CPT/HCPCS: 36415; 73590; 80048; 85025; 96372; 99284; J1885

== ENCOUNTER 2023-06-29 10:45 | Emergency (ER) | payer OTHER, SELFPAY ==
--- NOTE | 2023-06-29 10:50 | ED.GENADULT ---
HPI - General Adult General Stated complaint: WOOZEY S/P SMOKING MARIJUANA PER EMS Time Seen by Provider: 06/29/23 10:49 Source: patient and EMS Mode of arrival: EMS History of Present Illness HPI narrative: patient feels weird after smoking marijuana. Onset (ago): hour(s) Related Data Home Medications Medication Instructions Recorded Confirmed lamotrigine 25 mg tablet 50 mg PO BID 11/17/20 07/20/21 Previous Rx's Medication Instructions Recorded nicotine (polacrilex) 2 mg gum 2 mg buccal Q2H PRN Nicotine 06/04/21 Cravings #50 ea docusate sodium 100 mg capsule 100 mg PO BID PRN Constipation #14 06/05/21 (Colace) caps polyethylene glycol 3350 17 17 g PO DAILY Constipation #238 06/05/21 gram/dose oral powder (Miralax) grams albuterol sulfate 90 mcg/actuation 1 inh inhalation QID PRN shortness 07/22/21 aerosol inhaler of breath or wheezing #6.7 grams amlodipine 10 mg tablet 10 mg PO DAILY #30 tabs 07/22/21 bupropion HCl 150 mg tablet,12 hr 300 mg PO DAILY 30 days #60 tabs 07/22/21 sustained-release (Wellbutrin SR) duloxetine 30 mg capsule,delayed 30 mg PO DAILY 30 days #30 caps 07/22/21 release furosemide 20 mg tablet (Lasix) 20 mg PO QAM #30 tabs 07/22/21 hydralazine 50 mg tablet 50 mg PO TID 30 days #90 tabs 07/22/21 lisinopril 40 mg tablet 40 mg PO DAILY #30 tabs 07/22/21 metoprolol tartrate 50 mg tablet 50 mg PO BID #60 tabs 07/22/21 omeprazole magnesium 10 mg oral 20 mg PO DAILY #30 ea 07/22/21 suspension,delayed release (Prilosec) walker #1 ea 07/22/21 tramadol 50 mg tablet 50 mg PO Q6H PRN pain #20 tabs 08/28/21 albuterol sulfate 90 mcg/actuation 2 puff inhalation Q4-6H PRN 09/24/21 aerosol inhaler (Ventolin HFA) shortness of breath or wheezing #8.5 grams doxycycline monohydrate 100 mg 100 mg PO BID #14 caps 10/16/22 capsule ibuprofen 600 mg tablet 600 mg PO TID PRN pain #30 tabs 08/22/22 mupirocin 2 % topical ointment 1 appl topical TID #22 grams 08/22/22 Allergies Allergy/AdvReac Type Severity Reaction Status Date / Time No Known Allergies Allergy Verified 09/24/21 11:44 [No Known Allergies*] Review of Systems Review of Systems: Yes all other systems are reviewed and are negative [facility] Past Medical History Medical History Anxiety Bipolar disorder Depression Hypertension Lymph edema Morbid obesity Obesity hypoventilation syndrome PTSD (post-traumatic stress disorder) Sleep apnea in adult Testicle pain Social History Social History Household Members: None Housing: House Housing Other:: motel Do you presently have visiting nurse or other home services: No Alcohol intake: never Patient Tobacco Use Status: Current someday Tobacco user Tobacco use type: Cigarette Cigarettes Per Day: 6 Second Hand Smoke Exposure: No Substance Use Type: Marijuana Advance Directives Date on File: 06/27/21 service: No Current occupational status: unemployed Physical Exam ED Const Other: morbidly obese male Orientation/consciousness: oriented to person and patient oriented x3 Limitations: no limitations HENMT Head: Yes normal to inspection Ears: external ears normal General nose exam: Normal external nose present Mouth: Normal oral and palatal mucosa present and oropharynx normal Throat: Yes posterior oropharynx normal Eyes General: appearance normal, both eyes and all related structures Neck Neck: Yes normal visual inspection Chest Chest palpation & inspection: normal inspection of the chest Resp Auscultation: clear to auscultation bilaterally Cardio Jugular venous distension: no JVD Rate: regular rate Rhythm: regular rhythm Heart sounds: S1 normal heart sound present and S2 normal heart sound present GI Inspection: Yes normal to inspection Palpation (GI): Soft to palpation, nontender and No hepatosplenomegaly present Auscultation: normal bowel sounds General: Yes no CVA tenderness Back/Spine/Pelvis Back: no CVA tenderness Skin General skin exam: no rashes or lesions noted Neuro General: oriented to person and patient oriented x3 Cranial nerves: Yes CN's II-XII intact bilaterally Motor exam (neuro): 5/5 motor strength present throughout Extrem General: Yes normal to inspection Psych Other: patient wide awake despite pretending to sleep on EMS stretcher Course Reevaluation(s) Reevaluation #1: patient states that he feels better and will go home Time: 10:59 Medical Decision Making Differential Diagnosis Differential Diagnoses: The differential diagnosis associated with the presentation includes (marijuana abuse, polysubstance abuse, bipolar disorder) Tests considered The following testing was considered but not selected: I considered getting a POC glucose and a utox but patient is wide awake and wants to go home Chronic Conditions Patient?s care impacted by: Hypertension and Other Social Determinants Patient?s care significantly limited by Social Determinants of Health including: Inadequate housing, Low income and Other Social Determinant of Health (bipolar disorder) Discharge Plan Discharge Clinical Impression: Marijuana abuse Patient Disposition: Home, Self-Care Instructions: Cannabis Abuse (ED) Prescriptions: No Action lamotrigine 25 mg tablet 50 mg PO BID nicotine (polacrilex) 2 mg Gum 2 mg buccal Q2H PRN (Reason: Nicotine Cravings) Qty: 50 0RF docusate sodium [Colace] 100 mg capsule 100 mg PO BID PRN (Reason: Constipation) Qty: 14 0RF polyethylene glycol 3350 [Miralax] 17 gram/dose powder 17 g PO DAILY Qty: 238 0RF hydralazine 50 mg Tablet 50 mg PO TID 30 Days Qty: 90 0RF Protocol: Hold for SBP< HOLD for SBP < : 90 furosemide [Lasix] 20 mg tablet 20 mg PO QAM Qty: 30 0RF bupropion HCl [Wellbutrin SR] 150 mg Tablet Sustained-Release 12 Hr 300 mg PO DAILY 30 Days Qty: 60 0RF amlodipine 10 mg tablet 10 mg PO DAILY Qty: 30 0RF metoprolol tartrate 50 mg tablet 50 mg PO BID Qty: 60 0RF albuterol sulfate 90 mcg/actuation HFA aerosol inhaler 1 inh inhalation QID PRN (Reason: shortness of breath or wheezing) Qty: 6.7 0RF lisinopril 40 mg tablet 40 mg PO DAILY Qty: 30 0RF duloxetine 30 mg capsule,delayed release(DR/EC) 30 mg PO DAILY 30 Days Qty: 30 0RF Prilosec 10 mg susp,delayed release for recon 20 mg PO DAILY Qty: 30 0RF (EDEN Ferreira See Rx Instructions .Route Qty: 1 0RF Rx Instructions: As directed tramadol 50 mg tablet 50 mg PO Q6H PRN (Reason: pain) Qty: 20 0RF albuterol sulfate [Ventolin HFA] 90 mcg/actuation HFA aerosol inhaler 2 puff inhalation Q4-6H PRN (Reason: shortness of breath or wheezing) Qty: 8.5 0RF doxycycline monohydrate 100 mg capsule 100 mg PO BID Qty: 14 0RF mupirocin 2 % ointment 1 appl topical TID Qty: 22 0RF ibuprofen 600 mg tablet 600 mg PO TID PRN (Reason: pain) Qty: 30 0RF Referrals: Physician,Nonstaff [Physician] - 1 week
[2023-06-29 10:54] VITALS: BP 128/70; PULSE 78; O2SAT 92
[2023-06-29 11:02] VITALS: BMI 64.2
[2023-06-29 11:03] VITALS: RESP 16; BMI 77.5
--- NOTE | 2023-06-29 11:05 | PC.NURSE ---
PT AMB (I) GAIT STEADY THROUGH THE [facility] AFTER BEING SEEN BY EMS.
== END 2023-06-29 11:06 | disposition home or self-care (01) ==
PROVIDERS: Emergency Provider Emergency Medicine
DX: F12.150 Cannabis abuse with psychotic disorder with delusions (principal); Z79.899 Other long term (current) drug therapy
CPT/HCPCS: 99282

== ENCOUNTER 2023-07-12 00:15 | Emergency (ER) | payer OTHER, SELFPAY ==
[2023-07-12 00:20] VITALS: BP 126/45; PULSE 80; RESP 20; TEMP 36.6; O2SAT 92
[2023-07-12 00:23] VITALS: BP 126/45; PULSE 83; PULSE 98; RESP 20; TEMP 36.6; O2SAT 95; O2SAT 97; BMI 82.7
--- NOTE | 2023-07-12 00:28 | ED.EXTPRO ---
HPI - Extremity Problem General Chief complaint: Extremity Problem Stated complaint: foot pain Time Seen by Provider: 07/12/23 00:25 Source: patient Mode of arrival: EMS Limitations: no limitations History of Present Illness HPI Narrative: Patient is a 38-year-old male who presents to the emergency department via EMS with initial reports of bilateral leg pain and feeling ?woozy?. Upon my entering the room patient was found to be sleeping, arousable to verbal stimuli .When asked for further elaboration as to why is here patient reports feeling nauseous, with upper abdominal pain. Denies fevers, chills, chest pain, shortness of breath, vomiting, diarrhea, constipation. Related Data Home Medications Medication Instructions Recorded Confirmed lamotrigine 25 mg tablet 50 mg PO BID 11/17/20 07/20/21 Previous Rx's Medication Instructions Recorded nicotine (polacrilex) 2 mg gum 2 mg buccal Q2H PRN Nicotine 06/04/21 Cravings #50 ea docusate sodium 100 mg capsule 100 mg PO BID PRN Constipation #14 06/05/21 (Colace) caps polyethylene glycol 3350 17 17 g PO DAILY Constipation #238 06/05/21 gram/dose oral powder (Miralax) grams albuterol sulfate 90 mcg/actuation 1 inh inhalation QID PRN shortness 07/22/21 aerosol inhaler of breath or wheezing #6.7 grams amlodipine 10 mg tablet 10 mg PO DAILY #30 tabs 07/22/21 bupropion HCl 150 mg tablet,12 hr 300 mg PO DAILY 30 days #60 tabs 07/22/21 sustained-release (Wellbutrin SR) duloxetine 30 mg capsule,delayed 30 mg PO DAILY 30 days #30 caps 07/22/21 release furosemide 20 mg tablet (Lasix) 20 mg PO QAM #30 tabs 07/22/21 hydralazine 50 mg tablet 50 mg PO TID 30 days #90 tabs 07/22/21 lisinopril 40 mg tablet 40 mg PO DAILY #30 tabs 07/22/21 metoprolol tartrate 50 mg tablet 50 mg PO BID #60 tabs 07/22/21 omeprazole magnesium 10 mg oral 20 mg PO DAILY #30 ea 07/22/21 suspension,delayed release (Prilosec) walker #1 ea 07/22/21 tramadol 50 mg tablet 50 mg PO Q6H PRN pain #20 tabs 08/28/21 albuterol sulfate 90 mcg/actuation 2 puff inhalation Q4-6H PRN 09/24/21 aerosol inhaler (Ventolin HFA) shortness of breath or wheezing #8.5 grams doxycycline monohydrate 100 mg 100 mg PO BID #14 caps 08/22/22 capsule ibuprofen 600 mg tablet 600 mg PO TID PRN pain #30 tabs 08/22/22 mupirocin 2 % topical ointment 1 appl topical TID #22 grams 08/22/22 Allergies Allergy/AdvReac Type Severity Reaction Status Date / Time No Known Allergies Allergy Verified 09/24/21 11:44 [No Known Allergies*] Review of Systems Review of Systems: Yes all other systems are reviewed and are negative PMFSH Past Medical History Attestation statement: The following information was validated with the patient. Source: old records reviewed Medical History Anxiety Bipolar disorder Depression Hypertension Lymph edema Morbid obesity Obesity hypoventilation syndrome PTSD (post-traumatic stress disorder) Sleep apnea in adult Testicle pain Social History Social History Household Members: None Housing: House Housing Other:: motel Do you presently have visiting nurse or other home services: No Alcohol intake: former Patient Tobacco Use Status: Current someday Tobacco user Tobacco use type: Cigarette Cigarettes Per Day: 6 Smoked in Last 30 Days: No Second Hand Smoke Exposure: No Use of substances other than those prescribed or required for medical reasons: Yes Substance Use Type: Marijuana Advance Directives: Yes Advance Directives on File: Yes Advance Directives Date on File: 06/27/21 service: No Current occupational status: unemployed Physical Exam Vital Signs: Vital Signs: Last Vital Signs Temp 97.7 F 07/12/23 04:48 Pulse 80 07/12/23 04:48 Resp 20 07/12/23 04:48 BP 151/73 H 07/12/23 04:48 Pulse Ox 92 07/12/23 05:10 O2 Del Method Nasal Cannula 07/12/23 05:10 O2 Flow Rate 2 07/12/23 05:10 BMI result Body Mass Index 82.7 Appearance: Alert.?Oriented to person, place and time. No acute distress.?Normal affect. Eyes: Pupils equal, round and reactive to light.? ENT: Pharynx normal.?? Neck: Normal inspection.? Neck supple.?? CVS: Heart sounds normal. Normal heart rate and rhythm.? Pulses normal.?? Respiratory: No respiratory distress.? Lung sounds clear to auscultation bilaterally?? Abdomen: Soft with diffuse tenderness upon palpation. Normoactive bowel sounds. Skin: Skin warm and dry.? Normal skin color.? ? Extremities: 3+ bilateral lower extremity edema (chronic), lymphedema? No calf ttp? Neuro: Moves all extremities spontaneously. Sensation intact bilaterally. No focal neuro deficits. Course Reevaluation(s) Reevaluation #1: Patient signed out to Tunde Stout MD pending labs, COVID testing, and re-evaluation Time: 01:50 Medications Administered Discontinued Medications Generic Name Dose Route Start Last Admin Trade Name Freq PRN Reason Stop Dose Admin Acetaminophen 975 mg 07/12/23 01:07 07/12/23 02:17 Acetaminophen 325 Mg Tablet PO 07/12/23 01:08 975 mg ONCE ONE Administration Medical Decision Making Medical Decision Making MDM Narrative: Patient is a 38-year-old male with past medical history of morbid obesity, bipolar depression, REBECCA, lymphedema, PTSD, hypertension presenting with complaints of bilateral leg pain as well as nausea and abdominal pain. No calf tenderness upon palpation, bilateral lower extremities are neurovascularly intact distally, low suspicion for bilateral DVT, Wells score negative. Abdominal examination diffuse tenderness upon palpation, soft however with no rigidity or guarding. Less likely acute abdomen. Plan to obtain serum labs, COVID-19 testing, trial zofran for nausea and tylenol for pain. On re-evaluation patient is resting comfortably on supplemental oxygen which on review of his chart he is supposed to be using at night as well. I reviewed all investigations and hematologic indices are chronically stable without leukocytosis or left shift, stable normocytic anemia and no thrombocytopenia. Chemistry indices are grossly within normal limits with the exception of an BING, however comparison is 1 year ago and unclear if this is a CKD instead as patient does not appear to have significant potassium derangements and no evidence of metabolic acidosis. There have been no further episodes of nausea and vomiting and patient is otherwise discharged home. Differential Diagnosis Differential Diagnoses: The differential diagnosis associated with the presentation includes (Gastritis, viral syndrome, cholecystitis, cholelithiasis, pancreatitis) Admission/Observation Consideration of admission/observation: Escalation of care including admission/observation considered Lab Data 07/12/23 01:49 07/12/23 01:49 Labs: Lab Results 07/12/23 07/12/23 07/12/23 Range/Units 01:35 01:49 01:49 WBC 6.5 (4.8-10.8) X10*3/uL RBC 3.54 L (4.60-5.80) X10*6/uL Hgb 9.9 L (14.0-18.0) g/dl Hct 32.0 L (42.0-52.0) % MCV 90.4 (80.0-98.0) fL MCH 28.0 (27.0-33.0) pg MCHC 30.9 L (31.0-36.0) g/dl RDW 14.2 (11.0-16.0) % Plt Count 209 (160-400) X10*3/uL MPV 10.8 (9.4-12.4) fL Immature Gran % (Auto) 0.2 (0.0-0.4) % Neut % (Auto) 66.3 (45-73) % Lymph % (Auto) 16.3 L (20-40) % [place] % (Auto) 9.7 (2-11) % Eos % (Auto) 7.2 H (0-4) % Baso % (Auto) 0.3 (0-2) % Lymph # (Auto) 1.1 L (1.2-4.9) X10*3/uL [place] # (Auto) 0.6 (0.1-1.2) X10*3/uL Eos # (Auto) 0.5 H (0.0-0.4) X10*3/uL Baso # (Auto) 0.0 (0.0-0.2) X10*3/uL Abs Immat Gran (auto) 0.01 (0.00-0.03) X10*3/uL Absolute Neuts (auto) 4.3 (2.0-8.3) x10*3/uL Absolute Nucleated RBC 0.000 (0.0-0.012) X10*3/uL Nucleated RBC % (auto) 0.0 (0.0-0.2) /100WBC Sodium 140 (135-145) mmol/L Potassium 4.4 D (3.3-5.1) mmol/L Chloride 103 (96-108) mmol/L Carbon Dioxide 28 (22-29) mmol/L Anion Gap 13 (12-20) BUN 33 H (9-16) mg/dL Creatinine 2.16 H (0.5-1.4) mg/dL Estim Creat Clear Calc 102.1 Estimated GFR 35 POC Glucose (60-115) mg/dL Random Glucose 106 (60-115) mg/dL Calcium 9.2 D (8.4-10.2) mg/dL Magnesium 2.0 (1.6-2.6) mg/dL Total Bilirubin 0.5 (0.0-1.0) mg/dL AST 20 (5-37) U/L ALT 20 (0-40) U/L Alkaline Phosphatase 80 (39-117) U/L B-Natriuretic Peptide (<100) pg/mL Total Protein 8.0 (6.5-8.0) g/dL Albumin 3.9 (3.5-5.0) g/dL Lipase 29 (8-78) U/L COVID-19 ([facility]) Negative (Negative) COVID-19 Clin Com See Note 07/12/23 07/12/23 Range/Units 01:49 01:51 WBC (4.8-10.8) X10*3/uL RBC (4.60-5.80) X10*6/uL Hgb (14.0-18.0) g/dl Hct (42.0-52.0) % MCV (80.0-98.0) fL MCH (27.0-33.0) pg MCHC (31.0-36.0) g/dl RDW (11.0-16.0) % Plt Count (160-400) X10*3/uL MPV (9.4-12.4) fL Immature Gran % (Auto) (0.0-0.4) % Neut % (Auto) (45-73) % Lymph % (Auto) (20-40) % [place] % (Auto) (2-11) % Eos % (Auto) (0-4) % Baso % (Auto) (0-2) % Lymph # (Auto) (1.2-4.9) X10*3/uL [place] # (Auto) (0.1-1.2) X10*3/uL Eos # (Auto) (0.0-0.4) X10*3/uL Baso # (Auto) (0.0-0.2) X10*3/uL Abs Immat Gran (auto) (0.00-0.03) X10*3/uL Absolute Neuts (auto) (2.0-8.3) x10*3/uL Absolute Nucleated RBC (0.0-0.012) X10*3/uL Nucleated RBC % (auto) (0.0-0.2) /100WBC Sodium (135-145) mmol/L Potassium (3.3-5.1) mmol/L Chloride (96-108) mmol/L Carbon Dioxide (22-29) mmol/L Anion Gap (12-20) BUN (9-16) mg/dL Creatinine (0.5-1.4) mg/dL Estim Creat Clear Calc Estimated GFR POC Glucose 100 (60-115) mg/dL Random Glucose (60-115) mg/dL Calcium (8.4-10.2) mg/dL Magnesium (1.6-2.6) mg/dL Total Bilirubin (0.0-1.0) mg/dL AST (5-37) U/L ALT (0-40) U/L Alkaline Phosphatase (39-117) U/L B-Natriuretic Peptide < 10 (<100) pg/mL Total Protein (6.5-8.0) g/dL Albumin (3.5-5.0) g/dL Lipase (8-78) U/L COVID-19 ([facility]) (Negative) COVID-19 Clin Com Discharge Plan Discharge Clinical Impression: Bilateral leg pain, Nausea Patient Disposition: Home, Self-Care Instructions: Leg Pain (ED) Additional Instructions: 1. Resume all home medications as prescribed. Return to the ER for any worsening symptoms. Prescriptions: No Action lamotrigine 25 mg tablet 50 mg PO BID nicotine (polacrilex) 2 mg Gum 2 mg buccal Q2H PRN (Reason: Nicotine Cravings) Qty: 50 0RF docusate sodium [Colace] 100 mg capsule 100 mg PO BID PRN (Reason: Constipation) Qty: 14 0RF polyethylene glycol 3350 [Miralax] 17 gram/dose powder 17 g PO DAILY Qty: 238 0RF hydralazine 50 mg Tablet 50 mg PO TID 30 Days Qty: 90 0RF Protocol: Hold for SBP< HOLD for SBP < : 90 furosemide [Lasix] 20 mg tablet 20 mg PO QAM Qty: 30 0RF bupropion HCl [Wellbutrin SR] 150 mg Tablet Sustained-Release 12 Hr 300 mg PO DAILY 30 Days Qty: 60 0RF amlodipine 10 mg tablet 10 mg PO DAILY Qty: 30 0RF metoprolol tartrate 50 mg tablet 50 mg PO BID Qty: 60 0RF albuterol sulfate 90 mcg/actuation HFA aerosol inhaler 1 inh inhalation QID PRN (Reason: shortness of breath or wheezing) Qty: 6.7 0RF lisinopril 40 mg tablet 40 mg PO DAILY Qty: 30 0RF duloxetine 30 mg capsule,delayed release(DR/EC) 30 mg PO DAILY 30 Days Qty: 30 0RF Prilosec 10 mg susp,delayed release for recon 20 mg PO DAILY Qty: 30 0RF (DME) walker Misc See Rx Instructions .Route Qty: 1 0RF Rx Instructions: As directed tramadol 50 mg tablet 50 mg PO Q6H PRN (Reason: pain) Qty: 20 0RF albuterol sulfate [Ventolin HFA] 90 mcg/actuation HFA aerosol inhaler 2 puff inhalation Q4-6H PRN (Reason: shortness of breath or wheezing) Qty: 8.5 0RF doxycycline monohydrate 100 mg capsule 100 mg PO BID Qty: 14 0RF mupirocin 2 % ointment 1 appl topical TID Qty: 22 0RF ibuprofen 600 mg tablet 600 mg PO TID PRN (Reason: pain) Qty: 30 0RF
[2023-07-12 01:54] LABS: MANUAL DIFF FLAG NO
[2023-07-12 01:55] LABS: COVID-19 Test Negative (Negative); IDNOW Serial# 08D9AD1C
[2023-07-12 01:55] LABS: Basophils Percent Auto 0.3 % (0-2); Eosinophils Absolute Auto 0.5 X10*3/uL (0.0-0.4); Eosinophils Percent Auto 7.2 % (0-4); Hemoglobin 9.9 g/dl (14.0-18.0); Imm Gran Abs Auto 0.01 X10*3/uL (0.00-0.03); Imm Gran Pct Auto 0.2 % (0.0-0.4); Lymphocytes Absolute Auto 1.1 X10*3/uL (1.2-4.9); Lymphocytes Percent Auto 16.3 % (20-40); Mean Corpuscular HGB Conc 30.9 g/dl (31.0-36.0); Mean Corpuscular Volume 90.4 fL (80.0-98.0); Mean Platelet Volume 10.8 fL (9.4-12.4); Monocytes Absolute Auto 0.6 X10*3/uL (0.1-1.2); Monocytes Percent Auto 9.7 % (2-11); Neutrophils Absolute Auto 4.3 x10*3/uL (2.0-8.3); Neutrophils Percent Auto 66.3 % (45-73); Platelet Count 209 X10*3/uL (160-400); Red Blood Count 3.54 X10*6/uL (4.60-5.80); Red Cell Distribution Width 14.2 % (11.0-16.0); White Blood Count 6.5 X10*3/uL (4.8-10.8)
[2023-07-12 01:56] LABS: Glucose, Whole Blood 100 mg/dL (60-115)
[2023-07-12 02:14] LABS: Alanine Aminotransferase 20 U/L (0-40); Albumin Level 3.9 g/dL (3.5-5.0); Alkaline Phosphatase 80 U/L (39-117); Anion Gap 13 (12-20); Aspartate Amino Transferase 20 U/L (5-37); Bilirubin Total 0.5 mg/dL (0.0-1.0); Blood Urea Nitrogen 33 mg/dL (9-16); Calcium 9.2 mg/dL (8.4-10.2); Carbon Dioxide 28 mmol/L (22-29); Chloride 103 mmol/L (96-108); Creatinine Clr Calc Pharmacy 102.1; Estimated Glomerular Filt Rate 35; Glucose Random 106 mg/dL (60-115); Lipase 29 U/L (8-78); Potassium 4.4 mmol/L (3.3-5.1); Sodium 140 mmol/L (135-145)
[2023-07-12] MEDS: Acetaminophen 325 MG TABLET 975 MG PO (02:17)
[2023-07-12 02:32] LABS: B Type Natriuretic Peptide < 10 pg/mL (<100)
[2023-07-12 04:48] VITALS: BP 151/73; PULSE 80; RESP 20; TEMP 36.5; O2SAT 72
[2023-07-12 05:02] VITALS: O2SAT 89
[2023-07-12 05:10] VITALS: O2SAT 92
[2023-07-12 05:56] VITALS: BP 167/77; PULSE 75; RESP 21; O2SAT 98
[2023-07-12 06:04] LABS: Glucose, Whole Blood 122 mg/dL (60-115)
--- NOTE | 2023-07-12 06:12 | PC.NURSE ---
Reviewed discharge instruction with pt, pt verbalized understanding, Security assisting at discharge.
== END 2023-07-12 06:27 | disposition home or self-care (01) ==
PROVIDERS: Nurse Practitioner Family; Emergency Provider Student in an Organized Health Care Education/Training Program
DX: M79.604 Pain in right leg (principal); M79.605 Pain in left leg; R06.02 Shortness of breath; R11.2 Nausea with vomiting, unspecified; Z20.822 Contact with and (suspected) exposure to COVID-19; Z20.828 Contact with and (suspected) exposure to other viral communicable diseases; Z79.899 Other long term (current) drug therapy
CPT/HCPCS: 36415; 80053; 82947; 83690; 83735; 83880; 85025; 87635; 99283; 99284

== ENCOUNTER 2024-03-20 16:23 | Emergency (ER) | payer OTHER, SELFPAY ==
[2024-03-20] VITALS (14 sets, daily range): BP systolic 140–178; BP diastolic 90–100; PULSE 70–91; RESP 14–26; TEMP 36.6–36.7; O2SAT 56–100; BMI 91.2
--- NOTE | ~2024-03-20 | XR_ITS ---
EXAMINATION: XR KNEE, LEFT CLINICAL INFORMATION: Pain. COMPARISON: Left knee August 04, 2021 TECHNIQUE: Two views of the left knee. FINDINGS: The medial femoral tibial joint is narrowed with near [id number] contact. There is wide splaying open of the lateral femoral tibial joint measuring about 2.5 cm. This raises question of soft tissue injury of the lateral side of the joint. MRI could be helpful for follow-up. There are small degenerative spurs of the lateral femoral condyle. Small degenerative spur of the patella superiorly at the patellofemoral joint. XR/XR knee LT 2V IMPRESSION: 1. Degenerative joint disease of knee. 2. Widening of the lateral femoral tibial joint raising question of soft tissue injury. MRI could be helpful for follow-up.
--- NOTE | ~2024-03-20 | XR_ITS ---
EXAMINATION: XR CHEST CLINICAL INFORMATION: Shortness of breath. COMPARISON: Chest radiograph dated 09/28/2021. TECHNIQUE: Frontal view of the chest was obtained. FINDINGS: The examination is markedly limited secondary to low lung volumes. The cardiac silhouette appears moderately enlarged. There is no consolidation within either lung. There is accentuation of the pulmonary vasculature which may be related to poor inspiration. There is no large pleural effusion. No pneumothorax. No acute osseous abnormality. XR/XR chest 1V IMPRESSION: Limited examination related to low lung volumes. There is moderate cardiomegaly and accentuation of the pulmonary vasculature which although could be related to poor inspiration, some degree of pulmonary congestion cannot be excluded.
--- NOTE | ~2024-03-20 | XR_ITS ---
EXAMINATION: XR ANKLE, LEFT CLINICAL INFORMATION: Pain COMPARISON: 11/07/2020 TECHNIQUE: 2 views of the left ankle. FINDINGS: Obese body habitus. The talar dome is well-positioned within the intact ankle mortise. An old well-corticated focus of ossification projects distal to the tip of the medial malleolus. Also, an old small calcific density is seen within soft tissues anterior to the ankle. There is no evidence of acute fracture or subluxation. No overt ankle joint effusion. Small calcaneal enthesophytes are present at sites of attachment of the Achilles tendon and plantar aponeurosis. Small dorsal osteophytes are present at the talonavicular joint. Also, dorsal osteophytes are seen at the navicular-cuneiform and second tarsometatarsal joint. No acute findings. XR/XR ankle LT 2V IMPRESSION: * No acute osseous injury at the left ankle. * Chronic osteophyte formation (osteoarthrosis) at the talonavicular, navicular-cuneiform and tarsal-metatarsal joints.
--- NOTE | ~2024-03-20 | US_ITS ---
EXAMINATION: US VENOUS ULTRASOUND WITH DOPPLER LOWER EXTREMITY, BILATERAL CLINICAL INFORMATION: Hypoxic. Pain. COMPARISON: Examination dated 07/20/2021. TECHNIQUE: Ultrasound of the deep veins is performed from the hip to the calf with compression sonography and color and pulse Doppler assessment. Spectral analysis with color-flow imaging is performed. FINDINGS: RIGHT: Evaluation is limited on the right as the distal femoral vein and peroneal vein were not visualized secondary to body habitus. The visualized common femoral vein, superficial femoral vein, profunda femoral vein, popliteal vein, and the trifurcation region shows no evidence of deep venous thrombosis. There is no significant popliteal fossa cyst. There is a 3.4 cm right groin lymph node. LEFT: Evaluation is limited on the left as the distal left femoral vein, left popliteal vein, left peroneal vein, and left posterior tibial vein were not visualized secondary to patient's body habitus. The visualized left lower extremity veins demonstrate no evidence of DVT. There is no significant popliteal fossa cyst. There is a 4.5 cm left groin lymph node. If the patient's symptoms persist, followup ultrasound in 5 days 7 days might be of value to exclude proximal propagation from a non-visualized calf vein. US/US venous duplex LE BI IMPRESSION: No DVT demonstrated in the bilateral lower extremities. Please note, this examination is markedly limited, particularly on the left as many of the lower extremity veins could not be visualized secondary to patient's body habitus.
--- NOTE | 2024-03-20 17:17 | PC.NURSE ---
Dr. Mcmillan at bedside. Pt falling asleep throughout triage, difficult to get the story of what occurred today prior to arrival. Denies drug or alcohol use. Was outside on a curb in [place] . Self reports severe sleep apnea at baseline and trouble sleeping. Pt dropped to 56% on 3LPM via nasal cannula. Simple face mask applied at 15LPM per MD & RT instructions, with improvement. Oxygen saturation now 98% on 15lpm via face mask. Placed on nuclear monitoring technician. Thigh BP cuff in place to left lower forearm.
--- NOTE | 2024-03-20 17:24 | ECG_ITS ---
Test Reason : WEAKNESS Blood Pressure : / mmHG Vent. Rate : 074 BPM Atrial Rate : 074 BPM P-R Int : 174 ms QRS Dur : 084 ms QT Int : 386 ms P-R-T Axes : 057 052 105 degrees QTc Int : 428 ms Normal sinus rhythm with sinus arrhythmia Nonspecific T wave abnormality Abnormal ECG When compared with ECG of 28-AUG-2021 10:41, Nonspecific T wave abnormality now evident in Inferior leads Referred By: Lita Mcmillan Electronically Signed By:PHAN ROBERT MD
--- NOTE | 2024-03-20 17:37 | ED_ITS ---
HPI - General Adult General Chief complaint: General Medical Stated complaint: GENERAL WEAKNESS Time Seen by Provider: 03/20/24 17:05 Source: patient and EMS Mode of arrival: other Limitations: other (Somnolent) History of Present Illness HPI narrative: Patient comes to the emergency room via ambulance. According to EMS staff, patient was found ?sun bathing on the street. When in a bystander approached the patient to ask if he was okay, it was very difficult to wake him up. EMS was called. Patient states that he did not fall, patient complaining of left ankle and left knee pain, states it has been hurting for a few days but does not recall hurting himself in any way. Patient intermittently falling asleep, difficult to get a whole story. Patient denies any illnesses lately, denies using drugs or alcohol. Patient states that overall he feels very sleepy, does not remember when his symptoms started, states maybe a few days ago . Patient denies chest pain or shortness of breath. Occasionally, patient yells and cries out saying that he feels uncomfortable, saying that his knee hurts. Related Data Home Medications ?Medication ?Instructions ?Recorded ?Confirmed bupropion HCl 300 mg 24 hr tablet, 300 mg PO DAILY 03/20/24 03/20/24 extended release escitalopram oxalate 20 mg tablet 30 mg PO DAILY 03/20/24 03/20/24 furosemide 80 mg tablet 80 mg PO BID 03/20/24 03/20/24 lurasidone 40 mg tablet 40 mg PO DAILY 03/20/24 03/20/24 metoprolol succinate 25 mg 25 mg PO DAILY 03/20/24 03/20/24 tablet,extended release 24 hr semaglutide 0.25 mg or 0.5 mg (2 0.5 mg subcut Q7D 03/20/24 03/20/24 mg/3 mL) subcutaneous pen injector (Ozempic) spironolactone 50 mg tablet 50 mg PO DAILY 03/20/24 03/20/24 Previous Rx's ?Medication ?Instructions ?Recorded amlodipine 10 mg tablet 10 mg PO DAILY #30 tabs 07/22/21 lisinopril 40 mg tablet 40 mg PO DAILY #30 tabs 07/22/21 walker #1 ea 07/22/21 albuterol sulfate 90 mcg/actuation 2 puff inhalation Q4-6H PRN 09/24/21 aerosol inhaler (Ventolin HFA) shortness of breath or wheezing #8.5 grams Allergies Allergy/AdvReac Type Severity Reaction Status Date / Time No Known Allergies Allergy Verified 03/20/24 17:05 [No Known Allergies*] Review of Systems 2 Review of Systems: Constitutional : No Weight loss, No Fever, No Chills, No Night Sweats, complaining of fatigue and somnolence ENT/Mouth : No Hearing loss, No Ear Pain, No Nasal Congestion, No Sinus Pain, No Hoarseness, No sore throat, No Rhinorrhea, No Swallowing Difficulty Eyes: No Eye Pain, No Swelling, No Redness, No Foreign Body, No Discharge, No Vision Changes Cardiovascular : No Chest Pain, No SOB, No Dyspnea on Exertion, No Orthopnea, No Edema, No Palpitations Respiratory : No Cough, No Sputum, No Wheezing, No Smoke Exposure, No Dyspnea Gastrointestinal : No Nausea, No Vomiting, No Diarrhea, No Constipation, No abdominal Pain, No Hematochezia, No Melena Genitourinary : no irregular bleeding, No Dysuria, No Urinary Frequency, No Hematuria, No Urinary Incontinence, No Urgency, No Flank Pain, No Urinary Flow Changes, No Hesitancy Musculoskeletal : Complaining of left knee pain and left ankle pain Skin : No Skin Lesions, No rash Neuro : No Weakness, No Numbness, No Paresthesias, No Loss of Consciousness, No Dizziness, No Headache Psych : No Anxiety/Panic, No Depression, No SI/HI/AH/VH, No Social Issues, Heme/Lymph: No Bruising, No Bleeding,No Lymphadenopathy Endocrine : No Polyuria, No Polydipsia, No Temperature Intolerance [facility] Past Medical History Medical History Obesity hypoventilation syndrome Morbid obesity PTSD (post-traumatic stress disorder) Bipolar disorder Testicle pain Depression Anxiety Sleep apnea in adult Lymph edema Hypertension Social History Social History Household Members: None Housing: House Housing Other:: motel Do you presently have visiting nurse or other home services: No Alcohol intake: former Patient Tobacco Use Status: Current someday Tobacco user Tobacco use type: Cigarette Cigarettes Per Day: 6 Smoked in Last 30 Days: No Second Hand Smoke Exposure: No Use of substances other than those prescribed or required for medical reasons: No Substance Use Type: Marijuana Advance Directives: Yes Advance Directives on File: Yes Advance Directives Date on File: 06/27/21 Do you have a plan to hurt others: No Plan service: No Current occupational status: unemployed Physical Exam ED Vital Signs: Vital Signs - 24 hr 03/20/24 16:58 03/20/24 17:16 03/20/24 18:27 Temperature 97.8 F Pulse Rate 91 90 Respiratory Rate 26 H 23 H Blood Pressure 141/93 H 168/92 H Pulse Oximetry 94 56 L 97 Oxygen Delivery Method Nasal Cannula Nasal Cannula Oxymask Oxygen Flow Rate 3 10 03/20/24 19:30 03/20/24 19:42 03/20/24 20:00 Temperature 98.1 F Pulse Rate 81 77 Respiratory Rate 22 H 18 Blood Pressure 173/94 H Pulse Oximetry 75 L 100 80 L Oxygen Delivery Method Oxymask Oxymask Oxymask Oxygen Flow Rate 10 10 03/20/24 20:04 03/20/24 20:55 03/20/24 22:21 Temperature Pulse Rate 88 86 Respiratory Rate 22 H 14 Blood Pressure 178/90 H 161/91 H Pulse Oximetry 98 100 100 Oxygen Delivery Method Oxymask Oxymask Oxymask Oxygen Flow Rate 15 15 15 03/20/24 22:38 03/20/24 22:44 03/20/24 23:05 Temperature Pulse Rate 70 Respiratory Rate 16 14 14 Blood Pressure 155/94 H Pulse Oximetry 98 Oxygen Delivery Method BiPAP Oxygen Flow Rate 03/20/24 23:07 03/20/24 23:07 03/21/24 01:55 Temperature Pulse Rate 67 Respiratory Rate 20 20 Blood Pressure 150/88 H Pulse Oximetry 99 97 Oxygen Delivery Method BiPAP BiPAP Oxygen Flow Rate BMI result Body Mass Index 91.2 Const Other: Appearance: Alert. somnolent, wakes up to name. Falls rapidly Back asleep. Able to answer questions intermittently, needs to be encouraged to open his eye and talk to us. Morbidly obese Eyes: Pupils equal, round and reactive to light. Bilateral injected conjunctiva ENT: Pharynx normal. Neck: Normal inspection. Neck supple. No lymph nodes noted. No crepitus CVS: Normal heart rate and rhythm. Pulses normal. Normal S1 and S2 Respiratory: No respiratory distress. No wheezing, no crackles. However, patient's oxygen saturation drops to the mid 50s with good platform on 3 L. Abdomen: Soft and nontender. No rigidity. No distention. Skin: Skin warm and dry. Normal skin color. Normal skin turgor. Extremities: Chronic lymphedema bilaterally Neuro: Moving all extremities. No slurred speech. CN 2 through 12 grossly intact Psych: calm, cooperative Course Course Course Narrative: -patient very somnolent, even while awake, patient's oxygen saturation dropped to the 55% on 3 L with good bad form. Initially, patient need on a non- rebreather 15 L, oxygen improved to 95%. Patient was gradually weaned down on an OxyMask, currently at 10 L saturating 95%. -all of patient's labs pending -I discussed the patient with Radiology, patient weighs 650 lb, patient weight exceeds the maximum weight, we will not be able to do any scans. Also, patient can not tolerate laying on his side, therefore a V/Q scan not be possible. -from a recent similar experience in calling multiple hospitals in the state of [place] and [place], the maximum weight for CT scanners is 650 -patient's lower extremities currently being ultrasound to rule out DVT Medications Administered Discontinued Medications Generic Name Dose Route Start Last Admin Trade Name Wisamq PRN Reason Stop Dose Admin Acetaminophen 975 mg 03/20/24 21:53 03/20/24 22:13 Acetaminophen 325 Mg Tablet PO 03/20/24 21:54 975 mg ONCE ONE Administration Medical Decision Making Medical Decision Making [facility] Narrative: -when patient is awake, patient's oxygen saturation remains above 90%. However as soon as patient falls asleep, patient significantly becomes hypoxic, oxygen saturation drops down to 55% on 3 L, when patient is asked to wake up and take big breaths, oxygen saturation improved back to the 90s. Even on 10 L of OxyMask, patient's oxygen saturation dropped to 77%, once again, only when sleeping. When patient wakes up, his oxygen immediately improved to the high 90s. -patient's D-dimer 661, in the past, patient has had elevated D-dimers, ranging between 880 and 2319, this D-dimer is the lowest that patient has had -my interpretation of labs: PCO2 in the 70s. However, bicarb mph within normal limits. This is a chronic process. -chest x-ray: Limited due to low lung volumes. -ultrasound of lower extremities: No obvious DVT. However, the study is limited due to patient's body habitus. -discussed with the hospitalist and case management that the patient's oxygen saturation drops only when the patient falls asleep. Patient needs a CPAP machine which she does not have, patient will need an evaluation from respiratory. However, this needs to be done in an inpatient setting, patient discussed with Dr. Miller -patient is supposed to use CPAP at home, however patient is noncompliant. -I discussed the patient with our construction engineering manager team, patient could potentially go to the floor. At this time, patient is 50%/50% whether he will be okay on the floor. However, if patient does decompensate overnight, there are no ICU beds available. -I discussed the patient with Dr. Miller our hospitalist, who does not feel comfortable admitting the patient. -patient is awake, alert, a bit confused. Initially, patient refused to wear CPAP. After convincing the patient, patient agreed to wear CPAP. Due to patient's body habitus, we switched to BiPAP, current settings FiO2 21%, -current vitals oxygen saturation 98%, heart rate 73, blood pressure 155/97, respiratory rate 20. -patient's GCS is 11(eye response +2, verbal response +4, motor response +5) -I asked the patient if he would be willing to be transferred to [place], discussed with the patient that no ICU beds, patient agreeable with plan. -patient's labs are at baseline, mild chronic anemia with a hemoglobin of 10.2, hematocrit 35.1, normal chemistry with a bicarb of 31, normal BNP, normal troponin. -the reason that patient is on BiPAP is for sleep apnea. When patient is fully awake and alert, patient's oxygen saturation is in the low 90s on room air. -however, patient keeps falling asleep, therefore we have them on OxyMask and then switched to BiPAP as mentioned above. -arterial blood gas: PH 7.31, pCO2 71, PO2 95, oxygen saturation 98%, bicarb 36, patient is on 21% FiO2 on BiPAP -we do not have a step-down unit, it is either ICU which we do not have beds or floor -after a prolonged discussion with our hospitalist and construction engineering manager, it would be best to transfer the patient. -I discussed the patient with ICU attending [facility] in [place]. There is a concern that the patient may have a head injury since patient was found sitting down on the street by the curve. -discussed with [place] transfer center and with the ICU attending that the patient reported that he did not fall and we have asked him multiple times throughout his ED stay. Patient is adamant that he did not have any trauma. -I took the patient off of BiPAP, patient awake, alert and oriented x3, GCS of 14, patient is adamant that he did not fall and did not have any trauma. Patient states that he feels most comfortable lying down or sitting on the floor. -however, the [place] transfer team/hospitalist would like a CT scan. -unfortunately, patient does not fit in any of our scanners. -I discussed the body dimensions with [place] transfer, patient weighs 297 kg/654 lb, patient has a girth of 75 in, shoulder to shoulder 29 in, hip to hip 31 in. Unfortunately, it seems that he will not fit any of the scanners in [place] either. -we repeated an arterial blood gas. Patient's pH is now 7.37, pCO2 is 61 (which is patient's baseline from previous blood gases), PO2 75, bicarb 35, patient remains in the same BiPAP settings, with an FiO2 of 21%. -after the transfer center spoke with the accepting physician at [place] ED, it was determined that it is very low chance that patient is actually a trauma patient, and patient was accepted to [place], ED to ED. As mentioned above, patient reassured us multiple times that he did not fall. -patient was accepted to the ED in [facility] in [place], accepting physician Dr. Lockwood -I woke up the patient, discussed that he will be transferred to [facility], patient agreeable. -I discussed with the transfer center, that the patient has severe PTSD. When patient gets woken up, patient becomes severely startle, ribs his BiPAP of, starts screaming and throwing punches for a few seconds. Once patient is reassured that he is in the hospital/ambulance and reassured, patient calms down immediaterly and apologizes, and puts the bipap mask on again. -our radiology team try uploading the images to the [employer] system. -a CD was burned with the patient's imaging. Will be traveling with the patient -current vitals: Blood pressure 150/88, heart rate 67, respirations 20, temperature 98.1 degrees, oxygen saturation 97% on BiPAP with an FiO2 of 21% -EMS has been called, transferred pending, sign-out given to my colleague Dr. Crews Differential Diagnosis Differential Diagnoses: The differential diagnosis associated with the presentation includes Admission/Observation Consideration of admission/observation: Escalation of care including admission/observation considered Consult Healthcare Provider Management of the patient was discussed with: Hospitalist Lab Data [facility] Lab Attestation statement: I reviewed the patient's lab results. 03/20/24 18:33 03/20/24 18:32 Labs: Lab Results 03/20/24 03/20/24 03/20/24 Range/Units 18:30 18:31 18:32 WBC (4.8-10.8) X10*3/uL RBC (4.60-5.80) X10*6/uL Hgb (14.0-18.0) g/dl Hct (42.0-52.0) % MCV (80.0-98.0) fL MCH (27.0-33.0) pg MCHC (31.0-36.0) g/dl RDW (11.0-16.0) % Plt Count (160-400) X10*3/uL MPV (9.4-12.4) fL Immature Gran % (Auto) (0.0-0.4) % Neut % (Auto) (45-73) % Lymph % (Auto) (20-40) % Mohave % (Auto) (2-11) % Eos % (Auto) (0-4) % Baso % (Auto) (0-2) % Lymph # (Auto) (1.2-4.9) X10*3/uL [place] # (Auto) (0.1-1.2) X10*3/uL Eos # (Auto) (0.0-0.4) X10*3/uL Baso # (Auto) (0.0-0.2) X10*3/uL Abs Immat Gran (auto) (0.00-0.03) X10*3/uL Absolute Neuts (auto) (2.0-8.3) x10*3/uL Absolute Nucleated RBC (0.0-0.012) X10*3/uL Nucleated RBC % (auto) (0.0-0.2) /100WBC PT 12.5 (11.1-13.3) SEC INR 1.0 (0.9-1.1) D-Dimer High Sensitivty NG/ML O2 Saturation % ABG pH at Pt Temp (7.35-7.45) ABG pCO2 at Pt Temp (32-45) mmHg ABG pO2 at Pt Temp (83-108) mmHg ABG HCO3 (22-26) mmol/L ABG Base Excess (Actual) mmol/L VBG pH (7.32-7.43) VBG pCO2 mmHg VBG pO2 mmHg VBG HCO3 (22-26) mmol/L VBG O2 Saturation % VBG Base Excess mmol/L Sodium 144 (135-145) mmol/L Potassium 4.1 (3.3-5.1) mmol/L Chloride 103 (96-108) mmol/L Carbon Dioxide 31 H (22-29) mmol/L Anion Gap 14 (12-20) BUN 12 (9-16) mg/dL Creatinine 0.96 (0.5-1.4) mg/dL Estim Creat Clear Calc 246.4 Estimated GFR > 60 Random Glucose 115 (60-115) mg/dL Lactic Acid 0.9 (0.5-2.0) mmol/L Calcium 8.6 D (8.4-10.2) mg/dL Magnesium 2.0 (1.6-2.6) mg/dL Total Bilirubin 0.4 (0.0-1.0) mg/dL Direct Bilirubin 0.1 (0.0-0.5) mg/dL AST 20 (5-37) U/L ALT 17 (0-40) U/L Alkaline Phosphatase 71 (39-117) U/L Ammonia 50 (13-55) umol/L Troponin I High Sens 8.7 (<3.5-35.0) ng/L B-Natriuretic Peptide (<100) pg/mL Total Protein 7.7 (6.5-8.0) g/dL Albumin 3.8 (3.5-5.0) g/dL Ethyl Alcohol < 10 mg/dL COVID-19 (BAMBI) Negative (Negative) COVID-19 Clin Com See Note Influenza Type A (MICHEAL) Negative (Negative) Influenza Type B (MICHEAL) Negative (Negative) Influenza A & B Note See Note 03/20/24 03/20/24 03/20/24 Range/Units 18:33 18:34 18:38 WBC 6.8 (4.8-10.8) X10*3/uL RBC 3.77 L (4.60-5.80) X10*6/uL Hgb 10.2 L (14.0-18.0) g/dl Hct 35.1 L (42.0-52.0) % MCV 93.1 (80.0-98.0) fL MCH 27.1 (27.0-33.0) pg MCHC 29.1 L (31.0-36.0) g/dl RDW 14.6 (11.0-16.0) % Plt Count 214 (160-400) X10*3/uL MPV 11.3 (9.4-12.4) fL Immature Gran % (Auto) 0.4 (0.0-0.4) % Neut % (Auto) 69.6 (45-73) % Lymph % (Auto) 14.1 L (20-40) % Mohave % (Auto) 9.5 (2-11) % Eos % (Auto) 6.1 H (0-4) % Baso % (Auto) 0.3 (0-2) % Lymph # (Auto) 1.0 L (1.2-4.9) X10*3/uL [place] # (Auto) 0.7 (0.1-1.2) X10*3/uL Eos # (Auto) 0.4 (0.0-0.4) X10*3/uL Baso # (Auto) 0.0 (0.0-0.2) X10*3/uL Abs Immat Gran (auto) 0.03 (0.00-0.03) X10*3/uL Absolute Neuts (auto) 4.8 (2.0-8.3) x10*3/uL Absolute Nucleated RBC 0.000 (0.0-0.012) X10*3/uL Nucleated RBC % (auto) 0.0 (0.0-0.2) /100WBC PT (11.1-13.3) SEC INR (0.9-1.1) D-Dimer High Sensitivty 661 NG/ML O2 Saturation % ABG pH at Pt Temp (7.35-7.45) ABG pCO2 at Pt Temp (32-45) mmHg ABG pO2 at Pt Temp (83-108) mmHg ABG HCO3 (22-26) mmol/L ABG Base Excess (Actual) mmol/L VBG pH 7.33 (7.32-7.43) VBG pCO2 72 mmHg VBG pO2 98 mmHg VBG HCO3 38 H (22-26) mmol/L VBG O2 Saturation 100.0 % VBG Base Excess 9.9 mmol/L Sodium (135-145) mmol/L Potassium (3.3-5.1) mmol/L Chloride (96-108) mmol/L Carbon Dioxide (22-29) mmol/L Anion Gap (12-20) BUN (9-16) mg/dL Creatinine (0.5-1.4) mg/dL Estim Creat Clear Calc Estimated GFR Random Glucose (60-115) mg/dL Lactic Acid (0.5-2.0) mmol/L Calcium (8.4-10.2) mg/dL Magnesium (1.6-2.6) mg/dL Total Bilirubin (0.0-1.0) mg/dL Direct Bilirubin (0.0-0.5) mg/dL AST (5-37) U/L ALT (0-40) U/L Alkaline Phosphatase (39-117) U/L Ammonia (13-55) umol/L Troponin I High Sens (<3.5-35.0) ng/L B-Natriuretic Peptide 42 (<100) pg/mL Total Protein (6.5-8.0) g/dL Albumin (3.5-5.0) g/dL Ethyl Alcohol mg/dL COVID-19 (BAMBI) (Negative) COVID-19 Clin Com Influenza Type A (MICHEAL) (Negative) Influenza Type B (MICHEAL) (Negative) Influenza A & B Note 03/20/24 03/21/24 Range/Units 22:53 01:32 WBC (4.8-10.8) X10*3/uL RBC (4.60-5.80) X10*6/uL Hgb (14.0-18.0) g/dl Hct (42.0-52.0) % MCV (80.0-98.0) fL MCH (27.0-33.0) pg MCHC (31.0-36.0) g/dl RDW (11.0-16.0) % Plt Count (160-400) X10*3/uL MPV (9.4-12.4) fL Immature Gran % (Auto) (0.0-0.4) % Neut % (Auto) (45-73) % Lymph % (Auto) (20-40) % Mohave % (Auto) (2-11) % Eos % (Auto) (0-4) % Baso % (Auto) (0-2) % Lymph # (Auto) (1.2-4.9) X10*3/uL [place] # (Auto) (0.1-1.2) X10*3/uL Eos # (Auto) (0.0-0.4) X10*3/uL Baso # (Auto) (0.0-0.2) X10*3/uL Abs Immat Gran (auto) (0.00-0.03) X10*3/uL Absolute Neuts (auto) (2.0-8.3) x10*3/uL Absolute Nucleated RBC (0.0-0.012) X10*3/uL Nucleated RBC % (auto) (0.0-0.2) /100WBC PT (11.1-13.3) SEC INR (0.9-1.1) D-Dimer High Sensitivty NG/ML O2 Saturation 98.0 95.0 % ABG pH at Pt Temp 7.31 L 7.37 (7.35-7.45) ABG pCO2 at Pt Temp 71 H* 61 H* (32-45) mmHg ABG pO2 at Pt Temp 95 75 L (83-108) mmHg ABG HCO3 36 H 35 H (22-26) mmol/L ABG Base Excess (Actual) 8.3 8.6 mmol/L VBG pH (7.32-7.43) VBG pCO2 mmHg VBG pO2 mmHg VBG HCO3 (22-26) mmol/L VBG O2 Saturation % VBG Base Excess mmol/L Sodium (135-145) mmol/L Potassium (3.3-5.1) mmol/L Chloride (96-108) mmol/L Carbon Dioxide (22-29) mmol/L Anion Gap (12-20) BUN (9-16) mg/dL Creatinine (0.5-1.4) mg/dL Estim Creat Clear Calc Estimated GFR Random Glucose (60-115) mg/dL Lactic Acid (0.5-2.0) mmol/L Calcium (8.4-10.2) mg/dL Magnesium (1.6-2.6) mg/dL Total Bilirubin (0.0-1.0) mg/dL Direct Bilirubin (0.0-0.5) mg/dL AST (5-37) U/L ALT (0-40) U/L Alkaline Phosphatase (39-117) U/L Ammonia (13-55) umol/L Troponin I High Sens (<3.5-35.0) ng/L B-Natriuretic Peptide (<100) pg/mL Total Protein (6.5-8.0) g/dL Albumin (3.5-5.0) g/dL Ethyl Alcohol mg/dL COVID-19 (BAMBI) (Negative) COVID-19 Clin Com Influenza Type A (MICHEAL) (Negative) Influenza Type B (MICHEAL) (Negative) Influenza A & B Note Independent Interpretation I performed an independent interpretation of an: Plain X-Ray and Ultrasound Radiology Impression Discussion of test interpretation with radiology: I have reviewed the radiologist's reading. Radiologist Impression: IMPRESSION: No DVT demonstrated in the bilateral lower extremities. Please note, this examination is markedly limited, particularly on the left as many of the lower extremity veins could not be visualized secondary to patient's body habitus * No acute osseous injury at the left ankle. * Chronic osteophyte formation (osteoarthrosis) at the talonavicular, navicular-cuneiform and tarsal-metatarsal joints IMPRESSION: 1. Degenerative joint disease of knee. 2. Widening of the lateral femoral tibial joint raising question of soft tissue injury. MRI could be helpful for follow-up. IMPRESSION: Limited examination related to low lung volumes. There is moderate cardiomegaly and accentuation of the pulmonary vasculature which although could be related to poor inspiration, some degree of pulmonary congestion cannot be excluded. Independent Historian Clinical information obtained from an independent historian. History obtained from or confirmed by: EMS Critical Care Time Critical Care Time Critical Care Time: Yes Total Critical Care Time: 240 Attestation: I have personally provided critical care time. Time includes review of lab data, radiology results, discussion with consultants, and monitoring for potential decompensation. Intervention performed as documented. Discharge Plan Discharge Clinical Impression: Sleep apnea, Acute respiratory failure with hypercapnia Patient Disposition: General Acute Hospital Transfer Details: ED to ED, [facility] in [place], accepting physician Dr. Lockwood Prescriptions: No Action amlodipine 10 mg tablet 10 mg PO DAILY Qty: 30 0RF lisinopril 40 mg tablet 40 mg PO DAILY Qty: 30 0RF (DME) ignacio Misc See Rx Instructions .Route Qty: 1 0RF Rx Instructions: As directed albuterol sulfate [Ventolin HFA] 90 mcg/actuation HFA aerosol inhaler 2 puff inhalation Q4-6H PRN (Reason: shortness of breath or wheezing) Qty: 8.5 0RF furosemide 80 mg tablet 80 mg PO BID metoprolol succinate 25 mg tablet extended release 24 hr 25 mg PO DAILY escitalopram oxalate 20 mg tablet 30 mg PO DAILY lurasidone 40 mg tablet 40 mg PO DAILY Ozempic 0.25 mg or 0.5 mg (2 mg/3 mL) pen injector 0.5 mg subcut Q7D spironolactone 50 mg tablet 50 mg PO DAILY bupropion HCl 300 mg tablet extended release 24 hr 300 mg PO DAILY Print Language: Faroese
--- NOTE | 2024-03-20 17:50 | PC.NURSE ---
Oxygen flowing via simple face mask, titrated down to 10 LPM, tolerating well, as ordered by Dr. Mcmillan.
--- NOTE | 2024-03-20 18:08 | PC.NURSE ---
Ultrasound being obtained at this time. Dr. Mcmillan aware. Plan to obtain IV access & labs upon completion of ultrasound.
[2024-03-20 18:43] LABS: MANUAL DIFF FLAG NO
[2024-03-20 18:49] LABS: Basophils Percent Auto 0.3 % (0-2); Eosinophils Absolute Auto 0.4 X10*3/uL (0.0-0.4); Eosinophils Percent Auto 6.1 % (0-4); Hematocrit 35.1 % (42.0-52.0); Hemoglobin 10.2 g/dl (14.0-18.0); Imm Gran Abs Auto 0.03 X10*3/uL (0.00-0.03); Imm Gran Pct Auto 0.4 % (0.0-0.4); Lymphocytes Percent Auto 14.1 % (20-40); Mean Corpuscular HGB Conc 29.1 g/dl (31.0-36.0); Mean Corpuscular Hemoglobin 27.1 pg (27.0-33.0); Mean Corpuscular Volume 93.1 fL (80.0-98.0); Mean Platelet Volume 11.3 fL (9.4-12.4); Monocytes Absolute Auto 0.7 X10*3/uL (0.1-1.2); Monocytes Percent Auto 9.5 % (2-11); Neutrophils Absolute Auto 4.8 x10*3/uL (2.0-8.3); Neutrophils Percent Auto 69.6 % (45-73); Platelet Count 214 X10*3/uL (160-400); Red Blood Count 3.77 X10*6/uL (4.60-5.80); Red Cell Distribution Width 14.6 % (11.0-16.0); White Blood Count 6.8 X10*3/uL (4.8-10.8)
[2024-03-20 18:51] LABS: Ammonia 50 umol/L (13-55)
[2024-03-20 18:53] LABS: VBG Base Excess 9.9 mmol/L; VBG HCO3 38 mmol/L (22-26); VBG pCO2 72 mmHg; VBG pH 7.33 (7.32-7.43); VBG pO2 98 mmHg
[2024-03-20 18:54] LABS: Venous Blood Gas Refer to POC result
[2024-03-20 18:55] LABS: Lactic Acid 0.9 mmol/L (0.5-2.0)
[2024-03-20 18:57] LABS: Prothrombin Time 12.5 SEC (11.1-13.3)
[2024-03-20 18:58] LABS: D Dimer High Sensitivity 661 NG/ML
[2024-03-20 18:59] LABS: Ethanol < 10 mg/dL
[2024-03-20 19:04] LABS: B Type Natriuretic Peptide 42 pg/mL (<100)
[2024-03-20 19:05] LABS: Troponin-I High Sensitivity 8.7 ng/L (<3.5-35.0)
[2024-03-20 19:06] LABS: COVID-19 Test Negative (Negative); IDNOW Serial# 08D9AD1C; IDNOW Serial# 152EDE1D; Influenza A Negative (Negative); Influenza B2 Negative (Negative)
[2024-03-20 19:07] LABS: Alanine Aminotransferase 17 U/L (0-40); Albumin Level 3.8 g/dL (3.5-5.0); Alkaline Phosphatase 71 U/L (39-117); Anion Gap 14 (12-20); Aspartate Amino Transferase 20 U/L (5-37); Bilirubin Direct 0.1 mg/dL (0.0-0.5); Bilirubin Total 0.4 mg/dL (0.0-1.0); Blood Urea Nitrogen 12 mg/dL (9-16); Calcium 8.6 mg/dL (8.4-10.2); Carbon Dioxide 31 mmol/L (22-29); Chloride 103 mmol/L (96-108); Creatinine Clr Calc Pharmacy 246.4; Estimated Glomerular Filt Rate > 60; Glucose Random 115 mg/dL (60-115); Potassium 4.1 mmol/L (3.3-5.1); Sodium 144 mmol/L (135-145); Total Protein 7.7 g/dL (6.5-8.0)
--- NOTE | 2024-03-20 20:05 | PC.NURSE ---
pt desatted to 80% on 10L via oxymask - pt's O2 increased to 15L via oxymask - now resting at 98%. dr. diaz notified/aware.
--- NOTE | 2024-03-20 20:21 | PHA.MEDREC ---
Pharmacy Consult ? Medication Reconciliation Pharmacy has completed the medication reconciliation. Unable to speak with patient. Med rec completed via claim history. Will leave note for AM pharmacist to try to speak with patient or contact PCP Dr. Yang.
--- NOTE | 2024-03-20 21:25 | PC.NURSE ---
pt currently remains on 15L via oxymask - resting at 100%. slightly hypertensive. otherwise vss. nsr on the cyber security architect. pt positioned upright to promote patent air. wob/loud snoring noted while pt is asleep. upon entering room - pt becomes extremely startled/disoriented. reassurance provided to pt where he then falls back asleep while conversating. respirations even and labored. per dr. diaz, plan is to admit pt. pt in bariatric bed - markus lift in place.plan of care ongoing. call eckert placed within reach.
--- NOTE | 2024-03-20 21:53 | PC.RT ---
RT called to assess patient due to desaturation while sleeping, found pt on 15LOxymask w/ SPO2 100%. Pt refusing to wear CPAP, RT mentioned HFNC to MD, stated that HFNC is not warranted at this time, pt Refusing to wear CPAP or face mask or nocturnal sleeping. Pt is homeless with no home unit. RN and MD are aware pt is refusing further interventions.
--- NOTE | 2024-03-20 21:55 | PC.NURSE ---
RT bedside assessing - pt refusing to wear CPAP at this time. Dr. Mcmillan notified/aware. plan of care ongoing.
[2024-03-20] MEDS: Acetaminophen 325 MG TABLET 975 MG PO (22:13)
--- NOTE | 2024-03-20 22:23 | PC.NURSE ---
c/o UMAÑA - medication administered per provider order. effectiveness pending. pt repositioned to comfort.
--- NOTE | 2024-03-20 22:49 | PC.NURSE ---
placed on bipap 25/5 rer strategy lead order. RT obtaining ABG.
[2024-03-20 23:01] LABS: ABG Base Excess 8.3 mmol/L; ABG HCO3 36 mmol/L (22-26); ABG pCO2 71 mmHg (32-45); ABG pH 7.31 (7.35-7.45); ABG pO2 95 mmHg (83-108)
[2024-03-20 23:05] LABS: ABG Refer to POC result
--- NOTE | 2024-03-20 23:07 | PC.NURSE ---
ICU provider bedside/adjusting BIPAP settings d/t recent ABG results. plan of care ongoing.
--- NOTE | 2024-03-20 23:45 | MHC.EDTECH ---
Facesheet faxed over @[phone] to [facility] @[phone]
[2024-03-21 01:32] VITALS: O2SAT 96
[2024-03-21 01:40] LABS: ABG Base Excess 8.6 mmol/L; ABG HCO3 35 mmol/L (22-26); ABG pCO2 61 mmHg (32-45); ABG pH 7.37 (7.35-7.45); ABG pO2 75 mmHg (83-108)
[2024-03-21 01:55] VITALS: BP 150/88; PULSE 67; RESP 20; O2SAT 97
[2024-03-21 01:55] LABS: ABG Refer to POC result
--- NOTE | 2024-03-21 01:56 | PC.NURSE ---
Pt aox3 resting at the bedside. Easily arousable. VSS. Pt is on Bipap 25/10 with o2 sat 97%. MD at bedside making pt aware of plan of care to be transferred to [facility]. Pt is agreeable with plan. Monitoring is ongoing.
[2024-03-21 03:34] VITALS: RESP 20; O2SAT 97
--- NOTE | 2024-03-21 04:09 | PC.NURSE ---
Report provided to [facility] as pt is being transferred to their ED dept.
[2024-03-21 04:11] VITALS: BP 150/88; PULSE 67; RESP 20; TEMP 36.6; O2SAT 97
== END 2024-03-21 04:13 | disposition short-term general hospital (02) ==
PROVIDERS: Emergency Provider Emergency Medicine
DX: J96.02 Acute respiratory failure with hypercapnia (principal); R40.0 Somnolence; G47.30 Sleep apnea, unspecified; M25.562 Pain in left knee; M25.572 Pain in left ankle and joints of left foot; I10 Essential (primary) hypertension
CPT/HCPCS: 36415; 71045; 73560; 73600; 80048; 80076; 80307; 82140; 82803; 83605; 83735; 83880; 84484; 85025; 85379; 85610; 87040; 87502; 87635; 93005; 93970; 99285

== ENCOUNTER → 2024-03-20 17:24 | Outpatient (BNV) | payer OTHER, SELFPAY | PROVIDERS: Emergency Provider Emergency Medicine; Visit Provider Internal Medicine Cardiovascular Disease | DX: R94.31 Abnormal electrocardiogram [ECG] [EKG] (principal) | CPT/HCPCS: 93010 ==

== ENCOUNTER 2024-04-11 23:59 | Outpatient (BNV) | payer OTHER, SELFPAY | END 2024-04-12 23:59 | PROVIDERS: Visit Provider Internal Medicine | DX: I50.23 Acute on chronic systolic (congestive) heart failure (principal) | CPT/HCPCS: 99223 ==